=== PATIENT | male | born 1945 | race Caucasian/White ===

== ENCOUNTER → 2016-10-25 | Outpatient (CLI) | payer MEDICARE ==
[2016-10-25 16:37] LABS: CH 33.9; CHCM 33.6; HCT 45.2 % (39.0-53.0); HDW 2.93; HGB 14.7 gm/dL (13.0-17.5); MCH 32.9 pg (25.0-35.0); MCHC 32.5 g/dL (31.0-37.0); MCV 101.2 fL (80.0-100.0); Macrocytosis Slight; Mean Platelet Volume 7.8; RBC 4.46 m/uL (4.30-5.90); RDW 14.3 % (11.5-15.5)
[2016-10-25 16:50] LABS: Anion Gap 11 mmol/L; Blood Urea Nitrogen 21 mg/dL (9-20); Carbon Dioxide 29 mmol/L (22-30); Chloride 104 mmol/L (98-107); Non-African American GFR(MDRD) >60 (>60 ml/min/1.73 sqM); Potassium 4.2 mmol/L (3.5-5.1); Sodium 144 mmol/L (137-145)
== END | disposition home or self-care (01) ==
LOC: LABPAT 16:08
PROVIDERS: ATTEND Internal Medicine Interventional Cardiology
DX: Z01.812 Encounter for preprocedural laboratory examination (principal); R07.9 Chest pain, unspecified
CPT/HCPCS: 80051; 82565; 84520; 85027

== ENCOUNTER 2016-11-01 06:28 | Day surgery (SDC) | payer MEDICARE ==
[2016-10-27 14:08] VITALS: BMI 29.8
[~2016-11-01 06:28] MED LIST: ALPRAZolam 0.25 MG TAB PO PRN; ASPIRIN 325 MG TAB PO ONE; NITROGLYCERIN SL TABS 0.4 MG TAB SUBLINGUAL PRN; SODIUM CHLORIDE 0.9% 1,000 ML in EMPTY BAG 1 BAG IV ONE
[2016-11-01 06:51] VITALS: RESP 20; TEMP 98.3
[2016-11-01] MEDS ORDERED: IV FLUID CONTINUATION 1,000 ML IV ONE (07:19)
[2016-11-01] MEDS ORDERED: VERAPAMIL 2.5 MG/ML 2 ML AMP ONE (07:26)
[2016-11-01] MEDS ORDERED: SODIUM CHLORIDE 0.9% (PF) 10 ML VIAL ONE (07:26)
[2016-11-01] MEDS ORDERED: LIDOCAINE 2% INJ 20 MG/ML (20 ML MDV) ONE (07:26)
[2016-11-01] MEDS ORDERED: diphenhydrAMINE 50 MG/ML 1 ML VIAL ONE (07:27)
[2016-11-01] MEDS ORDERED: fentaNYL (PF) 50 MCG/ML 2 ML AMP ONE (07:27)
[2016-11-01] MEDS ORDERED: fentaNYL (PF) 50 MCG/ML 2 ML AMP IV ONE (07:33)
[2016-11-01] MEDS ORDERED: diphenhydrAMINE 50 MG/ML 1 ML VIAL IVP ONE (07:35)
[2016-11-01] MEDS ORDERED: LIDOCAINE 2% INJ 20 MG/ML SQ ONE (07:40)
[2016-11-01] MEDS ORDERED: VERAPAMIL SYRINGE (5 MG/10 ML) INTRAARTER ONE (07:51)
[2016-11-01] MEDS ORDERED: HEPARIN SODIUM 1,000 UNIT/ML VIAL ONE (07:56)
[2016-11-01] MEDS ORDERED: HEPARIN SODIUM 1,000 UNIT/ML VIAL IV ONE (07:57)
[2016-11-01] MEDS ORDERED: IOHEXOL 350 MG/ML 100 ML BOTTLE INJ ONE (08:03)
[2016-11-01] MEDS ORDERED: RX INFO: IV CONTRAST WAS GIVEN 1 EACH MISC MISCELLANE PRN (08:16)
[2016-11-01] MEDS ORDERED: CERTOLIZUMAB PEGOL 400 MG SQ SCH (08:30)
[2016-11-01] MEDS ORDERED: SODIUM CHLORIDE 0.9% 1,000 ML IV SCH (08:30)
[2016-11-01 10:53] VITALS: PULSE 66
[2016-11-01 10:57] VITALS: BP 133/79
[2016-11-01] MEDS ORDERED: MELOXICAM 7.5 MG TAB PO SCH (13:15)
[2016-11-01] MEDS ORDERED: FOLIC ACID 1 MG TAB PO SCH (13:15)
[2016-11-01] MEDS ORDERED: ASPIRIN 81 MG CHEW PO SCH (13:15)
[2016-11-01] MEDS ORDERED: VALSARTAN 160 MG TAB PO SCH (13:15)
[2016-11-01] MEDS ORDERED: METHOTREXATE SODIUM 2.5 MG TAB PO SCH (13:15)
[2016-11-01] MEDS ORDERED: GABAPENTIN 300 MG CAP PO SCH (15:00)
--- NOTE | 2016-11-01 17:44 | CC ---
DATE OF SERVICE: Mr. Newsome is a 71-year-old male with known history of hypertension, hyperlipidemia, who presented with occasional episodes of chest discomfort. He had a stress test that revealed lateral wall ischemia. In view of that, recommendation was made regarding cardiac catheterization. The procedure as well as the risks and complications were discussed with the patient, who was in full understanding and agreement. PROCEDURE: Patient was brought to the vat house laborer in a fasting, semi-sedated state after receiving fentanyl and Benadryl. He was draped and prepped in conventional fashion. Using Xylocaine anesthesia and Seldinger technique, a 6 Togolese sheath was introduced in the right radial artery. Selective right and left coronary angiography was performed using 5 Togolese 3-1/2 Bend right and left Juan Jose catheters. Multiple views were taken of the arteries, including hemiaxial views that were obtained. Following that, a 5 Togolese tight pigtail catheter was introduced in the left ventricle and a 30-degree ARELLANO view of the left ventricle was obtained. Following that, catheter and sheaths were removed. Hemostasis was obtained with deployment of a TR band. There were no immediate complications. Patient was returned to his room in stable condition. Of note, patient received 5000 units of intravenous heparin as well as intra-arterial Verapamil. FINDINGS FLUOROSCOPY: There is significant calcification involving all the coronary arteries. LEFT MAIN: This is a large-sized vessel bifurcating into left circumflex, left anterior descending artery. Left main coronary artery has no evidence of high-grade stenosis. LEFT ANTERIOR DESCENDING ARTERY: This is a large-sized vessel reaching toward the apex with a wrap around the apex segment giving rise to a proximal, moderately sized diagonal branch. The takeoff of the diagonal branch has a 50% plaque. The LAD beyond the diagonal branch has a 20% to 30% plaque. The rest of the vessel has no high-grade stenosis. LEFT CIRCUMFLEX: This is a non-dominant vessel, moderate in caliber, giving rise to an obtuse marginal branch. The left circumflex has mild intimal disease proximally of 20%. The rest of the vessel has no high-grade stenosis. RIGHT CORONARY ARTERY: This is a large dominant vessel bifurcating into PDA and posterolateral segment and branches, tortuous in the proximal segment. The right PDA has a plaque of about 20% to 30%. The rest of the vessel has no high-grade stenosis. LEFT VENTRICULOGRAM: Left ventriculogram was performed in 30-degree ARELLANO view and revealed normal left ventricular size and systolic function. Ejection fraction is 60%. There was no significant mitral regurgitation. HEMODYNAMICS: There was no gradient across the aortic valve. The left ventricular end-diastolic pressure was 16 mmHg. CONCLUSION: 1. Calcified coronary arteries. 2. Mild disease in the RCA and the left circumflex with mild to moderate disease in the LAD and the diagonal branch. 3. Normal left ventricular size and systolic function. RECOMMENDATION: In view of findings and anatomy, I recommended maximizing medical therapy with aggressive coronary risk modifications. Those findings and recommendations were discussed with the patient and his family. They are in full understanding and agreement.
--- NOTE | 2016-11-01 17:46 | LTR ---
November 01, 2016 RE: Florin Newsome Dear Dr. Erwin, I had the pleasure of performing cardiac catheterization on Mr. Newsome at [facility] on November 01, and a full copy of the procedure will be forwarded to you. In brief, he was found to have mild to moderate coronary artery disease with calcified coronary arteries and preserved left ventricular systolic function. Based on those findings, I have recommended continued medical therapy with the aggressive risk factor modifications you have initiated. Thank you again for allowing me to participate in his care. Please feel free to call with any questions. Sincerely, GABINO ANNE MD
[2016-11-01] MEDS ORDERED: ATORVASTATIN 40 MG TAB PO SCH (21:00)
[2016-11-01] MEDS ORDERED: LATANOPROST 0.005% OPHTH DROPS 2.5 ML BTL BOTH EYES SCH (21:00)
[2016-11-02] MEDS ORDERED: CHOLECALCIFEROL 1,000 UNIT TAB PO SCH (12:00)
== END 2016-11-01 14:34 | disposition home or self-care (01) ==
LOC: CATHCVL 06:28
PROVIDERS: ATTEND Internal Medicine Interventional Cardiology
DX: I25.10 Atherosclerotic heart disease of native coronary artery without angina pectoris (principal); R94.39 Abnormal result of other cardiovascular function study; R07.89 Other chest pain; I10 Essential (primary) hypertension; E78.2 Mixed hyperlipidemia; E78.00 Pure hypercholesterolemia, unspecified; M06.9 Rheumatoid arthritis, unspecified; Z82.49 Family history of ischemic heart disease and other diseases of the circulatory system; Z87.891 Personal history of nicotine dependence; Z79.82 Long term (current) use of aspirin; Z79.899 Other long term (current) drug therapy
CPT/HCPCS: 93458; C1894; C1769; J2001; J1200; Q9967; J3010; J1644

== ENCOUNTER → 2018-06-18 | Outpatient (CLI) | payer MEDICARE ==
--- NOTE | 2018-06-18 08:21 | CT ---
EXAMINATION TYPE: CT sinus wo con DATE OF EXAM: 06/18/2018 COMPARISON: None HISTORY: Recurrent sinus infection CT DLP: 569.1 mGycm. Automated Exposure Control for Dose Reduction was Utilized. TECHNIQUE: CT scan of the sinuses is performed without contrast, axial images are obtained, coronal r eformatted images are also reviewed. FINDINGS: There is mild mucosal thickening involving the frontal, ethmoidal, sphenoidal, and maxillar y sinuses. No air-fluid levels. There is a nasal septal deviation. The ostiomeatal complex is patent bilaterally on the coronal image s. Visualized portion of mastoid air cells show no abnormal opacification. The globes are intact bilate rally. IMPRESSION: 1. Mild changes of chronic sinusitis.
== END | disposition home or self-care (01) ==
LOC: RADCTMAIN 07:57
PROVIDERS: ATTEND Otolaryngology
DX: J32.9 Chronic sinusitis, unspecified (principal)
CPT/HCPCS: 70486

== ENCOUNTER → 2019-01-14 | Outpatient (CLI) | payer MEDICARE ==
--- NOTE | 2019-01-15 09:08 | XR ---
EXAMINATION TYPE: XR chest 2V DATE OF EXAM: 01/14/2019 COMPARISON: NONE TECHNIQUE: PA and lateral views submitted. HISTORY: Cough FINDINGS: The lungs are clear and there is no pneumothorax, pleural effusion, or focal pneumonia. Hypertrophi c change of the spine. Mild prominence of the upper mediastinum likely related to ectatic vasculature . Biapical pleural thickening. Arthropathy of the shoulders. IMPRESSION: 1. No acute process. If symptoms persist consider CT scan.
== END | disposition home or self-care (01) ==
LOC: RADXRMAIN 15:44
PROVIDERS: ATTEND Internal Medicine
DX: R05 Cough (principal)
CPT/HCPCS: 71046

== ENCOUNTER → 2019-07-24 | Day surgery (SDC) | payer MEDICARE ==
[2019-07-19 13:03] VITALS: BMI 28.5
[~2019-07-24] MED LIST changes: -ALPRAZolam 0.25 MG TAB PO PRN; -ASPIRIN 325 MG TAB PO ONE; +IOPAMIDOL-300 100ML BTL INJ ONE; +IOPAMIDOL-370 100ML BTL INJ ONE; +LIDOCAINE 1% INJ 10MG/ML (20 ML MDV) SQ ONE; +MIDAZOLAM 2 MG/2 ML VIAL IVP ONE; -NITROGLYCERIN SL TABS 0.4 MG TAB SUBLINGUAL PRN; +SODIUM CHLORIDE 0.9% 1,000 ML IV ONE; +SODIUM CHLORIDE 0.9% 1,000 ML IV SCH
[2019-07-24 10:07] VITALS: RESP 16; TEMP 98
[2019-07-24 10:30] LABS: Basophils # (A) 0.1 k/uL (0-0.2); Basophils % (A) 1 %; Eosinophils # (A) 0.1 k/uL (0-0.7); Eosinophils % (A) 1 %; HCT 47.1 % (39.0-53.0); HGB 15.4 gm/dL (13.0-17.5); Lymphocytes # (A) 1.8 k/uL (1.0-4.8); Lymphocytes % (A) 19 %; MCH 32.6 pg (25.0-35.0); MCHC 32.7 g/dL (31.0-37.0); MCV 99.8 fL (80.0-100.0); Mean Platelet Volume 6.9; Monocytes # (A) 0.6 k/uL (0-1.0); Monocytes % (A) 7 %; Neutrophils # (A) 6.7 k/uL (1.3-7.7); Neutrophils % (A) 71 %; Platelet Count 211 k/uL (150-450); RBC 4.72 m/uL (4.30-5.90); RDW 13.6 % (11.5-15.5); WBC 9.5 k/uL (3.8-10.6)
[2019-07-24 10:46] LABS: Calcium 9.3 mg/dL (8.4-10.2); Potassium 3.9 mmol/L (3.5-5.1)
--- NOTE | 2019-07-24 11:47 | AN ---
ANGIOGRAPHY REPORT DATE OF SERVICE: 07/24/2019 PERFORMING PHYSICIAN: Noble Chappell MD, Sweep Press Operator. PROCEDURE PERFORMED: 1. An abdominal aortogram. 2. Bilateral lower extremities runoff. INDICATION: This is a very pleasant 73-year-old gentleman who sees Dr. Mcneill in the office as an outpatient with history of hypertension as well as dyslipidemia who was experiencing discomfort in the right leg, quite concerning for intermittent claudication. He does have diminished pedal pulses. Dr. Mcneill performed an arterial duplex study on him and that revealed a critical left SFA and severe right SFA. Because of that an aortogram with runoff was advised. APPROACH: Right common femoral artery. COMPLICATION: None. LEVEL OF SEDATION: Moderate with a sedation length of 20 minutes. PROCEDURE DESCRIPTION: After obtaining an informed consent, the patient was brought to the cardiac senior cytogenetics laboratory director. The right common femoral artery was cannulated using micropuncture technique, the micropuncture wire passed easily, then I placed a 5-Venezuelan sheath. I did after that an abdominal aortogram and bilateral lower extremities runoff using 5-Venezuelan pigtail catheter which initially placed at the level of the renal arteries then it was pulled into above the bifurcation of the aorta, to right and left common iliac arteries. The procedure was completed without any complication. SELECTIVE PERIPHERAL ANGIOGRAM: 1. 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 It is calcified beside that. 2. Common iliac arteries are extremely calcified. The right common iliac artery appeared to have mild disease only. The left common iliac artery appeared to have a plaque in the range of 60% to 70%. 3. Internal iliac arteries are patent. 4. External iliac arteries are patent. 5. Common femoral artery, the right common femoral artery has mild disease only and the left common femoral artery appeared to be angiographically normal. 6. Profunda, both profunda are patent. 7. SFA, the right SFA appeared to have mild disease only and the left SFA has a short area of chronic total occlusion. 8. Popliteal,. the right popliteal has a short area of chronic total occlusion and the left popliteal appeared to have mild disease only. 9. Below the knee, there are 3-vessel runoff below the knee bilaterally. CONCLUSION: 1. Intermediate to severe disease involving the left common iliac artery. 2. Critical/occluded right popliteal. 3. Critical/occluded left SFA. 4. Three vessel runoff below the knee bilaterally. POSTPROCEDURE MANAGEMENT: 1. The patient will be scheduled to undergo a SWIMMING POOL PLASTERER HELPER for the right as well as left femoral-popliteal segments. 2. Also I would address the gradient across the left common iliac artery to assess for the need for angioplasty and stenting. MMDINORA / SEAN: [id number] /
[2019-07-24 14:26] VITALS: PULSE 88
[2019-07-24 17:55] VITALS: BP 136/73
--- NOTE | 2019-07-25 09:19 | IR ---
EXAMINATION TYPE: IR angio abdominal w runoff DATE OF EXAM: 07/24/2019 COMPARISON: NONE HISTORY: Fluoroscopy time. Fluoroscopy was provided to the referring clinician.
== END ==
LOC: CATHCVL 09:29
PROVIDERS: ATTEND Internal Medicine Interventional Cardiology
DX: I70.213 Atherosclerosis of native arteries of extremities with intermittent claudication, bilateral legs (principal); I70.8 Atherosclerosis of other arteries; I25.10 Atherosclerotic heart disease of native coronary artery without angina pectoris; I10 Essential (primary) hypertension; E78.2 Mixed hyperlipidemia; Z79.899 Other long term (current) drug therapy; Z79.82 Long term (current) use of aspirin; Z98.41 Cataract extraction status, right eye
CPT/HCPCS: 75625; 75716; 36200; 80048; 85025; C1769 ×5; C1894; J2250; J2001; Q9967 ×2

== ENCOUNTER → 2019-09-09 | Outpatient (CLI) | payer MEDICARE ==
[2019-09-09 08:49] LABS: HCT 44.9 % (39.0-53.0); HGB 15.1 gm/dL (13.0-17.5); MCHC 33.6 g/dL (31.0-37.0); Mean Platelet Volume 6.3; Platelet Count 279 k/uL (150-450); RBC 4.58 m/uL (4.30-5.90); RDW 14.3 % (11.5-15.5); WBC 7.3 k/uL (3.8-10.6)
== END | disposition home or self-care (01) ==
LOC: LABPAT 07:59
PROVIDERS: ATTEND Internal Medicine Interventional Cardiology
DX: Z01.812 Encounter for preprocedural laboratory examination (principal); I70.213 Atherosclerosis of native arteries of extremities with intermittent claudication, bilateral legs
CPT/HCPCS: 36415; 80051; 82565; 84520; 85027

== ENCOUNTER 2019-09-11 06:32 | Day surgery (SDC) | payer MEDICARE ==
[2019-09-04 15:55] VITALS: BMI 28.5
[~2019-09-11 06:32] MED LIST changes: +ALPRAZolam 0.25 MG TAB PO PRN; +ALPRAZolam 0.5 MG TAB PO PRN; +ASPIRIN 325 MG TAB PO STA; -IOPAMIDOL-300 100ML BTL INJ ONE; -IOPAMIDOL-370 100ML BTL INJ ONE; -LIDOCAINE 1% INJ 10MG/ML (20 ML MDV) SQ ONE; -MIDAZOLAM 2 MG/2 ML VIAL IVP ONE; -SODIUM CHLORIDE 0.9% 1,000 ML IV ONE; -SODIUM CHLORIDE 0.9% 1,000 ML IV SCH; +ZOLPIDEM 5 MG TAB PO PRN
[2019-09-11] MEDS ORDERED: SODIUM CHLORIDE 0.9% 1,000 ML IV ONE (07:15)
[2019-09-11] MEDS ORDERED: MIDAZOLAM 2 MG/2 ML VIAL IV ONE ×2 (08:02→08:23)
[2019-09-11] MEDS ORDERED: LIDOCAINE 1% INJ 10MG/ML (20 ML MDV) SQ ONE (08:05)
[2019-09-11] MEDS ORDERED: HEPARIN SODIUM 1,000 UN/ML (10ML VL) IV ONE (08:10)
[2019-09-11] MEDS ORDERED: CLOPIDOGREL 75 MG TAB PO ONE (09:02)
[2019-09-11] MEDS ORDERED: NITROGLYCERIN 1000MCG/10ML SYRINGE INTRAARTER ONE (09:04)
[2019-09-11] MEDS ORDERED: niCARdipine Syringe (1,000 mcg/10 mL) INTRAARTER ONE (09:04)
[2019-09-11] MEDS ORDERED: IOPAMIDOL-250 100ML BTL INTRAARTER ONE (09:52)
[2019-09-11] MEDS ORDERED: SODIUM CHLORIDE 0.9% 1,000 ML IV SCH (10:30)
--- NOTE | 2019-09-11 14:48 | AN ---
ANGIOGRAPHY REPORT DATE OF SERVICE: 09/11/2019 PERFORMING PHYSICIAN: Noble Chappell MD. PROCEDURE PERFORMED: 1. Left lower extremity angiogram. 2. Selective bilateral common femoral arteries angiogram. 3. Intravascular ultrasound IVUS of the left SFA and right common iliac artery. 4. An atherectomy of the left SFA using the TurboHawk device with extraction of plaque. 5. Successful balloon angioplasty of the left SFA using 6 x 120 mm Inpact drug-coated stent balloon with an excellent angiographic result and reduction of stenosis from 99% to 0%. 6. Successful stenting of the right and left common iliac arteries using 8 x 39 mm balloon expandable stent with an excellent angiographic results. INDICATION: This is a pleasant 74-year-old gentleman who sees Dr. Mcneill and Dr. Erwin in the office as an outpatient with history of hypertension and dyslipidemia who was experiencing bilateral lower extremities intermittent claudication, Fontan class IIA. He underwent an aortogram with runoff, which revealed severe PAD related to atherosclerosis. He was brought today to undergo an intervention on the left leg. APPROACH: Right common femoral artery and left common femoral artery. COMPLICATION: None. LEVEL OF SEDATION: Moderate with sedation length of 110 minutes. PROCEDURE: Description after obtaining an informed consent, the patient was brought to the cardiac pathology laboratory technologist. The right common femoral artery was cannulated using micropuncture technique, the micropuncture wire passed easily then I placed a 6-Macanese sheath 11 cm at the right common femoral artery. Anticoagulation was initiated with heparin and the patient was given 10,000 units of heparin at the beginning of the procedure with continuous ECT monitoring throughout the procedure. Subsequently, I did select the left SFA using 0.035 [place] Advantage wire with the backup support of 5-Macanese Rim catheter. After that, I attempted advancing study. I attempted exchanging my 11 cm 6-Macanese sheath into 70 cm 6-Macanese Raabe sheath, but the sheath will not make the turn from the right to the left common iliac artery. There was a plaque appeared to be significant involving the left common iliac artery. I attempted changing the sheath dilator into multipurpose catheter and changing my wire into Super core wire but in spite of that, the sheath will not make the turn. At that point, I decided to dilate the lesion in the left common iliac artery. I did use 6.0 x 20 mm balloon and I did multiple inflation in the lesion involving the left common iliac artery. With that, I was able to advance the sheath to the left common femoral artery. I did left lower extremity angiogram which revealed 2 vessel runoff below the knee with anterior tibial and peroneal as well as extremely calcified popliteal and SFA. The SFA has 2 lesions, 1 critical involving the midportion and 1 moderate to severe involving the very proximal portion just below the profunda takeoff. After that, I did confirm that using intravascular ultrasound which revealed extremely calcified left popliteal and left SFA with the diameter of 6 mm. Subsequently, I did do atherectomy of the left SFA using the TurboHawk device over 0.[address] wire. I did multiple runs. After that I did balloon angioplasty initially using 6 x 120 mm regular balloon and then 6 x 120 mm Inpact drug coated balloon which was inflated under 6 atmospheres for 3 minutes. The following angiogram showed nonflow limiting dissection which I did IVUS afterward and did show the dye stent did not show significant flow behind the dissection and because of that, I decided to leave the artery alone. Subsequently, I did pull the long sheath to the right common iliac artery. I did access the left common femoral artery using micropuncture technique under ultrasound guidance, the micropuncture wire passed easily, then I placed a 23 cm Brite tip 7- Macanese sheath in the left common femoral artery. After that, I did intravascular ultrasound IVUS of the right iliac, which revealed a diameter of 8-9 mm. At that point, I did kissing stents of both the right and left common iliac arteries using on the right side 8 x 39 using Omnilink balloon expandable stent and on the left 8 x 39 mm I cast balloon expandable stent. Both the stents were positioned under fluoroscopy guidance and deployed under fluoroscopy guidance after angiogram was performed to assess the positions of the stents. I post-dilated the stent on the left side using 9 mm balloon. The final angiogram showed great angiographic results and the procedure was completed without any complication. POSTPROCEDURE MANAGEMENT: 1. VALET RUNNER of the right SFA. 2. Aggressive cholesterol control. 3. Dual anti-platelet therapy. 4. Follow up with the patient. MMODL / IJN: [id number] /
[2019-09-11] MEDS: ACETAMINOPHEN TAB 500 MG TAB PO PRN (17:20)
[2019-09-12] MEDS: ACETAMINOPHEN TAB 500 MG TAB PO PRN (00:53)
[2019-09-12 02:16] VITALS: RESP 18
[2019-09-12 06:42] LABS: Basophils % (A) 0 %; Eosinophils % (A) 1 %; HCT 41.6 % (39.0-53.0); HGB 14.3 gm/dL (13.0-17.5); Lymphocytes # (A) 1.3 k/uL (1.0-4.8); Lymphocytes % (A) 16 %; MCH 33.3 pg (25.0-35.0); MCHC 34.4 g/dL (31.0-37.0); MCV 96.8 fL (80.0-100.0); Mean Platelet Volume 6.2; Monocytes # (A) 0.5 k/uL (0-1.0); Monocytes % (A) 6 %; Neutrophils # (A) 6.2 k/uL (1.3-7.7); Neutrophils % (A) 76 %; Platelet Count 272 k/uL (150-450); RBC 4.29 m/uL (4.30-5.90); RDW 14.2 % (11.5-15.5); WBC 8.1 k/uL (3.8-10.6)
[2019-09-12 06:53] LABS: African American GFR (CKD) >90 (>60 ml/min/1.73 sqM); Anion Gap 6 mmol/L; Blood Urea Nitrogen 15 mg/dL (9-20); Carbon Dioxide 24 mmol/L (22-30); Chloride 106 mmol/L (98-107); Glucose 120 mg/dL (74-99); Non-African American GFR(CKD) >90 (>60 ml/min/1.73 sqM); Potassium 3.5 mmol/L (3.5-5.1); Sodium 136 mmol/L (137-145)
[2019-09-12] MEDS ORDERED: NON FORMULARY DRUG (Certolizumab Pegol [Cimzia] 400 MG) SQ SCH (08:00)
[2019-09-12 08:27] VITALS: BP 137/84; PULSE 95; TEMP 98.3
[2019-09-12] MEDS ORDERED: ASPIRIN 81 MG PO SCH (09:00)
[2019-09-12] MEDS ORDERED: HYDROCHLOROTHIAZIDE 12.5 MG CAP PO SCH (09:00)
[2019-09-12] MEDS ORDERED: VALSARTAN 160 MG TAB PO SCH (09:00)
[2019-09-12] MEDS ORDERED: CLOPIDOGREL 75 MG TAB PO SCH (09:00)
[2019-09-12] MEDS ORDERED: FOLIC ACID 1 MG TAB PO SCH (09:00)
--- NOTE | 2019-09-12 09:56 | IR ---
EXAMINATION TYPE: IR patrol captain femoral popliteal DATE OF EXAM: 09/11/2019 COMPARISON: NONE HISTORY: Fluoroscopy time. Fluoroscopy was provided to the referring clinician.
[2019-09-12] MEDS ORDERED: ATORVASTATIN 20 MG TAB PO SCH (21:00)
[2019-09-12] MEDS ORDERED: amLODIPine 5 MG TAB PO SCH (21:00)
[2019-09-12] MEDS ORDERED: LATANOPROST 0.005% OPHTH DROPS 2.5 ML BTL BOTH EYES SCH (21:00)
[2019-09-13] MEDS ORDERED: CHOLECALCIFEROL 1,000 UNIT TAB PO SCH (09:00)
--- NOTE | 2019-09-13 20:59 | DS ---
DISCHARGE SUMMARY ADMISSION DATE: September 11, 2019 DISCHARGE DATE: September 12, 2019 BRIEF HISTORY: This is a very pleasant 74-year-old gentleman who sees Dr. Mcneill in the office as an outpatient who was experiencing bilateral lower extremities intermittent claudication. He underwent a peripheral angiogram and that revealed severe PAD. He underwent successful BTA of the left SFA as well as right and left common iliac arteries with excellent angiographic results and without any complication from right and left groin approach. The patient was seen the following day in the hospital. He was asymptomatic. Both groins are soft and nontender without any bruises. The patient is going to be discharged home on dual anti-platelet therapy and statin and I will follow up with him in the office next week. MMODL / IJN: [id number] /
[2019-09-17] MEDS ORDERED: METHOTREXATE SODIUM 2.5 MG TAB PO SCH (09:00)
== END 2019-09-12 10:35 | disposition home or self-care (01) ==
LOC: CATHCVL 06:32 → 3SCARD 10:51 → CATHCVL 09-12 10:35
PROVIDERS: ATTEND Internal Medicine Interventional Cardiology
DX: I70.212 Atherosclerosis of native arteries of extremities with intermittent claudication, left leg (principal); I10 Essential (primary) hypertension; E78.5 Hyperlipidemia, unspecified; Z79.82 Long term (current) use of aspirin; Z79.899 Other long term (current) drug therapy
CPT/HCPCS: 37221; 37225; 37252; 37253; 80048; 85025; C1894 ×2; C1725 ×3; C1874; C1876; C1769 ×5; C1714; C1753; C2623; C1760; J2250; J2001; J1644; Q9966

== ENCOUNTER → 2019-10-16 | Outpatient (CLI) | payer MEDICARE ==
--- NOTE | 2019-10-16 12:22 | CT ---
EXAMINATION TYPE: CT angio neck DATE OF EXAM: 10/16/2019 COMPARISON: None HISTORY: 74-year-old male abnormal US at doctors office. Stenosis and occlusion of bilateral carotids . I65.23 TECHNIQUE: Contiguous axial scanning of the neck performed with IV Contrast, patient injected with 65 mL of Isovue 370. Coronal/sagittal MIP reconstructions performed. 3-D reconstructions generated on a dedicated independent workstation. CT DLP: 366.4 mGycm Automated exposure control for dose reduction was used. FINDINGS: Mild emphysematous change in the visualized upper lungs. Ectatic upper descending thoracic aorta 3.2 cm. Mild atherosclerotic arch calcifications. Conventional vessel branching anatomy. Possible moderate to severe atherosclerotic narrowing at the origin of the vertebral arteries. The le ft vertebral artery is dominant. Moderate to severe atherosclerotic changes at the right bifurcation with severe, 90% focal narrowing at the right carotid bulb. The remainder of the right ICA is patent with moderate atherosclerotic sobia cifications in the bilateral carotid siphons. The right bifurcation occurs 2.8 cm below the angle of the mandible. Left common carotid artery is patent. Moderate atherosclerotic changes at the left bifurcation with mild, less than 50% stenosis in the car otid bulb. IMPRESSION: 1. SEVERE ATHEROSCLEROTIC STENOSIS AT THE RIGHT CAROTID BULB ESTIMATED AT 90%. 2. MILD, LESS THAN 50% STENOSIS LEFT CAROTID BULB. 3. DOMINANT LEFT VERTEBRAL ARTERY. THERE IS AT LEAST MODERATE ATHEROSCLEROTIC NARROWING AT THE BILATE RAL VERTEBRAL ARTERY ORIGINS.
== END | disposition home or self-care (01) ==
LOC: RADCTMAIN 08:09
PROVIDERS: ATTEND Internal Medicine Interventional Cardiology
DX: I65.23 Occlusion and stenosis of bilateral carotid arteries (principal); I67.2 Cerebral atherosclerosis
CPT/HCPCS: 82565; 84520; 70498; 36415; Q9967

== ENCOUNTER → 2019-11-16 | Outpatient (CLI) | payer MEDICARE ==
[2019-11-16 12:00] LABS: Basophils # (A) 0.1 k/uL (0-0.2); Basophils % (A) 1 %; Eosinophils # (A) 0.2 k/uL (0-0.7); Eosinophils % (A) 2 %; HCT 45.4 % (39.0-53.0); HGB 14.9 gm/dL (13.0-17.5); Lymphocytes # (A) 1.8 k/uL (1.0-4.8); Lymphocytes % (A) 21 %; MCH 32.7 pg (25.0-35.0); MCHC 32.8 g/dL (31.0-37.0); MCV 99.8 fL (80.0-100.0); Mean Platelet Volume 7.9; Monocytes # (A) 0.4 k/uL (0-1.0); Monocytes % (A) 5 %; Neutrophils # (A) 5.7 k/uL (1.3-7.7); Neutrophils % (A) 68 %; Platelet Count 212 k/uL (150-450); RBC 4.55 m/uL (4.30-5.90); RDW 13.7 % (11.5-15.5); WBC 8.3 k/uL (3.8-10.6)
[2019-11-16 12:12] LABS: African American GFR (CKD) >90 (>60 ml/min/1.73 sqM); Anion Gap 8 mmol/L; Blood Urea Nitrogen 25 mg/dL (9-20); Carbon Dioxide 27 mmol/L (22-30); Chloride 104 mmol/L (98-107); Non-African American GFR(CKD) 85 (>60 ml/min/1.73 sqM); Potassium 3.8 mmol/L (3.5-5.1); Sodium 139 mmol/L (137-145)
== END | disposition home or self-care (01) ==
LOC: LABPAT 11:00
PROVIDERS: ATTEND Surgery
DX: Z01.812 Encounter for preprocedural laboratory examination (principal); I65.21 Occlusion and stenosis of right carotid artery
CPT/HCPCS: 36415; 80051; 82565; 84520; 85025

== ENCOUNTER 2019-11-19 06:11 | Inpatient (IN) | payer MEDICARE ==
[2019-11-14 10:35] VITALS: BMI 28.5
[~2019-11-19 06:11] MED LIST changes: -ALPRAZolam 0.25 MG TAB PO PRN; -ALPRAZolam 0.5 MG TAB PO PRN; -ASPIRIN 325 MG TAB PO STA; +HYDROmorphone 0.5 MG/0.5 ML SYRINGE IVP PRN; +LIDOCAINE 1% 20 ML VIAL (10MG/ML) FOR IV START INTRADERMA PRN; +ONDANSETRON 4 MG/2 ML VIAL IVP ONE; -SODIUM CHLORIDE 0.9% 1,000 ML in EMPTY BAG 1 BAG IV ONE; -ZOLPIDEM 5 MG TAB PO PRN
[2019-11-19] MEDS: LACTATED RINGERS 1,000 ML IV SCH ×4 (06:47→22:00)
[2019-11-19] MEDS ORDERED: DEXAMETHASONE SOD PHOSPHATE 10 MG/ML 1 ML VIAL IV ONE (06:52)
[2019-11-19] MEDS ORDERED: NITROGLYCERIN-D5W PMX 50 MG in DEXTROSE/WATER 1 250ML.BAG IV SCH (07:00)
[2019-11-19] MEDS ORDERED: MIDAZOLAM 2 MG/2 ML VIAL IV ONE (07:00)
[2019-11-19] MEDS ORDERED: NEOSTIGMINE 1 MG/ML 10 ML VIAL ONE (07:45)
[2019-11-19] MEDS ORDERED: fentaNYL (PF) 50 MCG/ML 2 ML AMP ONE (07:45)
[2019-11-19] MEDS ORDERED: LIDOCAINE 1% INJ 10MG/ML (20 ML MDV) ONE (07:45)
[2019-11-19] MEDS ORDERED: ROCURONIUM BROMIDE 10 MG/ML 5 ML VIAL IV ONE (07:45)
[2019-11-19] MEDS ORDERED: PHENYLEPHRINE-0.9% NACL SYG 1 MG/10 ML SYRINGE ONE (07:45)
[2019-11-19] MEDS ORDERED: GLYCOPYRROLATE 0.2 MG/ML 2 ML VIAL ONE (07:45)
[2019-11-19] MEDS ORDERED: MIDAZOLAM 2 MG/2 ML VIAL ONE (07:45)
[2019-11-19] MEDS ORDERED: HEPARIN SODIUM,PORCINE 10,000 UNIT/ML 1 ML VIAL ONE (07:45)
[2019-11-19] MEDS ORDERED: PROPOFOL 10 MG/ML 20 ML VIAL IV ONE (07:45)
--- NOTE | 2019-11-19 07:47 | P.GSHP ---
History of Present Illness H&P Date: 11/19/19 Chief Complaint: carotid stenosis 74 year old male with history of carotid stenosis presents to the hospital for elective right carotid endarterectomy with patch angioplasty. Patient was seen in the office for right carotid stenosis found on carotid doppler which demonstrated greater than 80% stenosis at the right internal carotid artery. CTA was then obtained demonstrating greater than 90% stenosis of the right carotid bulb. He denies any lateralizing symptoms such as weakness, vision changes or speech issues. - Review of Systems All systems: negative (what is mentioned in the HPI or PMH.) Past Medical History Past Medical History: Chest Pain / Angina, Eye Disorder, GERD/Reflux, Hearing Disorder / Deafness, Hyperlipidemia, Hypertension, Rheumatoid Arthritis (RA), Vascular Disorder Additional Past Medical History / Comment(s): Right cataract, bilateral Glaucoma, RINGING IN RT EAR. Poor circulatrion in legs.neuropathy both legs with N/T toes History of Any Multi-Drug Resistant Organisms: None Reported Past Surgical History: Heart Catheterization Additional Past Surgical History / Comment(s): COLONOSCOPY. Left catartact surgery with lens placement. rt iliac stent, lt iliac and lt leg stent 09/26 Past Anesthesia/Blood Transfusion Reactions: No Reported Reaction Past Psychological History: No Psychological Hx Reported Smoking Status: Former smoker Past Alcohol Use History: Occasional Additional Past Alcohol Use History / Comment(s): SMOKED 53 YEARS, 1 PPD OR LESS, QUIT 2014. Past Drug Use History: None Reported - Past Family History Mother Family Medical History: CVA/TIA Father Family Medical History: Coronary Artery Disease (CAD) Brother(s) Family Medical History: Cancer Additional Family Medical History / Comment(s): Prostate cancer. Medications and Allergies Home Medications Medication Instructions Recorded Confirmed Type Aspirin 81 mg PO DAILY 10/27/16 11/14/19 History Certolizumab Pegol [Cimzia] 400 mg SQ Q30D 10/27/16 11/14/19 History Cholecalciferol [Vitamin D3 (25 1,000 unit PO MOWEFR 10/27/16 11/14/19 History Mcg = 1000 Iu)] Folic Acid 1 mg PO DAILY 10/27/16 11/14/19 History Latanoprost Ophth [Xalatan 0.005%] 1 drops BOTH EYES HS 10/27/16 11/14/19 History Methotrexate Sodium [Methotrexate] 7 tab PO TU 10/27/16 11/14/19 History Valsartan/Hydrochlorothiazide 1 each PO DAILY 10/27/16 11/14/19 History [Valsartan-Hctz 320-12.5 mg Tab] Atorvastatin [Lipitor] 20 mg PO HS 07/19/19 11/14/19 History amLODIPine [Norvasc] 5 mg PO HS 07/19/19 11/14/19 History Clopidogrel [Plavix] 75 mg PO DAILY #90 tab 09/12/19 11/14/19 Rx Allergies Allergy/AdvReac Type Severity Reaction Status Date / Time No Known Allergies Allergy Verified 11/19/19 06:30 Surgical - Exam Vital Signs Temp Pulse Resp BP Pulse Ox 97.7 F 80 16 130/60 97 11/19/19 06:29 11/19/19 06:29 11/19/19 06:29 11/19/19 06:29 11/19/19 06:29 - General well developed, well nourished, no distress - Eyes PERRL, normal ocular movement - ENT normal pinna - Neck no masses - Respiratory normal expansion, clear to auscultation - Cardiovascular Rhythm: regular - Abdomen Abdomen: soft, non tender - Integumentary no rash, no growths - Neurologic no focal deficits. Strength equal bilaterally. normal coordination, normal sensation - Musculoskeletal normal gait - Psychiatric oriented to time, oriented to person, oriented to place, speech is normal Results CTA neck reviewed. Assessment and Plan Assessment: 1. Right asymptomatic carotid stenosis >90% 2. PAD with history of lower extremity revascularization 3. HTN 4. CAD Plan: To OR for right CEA with patch angioplasty.
[2019-11-19] MEDS ORDERED: LIDOCAINE 1% INJ 10MG/ML (20 ML MDV) SQ ONE ×2 (08:21→09:59)
[2019-11-19] MEDS ORDERED: THROMBIN (BOVINE) 5,000 UNIT VIAL TOPICAL ONE ×2 (08:44)
[2019-11-19] MEDS ORDERED: GELATIN SPONGE,ABSORB (LARGE) 1 EACH SPONGE TOPICAL ONE (08:44)
[2019-11-19] MEDS ORDERED: LACTATED RINGERS 1,000 ML IV ONE ×2 (09:37)
--- NOTE | 2019-11-19 10:03 | P.OP ---
Description of Procedure: Date of Procedure: 11/19/2019 Preoperative Diagnosis: Right Internal carotid artery stenosis greater than 90% Postoperative Diagnosis: Same Procedure(s) Performed: Right carotid endarterectomy with patch angioplasty Anesthesia: GANESH Surgeon: Liam Cam Estimated Blood Loss (ml): 50 IV Fluids: 750 Urine Output: To 25 Pathology: Right carotid plaque Condition: stable Disposition: PACU Indications for Procedure: 74-year-old gentleman with history of carotid stenosis originally presented to the office secondary to increased stenosis in his right internal carotid artery. He had been followed previously and over the last several months it is noted that his stenosis now was greater than 80%. He was sent for CT angiogram of the neck and it was determined that he had greater than 90% stenosis of the right internal carotid artery just after the takeoff. He presents today for elective right carotid endarterectomy with patch a ngioplasty. Description of Procedure: After written informed consent was obtained the patient all risks benefits and competitions were described the patient is brought to the operative suite and laid in a supine position. The area of the neck was prepped and draped in usual sterile fashion after appropriate anesthetic was performed per the anesthesiologist. A timeout was performed in normal fashion antibiotics were administered prior to incision. An oblique incision was then created just anterior to the sternocleidomastoid musculature with a 10 blade scalpel and dissection was carried down to the carotid sheath. The carotid sheath was then entered after facial vein was located and suture ligated in normal fashion. The common carotid, internal carotid, external carotid and superior thyroid arteries were located and dissected free in a meticulous fashion circumferentially and controlled with vessel loops. Attention was then placed to locating the vagus nerve as well as hypoglossal nerve which were both spared. Once controlled patient was administered heparin and followed with ACTs for appropriate heparinization. Once ACT was above 200 the proximal and distal aspects of the dissection were then controlled with vascular clamps. Arteriotomy was then created with 11 blade scalpel and extended with Ambrose Abad scissors. Utilizing pressure tubing stump pressures were obtained and were mean of 68. No shunt was required and endarterectomy was then performed with a Homer and elevator. The plaque was then feathered at the distal aspect and the internal carotid artery and removed. The area was copiously irrigated with heparinized saline and all free debris was removed. A 7-0 Prolene suture was then placed to tack the distal aspect of the dissection at the internal carotid artery. A 0.8 x 8 cm bovine pericardial patch was then chosen and patch angioplasty was performed with 6-0 Prolene suture in a running fashion. Prior to last sutures being placed the inflow was released flushing any free debris out of the patch. This was reclamped and the internal carotid artery was released revealing good brisk flow and was once again reclamped. The external carotid and superior thyroid artery were then released followed by the common carotid artery to allow any free debris to be flushed into the external system. Final sutures were placed and secured. Internal carotid artery control was then released. Good pulsatile flow was noted through the patch and a Doppler was utilized demonstrating good brisk flow into the internal, external carotid arteries without any signs of obstruction. Hemostasis was then assured with Surgicel. A 10-Nepali SAMANTHA drain was then placed in normal fashion and secured with 3-0 nylon suture. The incision was then closed in a multilayer fashion after hemostasis was assured. The skin was then cleansed and dressings were placed. Patient tolerated the procedure well and was following commands and moving all extremities. Patient was then sent to PACU for recovery.
[2019-11-19] MEDS ORDERED: ACETAMINOPHEN TAB 325 MG TAB PO PRN (10:04)
[2019-11-19] MEDS ORDERED: BENZOCAINE/MENTHOL LOZENG 1 EACH LOZENGE MUCOUS MEM PRN (10:04)
[2019-11-19] MEDS ORDERED: MAG HYDROX/AL HYDROX/SIMETH 30 ML CUP PO PRN (10:04)
[2019-11-19] MEDS ORDERED: TRIMETHOBENZAMIDE 100 MG/ML 2 ML VIAL IM PRN (10:04)
[2019-11-19 11:43] LABS: Glucose,Whole Blood 133 mg/dL (75-99)
[2019-11-19] MEDS: PHENYLEPHRINE 40 MG in SODIUM CHLORIDE 0.9% 250 ML IV SCH ×2 (11:48→23:08)
[2019-11-19] MEDS ORDERED: METHOTREXATE SODIUM 2.5 MG TAB PO SCH (12:00)
--- NOTE | 2019-11-19 12:29 | P.CONS ---
History of Present Illness - Reason for Consult Consult date: 11/19/19 Medical management Requesting physician: Liam Cam - History of Present Illness This is a 74-year-old male patient who presented for an elective right carotid endarterectomy with patch angioplasty with Dr. Cam. Patient was diagnosed with right internal carotid artery stenosis greater than 90%. Carotid Doppler ultrasound and CTA were obtained prior to surgery showing greater than 80% s tenosis at the right internal carotid artery and 90% stenosis of right carotid bulb. Patient has past medical history of chest pain, I disorder, GERD, deafness, hyperlipidemia, hypertension, rheumatoid arthritis and vascular disease. Patient underwent left iliac and left leg stent in September [address] Gilbert. Patient reports he is an ex-smoker. Patient is resting comfortably in bed. Family at bedside. Dressing to right neck clean dry and intact SAMANTHA drain in place. Vitals stable at this time. Patient to remain in the intensive care unit per surgical services. At this time patient denies chest pain or shortness of breath. Patient denies nausea vomiting or diarrhea. Patient denies any urinary burning or frequency. Review of Systems Please refer to HPI otherwise unremarkable Past Medical History Past Medical History: Chest Pain / Angina, Eye Disorder, GERD/Reflux, Hearing Disorder / Deafness, Hyperlipidemia, Hypertension, Rheumatoid Arthritis (RA), Vascular Disorder Additional Past Medical History / Comment(s): Right cataract, bilateral Glaucoma, RINGING IN RT EAR. Poor circulatrion in legs.neuropathy both legs with N/T toes History of Any Multi-Drug Resistant Organisms: None Reported Past Surgical History: Heart Catheterization Additional Past Surgical History / Comment(s): COLONOSCOPY. Left catartact surgery with lens placement. rt iliac stent, lt iliac and lt leg stent 09/26 Past Anesthesia/Blood Transfusion Reactions: No Reported Reaction Past Psychological History: No Psychological Hx Reported Smoking Status: Former smoker Past Alcohol Use History: Occasional Additional Past Alcohol Use History / Comment(s): SMOKED 53 YEARS, 1 PPD OR LESS, QUIT 2014. Past Drug Use History: None Reported - Past Family History Mother Family Medical History: CVA/TIA Father Family Medical History: Coronary Artery Disease (CAD) Brother(s) Family Medical History: Cancer Additional Family Medical History / Comment(s): Prostate cancer. Medications and Allergies Home Medications Medication Instructions Recorded Confirmed Type Aspirin 81 mg PO DAILY 10/27/16 11/14/19 History Certolizumab Pegol [Cimzia] 400 mg SQ Q30D 10/27/16 11/14/19 History Cholecalciferol [Vitamin D3 (25 1,000 unit PO MOWEFR 10/27/16 11/14/19 History Mcg = 1000 Iu)] Folic Acid 1 mg PO DAILY 10/27/16 11/14/19 History Latanoprost Ophth [Xalatan 0.005%] 1 drops BOTH EYES HS 10/27/16 11/14/19 History Methotrexate Sodium [Methotrexate] 7 tab PO TU 10/27/16 11/14/19 History Valsartan/Hydrochlorothiazide 1 each PO DAILY 10/27/16 11/14/19 History [Valsartan-Hctz 320-12.5 mg Tab] Atorvastatin [Lipitor] 20 mg PO HS 07/19/19 11/14/19 History amLODIPine [Norvasc] 5 mg PO HS 07/19/19 11/14/19 History Clopidogrel [Plavix] 75 mg PO DAILY #90 tab 09/12/19 11/14/19 Rx Allergies Allergy/AdvReac Type Severity Reaction Status Date / Time No Known Allergies Allergy Verified 11/19/19 06:30 Physical Exam Vitals: Vital Signs Temp Pulse Pulse Resp BP Pulse Ox 11/19/19 11:00 57 L 18 99/58 96 11/19/19 10:45 62 18 101/56 96 11/19/19 10:30 60 18 112/63 94 L 11/19/19 10:20 97.6 F 94 16 108/62 92 L 11/19/19 07:12 80 14 127/67 98 11/19/19 06:29 97.7 F 80 16 130/60 97 Intake and Output 11/18/19 11/19/19 11/19/19 22:59 06:59 14:59 Intake Total 400 950 Output Total 275 Balance 400 675 Intake: IV 400 950 Output: Urine 225 Estimated Blood Loss 50 Other: Weight 95.2 kg Head normocephalic Neck supple. Right neck dressing is clean dry and intact SAMANTHA in place Lungs clear to auscultation bilaterally no wheezing or crackles Heart regular rate and rhythm S1-S2, no rub or gallop Abdomen is soft nontender nondistended positive bowel sounds no hepatosplenom egaly Extremities no edema Neuro alert and orientated to 3 Results Labs: Abnormal Lab Results - Last 24 Hours (Table) 11/19/19 Range/Units 11:41 POC Glucose (mg/dL) 133 H (75-99) mg/dL Assessment and Plan Assessment: 1. Right carotid artery stenosis status post right carotid endarterectomy with patch angioplasty with Dr. Jackson. Patient is currently postop day 0. 2. History of peripheral or arterial disease with prior lower extremity revascularization in September [address] Gilbert. Patient maintained on Plavix 3. History of essential hypertension. Home medications resumed 4. History of rheumatoid arthritis 5. History of hyperlipidemia 6. Ex-smoker. 7. History of GERD DVT prophylaxis Lovenox. Thank you for this consultation we will continue to follow patient closely throughout stay
[2019-11-19] MEDS ORDERED: LATANOPROST 0.005% OPHTH DROPS 2.5 ML BTL BOTH EYES SCH (21:00)
[2019-11-19] MEDS ORDERED: ATORVASTATIN 20 MG TAB PO SCH (21:00)
[2019-11-19] MEDS ORDERED: amLODIPine 5 MG TAB PO SCH (21:00)
[2019-11-20 04:45] LABS: Basophils % (A) 0 %; Eosinophils % (A) 0 %; HCT 37.4 % (39.0-53.0); HGB 12.5 gm/dL (13.0-17.5); Lymphocytes # (A) 1.2 k/uL (1.0-4.8); Lymphocytes % (A) 13 %; MCH 32.9 pg (25.0-35.0); MCHC 33.3 g/dL (31.0-37.0); MCV 98.7 fL (80.0-100.0); Mean Platelet Volume 7.9; Monocytes # (A) 0.4 k/uL (0-1.0); Monocytes % (A) 5 %; Neutrophils # (A) 7.7 k/uL (1.3-7.7); Neutrophils % (A) 81 %; Platelet Count 177 k/uL (150-450); RBC 3.79 m/uL (4.30-5.90); RDW 13.6 % (11.5-15.5); WBC 9.5 k/uL (3.8-10.6)
[2019-11-20 06:10] LABS: African American GFR (CKD) >90 (>60 ml/min/1.73 sqM); Anion Gap 4 mmol/L; Blood Urea Nitrogen 19 mg/dL (9-20); Calcium 8.5 mg/dL (8.4-10.2); Carbon Dioxide 24 mmol/L (22-30); Chloride 108 mmol/L (98-107); Glucose 136 mg/dL (74-99); Non-African American GFR(CKD) 87 (>60 ml/min/1.73 sqM); Potassium 4.1 mmol/L (3.5-5.1); Sodium 136 mmol/L (137-145)
--- NOTE | 2019-11-20 08:49 | P.DS ---
Providers Date of admission: 11/19/19 06:11 Attending physician: Liam Cam DO Consults: 11/19/19 10:04 Consult Physician Routine Consulting Provider: Fiorella Erwin Consult Reason/Comments: medical management Do you want consulting provider notified?: Yes Primary care physician: Fiorella Rip [facility] Course: Patient is a 74-year-old male who was brought in as an outpatient for a right carotid endarterectomy for high-grade stenosis. He underwent the procedure on 11/19/2019 which he tolerated well. He was maintained in the ICU overnight. His blood pressures were monitored. He did well without any issue. This morning the Moore catheter, SAMANTHA drain and a line are to be discontinued. He is to get up and move around and if he tolerates these activities as able to urinate spontaneously than he will be discharged later today. He is artery on aspirin, Plavix and a statin medication at home which he is to continue. He will follow in 10-14 days Plan - Discharge Summary Discharge Rx Participant: No New Discharge Prescriptions: No Action Cholecalciferol [Vitamin D3 (25 Mcg = 1000 Iu)] 1,000 unit PO MOWEFR Aspirin 81 mg PO DAILY Methotrexate Sodium [Methotrexate] 7 tab PO TU Folic Acid 1 mg PO DAILY Valsartan/Hydrochlorothiazide [Valsartan-Hctz 320-12.5 mg Tab] 1 each PO DAILY Certolizumab Pegol [Cimzia] 400 mg SQ Q30D Latanoprost Ophth [Xalatan 0.005%] 1 drops BOTH EYES HS Atorvastatin [Lipitor] 20 mg PO HS amLODIPine [Norvasc] 5 mg PO HS Clopidogrel [Plavix] 75 mg PO DAILY #90 tab Discharge Medication List Aspirin 81 mg PO DAILY 10/27/16 [History] Certolizumab Pegol [Cimzia] 400 mg SQ Q30D 10/27/16 [History] Cholecalciferol [Vitamin D3 (25 Mcg = 1000 Iu)] 1,000 unit PO MOWEFR 10/27/16 [History] Folic Acid 1 mg PO DAILY 10/27/16 [History] Latanoprost Ophth [Xalatan 0.005%] 1 drops BOTH EYES HS 10/27/16 [History] Methotrexate Sodium [Methotrexate] 7 tab PO TU 10/27/16 [History] Valsartan/Hydrochlorothiazide [Valsartan-Hctz 320-12.5 mg Tab] 1 each PO DAILY 10/27/16 [History] Atorvastatin [Lipitor] 20 mg PO HS 07/19/19 [History] amLODIPine [Norvasc] 5 mg PO HS 07/19/19 [History] Clopidogrel [Plavix] 75 mg PO DAILY #90 tab 09/12/19 [Rx] Follow up Appointment(s)/Referral(s): Liam Cam DO [STAFF PHYSICIAN] - 10 Days Activity/Diet/Wound Care/Special Instructions: May shower. Activity as tolerated. Resume home meds. No soaking. Discharge Disposition: HOME SELF-CARE
[2019-11-20] MEDS ORDERED: HYDROCHLOROTHIAZIDE 12.5 MG CAP PO SCH (09:00)
[2019-11-20] MEDS ORDERED: FOLIC ACID 1 MG TAB PO SCH (09:00)
[2019-11-20] MEDS ORDERED: CHOLECALCIFEROL 1,000 UNIT TAB PO SCH (09:00)
[2019-11-20] MEDS ORDERED: CLOPIDOGREL 75 MG TAB PO SCH (09:00)
[2019-11-20] MEDS ORDERED: VALSARTAN 160 MG TAB PO SCH (09:00)
[2019-11-20] MEDS ORDERED: ASPIRIN 81 MG PO SCH (09:00)
[2019-11-20] MEDS ORDERED: ENOXAPARIN 40 MG/0.4 ML SYRINGE SQ SCH (09:00)
[2019-11-20 09:18] VITALS: RESP 20
--- NOTE | 2019-11-20 09:25 | CONS ---
CONSULTATION CHIEF COMPLAINT: Carotid stenosis. This is a 74-year-old gentleman with history of peripheral vascular disease, status post bilateral iliac stents, mild coronary artery disease on medical therapy, and carotid stenosis, was admitted to hospital for right carotid endarterectomy. He underwent surgery yesterday, it went uneventfully and I have been consulted because of his cardiac history and the carotid surgery. At the time of my evaluation this morning, patient appears comfortable at rest and is free of symptoms. He is hemodynamically stable. Creatinine is normal, hemoglobin is normal. PAST MEDICAL HISTORY: Significant for hypertension and dyslipidemia, peripheral vascular disease, carotid stenosis, status post right carotid endarterectomy. MEDICATIONS: At home include Norvasc 5 q. daily, losartan, hydrochlorothiazide, methotrexate, folic acid, Plavix, vitamin D, Lipitor and aspirin. ALLERGIES: There are no known drug allergies. FAMILY HISTORY: Negative for premature coronary artery disease. SOCIAL HISTORY: Negative for current smoking, EtOH abuse, or drug abuse. REVIEW OF SYSTEMS: HEENT: Significant for carotid surgery. CARDIAC: As described above. RESPIRATORY: Negative. GI: Negative. GENITOURINARY: Negative. ALLERGY/IMMUNOLOGY: Negative. SKIN: Negative. MUSCULOSKELETAL: Negative. ENDOCRINE: Negative. DERM: Negative. CONSTITUTIONAL: Negative. ONCOLOGICAL: Negative. GUIDE WINDER: Negative. Rest of the system review is not relevant. PHYSICAL EXAM: Patient is comfortable at rest. Vital signs are stable. There is no jugular venous distention. Vital signs are stable. Carotid is status post surgery. Heart exam reveals first and second heart sounds. No gallop. Exam of extremities did not reveal any edema. His dorsalis pedis and posterior tibial pulses are palpable. Chest exam reveals good air entry bilaterally. LABS: Have been reviewed. Hemoglobin is 12.5. Potassium is 4.1. ASSESSMENT: 1. Carotid stenosis, status post right carotid endarterectomy. 2. Hypertension. 3. Dyslipidemia. PLAN: Patient is doing well. He is stable for discharge and will follow up with Dr. Mcneill, his primary site auditor on discharge. MMODL / IJN: [id number] /
--- NOTE | 2019-11-20 09:43 | P.PN ---
Subjective Progress Note Date: 11/20/19 This is a 74-year-old male patient who presented for an elective right carotid endarterectomy with patch angioplasty with Dr. Cam. Patient was diagnosed with right internal carotid artery stenosis greater than 90%. Carotid Doppler ultrasound and CTA were obtained prior to surgery showing greater than 80% stenosis at the right internal carotid artery and 90% stenosis of right carotid bulb. Patient has past medical history of chest pain, I disorder, GERD, deafness, hyperlipidemia, hypertension, rheumatoid arthritis and vascular disease. Patient underwent left iliac and left leg stent in September [address] Gilbert. Patient reports he is an ex-smoker. Patient is resting comfortably in bed. Family at bedside. Dressing to right neck clean dry and intact SAMANTHA drain in place. Vitals stable at this time. Patient to remain in the intensive care unit per surgical services. At this time patient denies chest pain or shortness of breath. Patient denies nausea vomiting or diarrhea. Patient denies any urinary burning or frequency. On 11/20/2019 patient's alert and oriented 3. Anticipating discharge today per cardiovascular surgery. Vitals have remained stable. On examination patient has left pupil slightly larger than right patient reports this is chronic due to cataract and Due to glaucoma in left eye June 2019. No vision changes no other neuro symptoms. SAMANTHA drain has been removed fully catheter has been removed. Patient denies chest pain or shortness of breath. Patient denies nausea vomiting or diarrhea. Patient denies any urinary burning or frequency. Objective - Vital Signs Vital signs: Vital Signs Temp 98.3 F 11/20/19 08:00 Pulse 74 11/20/19 08:00 Resp 20 11/20/19 08:00 BP 118/65 11/20/19 08:00 Pulse Ox 94 L 11/20/19 08:00 Intake & Output 11/19/19 11/20/19 11/20/19 18:59 06:59 18:59 Intake Total 1990 860 Output Total 1040 1450 Balance 950 -590 Weight 95 kg Intake: IV 1510 860 Lactated Ringers 1,000 ml 60 @ 20 mls/hr IV .Q24H RAMIN Rx#:[id number] Lactated Ringers 1,000 ml 560 800 @ 80 mls/hr IV .[id number] RAMIN Rx#:[id number] Oral 240 Blood Product 240 Output: Drainage 90 75 Right Neck 90 75 Urine 900 1375 Estimated Blood Loss 50 Other: Voiding Method Indwelling Catheter Indwelling Catheter ABP, PAP, CO, CI - Last Documented Arterial Blood Pressure 133/65 - Exam Head normocephalic Neck supple. Right neck dressing is clean dry and intact SAMANTHA in place Lungs clear to auscultation bilaterally no wheezing or crackles Heart regular rate and rhythm S1-S2, no rub or gallop Abdomen is soft nontender nondistended positive bowel sounds no hepatosplenomegaly Extremities no edema Neuro alert and orientated to 3 - Labs CBC & Chem 7: 11/20/19 04:30 11/20/19 04:30 Labs: Abnormal Lab Results - Last 24 Hours (Table) 11/19/19 11/20/19 11/20/19 Range/Units 11:41 04:30 04:30 RBC 3.79 L (4.30-5.90) m/uL Hgb 12.5 L (13.0-17.5) gm/dL Hct 37.4 L (39.0-53.0) % Sodium 136 L (137-145) mmol/L Chloride 108 H (98-107) mmol/L Glucose 136 H (74-99) mg/dL POC Glucose (mg/dL) 133 H (75-99) mg/dL Assessment and Plan Assessment: 1. Right carotid artery stenosis status post right carotid endarterectomy with patch angioplasty with Dr. Jackson. Patient is currently postop day 1. Anticipate discharge today for cardiovascular surgery 2. History of peripheral or arterial disease with prior lower extremity revascularization in September [address] Gilbert. Patient maintained on Plavix. Patient to follow-up with cardiology services for further management 3. History of essential hypertension. Home medications resumed 4. History of rheumatoid arthritis 5. History of hyperlipidemia 6. Ex-smoker. 7. History of GERD DVT prophylaxis Lovenox. Thank you for this consultation we will continue to follow patient closely throughout stay
[2019-11-20 12:34] VITALS: BP 120/68; PULSE 54; TEMP 98
[2019-11-20] MEDS: LACTATED RINGERS 1,000 ML IV SCH (12:39)
[2019-11-20] MEDS: PHENYLEPHRINE 40 MG in SODIUM CHLORIDE 0.9% 250 ML IV SCH (12:39)
[2019-12-18] MEDS ORDERED: NON FORMULARY DRUG (Certolizumab Pegol [Cimzia] 400 MG) SQ SCH (09:00)
== END 2019-11-20 13:30 | disposition home or self-care (01) | DRG 39 ==
LOC: 2ORMAIN 06:11 → 2SICU 10:14
PROVIDERS: ADMIT Surgery; ATTEND Surgery
DX: I65.21 Occlusion and stenosis of right carotid artery (principal); H91.90 Unspecified hearing loss, unspecified ear; E78.5 Hyperlipidemia, unspecified; H57.02 Anisocoria; I10 Essential (primary) hypertension; H26.9 Unspecified cataract; Z98.42 Cataract extraction status, left eye; Z96.1 Presence of intraocular lens; I25.10 Atherosclerotic heart disease of native coronary artery without angina pectoris; I73.9 Peripheral vascular disease, unspecified; M06.9 Rheumatoid arthritis, unspecified; Z79.02 Long term (current) use of antithrombotics/antiplatelets; Z79.82 Long term (current) use of aspirin; Z79.899 Other long term (current) drug therapy; Z80.42 Family history of malignant neoplasm of prostate; Z82.49 Family history of ischemic heart disease and other diseases of the circulatory system; Z87.891 Personal history of nicotine dependence; Z82.3 Family history of stroke; G62.9 Polyneuropathy, unspecified; H40.9 Unspecified glaucoma
CPT/HCPCS: 80048; 85025; 86850; 86900; 86901; 88304; 88305

== ENCOUNTER → 2020-03-23 | Outpatient (CLI) | payer MEDICARE ==
[2020-03-23 12:38] LABS: Basophils % (A) 0 %; Eosinophils # (A) 0.1 k/uL (0-0.7); Eosinophils % (A) 2 %; HCT 41.9 % (39.0-53.0); HGB 13.8 gm/dL (13.0-17.5); Lymphocytes # (A) 1.2 k/uL (1.0-4.8); Lymphocytes % (A) 19 %; MCH 32.2 pg (25.0-35.0); MCHC 32.9 g/dL (31.0-37.0); MCV 97.6 fL (80.0-100.0); Mean Platelet Volume 7.4; Monocytes # (A) 0.3 k/uL (0-1.0); Monocytes % (A) 5 %; Neutrophils # (A) 4.7 k/uL (1.3-7.7); Neutrophils % (A) 73 %; Platelet Count 212 k/uL (150-450); RBC 4.29 m/uL (4.30-5.90); RDW 14.6 % (11.5-15.5); WBC 6.4 k/uL (3.8-10.6)
[2020-03-23 12:56] LABS: African American GFR (CKD) >90 (>60 ml/min/1.73 sqM); Anion Gap 6 mmol/L; Blood Urea Nitrogen 23 mg/dL (9-20); Calcium 9.1 mg/dL (8.4-10.2); Carbon Dioxide 23 mmol/L (22-30); Chloride 107 mmol/L (98-107); Glucose 141 mg/dL (74-99); Non-African American GFR(CKD) 86 (>60 ml/min/1.73 sqM); Potassium 4.1 mmol/L (3.5-5.1); Sodium 136 mmol/L (137-145)
== END | disposition home or self-care (01) ==
LOC: LABPAT 11:06
PROVIDERS: ATTEND Internal Medicine Interventional Cardiology
DX: Z01.818 Encounter for other preprocedural examination (principal); I70.213 Atherosclerosis of native arteries of extremities with intermittent claudication, bilateral legs
CPT/HCPCS: 36415; 80048; 85025

== ENCOUNTER 2020-03-25 08:36 | Day surgery (SDC) | payer MEDICARE ==
[2020-03-24 09:38] VITALS: BMI 28.5
[~2020-03-25 08:36] MED LIST changes: +ALPRAZolam 0.25 MG TAB PO PRN; +ASPIRIN 325 MG TAB PO STA; -HYDROmorphone 0.5 MG/0.5 ML SYRINGE IVP PRN; -LIDOCAINE 1% 20 ML VIAL (10MG/ML) FOR IV START INTRADERMA PRN; -ONDANSETRON 4 MG/2 ML VIAL IVP ONE; +SODIUM CHLORIDE 0.9% 1,000 ML in EMPTY BAG 1 BAG IV ONE
[2020-03-25] MEDS ORDERED: MIDAZOLAM 2 MG/2 ML VIAL IV ONE (11:44)
[2020-03-25] MEDS ORDERED: SODIUM CHLORIDE 0.9% 500 ML 500 ML with niCARdipine 6.25 MG, NITROGLYCERIN-D5W PMX 0.05... IV ONE ×4 (11:44)
[2020-03-25] MEDS ORDERED: LIDOCAINE 1% INJ 10MG/ML (20 ML MDV) SQ ONE (11:44)
[2020-03-25] MEDS ORDERED: HEPARIN SODIUM 1,000 UN/ML (10ML VL) IV ONE (11:53)
[2020-03-25] MEDS ORDERED: IOPAMIDOL-250 100ML BTL INTRAARTER ONE (12:36)
[2020-03-25] MEDS ORDERED: CLOPIDOGREL 75 MG TAB PO ONE (12:36)
[2020-03-25] MEDS ORDERED: CERTOLIZUMAB PEGOL 400 MG SQ SCH (12:45)
[2020-03-25] MEDS ORDERED: SODIUM CHLORIDE 0.9% 1,000 ML in EMPTY BAG 1 BAG IV SCH (12:45)
[2020-03-25] MEDS: LACTATED RINGERS 1,000 ML IV SCH ×2 (14:03→14:04)
--- NOTE | 2020-03-25 14:39 | IR ---
Fluoroscopy HISTORY: Vascular occlusive disease 8.6 minutes fluoroscopy time supplied to the referring clinician. 365 intraoperative C-arm images do cument the procedure. See dictated report from cardiology.
--- NOTE | 2020-03-25 16:11 | LTR ---
DATE OF SERVICE: 03/25/2020 RE: Florin Newsome Dear Dr. Erwin; Mr. Florin Newsome underwent today successful balloon angioplasty of the right femoral artery with an excellent angiographic results and without any complication. I want to thank you for allowing us to participate in his care and please do not hesitate to call if you have any question or concern. Sincerely, MD MADY Irvin / RIAZN: [id number] /
--- NOTE | 2020-03-25 17:20 | PCN ---
PROCEDURE NOTE DATE OF SERVICE: 03/25/2020 PERFORMING PHYSICIAN: Noble Chappell M.D. PROCEDURES PERFORMED: 1. Successful atherectomy of the right popliteal using orbital atherectomy device from [facility]. 2. Successful balloon angioplasty of the right popliteal using a 7 x 40 mm drug-coated balloon with excellent angiographic results and reduction of stenosis from 99% to 0%. 3. Intravascular ultrasound (IVUS) of the right popliteal. 4. Selective right popliteal angiogram. INDICATION: This is a 74-year-old gentleman who sees Dr. Mcneill in the office as an outpatient as well as Dr. Erwin in the office. He was experiencing bilateral lower extremity intermittent claudication. He underwent an angiogram in the past and that revealed severe femoral-popliteal disease and severe aortoiliac disease. He underwent stenting of bilateral iliac as well as angioplasty of the left SFA and he was brought today to undergo angioplasty of the right SFA. APPROACH: Right posterior tibial artery. COMPLICATIONS: None. LEVEL OF SEDATION: Moderate, with sedation length of 50 minutes. PROCEDURE DESCRIPTION: After obtaining informed consent, the patient was brought to the cardiac cath lab radiological technologist. The left posterior tibial artery was cannulated using micropuncture technique under ultrasound guidance. The micropuncture wire passed easily. Then I placed a slender 5/6- Lao sheath at the right posterior tibial artery. At that point anticoagulation was initiated using heparin with 10,000 units, then continuous infusion of cocktail including heparin, verapamil and nitroglycerin was initiated through the side-arm of the sheath in the right posterior tibial artery. I did cross the lesion in the right posterior tibial artery using an 0.014 [place]-ST wire. I did back it up with an 0.035 catheter. I injected contrast proximal to the lesion to prove that I was in the true lumen. After that I did exchange my wire for a ViperWire using an 0.014 catheter. Atherectomy subsequently was performed using the orbital atherectomy device with a 2 mm marquez. The atherectomy was performed under low, medium and high speeds. Then balloon angioplasty was performed using a 6 mm chocolate balloon. Intravascular ultrasound was performed after the atherectomy and before the balloon angioplasty, and that gave us a diameter of the artery between 6.5 and 7 mm. Final angioplasty was performed using a 7 x 40 mm drug-coated balloon. The balloon was inflated for 3 minutes. The following angiogram showed excellent angiographic results and the procedure was completed without any complication. After that the pedal sheath was pulled out and manual pressure was held for 5 minutes. The procedure was completed without any complication. POST-PROCEDURE MANAGEMENT: 1. Dual anti-platelet therapy. 2. Risk factor modifications. 3. Follow up with the patient. MADY / SEAN: [id number] /
[2020-03-25] MEDS ORDERED: LATANOPROST 0.005% OPHTH DROPS 2.5 ML BTL RIGHT EYE SCH (21:00)
[2020-03-25] MEDS ORDERED: ATORVASTATIN 20 MG TAB PO SCH (21:00)
[2020-03-25] MEDS ORDERED: amLODIPine 5 MG TAB PO SCH (21:00)
[2020-03-26 06:28] LABS: Basophils % (A) 0 %; Eosinophils # (A) 0.1 k/uL (0-0.7); Eosinophils % (A) 2 %; HCT 37.6 % (39.0-53.0); HGB 11.9 gm/dL (13.0-17.5); Lymphocytes # (A) 1.2 k/uL (1.0-4.8); Lymphocytes % (A) 24 %; MCH 30.6 pg (25.0-35.0); MCHC 31.8 g/dL (31.0-37.0); MCV 96.4 fL (80.0-100.0); Mean Platelet Volume 7.6; Monocytes # (A) 0.4 k/uL (0-1.0); Monocytes % (A) 9 %; Neutrophils % (A) 63 %; Platelet Count 202 k/uL (150-450); RBC 3.89 m/uL (4.30-5.90); RDW 14.5 % (11.5-15.5); WBC 4.8 k/uL (3.8-10.6)
[2020-03-26 06:34] LABS: African American GFR (CKD) >90 (>60 ml/min/1.73 sqM); Anion Gap 4 mmol/L; Blood Urea Nitrogen 17 mg/dL (9-20); Calcium 8.2 mg/dL (8.4-10.2); Carbon Dioxide 25 mmol/L (22-30); Chloride 107 mmol/L (98-107); Glucose 104 mg/dL (74-99); Non-African American GFR(CKD) >90 (>60 ml/min/1.73 sqM); Sodium 136 mmol/L (137-145)
--- NOTE | 2020-03-26 07:46 | P.DS ---
Providers Date of admission: March 252019 Attending physician: Noble Chappell Primary care physician: Fiorella [facility] Course: This is a 74-year-old gentleman who underwent yesterday successful atherectomy and balloon angioplasty of the left popliteal with an excellent angiographic results and without any complication from right pedal approach. He was seen this morning. He does have an excellent right dorsalis pedis pulse. The site is looking good as well. He is going to be discharged on dual antiplatelet therapy and I'll follow-up with the patient next week in the office Plan - Discharge Summary Discharge Rx Participant: Yes New Discharge Prescriptions: Continue Cholecalciferol [Vitamin D3 (25 Mcg = 1000 Iu)] 1,000 unit PO MOWEFR Aspirin 81 mg PO DAILY Methotrexate Sodium [Methotrexate] 7 tab PO TU Folic Acid 1 mg PO DAILY Valsartan/Hydrochlorothiazide [Valsartan-Hctz 320-12.5 mg Tab] 1 each PO DAILY Certolizumab Pegol [Cimzia] 400 mg SQ Q30D Latanoprost Ophth [Xalatan 0.005%] 1 drops RIGHT EYE HS Atorvastatin [Lipitor] 20 mg PO HS amLODIPine [Norvasc] 5 mg PO HS Clopidogrel [Plavix] 75 mg PO DAILY #90 tab Discharge Medication List Aspirin 81 mg PO DAILY 10/27/16 [History] Certolizumab Pegol [Cimzia] 400 mg SQ Q30D 10/27/16 [History] Cholecalciferol [Vitamin D3 (25 Mcg = 1000 Iu)] 1,000 unit PO MOWEFR 10/27/16 [H istory] Folic Acid 1 mg PO DAILY 10/27/16 [History] Latanoprost Ophth [Xalatan 0.005%] 1 drops RIGHT EYE HS 10/27/16 [History] Methotrexate Sodium [Methotrexate] 7 tab PO TU 10/27/16 [History] Valsartan/Hydrochlorothiazide [Valsartan-Hctz 320-12.5 mg Tab] 1 each PO DAILY 10/27/16 [History] Atorvastatin [Lipitor] 20 mg PO HS 07/19/19 [History] amLODIPine [Norvasc] 5 mg PO HS 07/19/19 [History] Clopidogrel [Plavix] 75 mg PO DAILY #90 tab 09/12/19 [Rx] Follow up Appointment(s)/Referral(s): Noble Chappell MD [STAFF PHYSICIAN] - 04/03/20 1:30 pm
[2020-03-26 08:46] VITALS: BP 119/78; PULSE 94; RESP 18; TEMP 99
[2020-03-26] MEDS ORDERED: VALSARTAN PO SCH (09:00)
[2020-03-26] MEDS ORDERED: CLOPIDOGREL 75 MG TAB PO SCH (09:00)
[2020-03-26] MEDS ORDERED: HYDROCHLOROTHIAZIDE PO SCH (09:00)
[2020-03-26] MEDS ORDERED: [UNRECOGNIZED DRUG - OTHER] PO SCH (09:00)
[2020-03-26] MEDS ORDERED: HYDROCHLOROTHIAZIDE 12.5 MG CAP PO SCH (09:00)
[2020-03-26] MEDS ORDERED: FOLIC ACID 1 MG TAB PO SCH (09:00)
[2020-03-26] MEDS ORDERED: VALSARTAN 160 MG TAB PO SCH (09:00)
[2020-03-26] MEDS ORDERED: ASPIRIN 81 MG PO SCH (09:00)
[2020-03-27] MEDS ORDERED: CHOLECALCIFEROL 1,000 UNIT TAB PO SCH (09:00)
[2020-03-31] MEDS ORDERED: METHOTREXATE SODIUM 2.5 MG TAB PO SCH (09:00)
== END 2020-03-26 09:40 | disposition home or self-care (01) ==
LOC: CATHCVL 08:36 → 3SCARD 12:34 → CATHCVL 03-26 09:40
PROVIDERS: ATTEND Internal Medicine Interventional Cardiology
DX: I70.213 Atherosclerosis of native arteries of extremities with intermittent claudication, bilateral legs (principal); I25.10 Atherosclerotic heart disease of native coronary artery without angina pectoris; I10 Essential (primary) hypertension; E78.2 Mixed hyperlipidemia; Z79.82 Long term (current) use of aspirin; Z79.02 Long term (current) use of antithrombotics/antiplatelets; Z79.899 Other long term (current) drug therapy
CPT/HCPCS: 37225; 37252; 80048; 85025; C1894; C1714; C1769 ×4; C1753; C2623; C1725; J2250; J1644 ×2; J2001; Q9966

== ENCOUNTER → 2020-04-03 | Outpatient (CLI) | payer MEDICARE ==
[2020-04-03 15:28] LABS: African American GFR (CKD) 97.2 (60.0-200.0); Albumin 3.9 g/dL (3.80-4.90); Albumin/Globulin Ratio 1.63 (1.60-3.17); Chol/HDL Ratio 3.34; Globulin 2.4 g/dL (1.6-3.3); Non-African American GFR(CKD) 83.8 (60.0-200.0); Potassium 4.1 mmol/L (3.5-5.5); Total Protein 6.3 g/dL (6.2-8.2)
== END | disposition home or self-care (01) ==
LOC: LABWHC1 08:11
PROVIDERS: ATTEND Internal Medicine Interventional Cardiology
DX: E78.2 Mixed hyperlipidemia (principal)
CPT/HCPCS: 36415; 80053; 80061

== ENCOUNTER → 2020-07-20 | Outpatient (CLI) | payer MEDICARE ==
[2020-07-20 15:12] LABS: African American GFR (CKD) >90 (>60 ml/min/1.73 sqM); Blood Urea Nitrogen 20 mg/dL (9-20); Non-African American GFR(CKD) 82 (>60 ml/min/1.73 sqM)
--- NOTE | 2020-07-20 15:45 | CT ---
EXAMINATION TYPE: CT chest w con DATE OF EXAM: 07/20/2020 COMPARISON: 12/22/2009 HISTORY: Cough x8 months. CT DLP: 488.20 mGycm Automated exposure control for dose reduction was used. CONTRAST: CT scan of the chest is performed with IV Contrast, patient injected with 100 mL of Isovue 300. FINDINGS: LUNGS: Mild hyperinflation. Subsegmental consolidation noted posteriorly. No pleural effusion or pneu mothorax. No overt failure. MEDIASTINUM: Coronary artery calcification seen. Atherosclerotic change aorta. No evidence of aneurys m. Heart size normal. OTHER: Simple appearing renal cysts seen. There is hypertrophic and degenerative change of the spine . IMPRESSION: 1. Minimal subsegmental consolidation within the right posterior lung most likely in the basis of ate lectasis rather than early infiltrate correlate clinically.
== END | disposition home or self-care (01) ==
LOC: RADCTMAIN 14:37
PROVIDERS: ATTEND Internal Medicine Critical Care Medicine
DX: J18.1 Lobar pneumonia, unspecified organism (principal); R05 Cough
CPT/HCPCS: 82565; 84520; 71260; 36415; Q9967

== ENCOUNTER → 2020-09-23 | Outpatient (CLI) | payer MEDICARE ==
--- NOTE | 2020-09-23 08:05 | US ---
EXAMINATION TYPE: US duplex aorta DATE OF EXAM: 09/23/2020 COMPARISON: NONE CLINICAL HISTORY: I71.4A abdominal aortic aneurysm. patient states he has AAA and has been assessed a t Dr Erwin's office in the past, no complaints today EXAM MEASUREMENTS: Abdominal Aorta: Proximal: not seen due to bowel gas Mid: 1.7 x 2.2cm Distal: 2.2 x 3.0cm Bifurcation: rt 0.9cm lt 0.9cm IMPRESSION: No evidence for abdominal aortic aneurysm. Limited visualization of the proximal.
== END | disposition home or self-care (01) ==
LOC: RADUSWWP 07:33
PROVIDERS: ATTEND Internal Medicine
DX: I71.4 Abdominal aortic aneurysm, without rupture (principal)
CPT/HCPCS: 93979

== ENCOUNTER 2020-10-22 14:16 | Inpatient (IN) | payer MEDICARE ==
--- NOTE | 2020-10-22 14:36 | ED ---
General Adult HPI - General Chief complaint: Shortness of Breath Stated complaint: SOB/COVID+ Time Seen by Provider: 10/22/20 14:25 Source: patient Mode of arrival: ambulatory - History of Present Illness Initial comments: The patient is a 75-year-old male with past medical history of hyperlipidemia, hypertension and rheumatoid arthritis who presents emergency department with re ported increasing shortness of breath. Patient states that he tested positive for Covid on Monday. Began having symptoms on Monday. He went to [facility] where he had is positive test performed. He called Dr. Erwin on Monday who did tell him that he was having shortness of breath. Dr. Erwin placed him on Decadron and several supplements. Patient states he's been taking them as directed as well as his inhaler without improvement in his symptoms. He is on methotrexate for rheumatoid arthritis. The patient's does have a pulse ox and was getting down into the low 80s at home therefore he called Dr. Erwin who recommended that he come into the emergency room for further evaluation. Patient denies any chest pain. No history of cardiac disease. Denies any lower extremity swelling. No history of DVT or PE. No other alleviating, precipitating or modifying factors - Related Data Home Medications Medication Instructions Recorded Confirmed Aspirin 81 mg PO DAILY 10/27/16 10/22/20 Cholecalciferol [Vitamin D3 (25 5,000 unit PO MOWEFR 10/27/16 10/22/20 Mcg = 1000 Iu)] Folic Acid 1 mg PO HS 10/27/16 10/22/20 Latanoprost Ophth [Xalatan 0.005%] 1 drops RIGHT EYE HS 10/27/16 10/22/20 Valsartan/Hydrochlorothiazide 1 tab PO DAILY 10/27/16 10/22/20 [Valsartan-Hctz 320-12.5 mg Tab] metHOTREXate sodium [Methotrexate] 17.5 tab PO TU 10/27/16 10/22/20 amLODIPine [Norvasc] 5 mg PO HS 07/19/19 10/22/20 Albuterol Inhaler [Ventolin Hfa 2 puff INHALATION RT-Q4H PRN 10/22/20 10/22/20 Inhaler] Ascorbic Acid [Vitamin C] 1,000 mg PO DAILY 10/22/20 10/22/20 Atorvastatin Calcium [Lipitor] 20 mg PO HS 10/22/20 10/22/20 Benzonatate [Tessalon Perles] 100 mg PO TID PRN 10/22/20 10/22/20 Cefdinir 300 mg PO DIRECTED 10/22/20 10/22/20 Codeine Phosphate/Guaifenesin 5 ml PO Q6H PRN 10/22/20 10/22/20 [Guaiatussin AC Liquid] Cyanocobalamin (Vitamin B-12) 1,000 mcg PO DAILY 10/22/20 10/22/20 [Vitamin B-12] Dexamethasone [Decadron] 4 mg PO BID 10/22/20 10/22/20 Zinc 50 mg PO BID 10/22/20 10/22/20 Previous Rx's Medication Instructions Recorded Clopidogrel [Plavix] 75 mg PO DAILY #90 tab 09/12/19 Allergies Allergy/AdvReac Type Severity Reaction Status Date / Time No Known Allergies Allergy Verified 10/22/20 16:22 Review of Systems ROS Statement: Those systems with pertinent positive or pertinent negative responses have been documented in the HPI. ROS Other: All systems not noted in ROS Statement are negative. Past Medical History Past Medical History: Chest Pain / Angina, Eye Disorder, GERD/Reflux, Hearing Disorder / Deafness, Hyperlipidemia, Hypertension, Rheumatoid Arthritis (RA), Vascular Disorder Additional Past Medical History / Comment(s): Right cataract, bilateral Glaucoma, RINGING IN RT EAR. Poor circulatrion in legs.neuropathy both legs with N/T toes History of Any Multi-Drug Resistant Organisms: None Reported Past Surgical History: Heart Catheterization Additional Past Surgical History / Comment(s): COLONOSCOPY. Left catartact surgery with lens placement. rt iliac stent, lt iliac and lt leg stent 09/26 Past Anesthesia/Blood Transfusion Reactions: No Reported Reaction Past Psychological History: No Psychological Hx Reported Smoking Status: Former smoker Past Alcohol Use History: Occasional Past Drug Use History: None Reported - Past Family History Mother Family Medical History: CVA/TIA Father Family Medical History: Coronary Artery Disease (CAD) Brother(s) Family Medical History: Cancer Additional Family Medical History / Comment(s): Prostate cancer. General Exam General appearance: alert, in no apparent distress Head exam: Present: atraumatic, normocephalic, normal inspection Eye exam: Present: normal appearance, PERRL, EOMI. Absent: scleral icterus, conjunctival injection, periorbital swelling ENT exam: Present: normal exam, mucous membranes moist Neck exam: Present: normal inspection. Absent: tenderness, meningismus, lymphadenopathy Respiratory exam: Present: normal lung sounds bilaterally, other (mild conversational dyspnea). Absent: respiratory distress, wheezes, rales, rhonchi, stridor Cardiovascular Exam: Present: regular rate, normal rhythm, normal heart sounds. Absent: systolic murmur, diastolic murmur, rubs, gallop, clicks GI/Abdominal exam: Present: soft, normal bowel sounds. Absent: distended, tenderness, guarding, rebound, rigid Extremities exam: Present: normal inspection, full ROM, normal capillary refill. Absent: tenderness, pedal edema, joint swelling, calf tenderness Back exam: Present: normal inspection Neurological exam: Present: alert, oriented X3, CN II-XII intact Psychiatric exam: Present: normal affect, normal mood Skin exam: Present: warm, dry, intact, normal color. Absent: rash Course Vital Signs 10/22/20 10/22/20 10/22/20 14:23 17:35 18:35 Temperature 97.5 F L 98.2 F Pulse Rate 88 81 84 Respiratory 18 20 18 Rate Blood Pressure 114/86 129/97 119/72 O2 Sat by Pulse 95 92 L 95 Oximetry EKG Findings - EKG Comments: EKG Findings:: EKG demonstrates normal sinus rhythm with a ventricular rate of 79. [place] interval 144. QRS 74. QTC 458. No acute ST segment elevations or depressions concerning for ischemic changes Medical Decision Making - Medical Decision Making Upon arrival patient was placed into room 22. A thorough history and physical exam was performed. Patient is placed on supplemental oxygen at 2 L as he does have increased work of breathing and is saturating 94%. Laboratory studies were conducted and a portal chest x-ray was performed. Laboratory studies were reviewed and demonstrated a d-dimer of 1.96. Lactic acid is 3.2. Coronavirus is detected. Chest x-ray demonstrates COPD with coarsened interstitium. Because of the elevated d-dimer the patient went over for CT angiography which demonstrates bilateral patchy groundglass opacities with no PE. Patient was given a dose of Decadron. Discussed the results with Dr. Erwin who agreed to admit the patient. Will place Dr. Russell on consult. Patient remained in stable condition and was transported to the floor - Lab Data Result diagrams: 10/29/20 04:40 10/29/20 04:40 Lab Results 10/22/20 10/22/20 10/22/20 Range/Units 15:15 15:15 15:15 WBC 12.3 H (3.8-10.6) k/uL RBC 4.84 (4.30-5.90) m/uL Hgb 14.6 (13.0-17.5) gm/dL Hct 44.4 (39.0-53.0) % MCV 91.7 (80.0-100.0) fL MCH 30.3 (25.0-35.0) pg MCHC 33.0 (31.0-37.0) g/dL RDW 15.3 (11.5-15.5) % Plt Count 243 (150-450) k/uL MPV 7.4 Neutrophils % 94 % Lymphocytes % 3 % Monocytes % 2 % Eosinophils % 0 % Basophils % 0 % Neutrophils # 11.6 H (1.3-7.7) k/uL Lymphocytes # 0.4 L (1.0-4.8) k/uL Monocytes # 0.3 (0-1.0) k/uL Eosinophils # 0.0 (0-0.7) k/uL Basophils # 0.0 (0-0.2) k/uL PT 9.7 (9.0-12.0) sec INR 0.9 (<1.2) APTT 20.8 L (22.0-30.0) sec D-Dimer 1.96 H (<0.60) mg/L FEU Sodium 136 L (137-145) mmol/L Potassium 4.4 (3.5-5.1) mmol/L Chloride 106 (98-107) mmol/L Carbon Dioxide 21 L (22-30) mmol/L Anion Gap 9 mmol/L BUN 46 H (9-20) mg/dL Creatinine 0.92 (0.66-1.25) mg/dL Est GFR (CKD-EPI)AfAm >90 (>60 ml/min/1.73 sqM) Est GFR (CKD-EPI)NonAf 81 (>60 ml/min/1.73 sqM) Glucose 122 H (74-99) mg/dL Lactic Ac Sepsis Rflx Plasma Lactic Acid Gurvinder (0.7-2.0) mmol/L Calcium 8.7 (8.4-10.2) mg/dL Magnesium 2.4 H (1.6-2.3) mg/dL Ferritin 1099.1 H (22.0-322.0) ng/mL Total Bilirubin 0.8 (0.2-1.3) mg/dL AST 51 (17-59) U/L ALT 53 H (4-49) U/L Alkaline Phosphatase 79 (38-126) U/L Lactate Dehydrogenase 1145 H (313-618) U/L Troponin I (0.000-0.034) ng/mL C-Reactive Protein 54.3 H (<10.0) mg/L Total Protein 6.2 L (6.3-8.2) g/dL Albumin 3.2 L (3.5-5.0) g/dL Procalcitonin (0.02-0.09) ng/mL Coronavirus (PCR) (Not Detectd) Influenza Type A RNA (Not Detectd) Influenza Type B (PCR) (Not Detectd) 10/22/20 10/22/20 10/22/20 Range/Units 15:15 15:15 15:15 WBC (3.8-10.6) k/uL RBC (4.30-5.90) m/uL Hgb (13.0-17.5) gm/dL Hct (39.0-53.0) % MCV (80.0-100.0) fL MCH (25.0-35.0) pg MCHC (31.0-37.0) g/dL RDW (11.5-15.5) % Plt Count (150-450) k/uL MPV Neutrophils % % Lymphocytes % % Monocytes % % Eosinophils % % Basophils % % Neutrophils # (1.3-7.7) k/uL Lymphocytes # (1.0-4.8) k/uL Monocytes # (0-1.0) k/uL Eosinophils # (0-0.7) k/uL Basophils # (0-0.2) k/uL PT (9.0-12.0) sec INR (<1.2) APTT (22.0-30.0) sec D-Dimer (<0.60) mg/L FEU Sodium (137-145) mmol/L Potassium (3.5-5.1) mmol/L Chloride (98-107) mmol/L Carbon Dioxide (22-30) mmol/L Anion Gap mmol/L BUN (9-20) mg/dL Creatinine (0.66-1.25) mg/dL Est GFR (CKD-EPI)AfAm (>60 ml/min/1.73 sqM) Est GFR (CKD-EPI)NonAf (>60 ml/min/1.73 sqM) Glucose (74-99) mg/dL Lactic Ac Sepsis Rflx Plasma Lactic Acid Gurvinder 3.2 H* (0.7-2.0) mmol/L Calcium (8.4-10.2) mg/dL Magnesium (1.6-2.3) mg/dL Ferritin (22.0-322.0) ng/mL Total Bilirubin (0.2-1.3) mg/dL AST (17-59) U/L ALT (4-49) U/L Alkaline Phosphatase (38-126) U/L Lactate Dehydrogenase (313-618) U/L Troponin I <0.012 (0.000-0.034) ng/mL C-Reactive Protein (<10.0) mg/L Total Protein (6.3-8.2) g/dL Albumin (3.5-5.0) g/dL Procalcitonin 0.14 H (0.02-0.09) ng/mL Coronavirus (PCR) (Not Detectd) Influenza Type A RNA (Not Detectd) Influenza Type B (PCR) (Not Detectd) 10/22/20 10/22/20 10/22/20 Range/Units 15:38 15:42 17:35 WBC (3.8-10.6) k/uL RBC (4.30-5.90) m/uL Hgb (13.0-17.5) gm/dL Hct (39.0-53.0) % MCV (80.0-100.0) fL MCH (25.0-35.0) pg MCHC (31.0-37.0) g/dL RDW (11.5-15.5) % Plt Count (150-450) k/uL MPV Neutrophils % % Lymphocytes % % Monocytes % % Eosinophils % % Basophils % % Neutrophils # (1.3-7.7) k/uL Lymphocytes # (1.0-4.8) k/uL Monocytes # (0-1.0) k/uL Eosinophils # (0-0.7) k/uL Basophils # (0-0.2) k/uL PT (9.0-12.0) sec INR (<1.2) APTT (22.0-30.0) sec D-Dimer (<0.60) mg/L FEU Sodium (137-145) mmol/L Potassium (3.5-5.1) mmol/L Chloride (98-107) mmol/L Carbon Dioxide (22-30) mmol/L Anion Gap mmol/L BUN (9-20) mg/dL Creatinine (0.66-1.25) mg/dL Est GFR (CKD-EPI)AfAm (>60 ml/min/1.73 sqM) Est GFR (CKD-EPI)NonAf (>60 ml/min/1.73 sqM) Glucose (74-99) mg/dL Lactic Ac Sepsis Rflx Y Plasma Lactic Acid Gurvinder (0.7-2.0) mmol/L Calcium (8.4-10.2) mg/dL Magnesium (1.6-2.3) mg/dL Ferritin (22.0-322.0) ng/mL Total Bilirubin (0.2-1.3) mg/dL AST (17-59) U/L ALT (4-49) U/L Alkaline Phosphatase (38-126) U/L Lactate Dehydrogenase (313-618) U/L Troponin I (0.000-0.034) ng/mL C-Reactive Protein (<10.0) mg/L Total Protein (6.3-8.2) g/dL Albumin (3.5-5.0) g/dL Procalcitonin (0.02-0.09) ng/mL Coronavirus (PCR) Detected A (Not Detectd) Influenza Type A RNA Not Detected (Not Detectd) Influenza Type B (PCR) Not Detected (Not Detectd) Disposition Clinical Impression: COVID-19, Hypoxia Disposition: ADMITTED IP TO THIS HOSP Condition: Stable Is patient prescribed a controlled substance at d/c from ED?: No Decision to Admit Reason: Admit from EC Decision Date: 10/22/20 Decision Time: 17:41
[2020-10-22 15:19] LABS: Basophils % (A) 0 %; Eosinophils % (A) 0 %; HCT 44.4 % (39.0-53.0); HGB 14.6 gm/dL (13.0-17.5); Lymphocytes # (A) 0.4 k/uL (1.0-4.8); Lymphocytes % (A) 3 %; MCH 30.3 pg (25.0-35.0); MCV 91.7 fL (80.0-100.0); Mean Platelet Volume 7.4; Monocytes # (A) 0.3 k/uL (0-1.0); Monocytes % (A) 2 %; Neutrophils # (A) 11.6 k/uL (1.3-7.7); Neutrophils % (A) 94 %; Platelet Count 243 k/uL (150-450); RBC 4.84 m/uL (4.30-5.90); RDW 15.3 % (11.5-15.5); WBC 12.3 k/uL (3.8-10.6)
--- NOTE | 2020-10-22 15:26 | XR ---
EXAMINATION TYPE: XR chest 1V portable DATE OF EXAM: 10/22/2020 COMPARISON: 07/20/2020, 05/08/2020 HISTORY: Shortness of breath TECHNIQUE: Single frontal view of the chest is obtained. FINDINGS: A coarsened interstitium. No pleural effusion or pneumothorax. Biapical pleural thickening . Heart size normal. Atherosclerotic change aorta. Diffuse osteopenia. Hyperinflation suggests COPD. IMPRESSION: 1. COPD. 2. Coarsened interstitium correlate for mild venous congestion or interstitial pneumonitis.
[2020-10-22 15:35] LABS: ALT 53 U/L (4-49); AST 51 U/L (17-59); African American GFR (CKD) >90 (>60 ml/min/1.73 sqM); Albumin 3.2 g/dL (3.5-5.0); Alkaline Phosphatase 79 U/L (38-126); Anion Gap 9 mmol/L; Blood Urea Nitrogen 46 mg/dL (9-20); C Reactive Protein 54.3 mg/L (<10.0); Calcium 8.7 mg/dL (8.4-10.2); Carbon Dioxide 21 mmol/L (22-30); Chloride 106 mmol/L (98-107); Glucose 122 mg/dL (74-99); LDH 1145 U/L (313-618); Magnesium 2.4 mg/dL (1.6-2.3); Non-African American GFR(CKD) 81 (>60 ml/min/1.73 sqM); Potassium 4.4 mmol/L (3.5-5.1); Sodium 136 mmol/L (137-145); Total Bilirubin 0.8 mg/dL (0.2-1.3); Total Protein 6.2 g/dL (6.3-8.2)
[2020-10-22 15:45] LABS: INR 0.9 (<1.2); Prothrombin Time 9.7 sec (9.0-12.0)
[2020-10-22 15:51] LABS: D-Dimer 1.96 mg/L FEU (<0.60); Partial Thromboplastin Time 20.8 sec (22.0-30.0)
--- NOTE | 2020-10-22 17:23 | CT ---
EXAMINATION TYPE: CT chest angio for PE DATE OF EXAM: 10/22/2020 COMPARISON: CT 07/20/2020. Same-day radiograph. HISTORY: Elevated d-dimer. +Covid. Shortness of breath and cough. CT DLP: 541.9 mGycm Automated exposure control for dose reduction was used. CONTRAST: CT Chest for pulmonary embolism performed with with IV Contrast, patient injected with 100 mL of Isov ue 370. FINDINGS: LUNGS: There are bilateral diffuse moderate patchy groundglass opacities. There is no pleural effusio n or pneumothorax seen. The tracheobronchial tree is patent. MEDIASTINUM: There is satisfactory enhancement of the pulmonary artery and its branches, there is no CT evidence for pulmonary embolism. There are no greater than 1 cm hilar or mediastinal lymph nodes. No pericardial effusion is seen. OTHER: No additional significant abnormality is seen. Partially imaged 2.9 cm simple appearing right renal cyst. IMPRESSION: Bilateral patchy ground glass opacities, consistent with history of Covid pneumonia.
[2020-10-22] MEDS ORDERED: NALOXONE 0.4 MG/ML 1 ML VIAL IV PRN (17:41)
[2020-10-22] MEDS ORDERED: ACETAMINOPHEN TAB 325 MG TAB PO PRN (17:41)
[2020-10-22] MEDS ORDERED: guaiFENesin-Coden 100-10MG/5ML 10 ML CUP PO PRN (17:42)
[2020-10-22] MEDS ORDERED: BENZONATATE 100 MG CAP PO PRN (17:42)
[2020-10-22] MEDS: amLODIPine 5 MG TAB PO SCH (20:57)
[2020-10-22] MEDS: FOLIC ACID 1 MG TAB PO SCH (20:57)
[2020-10-22] MEDS: ZINC SULFATE 220 MG CAP PO SCH (20:57)
[2020-10-22] MEDS: ATORVASTATIN 20 MG TAB PO SCH (20:57)
[2020-10-22] MEDS: LATANOPROST 0.005% OPHTH DROPS 2.5 ML BTL RIGHT EYE SCH (20:58)
[2020-10-22] MEDS: DEXAMETHASONE SOD PHOSPHATE 10 MG/ML 1 ML VIAL IV SCH (21:12)
[2020-10-23 02:23] LABS: Ferritin 1099.1 ng/mL (22.0-322.0)
[2020-10-23 06:58] LABS: Basophils % (A) 0 %; Eosinophils % (A) 0 %; HCT 41.6 % (39.0-53.0); HGB 13.6 gm/dL (13.0-17.5); Lymphocytes # (A) 0.5 k/uL (1.0-4.8); Lymphocytes % (A) 5 %; MCH 30.5 pg (25.0-35.0); MCHC 32.7 g/dL (31.0-37.0); MCV 93.4 fL (80.0-100.0); Mean Platelet Volume 7.4; Monocytes # (A) 0.3 k/uL (0-1.0); Monocytes % (A) 3 %; Neutrophils # (A) 8.4 k/uL (1.3-7.7); Neutrophils % (A) 91 %; Platelet Count 225 k/uL (150-450); RBC 4.45 m/uL (4.30-5.90); RDW 15.4 % (11.5-15.5); WBC 9.2 k/uL (3.8-10.6)
[2020-10-23] MEDS: CYANOCOBALAMIN 500 MCG TAB PO SCH (08:50)
[2020-10-23] MEDS: ZINC SULFATE 220 MG CAP PO SCH ×2 (08:50→21:01)
[2020-10-23] MEDS: ASPIRIN 81 MG PO SCH (08:51)
[2020-10-23] MEDS: CLOPIDOGREL 75 MG TAB PO SCH (08:51)
[2020-10-23] MEDS: hydroCHLOROthiazide 12.5 MG CAP PO SCH (08:51)
[2020-10-23] MEDS: ENOXAPARIN 40 MG/0.4 ML SYRINGE SQ SCH (08:51)
[2020-10-23] MEDS: ASCORBIC ACID 500 MG TAB PO SCH (08:51)
[2020-10-23] MEDS: CHOLECALCIFEROL 1,000 UNIT TAB PO SCH (08:52)
[2020-10-23] MEDS: DEXAMETHASONE SOD PHOSPHATE 10 MG/ML 1 ML VIAL IV SCH (08:52)
[2020-10-23] MEDS: VALSARTAN 160 MG TAB PO SCH (09:06)
--- NOTE | 2020-10-23 09:20 | P.HPIM ---
History of Present Illness H&P Date: 10/23/20 Chief Complaint: Worsening shortness of breath Florin Newsome, is a 75-year-old male who started having symptoms of cough and shortness of breath about 1 week ago [facility] and tested positive for Covid 19 he called our office on Monday and was given a prescription for Decadron 4 mg by mouth twice daily also he was told to take vitamin C vitamin D and zinc supplements, patient took these medications however he continued to have worsening shortness of breath his pulse ox at home was down in the 80s and on he decided to come to emergency room for further evaluation. Patient was evaluated in emergency room his vital examination on presentation reveals a temperature of 97.5 pulse 88 respiration 18 blood pressure 114/86 pulse ox was 92% on 2 L nasal cannula his white blood count was 12.3 hemoglobin 14.6 platelet count 243 d-dimer 1.96 sodium 136 BUN 46 creatinine 0.9 to lactic acid 2.3 ferritin level 1099 C-reactive protein 54.3 Covid 19 PCR testing was positive, CT angiogram of the chest revealed bilateral patchy groundglass opacities consistent was history of Covid pneumonia, no evidence of pulmonary embolism, patient was admitted to medical floor he was started on IV Decadron, subcu Lovenox, and pulmonary consultation was requested. Patient has a known history of asthma, history of hypertension, history of hyper lipidemia, history of coronary artery disease, and history of abdominal aortic aneurysm. On review of systems patient is alert and oriented 3 in no apparent distress he is complaining of shortness of breath and cough otherwise he denies any complaints there is no fever or chills no headache or dizziness no chest pain no palpitation no nausea or vomiting no abdominal pain no diarrhea no blood in the stools no burning with urination no frequency or urgency no hematuria no weakness or numbness in any of the extremities no change in vision speech or gait. Past Medical History Past Medical History: Chest Pain / Angina, Eye Disorder, GERD/Reflux, Hearing Di sorder / Deafness, Hyperlipidemia, Hypertension, Rheumatoid Arthritis (RA), Vascular Disorder Additional Past Medical History / Comment(s): Right cataract, bilateral Glaucoma, RINGING IN RT EAR. Poor circulatrion in legs.neuropathy both legs with N/T toes History of Any Multi-Drug Resistant Organisms: None Reported Past Surgical History: Heart Catheterization Additional Past Surgical History / Comment(s): COLONOSCOPY. Left catartact surgery with lens placement. rt iliac stent, lt iliac and lt leg stent 09/26 Past Anesthesia/Blood Transfusion Reactions: No Reported Reaction Past Psychological History: No Psychological Hx Reported Smoking Status: Former smoker Past Alcohol Use History: Occasional Past Drug Use History: None Reported - Past Family History Mother Family Medical History: CVA/TIA Father Family Medical History: Coronary Artery Disease (CAD) Brother(s) Family Medical History: Cancer Additional Family Medical History / Comment(s): Prostate cancer. Medications and Allergies Home Medications Medication Instructions Recorded Confirmed Type Aspirin 81 mg PO DAILY 10/27/16 10/22/20 History Cholecalciferol [Vitamin D3 (25 5,000 unit PO MOWEFR 10/27/16 10/22/20 History Mcg = 1000 Iu)] Folic Acid 1 mg PO HS 10/27/16 10/22/20 History Latanoprost Ophth [Xalatan 0.005%] 1 drops RIGHT EYE HS 10/27/16 10/22/20 History Valsartan/Hydrochlorothiazide 1 tab PO DAILY 10/27/16 10/22/20 History [Valsartan-Hctz 320-12.5 mg Tab] metHOTREXate sodium [Methotrexate] 17.5 tab PO TU 10/27/16 10/22/20 History amLODIPine [Norvasc] 5 mg PO HS 07/19/19 10/22/20 History Clopidogrel [Plavix] 75 mg PO DAILY #90 tab 09/12/19 10/22/20 Rx Albuterol Inhaler [Ventolin Hfa 2 puff INHALATION RT-Q4H PRN 10/22/20 10/22/20 History Inhaler] Ascorbic Acid [Vitamin C] 1,000 mg PO DAILY 10/22/20 10/22/20 History Atorvastatin Calcium [Lipitor] 20 mg PO HS 10/22/20 10/22/20 History Benzonatate [Tessalon Perles] 100 mg PO TID PRN 10/22/20 10/22/20 History Cefdinir 300 mg PO DIRECTED 10/22/20 10/22/20 History Codeine Phosphate/Guaifenesin 5 ml PO Q6H PRN 10/22/20 10/22/20 History [Guaiatussin AC Liquid] Cyanocobalamin (Vitamin B-12) 1,000 mcg PO DAILY 10/22/20 10/22/20 History [Vitamin B-12] Dexamethasone [Decadron] 4 mg PO BID 10/22/20 10/22/20 History Zinc 50 mg PO BID 10/22/20 10/22/20 History Allergies Allergy/AdvReac Type Severity Reaction Status Date / Time No Known Allergies Allergy Verified 10/22/20 16:22 Physical Exam Vitals: Vital Signs Temp Pulse Pulse Resp BP BP Pulse Ox 10/23/20 05:00 98.2 F 68 20 101/61 91 L 10/22/20 20:00 66 20 10/22/20 19:30 97.7 F 66 20 138/76 91 L 10/22/20 18:35 98.2 F 84 18 119/72 95 10/22/20 17:35 81 20 129/97 92 L 10/22/20 14:23 97.5 F L 88 18 114/86 95 Intake and Output 10/22/20 10/23/20 10/23/20 22:59 06:59 14:59 Intake Total 0 Output Total 500 Balance -500 0 Intake: Oral 0 Output: Urine 500 Other: Voiding Method Toilet Urinal # Voids 1 2 In general patient is alert and oriented 3 in no apparent distress HEENT head normocephalic and atraumatic Neck is supple no JVD no goiter no lymphadenopathy Chest exam reveals a few scattered rhonchi no wheezing Cardiac exam reveals regular heart sounds S1 and S2 no gallops no murmurs Abdomen is soft nontender no organomegaly was normal bowel sounds Extremity exam reveals no edema no cyanosis or clubbing Neurological examination reveals no gross focal deficits Results CBC & Chem 7: 10/23/20 05:37 10/22/20 15:15 Labs: Abnormal Lab Results - Last 24 Hours (Table) 10/22/20 10/22/20 10/22/20 Range/Units 15:15 15:15 15:15 WBC 12.3 H (3.8-10.6) k/uL Neutrophils # 11.6 H (1.3-7.7) k/uL Lymphocytes # 0.4 L (1.0-4.8) k/uL APTT 20.8 L (22.0-30.0) sec D-Dimer 1.96 H (<0.60) mg/L FEU Sodium 136 L (137-145) mmol/L Carbon Dioxide 21 L (22-30) mmol/L BUN 46 H (9-20) mg/dL Glucose 122 H (74-99) mg/dL Plasma Lactic Acid Gurvinder (0.7-2.0) mmol/L Magnesium 2.4 H (1.6-2.3) mg/dL Ferritin 1099.1 H (22.0-322.0) ng/mL ALT 53 H (4-49) U/L Lactate Dehydrogenase 1145 H (313-618) U/L C-Reactive Protein 54.3 H (<10.0) mg/L Total Protein 6.2 L (6.3-8.2) g/dL Albumin 3.2 L (3.5-5.0) g/dL Procalcitonin (0.02-0.09) ng/mL Coronavirus (PCR) (Not Detectd) 10/22/20 10/22/20 10/22/20 Range/Units 15:15 15:15 17:35 WBC (3.8-10.6) k/uL Neutrophils # (1.3-7.7) k/uL Lymphocytes # (1.0-4.8) k/uL APTT (22.0-30.0) sec D-Dimer (<0.60) mg/L FEU Sodium (137-145) mmol/L Carbon Dioxide (22-30) mmol/L BUN (9-20) mg/dL Glucose (74-99) mg/dL Plasma Lactic Acid Gurvinder 3.2 H* (0.7-2.0) mmol/L Magnesium (1.6-2.3) mg/dL Ferritin (22.0-322.0) ng/mL ALT (4-49) U/L Lactate Dehydrogenase (313-618) U/L C-Reactive Protein (<10.0) mg/L Total Protein (6.3-8.2) g/dL Albumin (3.5-5.0) g/dL Procalcitonin 0.14 H (0.02-0.09) ng/mL Coronavirus (PCR) Detected A (Not Detectd) 10/22/20 10/22/20 10/23/20 Range/Units 18:24 21:39 01:23 WBC (3.8-10.6) k/uL Neutrophils # (1.3-7.7) k/uL Lymphocytes # (1.0-4.8) k/uL APTT (22.0-30.0) sec D-Dimer (<0.60) mg/L FEU Sodium (137-145) mmol/L Carbon Dioxide (22-30) mmol/L BUN (9-20) mg/dL Glucose (74-99) mg/dL Plasma Lactic Acid Gurvinder 2.4 H* 2.3 H* 2.6 H* (0.7-2.0) mmol/L Magnesium (1.6-2.3) mg/dL Ferritin (22.0-322.0) ng/mL ALT (4-49) U/L Lactate Dehydrogenase (313-618) U/L C-Reactive Protein (<10.0) mg/L Total Protein (6.3-8.2) g/dL Albumin (3.5-5.0) g/dL Procalcitonin (0.02-0.09) ng/mL Coronavirus (PCR) (Not Detectd) 10/23/20 Range/Units 05:37 WBC (3.8-10.6) k/uL Neutrophils # 8.4 H (1.3-7.7) k/uL Lymphocytes # 0.5 L (1.0-4.8) k/uL APTT (22.0-30.0) sec D-Dimer (<0.60) mg/L FEU Sodium (137-145) mmol/L Carbon Dioxide (22-30) mmol/L BUN (9-20) mg/dL Glucose (74-99) mg/dL Plasma Lactic Acid Gurvinder (0.7-2.0) mmol/L Magnesium (1.6-2.3) mg/dL Ferritin (22.0-322.0) ng/mL ALT (4-49) U/L Lactate Dehydrogenase (313-618) U/L C-Reactive Protein (<10.0) mg/L Total Protein (6.3-8.2) g/dL Albumin (3.5-5.0) g/dL Procalcitonin (0.02-0.09) ng/mL Coronavirus (PCR) (Not Detectd) Thrombosis Risk Factor Assmnt - Choose All That Apply Any of the Below Risk Factors Present?: Yes Each Factor Represents 1 point: Obesity (BMI >25), Serious lung disease incl. pneumonia (< 1month) Other Risk Factors: Yes Each Risk Factor Represents 2 Points: Age 61-74 years Thrombosis Risk Factor Assessment Total Risk Factor Score: 4 Thrombosis Risk Factor Assessment Level: Moderate Risk Assessment and Plan Plan: 1. Covid 19 pneumonia 2. Acute hypoxic respiratory failure 3. Underlying history of asthma 4. Underlying history of coronary artery disease 5. Underlying history of hypertension 6. Underlying history of hyperlipidemia 7. Underlying history of abdominal aortic aneurysm At this time patient is admitted to medical floor he was started on IV Decadron and subcu Lovenox he is maintained on oxygen via nasal cannula Pulmonary consultation was requested Will follow closely
[2020-10-23 09:44] LABS: African American GFR (CKD) 96.5 (60.0-200.0); Anion Gap 9.5 mmol/L (4.00-12.00); BUN/Creat Ratio 54.44 Ratio (12.00-20.00); Calcium 8.1 mg/dL (8.7-10.3); Carbon Dioxide 25.5 mmol/L (21.6-31.8); Non-African American GFR(CKD) 83.3 (60.0-200.0); Potassium 4.4 mmol/L (3.5-5.5)
[2020-10-23] MEDS: SODIUM CHLORIDE 0.9% 1,000 ML IV SCH ×2 (11:00→16:50)
[2020-10-23] MEDS ORDERED: SODIUM CHLORIDE 0.9% 500 ML 500 ML IV ONE ×3 (12:49→20:49)
--- NOTE | 2020-10-23 16:00 | P.CNPUL ---
History of Present Illness Consult date: 10/23/20 Requesting physician: Fiorella Erwin Reason for consult: dyspnea, cough, hypoxemia, abnormal CXR/CT Chief complaint: Shortness of breath. History of present illness: 75-year-old male with a history of hyperlipidemia, essential hypertension, and rheumatoid arthritis, who presents to the emergency department with increasing shortness of breath. The patient apparently tested positive for COVID 19, 5 days ago. He began having symptoms, last weekend. He apparently went to an outside urgent care facility where he was tested. He apparently notified his primary care physician about the positive tests who then placed him on Decadron and several vitamin supplements. He was taking everything he was given, without significant improvement in his symptoms, and for that reason, and because his pulse ox, was getting lower and lower into the mid 80s, he decided to come in to be evaluated in the emergency department on the advice of his primary care provider. The patient denies any chest pain or chest discomfort. He has not had any nausea, vomiting, diarrhea, or abdominal pain. He denies all genitourinary complaints. He also denies any chest pain or chest discomfort. He denies any fever or chills. His primary complaints were shortness of breath and nonproductive cough. He was also concerned because he is taking methotrexate for his rheumatoid arthritis and thought that he was probably one of those patients who might be considered to be immunocompromised. Currently, he is on 4 L nasal cannula with saturation between 90 and 91%. His temperature is 97.6. A CT angiogram was negative for pulmonary embolism, was positive for patchy I lateral groundglass opacities, consistent with a diagnosis of COVID 19 pneumonia. Review of Systems REVIEW OF SYSTEMS: CONSTITUTIONAL: [Negative.] NEUROLOGIC: [ Negative.] HEENT: [ Negative.] CARDIAC: [Negative.] PULMONARY: Shortness of breath and cough. GI: [Negative.] : [Negative.] RHEUMATOLOGIC: [ Negative.] IMMUNOLOGIC: [ Negative.] ENDOCRINE: [Negative. ] DERMATOLOGIC: [Negative.] Past Medical History Past Medical History: Chest Pain / Angina, Eye Disorder, GERD/Reflux, Hearing Disorder / Deafness, Hyperlipidemia, Hypertension, Rheumatoid Arthritis (RA), Vascular Disorder Additional Past Medical History / Comment(s): Right cataract, bilateral Glaucoma, RINGING IN RT EAR. Poor circulatrion in legs.neuropathy both legs with N/T toes History of Any Multi-Drug Resistant Organisms: None Reported Past Surgical History: Heart Catheterization Additional Past Surgical History / Comment(s): COLONOSCOPY. Left catartact surgery with lens placement. rt iliac stent, lt iliac and lt leg stent 09/26 Past Anesthesia/Blood Transfusion Reactions: No Reported Reaction Past Psychological History: No Psychological Hx Reported Smoking Status: Former smoker Past Alcohol Use History: Occasional Past Drug Use History: None Reported - Past Family History Mother Family Medical History: CVA/TIA Father Family Medical History: Coronary Artery Disease (CAD) Brother(s) Family Medical History: Cancer Additional Family Medical History / Comment(s): Prostate cancer. Medications and Allergies Home Medications Medication Instructions Recorded Confirmed Type Aspirin 81 mg PO DAILY 10/27/16 10/22/20 History Cholecalciferol [Vitamin D3 (25 5,000 unit PO MOWEFR 10/27/16 10/22/20 History Mcg = 1000 Iu)] Folic Acid 1 mg PO HS 10/27/16 10/22/20 History Latanoprost Ophth [Xalatan 0.005%] 1 drops RIGHT EYE HS 10/27/16 10/22/20 History Valsartan/Hydrochlorothiazide 1 tab PO DAILY 10/27/16 10/22/20 History [Valsartan-Hctz 320-12.5 mg Tab] metHOTREXate sodium [Methotrexate] 17.5 tab PO TU 10/27/16 10/22/20 History amLODIPine [Norvasc] 5 mg PO HS 07/19/19 10/22/20 History Clopidogrel [Plavix] 75 mg PO DAILY #90 tab 09/12/19 10/22/20 Rx Albuterol Inhaler [Ventolin Hfa 2 puff INHALATION RT-Q4H PRN 10/22/20 10/22/20 History Inhaler] Ascorbic Acid [Vitamin C] 1,000 mg PO DAILY 10/22/20 10/22/20 History Atorvastatin Calcium [Lipitor] 20 mg PO HS 10/22/20 10/22/20 History Benzonatate [Tessalon Perles] 100 mg PO TID PRN 10/22/20 10/22/20 History Cefdinir 300 mg PO DIRECTED 10/22/20 10/22/20 History Codeine Phosphate/Guaifenesin 5 ml PO Q6H PRN 10/22/20 10/22/20 History [Guaiatussin AC Liquid] Cyanocobalamin (Vitamin B-12) 1,000 mcg PO DAILY 10/22/20 10/22/20 History [Vitamin B-12] Dexamethasone [Decadron] 4 mg PO BID 10/22/20 10/22/20 History Zinc 50 mg PO BID 10/22/20 10/22/20 History Allergies Allergy/AdvReac Type Severity Reaction Status Date / Time No Known Allergies Allergy Verified 10/22/20 16:22 Physical Exam Osteopathic Statement: *. No significant issues noted on an osteopathic structural exam other than those noted in the History and Physical/Consult. Vitals: Vital Signs Temp Pulse Pulse Resp BP BP Pulse Ox 10/23/20 13:11 69 20 90 L 10/23/20 11:08 97.6 F 62 18 116/45 91 L 10/23/20 05:00 98.2 F 68 20 101/61 91 L 10/22/20 20:00 66 20 10/22/20 19:30 97.7 F 66 20 138/76 91 L 10/22/20 18:35 98.2 F 84 18 119/72 95 10/22/20 17:35 81 20 129/97 92 L Intake and Output 10/23/20 10/23/20 10/23/20 06:59 14:59 22:59 Intake Total 0 Balance 0 Intake: Oral 0 Other: # Voids 2 1 No acute distress, oriented 3. Patient is currently wearing nasal O2 at 4 L/m. There are no overt signs of distress. HEENT examination is grossly unremarkable. Mucous membranes are moist. No oral lesions. Neck supple. Full range of motion. No adenopathy thyromegaly or neck vein distention. Cardiovascular examination reveals regular rhythm rate. S1-S2 normal. No S3 or S4. No discernible murmur noted. Heart rate is 69 bpm. Lungs reveal bilateral diffuse rhonchi, but no evidence of crackles or wheezes. Breath sounds equal bilaterally. Abdomen soft bowel sounds are heard. No masses or tenderness. Extremities are intact. No cyanosis clubbing or edema. Skin is without rash or lesion. Neurologic examination is brief but nonfocal. Results - Laboratory Findings CBC and BMP: 10/23/20 05:37 10/23/20 05:37 PT/INR, D-dimer PT 9.7 sec (9.0-12.0) 10/22/20 15:15 INR 0.9 (<1.2) 10/22/20 15:15 D-Dimer 1.96 mg/L FEU (<0.60) H 10/22/20 15:15 Abnormal lab findings: Abnormal Labs 10/22/20 10/22/20 10/22/20 15:15 15:15 15:15 WBC 12.3 H Neutrophils # 11.6 H Lymphocytes # 0.4 L APTT 20.8 L D-Dimer 1.96 H Sodium 136 L Carbon Dioxide 21 L BUN 46 H BUN/Creatinine Ratio Glucose 122 H Plasma Lactic Acid Gurvinder Calcium Magnesium 2.4 H Ferritin 1099.1 H ALT 53 H Lactate Dehydrogenase 1145 H C-Reactive Protein 54.3 H Total Protein 6.2 L Albumin 3.2 L Procalcitonin Coronavirus (PCR) 10/22/20 10/22/20 10/22/20 15:15 15:15 17:35 WBC Neutrophils # Lymphocytes # APTT D-Dimer Sodium Carbon Dioxide BUN BUN/Creatinine Ratio Glucose Plasma Lactic Acid Gurvinder 3.2 H* Calcium Magnesium Ferritin ALT Lactate Dehydrogenase C-Reactive Protein Total Protein Albumin Procalcitonin 0.14 H Coronavirus (PCR) Detected A 10/22/20 10/22/20 10/23/20 18:24 21:39 01:23 WBC Neutrophils # Lymphocytes # APTT D-Dimer Sodium Carbon Dioxide BUN BUN/Creatinine Ratio Glucose Plasma Lactic Acid Gurvinder 2.4 H* 2.3 H* 2.6 H* Calcium Magnesium Ferritin ALT Lactate Dehydrogenase C-Reactive Protein Total Protein Albumin Procalcitonin Coronavirus (PCR) 10/23/20 10/23/20 10/23/20 05:37 05:37 11:46 WBC Neutrophils # 8.4 H Lymphocytes # 0.5 L APTT D-Dimer Sodium Carbon Dioxide BUN 49.0 H BUN/Creatinine Ratio 54.44 H Glucose 145 H Plasma Lactic Acid Gurvinder 2.6 H* Calcium 8.1 L Magnesium Ferritin ALT Lactate Dehydrogenase C-Reactive Protein Total Protein Albumin Procalcitonin Coronavirus (PCR) 10/23/20 14:43 WBC Neutrophils # Lymphocytes # APTT D-Dimer Sodium Carbon Dioxide BUN BUN/Creatinine Ratio Glucose Plasma Lactic Acid Gurvinder 3.8 H* Calcium Magnesium Ferritin ALT Lactate Dehydrogenase C-Reactive Protein Total Protein Albumin Procalcitonin Coronavirus (PCR) - Diagnostic Findings Chest x-ray: image reviewed CT scan - chest: image reviewed Assessment and Plan Assessment: Acute hypoxemic respiratory failure secondary to COVID 19 pneumonia. History of gastroesophageal reflux disease. History of angina pectoris. History of deafness. History of hyperlipidemia. History of essential hypertension. History of rheumatoid arthritis. History of neuropathy. History of peripheral vascular occlusive disease, status post lower extremity stenting. Plan: Plan dated 10/23/2020. The patient was placed on appropriate medications, including zinc, vitamin D3, vitamin C, Lovenox, and Decadron. We will continue to follow. Prognosis is guarded. Clinically, the patient looks reasonably good. We will follow his pro-inflammatory markers. The patient started having symptoms back on October 07. He is beyond the window for remdesivir. His prognosis is guarded. Additional recommendations and suggestions are forthcoming. White blood count is 9.2, hemoglobin is 13.6, and platelet count is 225,000. D-dimer is 1.96. So dium, potassium, chloride, CO2 and anion gap are all normal. His pro-calcitonin level is 0.14. LDH is 1145, and his ferritin is 1099. Time with Patient: Greater than 30
[2020-10-23] MEDS: FOLIC ACID 1 MG TAB PO SCH (21:00)
[2020-10-23] MEDS: amLODIPine 5 MG TAB PO SCH (21:01)
[2020-10-23] MEDS: ATORVASTATIN 20 MG TAB PO SCH (21:01)
[2020-10-23] MEDS: LATANOPROST 0.005% OPHTH DROPS 2.5 ML BTL RIGHT EYE SCH (21:04)
[2020-10-24] MEDS: SODIUM CHLORIDE 0.9% 1,000 ML IV SCH ×2 (01:14→10:39)
[2020-10-24 07:27] LABS: Basophils % (A) 0 %; Eosinophils % (A) 0 %; HCT 37.3 % (39.0-53.0); HGB 12.5 gm/dL (13.0-17.5); Lymphocytes # (A) 0.3 k/uL (1.0-4.8); Lymphocytes % (A) 5 %; MCH 30.8 pg (25.0-35.0); MCHC 33.4 g/dL (31.0-37.0); MCV 92.3 fL (80.0-100.0); Mean Platelet Volume 7.3; Monocytes # (A) 0.2 k/uL (0-1.0); Monocytes % (A) 3 %; Neutrophils # (A) 6.4 k/uL (1.3-7.7); Neutrophils % (A) 92 %; Platelet Count 204 k/uL (150-450); RBC 4.04 m/uL (4.30-5.90); RDW 15.3 % (11.5-15.5)
[2020-10-24] MEDS: hydroCHLOROthiazide 12.5 MG CAP PO SCH (07:47)
[2020-10-24] MEDS: CYANOCOBALAMIN 500 MCG TAB PO SCH (07:47)
[2020-10-24] MEDS: VALSARTAN 160 MG TAB PO SCH (07:47)
[2020-10-24] MEDS: CLOPIDOGREL 75 MG TAB PO SCH (07:47)
[2020-10-24] MEDS: ZINC SULFATE 220 MG CAP PO SCH ×2 (07:47→21:40)
[2020-10-24] MEDS: DEXAMETHASONE SOD PHOSPHATE 10 MG/ML 1 ML VIAL IV SCH (07:48)
[2020-10-24] MEDS: ASCORBIC ACID 500 MG TAB PO SCH (07:48)
[2020-10-24] MEDS: ASPIRIN 81 MG PO SCH (07:48)
[2020-10-24] MEDS: ENOXAPARIN 40 MG/0.4 ML SYRINGE SQ SCH (07:48)
[2020-10-24 12:24] LABS: Albumin 2.9 g/dL (3.80-4.90); Albumin/Globulin Ratio 1.71 (1.60-3.17); Anion Gap 6.5 mmol/L (4.00-12.00); BUN/Creat Ratio 54.29 Ratio (12.00-20.00); Calcium 7.7 mg/dL (8.7-10.3); Carbon Dioxide 22.5 mmol/L (21.6-31.8); Globulin 1.7 g/dL (1.6-3.3); Non-African American GFR(CKD) 92.3 (60.0-200.0); Potassium 4.1 mmol/L (3.5-5.5); Total Bilirubin 0.7 mg/dL (0.2-1.2); Total Protein 4.6 g/dL (6.2-8.2)
--- NOTE | 2020-10-24 12:39 | P.PN ---
Subjective Progress Note Date: 10/24/20 Florin Newsome, is a 75-year-old male who started having symptoms of cough and shortness of breath about 1 week ago [facility] and [facility] positive for Covid 19 he called our office on Monday and was given a prescription for Decadron 4 mg by mouth twice daily also he was told to take vitamin C vitamin D and zinc supplements, patient took these medications however he continued to have worsening shortness of breath his pulse ox at home was down in the 80s and on he decided to come to emergency room for further evaluation. Patient was evaluated in emergency room his vital examination on presentation reveals a temperature of 97.5 pulse 88 respiration 18 blood pressure 114/86 pulse ox was 92% on 2 L nasal cannula his white blood count was 12.3 hemoglobin 14.6 platelet count 243 d-dimer 1.96 sodium 136 BUN 46 creatinine 0.9 to lactic acid 2.3 ferritin level 1099 C-reactive protein 54.3 Covid 19 PCR testing was positive, CT angiogram of the chest revealed bilateral patchy groundglass opacities consistent was history of Covid pneumonia, no evidence of pulmonary embolism, patient was admitted to medical floor he was started on IV Decadron, subcu Lovenox, and pulmonary consultation was requested. Patient has a known history of asthma, history of hypertension, history of hyperlipidemia, history of coronary artery disease, and history of abdominal aortic aneurysm. On review of systems patient is alert and oriented 3 in no apparent distress he is complaining of shortness of breath and cough otherwise he denies any complaints there is no fever or chills no headache or dizziness no chest pain no palpitation no nausea or vomiting no abdominal pain no diarrhea no blood in the stools no burning with urination no frequency or urgency no hematuria no w eakness or numbness in any of the extremities no change in vision speech or gait. On 10/24/2020 patient was seen and examined on the medical floor he is alert and oriented 3 in no apparent distress he is complaining of cough with whitish sputum production he is complaining of shortness of breath with any activity otherwise he denies any complaints there is no fever or chills no headache or dizziness no chest pain no palpitation no nausea or vomiting no abdominal pain no diarrhea no blood in the stools no burning with urination no frequency or urgency and no hematuria. Lactic acid was significantly elevated yesterday and through last night patient received multiple IV fluid boluses and lactic acid is down to 1.7 at this time. Objective - Vital Signs Vital signs: Vital Signs Temp 98.2 F 10/24/20 11:00 Pulse 71 10/24/20 11:00 Resp 19 10/24/20 11:00 BP 130/79 10/24/20 11:00 Pulse Ox 92 L 10/24/20 11:00 Intake & Output 10/23/20 10/24/20 10/24/20 18:59 06:59 18:59 Intake Total 3450 240 Output Total 500 Balance 3450 -260 Intake: Intake, IV Titration 1600 Amount Sodium Chloride 0.9% 1, 1100 000 ml @ 100 mls/hr IV . Q10H [facility] Rx#:[id number] Sodium Chloride 0.9% 500 500 ml 500 ml @ 999 mls/hr IV .Q31M [facility] Rx#:[id number] Oral 1850 240 Output: Urine 500 Other: Voiding Method Toilet Urinal # Voids 3 2 2 - Exam In general patient is alert and oriented 3 in no apparent distress HEENT head normocephalic and atraumatic Neck is supple no JVD no goiter no lymphadenopathy Chest exam reveals a few scattered rhonchi no wheezing Cardiac exam reveals regular heart sounds S1 and S2 no gallops no murmurs Abdomen is soft nontender no organomegaly was normal bowel sounds Extremity exam reveals no edema no cyanosis or clubbing Neurological examination reveals no gross focal deficits - Labs CBC & Chem 7: 10/24/20 06:27 10/24/20 06:27 Labs: Abnormal Lab Results - Last 24 Hours (Table) 10/23/20 10/23/20 10/23/20 Range/Units 14:43 19:16 22:30 RBC (4.30-5.90) m/uL Hgb (13.0-17.5) gm/dL Hct (39.0-53.0) % Lymphocytes # (1.0-4.8) k/uL Chloride (96-109) mmol/L BUN (9.0-27.0) mg/dL BUN/Creatinine Ratio (12.00-20.00) Ratio Glucose (70-110) mg/dL Plasma Lactic Acid Gurvinder 3.8 H* 3.6 H* 2.2 H* (0.7-2.0) mmol/L Calcium (8.7-10.3) mg/dL AST (14-35) U/L ALT (10-49) U/L Total Protein (6.2-8.2) g/dL Albumin (3.80-4.90) g/dL 10/24/20 10/24/20 Range/Units 06:27 06:27 RBC 4.04 L (4.30-5.90) m/uL Hgb 12.5 L (13.0-17.5) gm/dL Hct 37.3 L (39.0-53.0) % Lymphocytes # 0.3 L (1.0-4.8) k/uL Chloride 112 H (96-109) mmol/L BUN 38.0 H (9.0-27.0) mg/dL BUN/Creatinine Ratio 54.29 H (12.00-20.00) Ratio Glucose 114 H (70-110) mg/dL Plasma Lactic Acid Gurvinder (0.7-2.0) mmol/L Calcium 7.7 L (8.7-10.3) mg/dL AST 38 H (14-35) U/L ALT 61 H (10-49) U/L Total Protein 4.6 L (6.2-8.2) g/dL Albumin 2.90 L (3.80-4.90) g/dL Assessment and Plan Plan: 1. Covid 19 pneumonia 2. Acute hypoxic respiratory failure 3. Underlying history of asthma 4. Underlying history of coronary artery disease 5. Underlying history of hypertension 6. Underlying history of hyperlipidemia 7. Underlying history of abdominal aortic aneurysm At this time patient is admitted to medical floor he was started on IV Decadron and subcu Lovenox he is maintained on oxygen via nasal cannula Pulmonary consultation was requested Will follow closely
--- NOTE | 2020-10-24 13:04 | P.PN ---
Subjective Progress Note Date: 10/24/20 Principal diagnosis: CoVID 19 pneumonia 75-year-old male with a history of hyperlipidemia, essential hypertension, and rheumatoid arthritis, who presents to the emergency department with increasing shortness of breath. The patient apparently tested positive for COVID 19, 5 days ago. He began having symptoms, last weekend. He apparently went to an outside urgent care facility where he was tested. He apparently notified his primary care physician about the positive tests who then placed him on Decadron and several vitamin supplements. He was taking everything he was given, without significant improvement in his symptoms, and for that reason, and because his pulse ox, was getting lower and lower into the mid 80s, he decided to come in to be evaluated in the emergency department on the advice of his primary care provider. The patient denies any chest pain or chest discomfort. He has not had any nausea, vomiting, diarrhea, or abdominal pain. He denies all genito urinary complaints. He also denies any chest pain or chest discomfort. He denies any fever or chills. His primary complaints were shortness of breath and nonproductive cough. He was also concerned because he is taking methotrexate for his rheumatoid arthritis and thought that he was probably one of those patients who might be considered to be immunocompromised. Currently, he is on 4 L nasal cannula with saturation between 90 and 91%. His temperature is 97.6. A CT angiogram was negative for pulmonary embolism, was positive for patchy I lateral groundglass opacities, consistent with a diagnosis of COVID 19 pneumonia. The patient is seen today 10/24/2020 and follow-up on the regular medical floor. He is currently sitting up in a chair at the bedside. Awake and alert in no acute distress. Doing quite a bit better today compared to yesterday. He is still dyspneic with minimal exertion. Maintaining O2 saturations in the 90s on 6 L high flow nasal cannula. White count 7.0. Hemoglobin 12.5. Lymphocytes 0.3. Sodium 141. Potassium 4.1. Creatinine 0.7. Lactic acid 1.7. Pro-c alcitonin 0.07. He remains on dexamethasone, Lovenox, vitamin supplements. Objective - Vital Signs Vital signs: Vital Signs Temp 98.2 F 10/24/20 11:00 Pulse 71 10/24/20 11:00 Resp 19 01/16/21 11:00 BP 130/79 10/24/20 11:00 Pulse Ox 92 L 10/24/20 11:00 Intake & Output 10/23/20 10/24/20 10/24/20 18:59 06:59 18:59 Intake Total 3450 240 Output Total 500 Balance 3450 -260 Intake: Intake, IV Titration 1600 Amount Sodium Chloride 0.9% 1, 1100 000 ml @ 100 mls/hr IV . Q10H [facility] Rx#:[id number] Sodium Chloride 0.9% 500 500 ml 500 ml @ 999 mls/hr IV .Q31M [facility] Rx#:[id number] Oral 1850 240 Output: Urine 500 Other: Voiding Method Toilet Urinal # Voids 3 2 2 - Exam GENERAL EXAM: Alert, active, pleasant 75-year-old gentleman, up in a chair at the bedside, on 6 L nasal cannula, comfortable in no apparent distress. HEAD: Normocephalic. EYES: Normal reaction of pupils, equal size. NOSE: Clear with pink turbinates. THROAT: No erythema or exudates. NECK: No masses, no JVD. CHEST: No chest wall deformity. LUNGS: Equal air entry with crackles in the bilateral posterior bases CVS: S1 and S2 normal with no audible murmur, regular rhythm. ABDOMEN: No hepatosplenomegaly, normal bowel sounds, no guarding or rigidity. SPINE: No scoliosis or deformity SKIN: No rashes CENTRAL NERVOUS SYSTEM: No focal deficits, tone is normal in all 4 extremities. EXTREMITIES: There is no peripheral edema. No clubbing, no cyanosis. Peripheral pulses are intact. - Labs CBC & Chem 7: 10/24/20 06:27 10/24/20 06:27 Labs: Abnormal Lab Results - Last 24 Hours (Table) 10/23/20 10/23/20 10/23/20 Range/Units 14:43 19:16 22:30 RBC (4.30-5.90) m/uL Hgb (13.0-17.5) gm/dL Hct (39.0-53.0) % Lymphocytes # (1.0-4.8) k/uL Chloride (96-109) mmol/L BUN (9.0-27.0) mg/dL BUN/Creatinine Ratio (12.00-20.00) Ratio Glucose (70-110) mg/dL Plasma Lactic Acid Gurvinder 3.8 H* 3.6 H* 2.2 H* (0.7-2.0) mmol/L Calcium (8.7-10.3) mg/dL AST (14-35) U/L ALT (10-49) U/L Total Protein (6.2-8.2) g/dL Albumin (3.80-4.90) g/dL 10/24/20 10/24/20 Range/Units 06:27 06:27 RBC 4.04 L (4.30-5.90) m/uL Hgb 12.5 L (13.0-17.5) gm/dL Hct 37.3 L (39.0-53.0) % Lymphocytes # 0.3 L (1.0-4.8) k/uL Chloride 112 H (96-109) mmol/L BUN 38.0 H (9.0-27.0) mg/dL BUN/Creatinine Ratio 54.29 H (12.00-20.00) Ratio Glucose 114 H (70-110) mg/dL Plasma Lactic Acid Gurvinder (0.7-2.0) mmol/L Calcium 7.7 L (8.7-10.3) mg/dL AST 38 H (14-35) U/L ALT 61 H (10-49) U/L Total Protein 4.6 L (6.2-8.2) g/dL Albumin 2.90 L (3.80-4.90) g/dL Assessment and Plan Assessment: 1 Acute hypoxemic respiratory failure secondary to COVID 19 pneumonia. Outside the window for Remdesivir. 2 History of gastroesophageal reflux disease. 3 History of angina pectoris. 4 History of deafness. 5 History of hyperlipidemia. 6 History of essential hypertension. 7 History of rheumatoid arthritis. 8 History of neuropathy. 9 History of peripheral vascular occlusive disease, status post lower extremity stenting. Plan: The patient was seen and evaluated by Dr. Russell Continue current treatment plan Titrate down the FiO2 as tolerated Increase his activity as tolerated Follow-up chest x-ray in a.m. We'll continue to follow. I, the cosigning physician, performed a history & physical examination of the patient. Lungs sounds are glucose in the bilateral posterior bases. Maintaining good O2 saturations in the 90s on 6 L high flow nasal cannula. I discussed the assessment and plan of care with my nurse practitioner, Kristel Jacob. I attest to the above note as dictated by her.
[2020-10-24] MEDS: amLODIPine 5 MG TAB PO SCH (21:39)
[2020-10-24] MEDS: ATORVASTATIN 20 MG TAB PO SCH (21:39)
[2020-10-24] MEDS: FOLIC ACID 1 MG TAB PO SCH (21:40)
[2020-10-24] MEDS: LATANOPROST 0.005% OPHTH DROPS 2.5 ML BTL RIGHT EYE SCH (21:40)
[2020-10-25] MEDS: SODIUM CHLORIDE 0.9% 1,000 ML IV SCH ×4 (00:25→21:38)
[2020-10-25 07:13] LABS: Basophils % (A) 0 %; Eosinophils % (A) 0 %; HGB 12.2 gm/dL (13.0-17.5); Lymphocytes # (A) 0.5 k/uL (1.0-4.8); Lymphocytes % (A) 8 %; MCH 30.5 pg (25.0-35.0); MCHC 33.1 g/dL (31.0-37.0); MCV 92.3 fL (80.0-100.0); Mean Platelet Volume 7.4; Monocytes # (A) 0.2 k/uL (0-1.0); Monocytes % (A) 4 %; Neutrophils # (A) 5.2 k/uL (1.3-7.7); Neutrophils % (A) 87 %; Platelet Count 226 k/uL (150-450); RBC 4.01 m/uL (4.30-5.90); RDW 15.4 % (11.5-15.5)
--- NOTE | 2020-10-25 08:17 | XR ---
EXAMINATION TYPE: XR chest 1V portable DATE OF EXAM: 10/25/2020 COMPARISON: Chest x-ray 10/22/2020 HISTORY: Covid pneumonia, shortness of breath TECHNIQUE: Single frontal view of the chest is obtained. FINDINGS: Findings are similar to prior exam. Cardiac mediastinal silhouette is stable, aorta is den se. Patchy bilateral density is present within the lungs. Lung volumes are low. No pneumothorax or pl eural effusion. 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
[2020-10-25] MEDS: ASPIRIN 81 MG PO SCH (08:58)
[2020-10-25] MEDS: VALSARTAN 160 MG TAB PO SCH (08:58)
[2020-10-25] MEDS: ASCORBIC ACID 500 MG TAB PO SCH (08:58)
[2020-10-25] MEDS: CYANOCOBALAMIN 500 MCG TAB PO SCH (08:58)
[2020-10-25] MEDS: CLOPIDOGREL 75 MG TAB PO SCH (08:58)
[2020-10-25] MEDS: ZINC SULFATE 220 MG CAP PO SCH ×2 (08:58→21:36)
[2020-10-25] MEDS: hydroCHLOROthiazide 12.5 MG CAP PO SCH (08:58)
[2020-10-25] MEDS: DEXAMETHASONE SOD PHOSPHATE 10 MG/ML 1 ML VIAL IV SCH (08:58)
[2020-10-25] MEDS: ENOXAPARIN 40 MG/0.4 ML SYRINGE SQ SCH (08:59)
[2020-10-25] MEDS: ALBUTEROL HFA INHALER INHALATION PRN ×4 (09:21→21:09)
--- NOTE | 2020-10-25 11:58 | P.PN ---
Subjective Progress Note Date: 10/25/20 Florin Newsome, is a 75-year-old male who started having symptoms of cough and shortness of breath about 1 week ago [facility] and [facility] for Covid 19 he called our office on Monday and was given a prescription for Decadron 4 mg by mouth twice daily also he was told to take vitamin C vitamin D and zinc supplements, patient took these medications however he continued to have worsening shortness of breath his pulse ox at home was down in the 80s and on he decided to come to emergency room for further evaluation. Patient was evaluated in emergency room his vital examination on presentation reveals a temperature of 97.5 pulse 88 respiration 18 blood pressure 114/86 pulse ox was 92% on 2 L nasal cannula his white blood count was 12.3 hemoglobin 14.6 platelet count 243 d-dimer 1.96 sodium 136 BUN 46 creatinine 0.9 to lactic acid 2.3 ferritin level 1099 C-reactive protein 54.3 Covid 19 PCR testing was positive, CT angiogram of the chest revealed bilateral patchy groundglass opacities consistent was history of Covid pneumonia, no evidence of pulmonary embolism, patient was admitted to medical floor he was started on IV Decadron, subcu Lovenox, and pulmonary consultation was requested. Patient has a known history of asthma, history of hypertension, history of hyperlipidemia, history of coronary artery disease, and history of abdominal aortic aneurysm. On review of systems patient is alert and oriented 3 in no apparent distress he is complaining of shortness of breath and cough otherwise he denies any complaints there is no fever or chills no headache or dizziness no chest pain no palpitation no nausea or vomiting no abdominal pain no diarrhea no blood in the stools no burning with urination no frequency or urgency no hematuria no w eakness or numbness in any of the extremities no change in vision speech or gait. On 10/24/2020 patient was seen and examined on the medical floor he is alert and oriented 3 in no apparent distress he is complaining of cough with whitish sputum production he is complaining of shortness of breath with any activity otherwise he denies any complaints there is no fever or chills no headache or dizziness no chest pain no palpitation no nausea or vomiting no abdominal pain no diarrhea no blood in the stools no burning with urination no frequency or urgency and no hematuria. Lactic acid was significantly elevated yesterday and through last night patient received multiple IV fluid boluses and lactic acid is down to 1.7 at this time. On 10/25/2020 patient was seen and examined the medical floor he is alert and oriented 3 in no apparent distress he is complaining of shortness of breath with any activity he is currently maintained on oxygen 6 L via nasal cannula his pulse ox is 91% he is also complaining of some cough with white sputum production and complaining of fatigue and generalized weakness otherwise he denies any complaints there is no fever or chills no headache or dizziness no chest pain no palpitation no nausea or vomiting no abdominal pain no diarrhea no blood in the stools no burning with urination no frequency or urgency and no hematuria there is no weakness or numbness in any of the extremities there is no change in vision speech or gait Objective - Vital Signs Vital signs: Vital Signs Temp 98.0 F 10/25/20 04:37 Pulse 68 10/25/20 09:00 Resp 16 10/25/20 08:00 BP 128/72 10/25/20 04:37 Pulse Ox 91 L 10/25/20 04:37 Intake & Output 10/24/20 10/25/20 10/25/20 18:59 06:59 18:59 Intake Total 2340 590 240 Output Total 500 500 Balance 1840 590 -260 Intake: Intake, IV Titration 900 Amount Sodium Chloride 0.9% 1, 900 000 ml @ 100 mls/hr IV . Q10H [facility] Rx#:[id number] Oral 1440 590 240 Output: Urine 500 500 Other: Voiding Method Toilet Toilet Toilet Urinal # Voids 4 2 2 - Exam In general patient is alert and oriented 3 in no apparent distress HEENT head normocephalic and atraumatic Neck is supple no JVD no goiter no lymphadenopathy Chest exam reveals a few scattered rhonchi no wheezing Cardiac exam reveals regular heart sounds S1 and S2 no gallops no murmurs Abdomen is soft nontender no organomegaly was normal bowel sounds Extremity exam reveals no edema no cyanosis or clubbing Neurological examination reveals no gross focal deficits - Labs CBC & Chem 7: 10/25/20 06:34 10/24/20 06:27 Labs: Abnormal Lab Results - Last 24 Hours (Table) 10/24/20 10/25/20 Range/Units 06:27 06:34 RBC 4.01 L (4.30-5.90) m/uL Hgb 12.2 L (13.0-17.5) gm/dL Hct 37.0 L (39.0-53.0) % Lymphocytes # 0.5 L (1.0-4.8) k/uL Chloride 112 H (96-109) mmol/L BUN 38.0 H (9.0-27.0) mg/dL BUN/Creatinine Ratio 54.29 H (12.00-20.00) Ratio Glucose 114 H (70-110) mg/dL Calcium 7.7 L (8.7-10.3) mg/dL AST 38 H (14-35) U/L ALT 61 H (10-49) U/L Total Protein 4.6 L (6.2-8.2) g/dL Albumin 2.90 L (3.80-4.90) g/dL Assessment and Plan Plan: 1. Covid 19 pneumonia 2. Acute hypoxic respiratory failure 3. Underlying history of asthma 4. Underlying history of coronary artery disease 5. Underlying history of hypertension 6. Underlying history of hyperlipidemia 7. Underlying history of abdominal aortic aneurysm At this time patient is admitted to medical floor he was started on IV Decadron and subcu Lovenox he is maintained on oxygen via nasal cannula Pulmonary consultation was requested Will follow closely
[2020-10-25 12:17] LABS: Albumin 2.9 g/dL (3.80-4.90); Albumin/Globulin Ratio 1.53 (1.60-3.17); Anion Gap 6.6 mmol/L (4.00-12.00); BUN/Creat Ratio 47.14 Ratio (12.00-20.00); Carbon Dioxide 22.4 mmol/L (21.6-31.8); Globulin 1.9 g/dL (1.6-3.3); Non-African American GFR(CKD) 92.3 (60.0-200.0); Potassium 4.3 mmol/L (3.5-5.5); Total Bilirubin 0.8 mg/dL (0.2-1.2); Total Protein 4.8 g/dL (6.2-8.2)
--- NOTE | 2020-10-25 14:15 | P.PN ---
Subjective Progress Note Date: 10/25/20 Principal diagnosis: CoVID 19 pneumonia 75-year-old male with a history of hyperlipidemia, essential hypertension, and rheumatoid arthritis, who presents to the emergency department with increasing shortness of breath. The patient apparently tested positive for COVID 19, 5 days ago. He began having symptoms, last weekend. He apparently went to an outside urgent care facility where he was tested. He apparently notified his primary care physician about the positive tests who then placed him on Decadron and several vitamin supplements. He was taking everything he was given, without significant improvement in his symptoms, and for that reason, and because his pulse ox, was getting lower and lower into the mid 80s, he decided to come in to be evaluated in the emergency department on the advice of his primary care provider. The patient denies any chest pain or chest discomfort. He has not had any nausea, vomiting, diarrhea, or abdominal pain. He denies all genito urinary complaints. He also denies any chest pain or chest discomfort. He denies any fever or chills. His primary complaints were shortness of breath and nonproductive cough. He was also concerned because he is taking methotrexate for his rheumatoid arthritis and thought that he was probably one of those patients who might be considered to be immunocompromised. Currently, he is on 4 L nasal cannula with saturation between 90 and 91%. His temperature is 97.6. A CT angiogram was negative for pulmonary embolism, was positive for patchy I lateral groundglass opacities, consistent with a diagnosis of COVID 19 pneumonia. The patient is seen today 10/24/2020 and follow-up on the regular medical floor. He is currently sitting up in a chair at the bedside. Awake and alert in no acute distress. Doing quite a bit better today compared to yesterday. He is still dyspneic with minimal exertion. Maintaining O2 saturations in the 90s on 6 L high flow nasal cannula. White count 7.0. Hemoglobin 12.5. Lymphocytes 0.3. Sodium 141. Potassium 4.1. Creatinine 0.7. Lactic acid 1.7. Pro-c alcitonin 0.07. He remains on dexamethasone, Lovenox, vitamin supplements. The patient is seen today 10/25/2020 and follow-up on the regular medical floor. Awake, alert in no acute distress. Up in a chair at the bedside. Remains on 6 L high flow nasal cannula with O2 saturations in the low 90s. Afebrile. Hemodynamically stable. White count 6.0. Hemoglobin 12.2. Sodium 143. Potassium 4.3. Creatinine 0.7. He remains on dexamethasone, Lovenox, vitamin supplements. Objective - Vital Signs Vital signs: Vital Signs Temp 98.1 F 10/25/20 12:22 Pulse 76 10/25/20 12:22 Resp 18 10/25/20 12:22 BP 158/84 10/25/20 12:22 Pulse Ox 92 L 10/25/20 12:22 Intake & Output 10/24/20 10/25/20 10/25/20 18:59 06:59 18:59 Intake Total 2340 590 480 Output Total 500 500 Balance 1840 590 -20 Intake: Intake, IV Titration 900 Amount Sodium Chloride 0.9% 1, 900 000 ml @ 100 mls/hr IV . Q10H [facility] Rx#:[id number] Oral 1440 590 480 Output: Urine 500 500 Other: Voiding Method Toilet Toilet Toilet Urinal # Voids 4 2 2 - Exam GENERAL EXAM: Alert, active, pleasant 75-year-old gentleman, up in a chair at the bedside, on 6 L nasal cannula, comfortable in no apparent distress. HEAD: Normocephalic. EYES: Normal reaction of pupils, equal size. NOSE: Clear with pink turbinates. THROAT: No erythema or exudates. NECK: No masses, no JVD. CHEST: No chest wall deformity. LUNGS: Equal air entry with crackles in the bilateral posterior bases CVS: S1 and S2 normal with no audible murmur, regular rhythm. ABDOMEN: No hepatosplenomegaly, normal bowel sounds, no guarding or rigidity. SPINE: No scoliosis or deformity SKIN: No rashes CENTRAL NERVOUS SYSTEM: No focal deficits, tone is normal in all 4 extremities. EXTREMITIES: There is no peripheral edema. No clubbing, no cyanosis. Peripheral pulses are intact. - Labs CBC & Chem 7: 10/25/20 06:34 10/25/20 06:34 Labs: Abnormal Lab Results - Last 24 Hours (Table) 10/25/20 10/25/20 Range/Units 06:34 06:34 RBC 4.01 L (4.30-5.90) m/uL Hgb 12.2 L (13.0-17.5) gm/dL Hct 37.0 L (39.0-53.0) % Lymphocytes # 0.5 L (1.0-4.8) k/uL Chloride 114 H (96-109) mmol/L BUN 33.0 H (9.0-27.0) mg/dL BUN/Creatinine Ratio 47.14 H (12.00-20.00) Ratio Calcium 8.0 L (8.7-10.3) mg/dL AST 38 H (14-35) U/L ALT 68 H (10-49) U/L Total Protein 4.8 L (6.2-8.2) g/dL Albumin 2.90 L (3.80-4.90) g/dL Albumin/Globulin Ratio 1.53 L (1.60-3.17) g/dL Assessment and Plan Assessment: 1 Acute hypoxemic respiratory failure secondary to COVID 19 pneumonia. Outside the window for Remdesivir. 2 History of gastroesophageal reflux disease. 3 History of angina pectoris. 4 History of deafness. 5 History of hyperlipidemia. 6 History of essential hypertension. 7 History of rheumatoid arthritis. 8 History of neuropathy. 9 History of peripheral vascular occlusive disease, status post lower extremity stenting. Plan: The patient was seen and evaluated by Dr. Russell Chest x-ray and labs reviewed Continue current treatment plan Titrate down the FiO2 as tolerated Increase his activity as tolerated We'll continue to follow. I, the cosigning physician, performed a history & physical examination of the patient. Lungs sounds are glucose in the bilateral posterior bases. Maintaining good O2 saturations in the 90s on 6 L high flow nasal cannula. I discussed the assessment and plan of care with my nurse practitioner, Kristel Jacob. I attest to the above note as dictated by her.
[2020-10-25] MEDS: ATORVASTATIN 20 MG TAB PO SCH (21:35)
[2020-10-25] MEDS: amLODIPine 5 MG TAB PO SCH (21:35)
[2020-10-25] MEDS: FOLIC ACID 1 MG TAB PO SCH (21:35)
[2020-10-25] MEDS: LATANOPROST 0.005% OPHTH DROPS 2.5 ML BTL RIGHT EYE SCH (21:42)
[2020-10-26 06:21] LABS: Basophils % (A) 0 %; Eosinophils % (A) 0 %; HCT 40.5 % (39.0-53.0); HGB 13.2 gm/dL (13.0-17.5); Lymphocytes # (A) 0.7 k/uL (1.0-4.8); Lymphocytes % (A) 7 %; MCH 30.5 pg (25.0-35.0); MCHC 32.7 g/dL (31.0-37.0); MCV 93.4 fL (80.0-100.0); Mean Platelet Volume 7.6; Monocytes # (A) 0.3 k/uL (0-1.0); Monocytes % (A) 3 %; Neutrophils # (A) 8.4 k/uL (1.3-7.7); Neutrophils % (A) 89 %; Platelet Count 270 k/uL (150-450); RBC 4.33 m/uL (4.30-5.90); RDW 15.6 % (11.5-15.5); WBC 9.5 k/uL (3.8-10.6)
[2020-10-26] MEDS: ASPIRIN 81 MG PO SCH (09:26)
[2020-10-26] MEDS: hydroCHLOROthiazide 12.5 MG CAP PO SCH (09:26)
[2020-10-26] MEDS: ENOXAPARIN 40 MG/0.4 ML SYRINGE SQ SCH (09:26)
[2020-10-26] MEDS: VALSARTAN 160 MG TAB PO SCH (09:26)
[2020-10-26] MEDS: ASCORBIC ACID 500 MG TAB PO SCH (09:26)
[2020-10-26] MEDS: ZINC SULFATE 220 MG CAP PO SCH (09:27)
[2020-10-26] MEDS: DEXAMETHASONE SOD PHOSPHATE 10 MG/ML 1 ML VIAL IV SCH (09:27)
[2020-10-26] MEDS: CLOPIDOGREL 75 MG TAB PO SCH (09:27)
[2020-10-26] MEDS: CYANOCOBALAMIN 500 MCG TAB PO SCH (09:27)
[2020-10-26] MEDS: CHOLECALCIFEROL 1,000 UNIT TAB PO SCH (09:28)
[2020-10-26 09:29] LABS: African American GFR (CKD) 101.3 (60.0-200.0); Albumin 3.4 g/dL (3.80-4.90); Albumin/Globulin Ratio 1.7 (1.60-3.17); Anion Gap 4.6 mmol/L (4.00-12.00); BUN/Creat Ratio 38.75 Ratio (12.00-20.00); C Reactive Protein 4.9 mg/dL (0.0-0.8); Calcium 8.1 mg/dL (8.7-10.3); Carbon Dioxide 21.4 mmol/L (21.6-31.8); Non-African American GFR(CKD) 87.4 (60.0-200.0); Total Protein 5.4 g/dL (6.2-8.2)
--- NOTE | 2020-10-26 14:03 | P.PN ---
Subjective Progress Note Date: 10/26/20 75-year-old male with a history of hyperlipidemia, essential hypertension, and rheumatoid arthritis, who presents to the emergency department with increasing shortness of breath. The patient apparently tested positive for COVID 19, 5 days ago. He began having symptoms, last weekend. He apparently went to an outside urgent care facility where he was tested. He apparently notified his primary care physician about the positive tests who then placed him on Decadron and several vitamin supplements. He was taking everything he was given, without significant improvement in his symptoms, and for that reason, and because his pulse ox, was getting lower and lower into the mid 80s, he decided to come in to be evaluated in the emergency department on the advice of his primary care provider. The patient denies any chest pain or chest discomfort. He has not had any nausea, vomiting, diarrhea, or abdominal pain. He denies all genitourinary complaints. He also denies any chest pain or chest discomfort. He denies any fever or chills. His primary complaints were shortness of breath and nonproductive cough. He was also concerned because he is taking methotrexate for his rheumatoid arthritis and thought that he was probably one of those patients who might be considered to be immunocompromised. Currently, he is on 4 L nasal cannula with saturation between 90 and 91%. His temperature is 97.6. A CT angiogram was negative for pulmonary embolism, was positive for patchy I lateral groundglass opacities, consistent with a diagnosis of COVID 19 pneumonia. The patient is seen today 10/24/2020 and follow-up on the regular medical floor. He is currently sitting up in a chair at the bedside. Awake and alert in no acute distress. Doing quite a bit better today compared to yesterday. He is still dyspneic with minimal exertion. Maintaining O2 saturations in the 90s on 6 L high flow nasal cannula. White count 7.0. Hemoglobin 12.5. Lymphocytes 0.3. Sodium 141. Potassium 4.1. Creatinine 0.7. Lactic acid 1.7. Pro- calcitonin 0.07. He remains on dexamethasone, Lovenox, vitamin supplements. The patient is seen today 10/25/2020 and follow-up on the regular medical floor. Awake, alert in no acute distress. Up in a chair at the bedside. Remains on 6 L high flow nasal cannula with O2 saturations in the low 90s. Afebrile. Hemodynamically stable. White count 6.0. Hemoglobin 12.2. Sodium 143. Potassium 4.3. Creatinine 0.7. He remains on dexamethasone, Lovenox, vitamin s upplements. On 10/26/2020, the patient has been placed on high flow oxygen at 60 L nasal cannula. She did desaturate. Her oxidation gradually get worse and currently a high flow oxygen. As far as her inflammatory markers, and LDH is at 541, her CRP level is at 4.9. D-dimer was at 2.76. The patient is still on Decadron 6 mg by mouth daily basis, she is receiving Lovenox 40 mg subcu daily basis. She is also on zinc and the rest of the vitamin supplements including vitamin C. CXR from yesterday showed no major interval change in terms of the bilateral pulmonary infiltration. The patient is 75-year-old male with known history of hypertension and hyperlipidemia and rheumatoid arthritis maintained on methotrexate. I examined the patient. He is short of breath with limited amount of activity. On and off he has cough. Sometimes he has to interrupt his speech to catch his breath. He is obviously had gotten worse since yesterday. Objective - Vital Signs Vital signs: Vital Signs Temp 98.3 F 10/26/20 11:00 Pulse 96 10/26/20 11:00 Resp 18 10/26/20 11:00 BP 138/71 10/26/20 11:00 Pulse Ox 94 L 10/26/20 11:00 Intake & Output 10/25/20 10/26/20 10/26/20 18:59 06:59 18:59 Intake Total 1680 300 Output Total 500 450 Balance 1180 -150 Intake: Oral 1680 300 Output: Urine 500 450 Other: Voiding Method Toilet Urinal Urinal # Voids 3 1 # Bowel Movements 1 - Exam GENERAL EXAM: Alert, active, pleasant 75-year-old gentleman, up in a chair at the bedside, on 60 L nasal cannula, comfortable in no apparent distress. HEAD: Normocephalic. EYES: Normal reaction of pupils, equal size. NOSE: Clear with pink turbinates. THROAT: No erythema or exudates. NECK: No masses, no JVD. CHEST: No chest wall deformity. LUNGS: Equal air entry with crackles in the bilateral posterior bases CVS: S1 and S2 normal with no audible murmur, regular rhythm. ABDOMEN: No hepatosplenomegaly, normal bowel sounds, no guarding or rigidity. SPINE: No scoliosis or deformity SKIN: No rashes CENTRAL NERVOUS SYSTEM: No focal deficits, tone is normal in all 4 extremities. EXTREMITIES: There is no peripheral edema. No clubbing, no cyanosis. Peripheral pulses are intact. - Labs CBC & Chem 7: 10/26/20 05:54 10/26/20 05:54 Labs: Abnormal Lab Results - Last 24 Hours (Table) 10/26/20 10/26/20 10/26/20 Range/Units 05:54 05:54 05:54 RDW 15.6 H (11.5-15.5) % Neutrophils # 8.4 H (1.3-7.7) k/uL Lymphocytes # 0.7 L (1.0-4.8) k/uL D-Dimer 2.76 H (<0.60) mg/L FEU Chloride 110 H (96-109) mmol/L Carbon Dioxide 21.4 L (21.6-31.8) mmol/L BUN 31.0 H (9.0-27.0) mg/dL BUN/Creatinine Ratio 38.75 H (12.00-20.00) Ratio Glucose 120 H (70-110) mg/dL Calcium 8.1 L (8.7-10.3) mg/dL AST 39 H (14-35) U/L ALT 77 H (10-49) U/L Lactate Dehydrogenase 541 H (120-246) U/L C-Reactive Protein 4.9 H (0.0-0.8) mg/dL Total Protein 5.4 L (6.2-8.2) g/dL Albumin 3.40 L (3.80-4.90) g/dL Assessment and Plan Plan: 1 Acute hypoxemic respiratory failure secondary to COVID 19 pneumonia. Outside the window for Remdesivir. The patient's oxygenation has gotten worse and the patient has been placed on 6 L of oxygen by nasal cannula. He is having more difficulty breathing. He is on Decadron. 2 History of gastroesophageal reflux disease. 3 History of angina pectoris. 4 History of deafness. 5 History of hyperlipidemia. 6 History of essential hypertension. 7 History of rheumatoid arthritis. 8 History of neuropathy. 9 History of peripheral vascular occlusive disease, status post lower extremity stenting. Plan: The patient would have a portable chest x-ray done today. Repeat inflammatory markers tomorrow Continue Decadron Continue Lovenox consider transferring this patient to the ICU if there is any worsening.
--- NOTE | 2020-10-26 14:46 | XR ---
EXAMINATION TYPE: XR chest 1V DATE OF EXAM: 10/26/2020 COMPARISON: 10/25/2020 HISTORY: 75-year-old male hypoxemia TECHNIQUE: Single frontal view of the chest is obtained. FINDINGS: Heart borderline enlarged. The lung aeration/ectasia of the thoracic aorta. Diffuse interstitial opac ities and increasing patchy mid and lower lung opacities right greater than left. No sizable effusion . IMPRESSION: Continued interstitial opacities but with worsening mid and lower lung airspace disease. Correlate fo r possible developing pulmonary edema or worsening atypical pneumonia.
[2020-10-26] MEDS: SODIUM CHLORIDE 0.9% 1,000 ML IV SCH ×2 (16:19→22:49)
[2020-10-26] MEDS ORDERED: DEXAMETHASONE SOD PHOSPHATE 20 MG in DEXTROSE 5% IN WATER 50 ML IV STA ×2 (18:32)
--- NOTE | 2020-10-26 18:35 | P.PN ---
Subjective Progress Note Date: 10/26/20 Florin Newsome, is a 75-year-old male who started having symptoms of cough and shortness of breath about 1 week ago [facility] for Cov[facility] 19 he called our office on Monday and was given a prescription for Decadron 4 mg by mouth twice daily also he was told to take vitamin C vitamin D and zinc supplements, patient took these medications however he continued to have worsening shortness of breath his pulse ox at home was down in the 80s and on he decided to come to emergency room for further evaluation. Patient was evaluated in emergency room his vital examination on presentation reveals a temperature of 97.5 pulse 88 respiration 18 blood pressure 114/86 pulse ox was 92% on 2 L nasal cannula his white blood count was 12.3 hemoglobin 14.6 platelet count 243 d-dimer 1.96 sodium 136 BUN 46 creatinine 0.9 to lactic acid 2.3 ferritin level 1099 C-reactive protein 54.3 Covid 19 PCR testing was positive, CT angiogram of the chest revealed bilateral patchy groundglass opacities consistent was history of Covid pneumonia, no evidence of pulmonary embolism, patient was admitted to medical floor he was started on IV Decadron, subcu Lovenox, and pulmonary consultation was requested. Patient has a known history of asthma, history of hypertension, history of hyperlipidemia, history of coronary artery disease, and history of abdominal aortic aneurysm. On review of systems patient is alert and oriented 3 in no apparent distress he is complaining of shortness of breath and cough otherwise he denies any complaints there is no fever or chills no headache or dizziness no chest pain no palpitation no nausea or vomiting no abdominal pain no diarrhea no blood in the stools no burning with urination no frequency or urgency no hematuria no w eakness or numbness in any of the extremities no change in vision speech or gait. On 10/24/2020 patient was seen and examined on the medical floor he is alert and oriented 3 in no apparent distress he is complaining of cough with whitish sputum production he is complaining of shortness of breath with any activity otherwise he denies any complaints there is no fever or chills no headache or dizziness no chest pain no palpitation no nausea or vomiting no abdominal pain no diarrhea no blood in the stools no burning with urination no frequency or urgency and no hematuria. Lactic acid was significantly elevated yesterday and through last night patient received multiple IV fluid boluses and lactic acid is down to 1.7 at this time. On 10/25/2020 patient was seen and examined the medical floor he is alert and oriented 3 in no apparent distress he is complaining of shortness of breath with any activity he is currently maintained on oxygen 6 L via nasal cannula his pulse ox is 91% he is also complaining of some cough with white sputum production and complaining of fatigue and generalized weakness otherwise he denies any complaints there is no fever or chills no headache or dizziness no chest pain no palpitation no nausea or vomiting no abdominal pain no diarrhea no blood in the stools no burning with urination no frequency or urgency and no hematuria there is no weakness or numbness in any of the extremities there is no change in vision speech or gait On 10/26/2020 patient was seen and examined on the medical floor he is alert and oriented 3 he is having worsening shortness of breath, his oxygen requirements are increasing, currently he is maintained on high flow cannula FiO2 80% airvo, he is having occasional cough otherwise he denies any complaints his pulse ox is 94% there is no fever or chills no headache or dizziness no chest pain no palpitation no nausea or vomiting no abdominal pain no diarrhea and no urinary symptoms. Case was discussed with Dr. Maurice today patient had worsening of his symptoms and increase in his oxygen requirement at this time will give Decadron 20 mg IV and transferred patient to intensive care unit Objective - Vital Signs Vital signs: Vital Signs Temp 97.9 F 10/26/20 17:00 Pulse 82 10/26/20 17:00 Resp 18 10/26/20 17:00 BP 155/72 10/26/20 17:00 Pulse Ox 94 L 10/26/20 17:00 Intake & Output 10/25/20 10/26/20 10/26/20 18:59 06:59 18:59 Intake Total 8675 197 3698 Output Total 500 450 600 Balance 1180 -150 600 Intake: Intake, IV Titration 1200 Amount Sodium Chloride 0.9% 1, 1200 000 ml @ 100 mls/hr IV . Q10H [facility] Rx#:[id number] Oral 1680 300 Output: Urine 500 450 600 Other: Voiding Method Toilet Urinal Urinal # Voids 3 1 2 # Bowel Movements 1 - Exam In general patient is alert and oriented 3 in no apparent distress HEENT head normocephalic and atraumatic Neck is supple no JVD no goiter no lymphadenopathy Chest exam reveals a few scattered rhonchi no wheezing Cardiac exam reveals regular heart sounds S1 and S2 no gallops no murmurs Abdomen is soft nontender no organomegaly was normal bowel sounds Extremity exam reveals no edema no cyanosis or clubbing Neurological examination reveals no gross focal deficits - Labs CBC & Chem 7: 10/26/20 05:54 10/26/20 05:54 Labs: Abnormal Lab Results - Last 24 Hours (Table) 10/26/20 10/26/20 10/26/20 Range/Units 05:54 05:54 05:54 RDW 15.6 H (11.5-15.5) % Neutrophils # 8.4 H (1.3-7.7) k/uL Lymphocytes # 0.7 L (1.0-4.8) k/uL D-Dimer 2.76 H (<0.60) mg/L FEU Chloride 110 H (96-109) mmol/L Carbon Dioxide 21.4 L (21.6-31.8) mmol/L BUN 31.0 H (9.0-27.0) mg/dL BUN/Creatinine Ratio 38.75 H (12.00-20.00) Ratio Glucose 120 H (70-110) mg/dL Calcium 8.1 L (8.7-10.3) mg/dL AST 39 H (14-35) U/L ALT 77 H (10-49) U/L Lactate Dehydrogenase 541 H (120-246) U/L C-Reactive Protein 4.9 H (0.0-0.8) mg/dL Total Protein 5.4 L (6.2-8.2) g/dL Albumin 3.40 L (3.80-4.90) g/dL Assessment and Plan Plan: 1. Covid 19 pneumonia 2. Acute hypoxic respiratory failure 3. Underlying history of asthma 4. Underlying history of coronary artery disease 5. Underlying history of hypertension 6. Underlying history of hyperlipidemia 7. Underlying history of abdominal aortic aneurysm At this time patient is admitted to medical floor he was started on IV Decadron and subcu Lovenox he is maintained on oxygen via nasal cannula Pulmonary consultation was requested Will follow closely
[2020-10-26 20:25] LABS: Glucose,Whole Blood 225 mg/dL (75-99)
[2020-10-27] MEDS: ZINC SULFATE 220 MG CAP PO SCH ×3 (02:19→22:30)
[2020-10-27] MEDS: LATANOPROST 0.005% OPHTH DROPS 2.5 ML BTL RIGHT EYE SCH ×2 (02:19→22:34)
[2020-10-27] MEDS: FOLIC ACID 1 MG TAB PO SCH ×2 (02:19→22:30)
[2020-10-27] MEDS: amLODIPine 5 MG TAB PO SCH ×2 (02:19→22:30)
[2020-10-27 02:24] LABS: Glucose,Whole Blood 183 mg/dL (75-99)
[2020-10-27] MEDS: INSULIN ASPART (NovoLOG) 100 UNIT/ML VIAL SQ SCH ×4 (02:27→17:51)
[2020-10-27 03:38] LABS: Basophils % (A) 0 %; Eosinophils % (A) 1 %; HCT 35.7 % (39.0-53.0); HGB 12.1 gm/dL (13.0-17.5); Lymphocytes # (A) 0.4 k/uL (1.0-4.8); Lymphocytes % (A) 6 %; MCH 31.1 pg (25.0-35.0); MCHC 33.8 g/dL (31.0-37.0); MCV 91.9 fL (80.0-100.0); Mean Platelet Volume 7.7; Monocytes # (A) 0.2 k/uL (0-1.0); Monocytes % (A) 3 %; Neutrophils # (A) 6.2 k/uL (1.3-7.7); Neutrophils % (A) 90 %; Platelet Count 200 k/uL (150-450); RBC 3.89 m/uL (4.30-5.90); RDW 15.6 % (11.5-15.5); WBC 6.9 k/uL (3.8-10.6)
[2020-10-27 03:56] LABS: ALT 62 U/L (4-49); AST 37 U/L (17-59); African American GFR (CKD) >90 (>60 ml/min/1.73 sqM); Albumin 2.3 g/dL (3.5-5.0); Albumin/Globulin Ratio 0.9; Alkaline Phosphatase 70 U/L (38-126); Anion Gap 5 mmol/L; Blood Urea Nitrogen 27 mg/dL (9-20); Calcium 7.9 mg/dL (8.4-10.2); Carbon Dioxide 21 mmol/L (22-30); Chloride 110 mmol/L (98-107); Globulin 2.7 g/dL; Glucose 155 mg/dL (74-99); LDH 1240 U/L (313-618); Non-African American GFR(CKD) >90 (>60 ml/min/1.73 sqM); Potassium 3.8 mmol/L (3.5-5.1); Sodium 136 mmol/L (137-145); Total Bilirubin 0.8 mg/dL (0.2-1.3)
[2020-10-27 04:07] LABS: C Reactive Protein 130.8 mg/L (<10.0)
[2020-10-27 06:13] LABS: Glucose,Whole Blood 196 mg/dL (75-99)
--- NOTE | 2020-10-27 08:10 | P.PN ---
Subjective Progress Note Date: 10/27/20 75-year-old male with a history of hyperlipidemia, essential hypertension, and rheumatoid arthritis, who presents to the emergency department with increasing shortness of breath. The patient apparently tested positive for COVID 19, 5 days ago. He began having symptoms, last weekend. He apparently went to an outside urgent care facility where he was tested. He apparently notified his primary care physician about the positive tests who then placed him on Decadron and several vitamin supplements. He was taking everything he was given, without significant improvement in his symptoms, and for that reason, and because his pulse ox, was getting lower and lower into the mid 80s, he decided to come in to be evaluated in the emergency department on the advice of his primary care provider. The patient denies any chest pain or chest discomfort. He has not had any nausea, vomiting, diarrhea, or abdominal pain. He denies all genitourinary complaints. He also denies any chest pain or chest discomfort. He denies any fever or chills. His primary complaints were shortness of breath and nonproductive cough. He was also concerned because he is taking methotrexate for his rheumatoid arthritis and thought that he was probably one of those patients who might be considered to be immunocompromised. Currently, he is on 4 L nasal cannula with saturation between 90 and 91%. His temperature is 97.6. A CT angiogram was negative for pulmonary embolism, was positive for patchy I lateral groundglass opacities, consistent with a diagnosis of COVID 19 pneumonia. The patient is seen today 10/24/2020 and follow-up on the regular medical floor. He is currently sitting up in a chair at the bedside. Awake and alert in no acute distress. Doing quite a bit better today compared to yesterday. He is still dyspneic with minimal exertion. Maintaining O2 saturations in the 90s on 6 L high flow nasal cannula. White count 7.0. Hemoglobin 12.5. Lymphocytes 0.3. Sodium 141. Potassium 4.1. Creatinine 0.7. Lactic acid 1.7. Pro- calcitonin 0.07. He remains on dexamethasone, Lovenox, vitamin supplements. The patient is seen today 10/25/2020 and follow-up on the regular medical floor. Awake, alert in no acute distress. Up in a chair at the bedside. Remains on 6 L high flow nasal cannula with O2 saturations in the low 90s. Afebrile. Hemodynamically stable. White count 6.0. Hemoglobin 12.2. Sodium 143. Potassium 4.3. Creatinine 0.7. He remains on dexamethasone, Lovenox, vitamin s upplements. On 10/26/2020, the patient has been placed on high flow oxygen at 60 L nasal cannula. She did desaturate. Her oxidation gradually get worse and currently a high flow oxygen. As far as her inflammatory markers, and LDH is at 541, her CRP level is at 4.9. D-dimer was at 2.76. The patient is still on Decadron 6 mg by mouth daily basis, she is receiving Lovenox 40 mg subcu daily basis. She is also on zinc and the rest of the vitamin supplements including vitamin C. CXR from yesterday showed no major interval change in terms of the bilateral pulmonary infiltration. The patient is 75-year-old male with known history of hypertension and hyperlipidemia and rheumatoid arthritis maintained on methotrexate. I examined the patient. He is short of breath with limited amount of activity. On and off he has cough. Sometimes he has to interrupt his speech to catch his breath. He is obviously had gotten worse since yesterday. On 10/27/2020 the patient is being seen in follow-up in the intensive care unit. I transfer this patient to the ICU yesterday. His oxidation was getting worse. The chest x-ray showed diffuse bilateral pulmonary infiltrates. The patient was placed on high flow oxygen 6 L and following that he got transferred to the ICU. His morning he started on high flow at 60 L. D-dimer is at 2.9. His CRP is at 130 and his LDH level is at 1240. Based on this elevated inflammatory markers and worsening oxygenation, I'm also going to increase his Decadron and put him on 20 mg for the next 5 days, IV and further taper the dose based on his overall clinical response. A repeat chest x-ray from today is stable compared to yesterday without any significant interval change. There may be some improvement in the infiltration of the right lung base. Meanwhile, the patient is still on aspirin and Plavix. He is also on Lovenox 40 mg subcu. Objective - Vital Signs Vital signs: Vital Signs Temp 97.8 F 10/27/20 04:00 Pulse 73 10/27/20 07:00 Resp 31 H 10/27/20 07:00 BP 119/70 10/27/20 07:00 Pulse Ox 88 L 10/27/20 07:00 Intake & Output 10/26/20 10/27/20 10/27/20 18:59 06:59 18:59 Intake Total 1200 920 100 Output Total 600 600 Balance 600 320 100 Weight 103 kg Intake: IV 800 100 Sodium Chloride 0.9% 1, 800 100 000 ml @ 100 mls/hr IV . Q10H RAMIN Rx#:[id number] Intake, IV Titration 1200 Amount Sodium Chloride 0.9% 1, 1200 000 ml @ 100 mls/hr IV . Q10H RAMIN Rx#:[id number] Oral 120 Output: Urine 600 600 Other: Voiding Method Urinal Urinal # Voids 2 - Exam GENERAL EXAM: Alert, active, pleasant 75-year-old gentleman, up in a chair at the bedside, on 60 L nasal cannula, comfortable in no apparent distress. HEAD: Normocephalic. EYES: Normal reaction of pupils, equal size. NOSE: Clear with pink turbinates. THROAT: No erythema or exudates. NECK: No masses, no JVD. CHEST: No chest wall deformity. LUNGS: Equal air entry with crackles in the bilateral posterior bases CVS: S1 and S2 normal with no audible murmur, regular rhythm. ABDOMEN: No hepatosplenomegaly, normal bowel sounds, no guarding or rigidity. SPINE: No scoliosis or deformity SKIN: No rashes CENTRAL NERVOUS SYSTEM: No focal deficits, tone is normal in all 4 extremities. EXTREMITIES: There is no peripheral edema. No clubbing, no cyanosis. Perip heral pulses are intact. - Labs CBC & Chem 7: 10/27/20 03:25 10/27/20 03:25 Labs: Abnormal Lab Results - Last 24 Hours (Table) 10/26/20 10/26/20 10/27/20 Range/Units 05:54 20:23 02:23 RBC (4.30-5.90) m/uL Hgb (13.0-17.5) gm/dL Hct (39.0-53.0) % RDW (11.5-15.5) % Lymphocytes # (1.0-4.8) k/uL D-Dimer (<0.60) mg/L FEU Sodium (137-145) mmol/L Chloride 110 H (96-109) mmol/L Carbon Dioxide 21.4 L (21.6-31.8) mmol/L BUN 31.0 H (9.0-27.0) mg/dL BUN/Creatinine Ratio 38.75 H (12.00-20.00) Ratio Glucose 120 H (70-110) mg/dL POC Glucose (mg/dL) 225 H 183 H (75-99) mg/dL Calcium 8.1 L (8.7-10.3) mg/dL AST 39 H (14-35) U/L ALT 77 H (10-49) U/L Lactate Dehydrogenase 541 H (120-246) U/L C-Reactive Protein 4.9 H (0.0-0.8) mg/dL Total Protein 5.4 L (6.2-8.2) g/dL Albumin 3.40 L (3.80-4.90) g/dL 10/27/20 10/27/20 10/27/20 Range/Units 03:25 03:25 03:25 RBC 3.89 L (4.30-5.90) m/uL Hgb 12.1 L (13.0-17.5) gm/dL Hct 35.7 L (39.0-53.0) % RDW 15.6 H (11.5-15.5) % Lymphocytes # 0.4 L (1.0-4.8) k/uL D-Dimer 2.94 H (<0.60) mg/L FEU Sodium 136 L (137-145) mmol/L Chloride 110 H (96-109) mmol/L Carbon Dioxide 21 L (21.6-31.8) mmol/L BUN 27 H (9.0-27.0) mg/dL BUN/Creatinine Ratio (12.00-20.00) Ratio Glucose 155 H (70-110) mg/dL POC Glucose (mg/dL) (75-99) mg/dL Calcium 7.9 L (8.7-10.3) mg/dL AST (14-35) U/L ALT 62 H (10-49) U/L Lactate Dehydrogenase 1240 H (120-246) U/L C-Reactive Protein 130.8 H (0.0-0.8) mg/dL Total Protein 5.0 L (6.2-8.2) g/dL Albumin 2.3 L (3.80-4.90) g/dL 10/27/20 Range/Units 06:11 RBC (4.30-5.90) m/uL Hgb (13.0-17.5) gm/dL Hct (39.0-53.0) % RDW (11.5-15.5) % Lymphocytes # (1.0-4.8) k/uL D-Dimer (<0.60) mg/L FEU Sodium (137-145) mmol/L Chloride (96-109) mmol/L Carbon Dioxide (21.6-31.8) mmol/L BUN (9.0-27.0) mg/dL BUN/Creatinine Ratio (12.00-20.00) Ratio Glucose (70-110) mg/dL POC Glucose (mg/dL) 196 H (75-99) mg/dL Calcium (8.7-10.3) mg/dL AST (14-35) U/L ALT (10-49) U/L Lactate Dehydrogenase (120-246) U/L C-Reactive Protein (0.0-0.8) mg/dL Total Protein (6.2-8.2) g/dL Albumin (3.80-4.90) g/dL Assessment and Plan Plan: 1 Acute hypoxemic respiratory failure secondary to COVID 19 pneumonia. Outside the window for Remdesivir. The patient's oxygenation has gotten worse and the patient has been placed on 60 L of oxygen by nasal cannula. He is having more difficulty breathing. Based on that, the patient got transferred to the intensive care unit yesterday. I kept him on high flow oxygen at 60 L with an FiO2 of 90%. I also gave him a higher dose of Decadron at 20 mg IV push. His inflammatory markers including LDH and CRP were on the rise. I think he is out of the window Remdesivir convalescent plasma. He would be an adequate candidate for Actemra in history, as this patient has demonstrated escalation in need of oxygen over the past 24 hours and same time there has been lab evidence of increasing inflammatory 2 History of gastroesophageal reflux disease. 3 History of angina pectoris. 4 History of deafness. 5 History of hyperlipidemia. 6 History of essential hypertension. 7 History of rheumatoid arthritis. The patient has been receiving methotrexate and Cimzia on outpatient basis 8 History of neuropathy. 9 History of peripheral vascular occlusive disease, status post lower extremity stenting. Plan: Follow-up chest x-ray was done today and the findings are essentially stable Repeat inflammatory markers tomorrow, as the levels are on the rise Continue Decadron 20 mg IV every day Give the patient Actemra 100 mg 2 doses, 12 hours apart Continue Lovenox today grams subcu daily and repeat the d-dimer is tomorrow Keep the patient intensive care unit for now Condition is critical. We'll continue to follow make further recommendations based on his progress.
[2020-10-27] MEDS: ASCORBIC ACID 500 MG TAB PO SCH (08:51)
[2020-10-27] MEDS: ENOXAPARIN 40 MG/0.4 ML SYRINGE SQ SCH (08:51)
[2020-10-27] MEDS: FAMOTIDINE 20 MG/2 ML VIAL IV SCH ×2 (08:51→22:30)
[2020-10-27] MEDS: ASPIRIN 81 MG PO SCH (08:51)
[2020-10-27] MEDS: DEXAMETHASONE SOD PHOSPHATE 20 MG in DEXTROSE 5% IN WATER 50 ML IV SCH ×2 (08:51)
[2020-10-27] MEDS: VALSARTAN 160 MG TAB PO SCH (08:51)
[2020-10-27] MEDS: CYANOCOBALAMIN 500 MCG TAB PO SCH (08:51)
[2020-10-27] MEDS: CLOPIDOGREL 75 MG TAB PO SCH (08:51)
--- NOTE | 2020-10-27 08:59 | XR ---
EXAMINATION TYPE: XR chest 1V DATE OF EXAM: 10/27/2020 COMPARISON: 10/26/2020 HISTORY: Hypoxemia TECHNIQUE: Single frontal view of the chest is obtained. FINDINGS: Interstitial patchy infiltrate coarsened changes are seen with basilar consolidation and s mall effusion. Heart size prominent. Atherosclerotic change aorta. No pneumothorax. Biapical pleural thickening. IMPRESSION: Interstitial infiltrate and bibasilar infiltrate stable.
[2020-10-27] MEDS ORDERED: TOCILIZUMAB 400 MG in SODIUM CHLORIDE 0.9% 80 ML IV ONE ×2 (11:00→23:00)
[2020-10-27] MEDS: SODIUM CHLORIDE 0.9% 1,000 ML IV SCH ×2 (12:43→17:52)
[2020-10-27] MEDS: hydroCHLOROthiazide 12.5 MG CAP PO SCH (12:43)
[2020-10-27] MEDS: ALBUTEROL HFA INHALER INHALATION PRN (15:36)
[2020-10-27 17:23] LABS: Glucose,Whole Blood 140 mg/dL (75-99)
[2020-10-27 23:40] LABS: Glucose,Whole Blood 183 mg/dL (75-99)
[2020-10-28] MEDS: INSULIN ASPART (NovoLOG) 100 UNIT/ML VIAL SQ SCH ×4 (02:33→17:15)
[2020-10-28] MEDS: SODIUM CHLORIDE 0.9% 1,000 ML IV SCH ×3 (02:34→20:27)
[2020-10-28 04:21] LABS: Basophils % (A) 0 %; Eosinophils % (A) 0 %; HCT 34.9 % (39.0-53.0); HGB 11.5 gm/dL (13.0-17.5); Lymphocytes # (A) 0.5 k/uL (1.0-4.8); Lymphocytes % (A) 5 %; MCH 30.3 pg (25.0-35.0); MCV 91.7 fL (80.0-100.0); Mean Platelet Volume 8.1; Monocytes # (A) 0.3 k/uL (0-1.0); Monocytes % (A) 3 %; Neutrophils # (A) 8.5 k/uL (1.3-7.7); Neutrophils % (A) 90 %; Platelet Count 218 k/uL (150-450); RDW 15.6 % (11.5-15.5); WBC 9.5 k/uL (3.8-10.6)
[2020-10-28 04:33] LABS: African American GFR (CKD) >90 (>60 ml/min/1.73 sqM); Anion Gap 5 mmol/L; Blood Urea Nitrogen 31 mg/dL (9-20); Calcium 7.5 mg/dL (8.4-10.2); Carbon Dioxide 21 mmol/L (22-30); Chloride 109 mmol/L (98-107); Glucose 168 mg/dL (74-99); LDH 1498 U/L (313-618); Non-African American GFR(CKD) 89 (>60 ml/min/1.73 sqM); Potassium 3.6 mmol/L (3.5-5.1); Sodium 135 mmol/L (137-145)
[2020-10-28 06:35] LABS: Glucose,Whole Blood 168 mg/dL (75-99)
[2020-10-28] MEDS: ALBUTEROL HFA INHALER INHALATION PRN ×3 (07:54→19:32)
--- NOTE | 2020-10-28 08:27 | P.PN ---
Subjective Progress Note Date: 10/28/20 75-year-old male with a history of hyperlipidemia, essential hypertension, and rheumatoid arthritis, who presents to the emergency department with increasing shortness of breath. The patient apparently tested positive for COVID 19, 5 days ago. He began having symptoms, last weekend. He apparently went to an outside urgent care facility where he was tested. He apparently notified his primary care physician about the positive tests who then placed him on Decadron and several vitamin supplements. He was taking everything he was given, without significant improvement in his symptoms, and for that reason, and because his pulse ox, was getting lower and lower into the mid 80s, he decided to come in to be evaluated in the emergency department on the advice of his primary care provider. The patient denies any chest pain or chest discomfort. He has not had any nausea, vomiting, diarrhea, or abdominal pain. He denies all genitourinary complaints. He also denies any chest pain or chest discomfort. He denies any fever or chills. His primary complaints were shortness of breath and nonproductive cough. He was also concerned because he is taking methotrexate for his rheumatoid arthritis and thought that he was probably one of those patients who might be considered to be immunocompromised. Currently, he is on 4 L nasal cannula with saturation between 90 and 91%. His temperature is 97.6. A CT angiogram was negative for pulmonary embolism, was positive for patchy I lateral groundglass opacities, consistent with a diagnosis of COVID 19 pneumonia. The patient is seen today 10/24/2020 and follow-up on the regular medical floor. He is currently sitting up in a chair at the bedside. Awake and alert in no acute distress. Doing quite a bit better today compared to yesterday. He is still dyspneic with minimal exertion. Maintaining O2 saturations in the 90s on 6 L high flow nasal cannula. White count 7.0. Hemoglobin 12.5. Lymphocytes 0.3. Sodium 141. Potassium 4.1. Creatinine 0.7. Lactic acid 1.7. Pro- calcitonin 0.07. He remains on dexamethasone, Lovenox, vitamin supplements. The patient is seen today 10/25/2020 and follow-up on the regular medical floor. Awake, alert in no acute distress. Up in a chair at the bedside. Remains on 6 L high flow nasal cannula with O2 saturations in the low 90s. Afebrile. Hemodynamically stable. White count 6.0. Hemoglobin 12.2. Sodium 143. Potassium 4.3. Creatinine 0.7. He remains on dexamethasone, Lovenox, vitamin s upplements. On 10/26/2020, the patient has been placed on high flow oxygen at 60 L nasal cannula. She did desaturate. Her oxidation gradually get worse and currently a high flow oxygen. As far as her inflammatory markers, and LDH is at 541, her CRP level is at 4.9. D-dimer was at 2.76. The patient is still on Decadron 6 mg by mouth daily basis, she is receiving Lovenox 40 mg subcu daily basis. She is also on zinc and the rest of the vitamin supplements including vitamin C. CXR from yesterday showed no major interval change in terms of the bilateral pulmonary infiltration. The patient is 75-year-old male with known history of hypertension and hyperlipidemia and rheumatoid arthritis maintained on methotrexate. I examined the patient. He is short of breath with limited amount of activity. On and off he has cough. Sometimes he has to interrupt his speech to catch his breath. He is obviously had gotten worse since yesterday. On 10/27/2020 the patient is being seen in follow-up in the intensive care unit. I transfer this patient to the ICU yesterday. His oxidation was getting worse. The chest x-ray showed diffuse bilateral pulmonary infiltrates. The patient was placed on high flow oxygen 6 L and following that he got transferred to the ICU. His morning he started on high flow at 60 L. D-dimer is at 2.9. His CRP is at 130 and his LDH level is at 1240. Based on this elevated inflammatory markers and worsening oxygenation, I'm also going to increase his Decadron and put him on 20 mg for the next 5 days, IV and further taper the dose based on his overall clinical response. A repeat chest x-ray from today is stable compared to yesterday without any significant interval change. There may be some improvement in the infiltration of the right lung base. Meanwhile, the patient is still on aspirin and Plavix. He is also on Lovenox 40 mg subcu. On 10/28/2020 patient intensive care unit and the patient is being seen in follow-up. The patient remains on high flow oxygen at 60 L per minute. The patient is also utilizing 100% nonrebreather facemask on top of his high flow oxygen. In terms of his inflammatory markers, his d-dimer is up to 4.21, his LDH level is elevated and its higher compared to yesterday at 1498 and his CRP level is up to 60. The patient remains on high dose Decadron 20 mg IV every 24 hours and the patient was also given a dose of Actemra 80mg and this was. Later on during the afternoon. He is pro-calcitonin level remains low at 0.07. The had a follow-up chest x-ray today that shows no major interval change and it shows diffuse breath and pulmonary infiltration. His white cell count is at 9.5. He is afebrile. He is awake and alert and following commands and answering questions appropriately. He is on Lovenox and he is currently receiving a dose of 40 mg subcutaneous daily Objective - Vital Signs Vital signs: Vital Signs Temp 97.9 F 10/28/20 04:00 Pulse 56 L 10/28/20 07:00 Resp 23 10/28/20 07:00 BP 139/80 10/28/20 07:00 Pulse Ox 92 L 10/28/20 08:00 Intake & Output 10/27/20 10/28/20 10/28/20 18:59 06:59 18:59 Intake Total 1200 1200 100 Output Total 700 675 160 Balance 500 525 -60 Weight 103 kg 97.7 kg Intake: IV 1200 1200 100 Sodium Chloride 0.9% 1, 1200 1200 100 000 ml @ 100 mls/hr IV . Q10H RAMIN Rx#:[id number] Output: Urine 700 675 160 Other: Voiding Method Urinal Urinal # Bowel Movements 1 1 - Exam GENERAL EXAM: Alert, active, pleasant 75-year-old gentleman, up in a chair at the bedside, on 60 L nasal cannula, comfortable in no apparent distress. Patient is also utilizing 100% nonrebreather facemask and combination with high flow oxygen HEAD: Normocephalic. EYES: Normal reaction of pupils, equal size. NOSE: Clear with pink turbinates. THROAT: No erythema or exudates. NECK: No masses, no JVD. CHEST: No chest wall deformity. LUNGS: Equal air entry with crackles in the bilateral posterior bases CVS: S1 and S2 normal with no audible murmur, regular rhythm. ABDOMEN: No hepatosplenomegaly, normal bowel sounds, no guarding or rigidity. SPINE: No scoliosis or deformity SKIN: No rashes CENTRAL NERVOUS SYSTEM: No focal deficits, tone is normal in all 4 extremities. EXTREMITIES: There is no peripheral edema. No clubbing, no cyanosis. Peripheral pulses are intact. - Labs CBC & Chem 7: 10/28/20 03:28 10/28/20 03:28 Labs: Abnormal Lab Results - Last 24 Hours (Table) 10/27/20 10/27/20 10/28/20 Range/Units 17:22 23:38 03:28 RBC 3.80 L (4.30-5.90) m/uL Hgb 11.5 L (13.0-17.5) gm/dL Hct 34.9 L (39.0-53.0) % RDW 15.6 H (11.5-15.5) % Neutrophils # 8.5 H (1.3-7.7) k/uL Lymphocytes # 0.5 L (1.0-4.8) k/uL D-Dimer (<0.60) mg/L FEU Sodium (137-145) mmol/L Chloride (98-107) mmol/L Carbon Dioxide (22-30) mmol/L BUN (9-20) mg/dL Glucose (74-99) mg/dL POC Glucose (mg/dL) 140 H 183 H (75-99) mg/dL Calcium (8.4-10.2) mg/dL Lactate Dehydrogenase (313-618) U/L C-Reactive Protein (<10.0) mg/L 10/28/20 10/28/20 10/28/20 Range/Units 03:28 03:28 06:34 RBC (4.30-5.90) m/uL Hgb (13.0-17.5) gm/dL Hct (39.0-53.0) % RDW (11.5-15.5) % Neutrophils # (1.3-7.7) k/uL Lymphocytes # (1.0-4.8) k/uL D-Dimer 4.21 H (<0.60) mg/L FEU Sodium 135 L (137-145) mmol/L Chloride 109 H (98-107) mmol/L Carbon Dioxide 21 L (22-30) mmol/L BUN 31 H (9-20) mg/dL Glucose 168 H (74-99) mg/dL POC Glucose (mg/dL) 168 H (75-99) mg/dL Calcium 7.5 L (8.4-10.2) mg/dL Lactate Dehydrogenase 1498 H (313-618) U/L C-Reactive Protein 60.0 H (<10.0) mg/L Assessment and Plan Plan: 1 Acute hypoxemic respiratory failure secondary to COVID 19 pneumonia. Outside the window for Remdesivir. The patient's oxygenation has gotten worse and the patient has been placed on 60 L of oxygen by nasal cannula. He is having more difficulty breathing. Based on that, the patient got transferred to the intensive care unit yesterday. I kept him on high flow oxygen at 60 L with an FiO2 of 90%. I also gave him a higher dose of Decadron at 20 mg IV push. His inflammatory markers including LDH and CRP were on the rise. He is out of the window Remdesivir convalescent plasma. He received Actemra , 2 doses was given, inflammatory markers are still on the rise and the chest x-ray findings are stable. His oxygenation is essentially the same compared to yesterday. D- dimer is also elevated. 2 History of gastroesophageal reflux disease. 3 History of angina pectoris. 4 History of deafness. 5 History of hyperlipidemia. 6 History of essential hypertension. 7 History of rheumatoid arthritis. The patient has been receiving methotrexate and Cimzia on outpatient basis 8 History of neuropathy. 9 History of peripheral vascular occlusive disease, status post lower extremity stenting. Plan: Follow-up chest x-ray was done today and the findings are essentially stable Repeat inflammatory markers tomorrow, as the levels are on the rise Continue Decadron 20 mg IV every day Actemra 400 mg 2 doses, 12 hours apartWas his were given Adjust the Lovenox dose of 40 mg subcu every 12 hours Keep the patient intensive care unit for now Condition is critical. We'll continue to follow make further recommendations based on his progress. Time with Patient: Greater than 30
[2020-10-28] MEDS: CYANOCOBALAMIN 500 MCG TAB PO SCH (09:15)
[2020-10-28] MEDS: ASPIRIN 81 MG PO SCH (09:15)
[2020-10-28] MEDS: ASCORBIC ACID 500 MG TAB PO SCH (09:15)
[2020-10-28] MEDS: CHOLECALCIFEROL 25 MCG (1000 IU) TABLET PO SCH (09:15)
[2020-10-28] MEDS: FAMOTIDINE 20 MG/2 ML VIAL IV SCH ×2 (09:15→20:27)
[2020-10-28] MEDS: ZINC SULFATE 220 MG CAP PO SCH ×2 (09:15→20:27)
[2020-10-28] MEDS: VALSARTAN 160 MG TAB PO SCH (09:15)
[2020-10-28] MEDS: CLOPIDOGREL 75 MG TAB PO SCH (09:15)
[2020-10-28] MEDS: DEXAMETHASONE SOD PHOSPHATE 20 MG in DEXTROSE 5% IN WATER 50 ML IV SCH ×2 (09:15)
[2020-10-28] MEDS: hydroCHLOROthiazide 12.5 MG CAP PO SCH (09:15)
[2020-10-28] MEDS: ENOXAPARIN 40 MG/0.4 ML SYRINGE SQ SCH ×2 (09:16→20:27)
--- NOTE | 2020-10-28 09:48 | XR ---
EXAMINATION TYPE: XR chest 1V DATE OF EXAM: 10/28/2020 COMPARISON: Chest x-ray 10/27/2020 HISTORY: Covid, ICU management TECHNIQUE: Single frontal view of the chest is obtained. FINDINGS: Findings are similar to prior exam. IMPRESSION: Correlate for pneumonia.
[2020-10-28 10:40] LABS: Ferritin 901.1 ng/mL (22.0-322.0)
[2020-10-28 11:55] LABS: Glucose,Whole Blood 238 mg/dL (75-99)
[2020-10-28 16:55] LABS: Glucose,Whole Blood 306 mg/dL (75-99)
--- NOTE | 2020-10-28 17:00 | P.PN ---
Subjective Progress Note Date: 10/27/20 Florin Newsome, is a 75-year-old male who started having symptoms of cough and shortness of breath about 1 week ago [facility] for Covid 19 he called our office on Monday and was given a prescription for Decadron 4 mg by mouth twice daily also he was told to take vitamin C vitamin D and zinc supplements, patient took these medications however he continued to have worsening shortness of breath his pulse ox at home was down in the 80s and on he decided to come to emergency room for further evaluation. Patient was evaluated in emergency room his vital examination on presentation reveals a temperature of 97.5 pulse 88 respiration 18 blood pressure 114/86 pulse ox was 92% on 2 L nasal cannula his white blood count was 12.3 hemoglobin 14.6 platelet count 243 d-dimer 1.96 sodium 136 BUN 46 creatinine 0.9 to lactic acid 2.3 ferritin level 1099 C-reactive protein 54.3 Covid 19 PCR testing was positive, CT angiogram of the chest revealed bilateral patchy groundglass opacities consistent was history of Covid pneumonia, no evidence of pulmonary embolism, patient was admitted to medical floor he was started on IV Decadron, subcu Lovenox, and pulmonary consultation was requested. Patient has a known history of asthma, history of hypertension, history of hyperlipidemia, history of coronary artery disease, and history of abdominal aortic aneurysm. On review of systems patient is alert and oriented 3 in no apparent distress he is complaining of shortness of breath and cough otherwise he denies any complaints there is no fever or chills no headache or dizziness no chest pain no palpitation no nausea or vomiting no abdominal pain no diarrhea no blood in the stools no burning with urination no frequency or urgency no hematuria no w eakness or numbness in any of the extremities no change in vision speech or gait. On 10/24/2020 patient was seen and examined on the medical floor he is alert and oriented 3 in no apparent distress he is complaining of cough with whitish sputum production he is complaining of shortness of breath with any activity otherwise he denies any complaints there is no fever or chills no headache or dizziness no chest pain no palpitation no nausea or vomiting no abdominal pain no diarrhea no blood in the stools no burning with urination no frequency or urgency and no hematuria. Lactic acid was significantly elevated yesterday and through last night patient received multiple IV fluid boluses and lactic acid is down to 1.7 at this time. On 10/25/2020 patient was seen and examined the medical floor he is alert and oriented 3 in no apparent distress he is complaining of shortness of breath with any activity he is currently maintained on oxygen 6 L via nasal cannula his pulse ox is 91% he is also complaining of some cough with white sputum production and complaining of fatigue and generalized weakness otherwise he denies any complaints there is no fever or chills no headache or dizziness no chest pain no palpitation no nausea or vomiting no abdominal pain no diarrhea no blood in the stools no burning with urination no frequency or urgency and no hematuria there is no weakness or numbness in any of the extremities there is no change in vision speech or gait On 10/26/2020 patient was seen and examined on the medical floor he is alert and oriented 3 he is having worsening shortness of breath, his oxygen requirements are increasing, currently he is maintained on high flow cannula FiO2 80% airvo, he is having occasional cough otherwise he denies any complaints his pulse ox is 94% there is no fever or chills no headache or dizziness no chest pain no palpitation no nausea or vomiting no abdominal pain no diarrhea and no urinary symptoms. Case was discussed with Dr. Maurice today patient had worsening of his symptoms and increase in his oxygen requirement at this time will give Decadron 20 mg IV and transferred patient to intensive care unit On 10/27/2020 patient was seen and examined in the ICU he is alert and oriented 3 in no apparent distress she is maintained on high flow oxygen 60 L/m his inflammatory markers are increasing his dose of Decadron was increased to 20 mg IV daily otherwise there is no complaints there is no fever or chills no headache or dizziness no chest pain no palpitation no nausea or vomiting no abdominal pain no diarrhea no blood in the stools no burning with urination no frequency or urgency and no hematuria Objective - Vital Signs Vital signs: Vital Signs Temp 97.8 F 10/27/20 04:00 Pulse 73 10/27/20 07:00 Resp 31 H 10/27/20 07:00 BP 119/70 10/27/20 07:00 Pulse Ox 93 L 10/27/20 08:00 Intake & Output 10/26/20 10/27/20 10/27/20 18:59 06:59 18:59 Intake Total 1200 920 100 Output Total 600 600 Balance 600 320 100 Weight 103 kg Intake: IV 800 100 Sodium Chloride 0.9% 1, 800 100 000 ml @ 100 mls/hr IV . Q10H RAMIN Rx#:[id number] Intake, IV Titration 1200 Amount Sodium Chloride 0.9% 1, 1200 000 ml @ 100 mls/hr IV . Q10H RAMIN Rx#:[id number] Oral 120 Output: Urine 600 600 Other: Voiding Method Urinal Urinal # Voids 2 - Exam In general patient is alert and oriented 3 in no apparent distress HEENT head normocephalic and atraumatic Neck is supple no JVD no goiter no lymphadenopathy Chest exam reveals a few scattered rhonchi no wheezing Cardiac exam reveals regular heart sounds S1 and S2 no gallops no murmurs Abdomen is soft nontender no organomegaly was normal bowel sounds Extremity exam reveals no edema no cyanosis or clubbing Neurological examination reveals no gross focal deficits - Labs CBC & Chem 7: 10/28/20 03:28 10/28/20 03:28 Labs: Abnormal Lab Results - Last 24 Hours (Table) 10/26/20 10/26/20 10/27/20 Range/Units 05:54 20:23 02:23 RBC (4.30-5.90) m/uL Hgb (13.0-17.5) gm/dL Hct (39.0-53.0) % RDW (11.5-15.5) % Lymphocytes # (1.0-4.8) k/uL D-Dimer (<0.60) mg/L FEU Sodium (137-145) mmol/L Chloride 110 H (96-109) mmol/L Carbon Dioxide 21.4 L (21.6-31.8) mmol/L BUN 31.0 H (9.0-27.0) mg/dL BUN/Creatinine Ratio 38.75 H (12.00-20.00) Ratio Glucose 120 H (70-110) mg/dL POC Glucose (mg/dL) 225 H 183 H (75-99) mg/dL Calcium 8.1 L (8.7-10.3) mg/dL AST 39 H (14-35) U/L ALT 77 H (10-49) U/L Lactate Dehydrogenase 541 H (120-246) U/L C-Reactive Protein 4.9 H (0.0-0.8) mg/dL Total Protein 5.4 L (6.2-8.2) g/dL Albumin 3.40 L (3.80-4.90) g/dL 10/27/20 10/27/20 10/27/20 Range/Units 03:25 03:25 03:25 RBC 3.89 L (4.30-5.90) m/uL Hgb 12.1 L (13.0-17.5) gm/dL Hct 35.7 L (39.0-53.0) % RDW 15.6 H (11.5-15.5) % Lymphocytes # 0.4 L (1.0-4.8) k/uL D-Dimer 2.94 H (<0.60) mg/L FEU Sodium 136 L (137-145) mmol/L Chloride 110 H (96-109) mmol/L Carbon Dioxide 21 L (21.6-31.8) mmol/L BUN 27 H (9.0-27.0) mg/dL BUN/Creatinine Ratio (12.00-20.00) Ratio Glucose 155 H (70-110) mg/dL POC Glucose (mg/dL) (75-99) mg/dL Calcium 7.9 L (8.7-10.3) mg/dL AST (14-35) U/L ALT 62 H (10-49) U/L Lactate Dehydrogenase 1240 H (120-246) U/L C-Reactive Protein 130.8 H (0.0-0.8) mg/dL Total Protein 5.0 L (6.2-8.2) g/dL Albumin 2.3 L (3.80-4.90) g/dL 10/27/20 Range/Units 06:11 RBC (4.30-5.90) m/uL Hgb (13.0-17.5) gm/dL Hct (39.0-53.0) % RDW (11.5-15.5) % Lymphocytes # (1.0-4.8) k/uL D-Dimer (<0.60) mg/L FEU Sodium (137-145) mmol/L Chloride (96-109) mmol/L Carbon Dioxide (21.6-31.8) mmol/L BUN (9.0-27.0) mg/dL BUN/Creatinine Ratio (12.00-20.00) Ratio Glucose (70-110) mg/dL POC Glucose (mg/dL) 196 H (75-99) mg/dL Calcium (8.7-10.3) mg/dL AST (14-35) U/L ALT (10-49) U/L Lactate Dehydrogenase (120-246) U/L C-Reactive Protein (0.0-0.8) mg/dL Total Protein (6.2-8.2) g/dL Albumin (3.80-4.90) g/dL Assessment and Plan Plan: 1. Covid 19 pneumonia 2. Acute hypoxic respiratory failure 3. Underlying history of asthma 4. Underlying history of coronary artery disease 5. Underlying history of hypertension 6. Underlying history of hyperlipidemia 7. Underlying history of abdominal aortic aneurysm At this time patient is admitted to medical floor he was started on IV Decadron and subcu Lovenox he is maintained on oxygen via nasal cannula Pulmonary consultation was requested Will follow closely
--- NOTE | 2020-10-28 17:12 | P.PN ---
Subjective Progress Note Date: 10/28/20 Florin Newsome, is a 75-year-old male who started having symptoms of cough and shortness of breath about 1 week ago [facility] for Cov[facility] 19 he called our office on Monday and was given a prescription for Decadron 4 mg by mouth twice daily also he was told to take vitamin C vitamin D and zinc supplements, patient took these medications however he continued to have worsening shortness of breath his pulse ox at home was down in the 80s and on he decided to come to emergency room for further evaluation. Patient was evaluated in emergency room his vital examination on presentation reveals a temperature of 97.5 pulse 88 respiration 18 blood pressure 114/86 pulse ox was 92% on 2 L nasal cannula his white blood count was 12.3 hemoglobin 14.6 platelet count 243 d-dimer 1.96 sodium 136 BUN 46 creatinine 0.9 to lactic acid 2.3 ferritin level 1099 C-reactive protein 54.3 Covid 19 PCR testing was positive, CT angiogram of the chest revealed bilateral patchy groundglass opacities consistent was history of Covid pneumonia, no evidence of pulmonary embolism, patient was admitted to medical floor he was started on IV Decadron, subcu Lovenox, and pulmonary consultation was requested. Patient has a known history of asthma, history of hypertension, history of hyperlipidemia, history of coronary artery disease, and history of abdominal aortic aneurysm. On review of systems patient is alert and oriented 3 in no apparent distress he is complaining of shortness of breath and cough otherwise he denies any complaints there is no fever or chills no headache or dizziness no chest pain no palpitation no nausea or vomiting no abdominal pain no diarrhea no blood in the stools no burning with urination no frequency or urgency no hematuria no w eakness or numbness in any of the extremities no change in vision speech or gait. On 10/24/2020 patient was seen and examined on the medical floor he is alert and oriented 3 in no apparent distress he is complaining of cough with whitish sputum production he is complaining of shortness of breath with any activity otherwise he denies any complaints there is no fever or chills no headache or dizziness no chest pain no palpitation no nausea or vomiting no abdominal pain no diarrhea no blood in the stools no burning with urination no frequency or urgency and no hematuria. Lactic acid was significantly elevated yesterday and through last night patient received multiple IV fluid boluses and lactic acid is down to 1.7 at this time. On 10/25/2020 patient was seen and examined the medical floor he is alert and oriented 3 in no apparent distress he is complaining of shortness of breath with any activity he is currently maintained on oxygen 6 L via nasal cannula his pulse ox is 91% he is also complaining of some cough with white sputum production and complaining of fatigue and generalized weakness otherwise he denies any complaints there is no fever or chills no headache or dizziness no chest pain no palpitation no nausea or vomiting no abdominal pain no diarrhea no blood in the stools no burning with urination no frequency or urgency and no hematuria there is no weakness or numbness in any of the extremities there is no change in vision speech or gait On 10/26/2020 patient was seen and examined on the medical floor he is alert and oriented 3 he is having worsening shortness of breath, his oxygen requirements are increasing, currently he is maintained on high flow cannula FiO2 80% airvo, he is having occasional cough otherwise he denies any complaints his pulse ox is 94% there is no fever or chills no headache or dizziness no chest pain no palpitation no nausea or vomiting no abdominal pain no diarrhea and no urinary symptoms. Case was discussed with Dr. Maurice today patient had worsening of his symptoms and increase in his oxygen requirement at this time will give Decadron 20 mg IV and transferred patient to intensive care unit On 10/27/2020 patient was seen and examined in the ICU he is alert and oriented 3 in no apparent distress she is maintained on high flow oxygen 60 L/m his inflammatory markers are increasing his dose of Decadron was increased to 20 mg IV daily otherwise there is no complaints there is no fever or chills no headache or dizziness no chest pain no palpitation no nausea or vomiting no abdominal pain no diarrhea no blood in the stools no burning with urination no frequency or urgency and no hematuria On 10/28/2020 patient was seen and examined in the ICU he is alert and oriented 3 in no apparent distress he is still maintained on high flow oxygen at 60 L/m at this time he is able to eat and answer questions appropriately, his inflammatory markers are stabilizing he is complaining of shortness of breath otherwise he denies any complaints there is no fever or chills no headache or dizziness no chest pain no cough no nausea or vomiting no abdominal pain no diarrhea no blood in the stools no burning with urination no frequency or urgency and no hematuria Objective - Vital Signs Vital signs: Vital Signs Temp 98.3 F 10/28/20 16:00 Pulse 88 10/28/20 16:00 Resp 22 10/28/20 16:00 BP 113/61 10/28/20 16:00 Pulse Ox 97 10/28/20 16:00 Intake & Output 10/27/20 10/28/20 10/28/20 18:59 06:59 18:59 Intake Total 1200 1200 1000 Output Total 700 675 700 Balance 500 525 300 Weight 103 kg 97.7 kg Intake: IV 1200 1200 1000 Sodium Chloride 0.9% 1, 1200 1200 1000 000 ml @ 100 mls/hr IV . Q10H RAMIN Rx#:[id number] Output: Urine 700 675 700 Other: Voiding Method Urinal Urinal Indwelling Catheter # Bowel Movements 1 1 - Exam In general patient is alert and oriented 3 in no apparent distress HEENT head normocephalic and atraumatic Neck is supple no JVD no goiter no lymphadenopathy Chest exam reveals a few scattered rhonchi no wheezing Cardiac exam reveals regular heart sounds S1 and S2 no gallops no murmurs Abdomen is soft nontender no organomegaly was normal bowel sounds Extremity exam reveals no edema no cyanosis or clubbing Neurological examination reveals no gross focal deficits - Labs CBC & Chem 7: 10/28/20 03:28 10/28/20 03:28 Labs: Abnormal Lab Results - Last 24 Hours (Table) 10/27/20 10/27/20 10/28/20 Range/Units 17:22 23:38 03:28 RBC 3.80 L (4.30-5.90) m/uL Hgb 11.5 L (13.0-17.5) gm/dL Hct 34.9 L (39.0-53.0) % RDW 15.6 H (11.5-15.5) % Neutrophils # 8.5 H (1.3-7.7) k/uL Lymphocytes # 0.5 L (1.0-4.8) k/uL D-Dimer (<0.60) mg/L FEU Sodium (137-145) mmol/L Chloride (98-107) mmol/L Carbon Dioxide (22-30) mmol/L BUN (9-20) mg/dL Glucose (74-99) mg/dL POC Glucose (mg/dL) 140 H 183 H (75-99) mg/dL Calcium (8.4-10.2) mg/dL Ferritin (22.0-322.0) ng/mL Lactate Dehydrogenase (313-618) U/L C-Reactive Protein (<10.0) mg/L 10/28/20 10/28/20 10/28/20 Range/Units 03:28 03:28 06:34 RBC (4.30-5.90) m/uL Hgb (13.0-17.5) gm/dL Hct (39.0-53.0) % RDW (11.5-15.5) % Neutrophils # (1.3-7.7) k/uL Lymphocytes # (1.0-4.8) k/uL D-Dimer 4.21 H (<0.60) mg/L FEU Sodium 135 L (137-145) mmol/L Chloride 109 H (98-107) mmol/L Carbon Dioxide 21 L (22-30) mmol/L BUN 31 H (9-20) mg/dL Glucose 168 H (74-99) mg/dL POC Glucose (mg/dL) 168 H (75-99) mg/dL Calcium 7.5 L (8.4-10.2) mg/dL Ferritin 901.1 H (22.0-322.0) ng/mL Lactate Dehydrogenase 1498 H (313-618) U/L C-Reactive Protein 60.0 H (<10.0) mg/L 10/28/20 10/28/20 Range/Units 11:54 16:53 RBC (4.30-5.90) m/uL Hgb (13.0-17.5) gm/dL Hct (39.0-53.0) % RDW (11.5-15.5) % Neutrophils # (1.3-7.7) k/uL Lymphocytes # (1.0-4.8) k/uL D-Dimer (<0.60) mg/L FEU Sodium (137-145) mmol/L Chloride (98-107) mmol/L Carbon Dioxide (22-30) mmol/L BUN (9-20) mg/dL Glucose (74-99) mg/dL POC Glucose (mg/dL) 238 H 306 H (75-99) mg/dL Calcium (8.4-10.2) mg/dL Ferritin (22.0-322.0) ng/mL Lactate Dehydrogenase (313-618) U/L C-Reactive Protein (<10.0) mg/L Assessment and Plan Plan: 1. Covid 19 pneumonia 2. Acute hypoxic respiratory failure 3. Underlying history of asthma 4. Underlying history of coronary artery disease 5. Underlying history of hypertension 6. Underlying history of hyperlipidemia 7. Underlying history of abdominal aortic aneurysm At this time patient is admitted to medical floor he was started on IV Decadron and subcu Lovenox he is maintained on oxygen via nasal cannula Pulmonary consultation was requested Will follow closely
[2020-10-28 18:14] LABS: Hemoglobin A1C 6.6 % (4.0-6.0)
[2020-10-28] MEDS: MELATONIN 5 MG TABLET PO SCH (20:27)
[2020-10-28] MEDS: amLODIPine 5 MG TAB PO SCH (20:27)
[2020-10-28] MEDS: FOLIC ACID 1 MG TAB PO SCH (20:27)
[2020-10-28] MEDS: LATANOPROST 0.005% OPHTH DROPS 2.5 ML BTL RIGHT EYE SCH (20:27)
[2020-10-29 00:01] LABS: Glucose,Whole Blood 194 mg/dL (75-99)
[2020-10-29] MEDS: INSULIN ASPART (NovoLOG) 100 UNIT/ML VIAL SQ SCH ×5 (00:31→20:40)
[2020-10-29 05:19] LABS: Basophils % (A) 0 %; Eosinophils % (A) 0 %; HCT 36.3 % (39.0-53.0); HGB 11.4 gm/dL (13.0-17.5); Lymphocytes # (A) 0.5 k/uL (1.0-4.8); Lymphocytes % (A) 4 %; MCH 29.7 pg (25.0-35.0); MCHC 31.5 g/dL (31.0-37.0); MCV 94.3 fL (80.0-100.0); Mean Platelet Volume 8.1; Monocytes # (A) 0.3 k/uL (0-1.0); Monocytes % (A) 3 %; Neutrophils # (A) 9.5 k/uL (1.3-7.7); Neutrophils % (A) 91 %; Platelet Count 262 k/uL (150-450); RBC 3.85 m/uL (4.30-5.90); WBC 10.6 k/uL (3.8-10.6)
[2020-10-29 05:57] LABS: African American GFR (CKD) >90 (>60 ml/min/1.73 sqM); Anion Gap 2 mmol/L; Blood Urea Nitrogen 29 mg/dL (9-20); C Reactive Protein 32.2 mg/L (<10.0); Calcium 7.7 mg/dL (8.4-10.2); Carbon Dioxide 24 mmol/L (22-30); Chloride 111 mmol/L (98-107); Glucose 125 mg/dL (74-99); LDH 1436 U/L (313-618); Non-African American GFR(CKD) >90 (>60 ml/min/1.73 sqM); Potassium 3.9 mmol/L (3.5-5.1); Sodium 137 mmol/L (137-145)
[2020-10-29] MEDS: ALBUTEROL HFA INHALER INHALATION PRN ×4 (07:25→19:13)
--- NOTE | 2020-10-29 08:33 | P.PN ---
Subjective Progress Note Date: 10/29/20 75-year-old male with a history of hyperlipidemia, essential hypertension, and rheumatoid arthritis, who presents to the emergency department with increasing shortness of breath. The patient apparently tested positive for COVID 19, 5 days ago. He began having symptoms, last weekend. He apparently went to an outside urgent care facility where he was tested. He apparently notified his primary care physician about the positive tests who then placed him on Decadron and several vitamin supplements. He was taking everything he was given, without significant improvement in his symptoms, and for that reason, and because his pulse ox, was getting lower and lower into the mid 80s, he decided to come in to be evaluated in the emergency department on the advice of his primary care provider. The patient denies any chest pain or chest discomfort. He has not had any nausea, vomiting, diarrhea, or abdominal pain. He denies all genitourinary complaints. He also denies any chest pain or chest discomfort. He denies any fever or chills. His primary complaints were shortness of breath and nonproductive cough. He was also concerned because he is taking methotrexate for his rheumatoid arthritis and thought that he was probably one of those patients who might be considered to be immunocompromised. Currently, he is on 4 L nasal cannula with saturation between 90 and 91%. His temperature is 97.6. A CT angiogram was negative for pulmonary embolism, was positive for patchy I lateral groundglass opacities, consistent with a diagnosis of COVID 19 pneumonia. The patient is seen today 10/24/2020 and follow-up on the regular medical floor. He is currently sitting up in a chair at the bedside. Awake and alert in no acute distress. Doing quite a bit better today compared to yesterday. He is still dyspneic with minimal exertion. Maintaining O2 saturations in the 90s on 6 L high flow nasal cannula. White count 7.0. Hemoglobin 12.5. Lymphocytes 0.3. Sodium 141. Potassium 4.1. Creatinine 0.7. Lactic acid 1.7. Pro- calcitonin 0.07. He remains on dexamethasone, Lovenox, vitamin supplements. The patient is seen today 10/25/2020 and follow-up on the regular medical floor. Awake, alert in no acute distress. Up in a chair at the bedside. Remains on 6 L high flow nasal cannula with O2 saturations in the low 90s. Afebrile. Hemodynamically stable. White count 6.0. Hemoglobin 12.2. Sodium 143. Potassium 4.3. Creatinine 0.7. He remains on dexamethasone, Lovenox, vitamin s upplements. On 10/26/2020, the patient has been placed on high flow oxygen at 60 L nasal cannula. She did desaturate. Her oxidation gradually get worse and currently a high flow oxygen. As far as her inflammatory markers, and LDH is at 541, her CRP level is at 4.9. D-dimer was at 2.76. The patient is still on Decadron 6 mg by mouth daily basis, she is receiving Lovenox 40 mg subcu daily basis. She is also on zinc and the rest of the vitamin supplements including vitamin C. CXR from yesterday showed no major interval change in terms of the bilateral pulmonary infiltration. The patient is 75-year-old male with known history of hypertension and hyperlipidemia and rheumatoid arthritis maintained on methotrexate. I examined the patient. He is short of breath with limited amount of activity. On and off he has cough. Sometimes he has to interrupt his speech to catch his breath. He is obviously had gotten worse since yesterday. On 10/27/2020 the patient is being seen in follow-up in the intensive care unit. I transfer this patient to the ICU yesterday. His oxidation was getting worse. The chest x-ray showed diffuse bilateral pulmonary infiltrates. The patient was placed on high flow oxygen 6 L and following that he got transferred to the ICU. His morning he started on high flow at 60 L. D-dimer is at 2.9. His CRP is at 130 and his LDH level is at 1240. Based on this elevated inflammatory markers and worsening oxygenation, I'm also going to increase his Decadron and put him on 20 mg for the next 5 days, IV and further taper the dose based on his overall clinical response. A repeat chest x-ray from today is stable compared to yesterday without any significant interval change. There may be some improvement in the infiltration of the right lung base. Meanwhile, the patient is still on aspirin and Plavix. He is also on Lovenox 40 mg subcu. On 10/28/2020 patient intensive care unit and the patient is being seen in follow-up. The patient remains on high flow oxygen at 60 L per minute. The patient is also utilizing 100% nonrebreather facemask on top of his high flow oxygen. In terms of his inflammatory markers, his d-dimer is up to 4.21, his LDH level is elevated and its higher compared to yesterday at 1498 and his CRP level is up to 60. The patient remains on high dose Decadron 20 mg IV every 24 hours and the patient was also given a dose of Actemra 80mg and this was. Later on during the afternoon. He is pro-calcitonin level remains low at 0.07. The had a follow-up chest x-ray today that shows no major interval change and it shows diffuse breath and pulmonary infiltration. His white cell count is at 9.5. He is afebrile. He is awake and alert and following commands and answering questions appropriately. He is on Lovenox and he is currently receiving a dose of 40 mg subcutaneous daily There is evaluation of 10/29/2020 patient's condition essentially the same as yesterday. He remains on high flow oxygen at 60 L with an FiO2 of 90%. He is also using 100% nonrebreather facemask on and off the supplement his oxygenation. In terms of his treatment, the patient is currently utilizing a combination of Decadron 20 mg IV, vitamin C, vitamin D, melatonin, zinc and folic acid. The patient's d-dimer is up to 8.9. His LDH level is slightly lower compared to yesterday at 1436. CRP is down to 32. He is afebrile. He is awake and alert and communicating. D-dimer is at 6.9 and the patient is also on Lovenox 40 mg subcutaneous twice a day. No other major changes compared to yesterday. The chest x-ray from today is showing diffuse bilateral pulmonary infiltrates probably slightly worse in the right lower lobe area. Is getting Objective - Vital Signs Vital signs: Vital Signs Temp 97.7 F 10/29/20 04:00 Pulse 67 10/29/20 07:00 Resp 23 10/29/20 07:00 BP 129/78 10/29/20 07:00 Pulse Ox 86 L 10/29/20 07:25 Intake & Output 10/28/20 10/29/20 10/29/20 18:59 06:59 18:59 Intake Total 1200 1200 100 Output Total 850 625 Balance 350 575 100 Weight 100.9 kg Intake: IV 1200 1200 100 Sodium Chloride 0.9% 1, 1200 1200 100 000 ml @ 100 mls/hr IV . Q10H [facility] Rx#:[id number] Output: Urine 850 625 Other: Voiding Method Indwelling Catheter Indwelling Catheter - Exam GENERAL EXAM: Alert, active, pleasant 75-year-old gentleman, up in a chair at the bedside, on 60 L nasal cannula, comfortable in no apparent distress. Patient is also utilizing 100% nonrebreather facemask and combination with high flow oxygen HEAD: Normocephalic. EYES: Normal reaction of pupils, equal size. NOSE: Clear with pink turbinates. THROAT: No erythema or exudates. NECK: No masses, no JVD. CHEST: No chest wall deformity. LUNGS: Equal air entry with crackles in the bilateral posterior bases CVS: S1 and S2 normal with no audible murmur, regular rhythm. ABDOMEN: No hepatosplenomegaly, normal bowel sounds, no guarding or rigidity. SPINE: No scoliosis or deformity SKIN: No rashes CENTRAL NERVOUS SYSTEM: No focal deficits, tone is normal in all 4 extremities. EXTREMITIES: There is no peripheral edema. No clubbing, no cyanosis. Peripheral pulses are intact. - Labs CBC & Chem 7: 10/29/20 04:40 10/29/20 04:40 Labs: Abnormal Lab Results - Last 24 Hours (Table) 10/28/20 10/28/20 10/28/20 Range/Units 03:28 03:28 11:54 RBC (4.30-5.90) m/uL Hgb (13.0-17.5) gm/dL Hct (39.0-53.0) % RDW (11.5-15.5) % Neutrophils # (1.3-7.7) k/uL Lymphocytes # (1.0-4.8) k/uL D-Dimer (<0.60) mg/L FEU Chloride (98-107) mmol/L BUN (9-20) mg/dL Glucose (74-99) mg/dL POC Glucose (mg/dL) 238 H (75-99) mg/dL Hemoglobin A1c 6.6 H (4.0-6.0) % Calcium (8.4-10.2) mg/dL Ferritin 901.1 H (22.0-322.0) ng/mL Lactate Dehydrogenase (313-618) U/L C-Reactive Protein (<10.0) mg/L 10/28/20 10/28/20 10/29/20 Range/Units 16:53 23:59 04:40 RBC 3.85 L (4.30-5.90) m/uL Hgb 11.4 L (13.0-17.5) gm/dL Hct 36.3 L (39.0-53.0) % RDW 16.0 H (11.5-15.5) % Neutrophils # 9.5 H (1.3-7.7) k/uL Lymphocytes # 0.5 L (1.0-4.8) k/uL D-Dimer (<0.60) mg/L FEU Chloride (98-107) mmol/L BUN (9-20) mg/dL Glucose (74-99) mg/dL POC Glucose (mg/dL) 306 H 194 H (75-99) mg/dL Hemoglobin A1c (4.0-6.0) % Calcium (8.4-10.2) mg/dL Ferritin (22.0-322.0) ng/mL Lactate Dehydrogenase (313-618) U/L C-Reactive Protein (<10.0) mg/L 10/29/20 10/29/20 Range/Units 04:40 04:40 RBC (4.30-5.90) m/uL Hgb (13.0-17.5) gm/dL Hct (39.0-53.0) % RDW (11.5-15.5) % Neutrophils # (1.3-7.7) k/uL Lymphocytes # (1.0-4.8) k/uL D-Dimer 6.90 H (<0.60) mg/L FEU Chloride 111 H (98-107) mmol/L BUN 29 H (9-20) mg/dL Glucose 125 H (74-99) mg/dL POC Glucose (mg/dL) (75-99) mg/dL Hemoglobin A1c (4.0-6.0) % Calcium 7.7 L (8.4-10.2) mg/dL Ferritin (22.0-322.0) ng/mL Lactate Dehydrogenase 1436 H (313-618) U/L C-Reactive Protein 32.2 H (<10.0) mg/L Assessment and Plan Plan: 1 Acute hypoxemic respiratory failure secondary to COVID 19 pneumonia. Outside the window for Remdesivir. The patient's oxygenation has gotten worse and the patient has been placed on 60 L of oxygen by nasal cannula. He is having more difficulty breathing. The patient on a high flow oxygen 60 L with an FiO2 of 90%. I have the patient also on 100% nonrebreather facemask which is being used episodically. I also gave him a higher dose of Decadron at 20 mg IV push. His inflammatory markers including LDH and CRP were on the rise. He is out of the window Remdesivir convalescent plasma. He received Actemra , 2 doses was given, inflammatory markers are still on the rise and the chest x-ray findings are stable. His oxygenation is essentially the same compared to yesterday. D- dimer is also elevated. The mother markers are very much comparable to yesterday. The chest x-ray from today is not showing any major interval changes the patient continues to have some infiltration of the right lung looks slightly worse. 2 History of gastroesophageal reflux disease. 3 History of angina pectoris. 4 History of deafness. 5 History of hyperlipidemia. 6 History of essential hypertension. 7 History of rheumatoid arthritis. The patient has been receiving methotrexate and Cimzia on outpatient basis 8 History of neuropathy. 9 History of peripheral vascular occlusive disease, status post lower extremity stenting. Plan: Follow-up chest x-ray was done today and the findings are essentially stable, we will repeat these for tomorrow Repeat inflammatory markers tomorrow, as the levels continue to be quite elevated Continue Decadron 20 mg IV every day Actemra 400 mg 2 doses, 12 hours apartWas his were given Adjust the Lovenox dose of 40 mg subcu every 12 hours Keep the patient intensive care unit for now Condition is critical. We'll continue to follow make further recommendations b asememe on his progress. Essentially no changes condition compared to yesterday. His condition remains unchanged and stable.
[2020-10-29] MEDS: ZINC SULFATE 220 MG CAP PO SCH ×2 (08:50→20:26)
[2020-10-29] MEDS: hydroCHLOROthiazide 12.5 MG CAP PO SCH (08:50)
[2020-10-29] MEDS: DEXAMETHASONE SOD PHOSPHATE 20 MG in DEXTROSE 5% IN WATER 50 ML IV SCH ×2 (08:50)
[2020-10-29] MEDS: VALSARTAN 160 MG TAB PO SCH (08:50)
[2020-10-29] MEDS: CYANOCOBALAMIN 500 MCG TAB PO SCH (08:50)
[2020-10-29] MEDS: FAMOTIDINE 20 MG/2 ML VIAL IV SCH ×2 (08:50→20:25)
[2020-10-29] MEDS: ENOXAPARIN 40 MG/0.4 ML SYRINGE SQ SCH ×2 (08:50→20:25)
[2020-10-29] MEDS: ASPIRIN 81 MG PO SCH (08:51)
[2020-10-29] MEDS: ASCORBIC ACID 500 MG TAB PO SCH (08:51)
[2020-10-29] MEDS: SODIUM CHLORIDE 0.9% 1,000 ML IV SCH ×2 (08:51→17:46)
[2020-10-29] MEDS: CLOPIDOGREL 75 MG TAB PO SCH (08:51)
[2020-10-29 09:19] LABS: Ferritin 773.7 ng/mL (22.0-322.0)
--- NOTE | 2020-10-29 09:58 | XR ---
EXAMINATION TYPE: XR chest 1V DATE OF EXAM: 10/29/2020 COMPARISON: 10/28/2020 HISTORY: 75-year-old male COVID/ICU management TECHNIQUE: Single frontal view of the chest is obtained. FINDINGS: The heart remains borderline in size with similar elongation/ectasia of the thoracic aorta. Diffuse i nterstitial and patchy airspace opacities persist especially in the mid and lower lungs. No sizable e ffusion. IMPRESSION: Continued diffuse interstitial and patchy airspace disease especially in the mid and lower lungs, not significantly changed.
--- NOTE | 2020-10-29 10:17 | P.PN ---
Subjective Progress Note Date: 10/29/20 Florin Newsome, is a 75-year-old male who started having symptoms of cough and shortness of breath about 1 week ago [facility] and [facility] for Covid 19 he called our office on Monday and was given a prescription for Decadron 4 mg by mouth twice daily also he was told to take vitamin C vitamin D and zinc supplements, patient took these medications however he continued to have worsening shortness of breath his pulse ox at home was down in the 80s and on he decided to come to emergency room for further evaluation. Patient was evaluated in emergency room his vital examination on presentation reveals a temperature of 97.5 pulse 88 respiration 18 blood pressure 114/86 pulse ox was 92% on 2 L nasal cannula his white blood count was 12.3 hemoglobin 14.6 platelet count 243 d-dimer 1.96 sodium 136 BUN 46 creatinine 0.9 to lactic acid 2.3 ferritin level 1099 C-reactive protein 54.3 Covid 19 PCR testing was positive, CT angiogram of the chest revealed bilateral patchy groundglass opacities consistent was history of Covid pneumonia, no evidence of pulmonary embolism, patient was admitted to medical floor he was started on IV Decadron, subcu Lovenox, and pulmonary consultation was requested. Patient has a known history of asthma, history of hypertension, history of hyperlipidemia, history of coronary artery disease, and history of abdominal aortic aneurysm. On review of systems patient is alert and oriented 3 in no apparent distress he is complaining of shortness of breath and cough otherwise he denies any complaints there is no fever or chills no headache or dizziness no chest pain no palpitation no nausea or vomiting no abdominal pain no diarrhea no blood in the stools no burning with urination no frequency or urgency no hematuria no w eakness or numbness in any of the extremities no change in vision speech or gait. On 10/24/2020 patient was seen and examined on the medical floor he is alert and oriented 3 in no apparent distress he is complaining of cough with whitish sputum production he is complaining of shortness of breath with any activity otherwise he denies any complaints there is no fever or chills no headache or dizziness no chest pain no palpitation no nausea or vomiting no abdominal pain no diarrhea no blood in the stools no burning with urination no frequency or urgency and no hematuria. Lactic acid was significantly elevated yesterday and through last night patient received multiple IV fluid boluses and lactic acid is down to 1.7 at this time. On 10/25/2020 patient was seen and examined the medical floor he is alert and oriented 3 in no apparent distress he is complaining of shortness of breath with any activity he is currently maintained on oxygen 6 L via nasal cannula his pulse ox is 91% he is also complaining of some cough with white sputum production and complaining of fatigue and generalized weakness otherwise he denies any complaints there is no fever or chills no headache or dizziness no chest pain no palpitation no nausea or vomiting no abdominal pain no diarrhea no blood in the stools no burning with urination no frequency or urgency and no hematuria there is no weakness or numbness in any of the extremities there is no change in vision speech or gait On 10/26/2020 patient was seen and examined on the medical floor he is alert and oriented 3 he is having worsening shortness of breath, his oxygen requirements are increasing, currently he is maintained on high flow cannula FiO2 80% airvo, he is having occasional cough otherwise he denies any complaints his pulse ox is 94% there is no fever or chills no headache or dizziness no chest pain no palpitation no nausea or vomiting no abdominal pain no diarrhea and no urinary symptoms. Case was discussed with Dr. Maurice today patient had worsening of his symptoms and increase in his oxygen requirement at this time will give Decadron 20 mg IV and transferred patient to intensive care unit On 10/27/2020 patient was seen and examined in the ICU he is alert and oriented 3 in no apparent distress she is maintained on high flow oxygen 60 L/m his inflammatory markers are increasing his dose of Decadron was increased to 20 mg IV daily otherwise there is no complaints there is no fever or chills no headache or dizziness no chest pain no palpitation no nausea or vomiting no abdominal pain no diarrhea no blood in the stools no burning with urination no frequency or urgency and no hematuria On 10/28/2020 patient was seen and examined in the ICU he is alert and oriented 3 in no apparent distress he is still maintained on high flow oxygen at 60 L/m at this time he is able to eat and answer questions appropriately, his inflammatory markers are stabilizing he is complaining of shortness of breath otherwise he denies any complaints there is no fever or chills no headache or dizziness no chest pain no cough no nausea or vomiting no abdominal pain no diarrhea no blood in the stools no burning with urination no frequency or urgency and no hematuria. On 10/29/2020 patient was seen and examined in the ICU he is alert and oriented 3 in no distress he is requiring high flow oxygen of 60 L/m his inflammatory markings are stabilizing patient is complaining of shortness of breath and occasional cough otherwise he denies any complaints there is no fever or chills no headache or dizziness no chest pain no palpitation no nausea or vomiting no abdominal pain no diarrhea no blood in the stools Moore catheter is in, no urinary symptoms. Objective - Vital Signs Vital signs: Vital Signs Temp 97.6 F 10/29/20 08:00 Pulse 68 10/29/20 08:00 Resp 18 10/29/20 08:00 BP 104/58 10/29/20 08:00 Pulse Ox 92 L 10/29/20 08:00 Intake & Output 10/28/20 10/29/20 10/29/20 18:59 06:59 18:59 Intake Total 1200 1200 100 Output Total 850 625 Balance 350 575 100 Weight 100.9 kg Intake: IV 1200 1200 100 Sodium Chloride 0.9% 1, 1200 1200 100 000 ml @ 100 mls/hr IV . Q10H [facility] Rx#:[id number] Output: Urine 850 625 Other: Voiding Method Indwelling Catheter Indwelling Catheter - Exam In general patient is alert and oriented 3 in no apparent distress HEENT head normocephalic and atraumatic Neck is supple no JVD no goiter no lymphadenopathy Chest exam reveals a few scattered rhonchi no wheezing Cardiac exam reveals regular heart sounds S1 and S2 no gallops no murmurs Abdomen is soft nontender no organomegaly was normal bowel sounds Extremity exam reveals no edema no cyanosis or clubbing Neurological examination reveals no gross focal deficits - Labs CBC & Chem 7: 10/29/20 04:40 10/29/20 04:40 Labs: Abnormal Lab Results - Last 24 Hours (Table) 10/28/20 10/28/20 10/28/20 Range/Units 03:28 03:28 11:54 RBC (4.30-5.90) m/uL Hgb (13.0-17.5) gm/dL Hct (39.0-53.0) % RDW (11.5-15.5) % Neutrophils # (1.3-7.7) k/uL Lymphocytes # (1.0-4.8) k/uL D-Dimer (<0.60) mg/L FEU Chloride (98-107) mmol/L BUN (9-20) mg/dL Glucose (74-99) mg/dL POC Glucose (mg/dL) 238 H (75-99) mg/dL Hemoglobin A1c 6.6 H (4.0-6.0) % Calcium (8.4-10.2) mg/dL Ferritin 901.1 H (22.0-322.0) ng/mL Lactate Dehydrogenase (313-618) U/L C-Reactive Protein (<10.0) mg/L 10/28/20 10/28/20 10/29/20 Range/Units 16:53 23:59 04:40 RBC 3.85 L (4.30-5.90) m/uL Hgb 11.4 L (13.0-17.5) gm/dL Hct 36.3 L (39.0-53.0) % RDW 16.0 H (11.5-15.5) % Neutrophils # 9.5 H (1.3-7.7) k/uL Lymphocytes # 0.5 L (1.0-4.8) k/uL D-Dimer (<0.60) mg/L FEU Chloride (98-107) mmol/L BUN (9-20) mg/dL Glucose (74-99) mg/dL POC Glucose (mg/dL) 306 H 194 H (75-99) mg/dL Hemoglobin A1c (4.0-6.0) % Calcium (8.4-10.2) mg/dL Ferritin (22.0-322.0) ng/mL Lactate Dehydrogenase (313-618) U/L C-Reactive Protein (<10.0) mg/L 10/29/20 10/29/20 Range/Units 04:40 04:40 RBC (4.30-5.90) m/uL Hgb (13.0-17.5) gm/dL Hct (39.0-53.0) % RDW (11.5-15.5) % Neutrophils # (1.3-7.7) k/uL Lymphocytes # (1.0-4.8) k/uL D-Dimer 6.90 H (<0.60) mg/L FEU Chloride 111 H (98-107) mmol/L BUN 29 H (9-20) mg/dL Glucose 125 H (74-99) mg/dL POC Glucose (mg/dL) (75-99) mg/dL Hemoglobin A1c (4.0-6.0) % Calcium 7.7 L (8.4-10.2) mg/dL Ferritin 773.7 H (22.0-322.0) ng/mL Lactate Dehydrogenase 1436 H (313-618) U/L C-Reactive Protein 32.2 H (<10.0) mg/L Assessment and Plan Plan: 1. Covid 19 pneumonia 2. Acute hypoxic respiratory failure 3. Underlying history of asthma 4. Underlying history of coronary artery disease 5. Underlying history of hypertension 6. Underlying history of hyperlipidemia 7. Underlying history of abdominal aortic aneurysm At this time patient is admitted to medical floor he was started on IV Decadron and subcu Lovenox he is maintained on oxygen via nasal cannula Pulmonary consultation was requested Will follow closely
[2020-10-29 11:39] LABS: Glucose,Whole Blood 130 mg/dL (75-99)
[2020-10-29 17:04] LABS: Glucose,Whole Blood 205 mg/dL (75-99)
[2020-10-29] MEDS: amLODIPine 5 MG TAB PO SCH (20:26)
[2020-10-29] MEDS: FOLIC ACID 1 MG TAB PO SCH (20:26)
[2020-10-29] MEDS: MELATONIN 5 MG TABLET PO SCH (20:26)
[2020-10-29 20:37] LABS: Glucose,Whole Blood 192 mg/dL (75-99)
[2020-10-29] MEDS: LATANOPROST 0.005% OPHTH DROPS 2.5 ML BTL RIGHT EYE SCH (20:41)
[2020-10-30] MEDS: SODIUM CHLORIDE 0.9% 1,000 ML IV SCH ×3 (05:06→23:15)
[2020-10-30 05:46] LABS: Basophils % (A) 0 %; Eosinophils % (A) 0 %; HCT 33.6 % (39.0-53.0); HGB 11.4 gm/dL (13.0-17.5); Lymphocytes # (A) 0.4 k/uL (1.0-4.8); Lymphocytes % (A) 3 %; MCH 31.1 pg (25.0-35.0); MCV 91.5 fL (80.0-100.0); Mean Platelet Volume 7.8; Monocytes # (A) 0.4 k/uL (0-1.0); Monocytes % (A) 4 %; Neutrophils # (A) 10.8 k/uL (1.3-7.7); Neutrophils % (A) 92 %; Platelet Count 257 k/uL (150-450); RBC 3.67 m/uL (4.30-5.90); RDW 15.4 % (11.5-15.5); WBC 11.8 k/uL (3.8-10.6)
[2020-10-30 06:05] LABS: ALT 55 U/L (4-49); AST 31 U/L (17-59); African American GFR (CKD) >90 (>60 ml/min/1.73 sqM); Albumin 2.1 g/dL (3.5-5.0); Alkaline Phosphatase 77 U/L (38-126); Anion Gap 2 mmol/L; Blood Urea Nitrogen 29 mg/dL (9-20); C Reactive Protein 17.3 mg/L (<10.0); Calcium 7.6 mg/dL (8.4-10.2); Carbon Dioxide 23 mmol/L (22-30); Chloride 111 mmol/L (98-107); Glucose 135 mg/dL (74-99); LDH 1517 U/L (313-618); Non-African American GFR(CKD) >90 (>60 ml/min/1.73 sqM); Potassium 3.7 mmol/L (3.5-5.1); Sodium 136 mmol/L (137-145); Total Bilirubin 0.4 mg/dL (0.2-1.3); Total Protein 4.6 g/dL (6.3-8.2)
[2020-10-30] MEDS ORDERED: Potassium Replacement Protocol 1 EACH MISC MISCELLANE PRN (06:15)
[2020-10-30 06:39] LABS: Glucose,Whole Blood 122 mg/dL (75-99)
[2020-10-30] MEDS: INSULIN ASPART (NovoLOG) 100 UNIT/ML VIAL SQ SCH ×4 (06:47→20:50)
[2020-10-30] MEDS ORDERED: POTASSIUM CHLORIDE ER 20 MEQ TAB.ER PO SCH (07:00)
[2020-10-30] MEDS: ALBUTEROL HFA INHALER INHALATION PRN ×3 (07:44→15:03)
[2020-10-30] MEDS: VALSARTAN 160 MG TAB PO SCH (08:20)
[2020-10-30] MEDS: ASPIRIN 81 MG PO SCH (08:20)
[2020-10-30] MEDS: CLOPIDOGREL 75 MG TAB PO SCH (08:20)
[2020-10-30] MEDS: ASCORBIC ACID 500 MG TAB PO SCH (08:20)
[2020-10-30] MEDS: FAMOTIDINE 20 MG/2 ML VIAL IV SCH (08:20)
[2020-10-30] MEDS: ZINC SULFATE 220 MG CAP PO SCH ×2 (08:20→20:50)
[2020-10-30] MEDS: CYANOCOBALAMIN 500 MCG TAB PO SCH (08:21)
[2020-10-30] MEDS: DEXAMETHASONE SOD PHOSPHATE 20 MG in DEXTROSE 5% IN WATER 50 ML IV SCH ×2 (08:21)
[2020-10-30] MEDS: ENOXAPARIN 40 MG/0.4 ML SYRINGE SQ SCH ×2 (08:21→20:51)
[2020-10-30] MEDS: hydroCHLOROthiazide 12.5 MG CAP PO SCH (08:21)
[2020-10-30] MEDS: CHOLECALCIFEROL 25 MCG (1000 IU) TABLET PO SCH (08:26)
--- NOTE | 2020-10-30 08:40 | XR ---
EXAMINATION TYPE: XR chest 1V DATE OF EXAM: 10/30/2020 COMPARISON: Chest x-ray 10/29/2020 HISTORY: Covid pneumonia, ICU management TECHNIQUE: Single frontal view of the chest is obtained. FINDINGS: Findings are similar to prior exam. Bilateral airspace disease is noted. No evident pneumo thorax or pleural effusion. Cardiac mediastinal silhouette shows a stable appearance, mediastinum gem ears widened. Aorta is dense. IMPRESSION: Stable findings consistent with pneumonia. Difficult to exclude mediastinal adenopathy.
--- NOTE | 2020-10-30 10:27 | P.PN ---
Subjective Progress Note Date: 10/30/20 Florin Newsome, is a 75-year-old male who started having symptoms of cough and shortness of breath about 1 week ago [facility] and [facility] for Covid 19 he called our office on Monday and was given a prescription for Decadron 4 mg by mouth twice daily also he was told to take vitamin C vitamin D and zinc supplements, patient took these medications however he continued to have worsening shortness of breath his pulse ox at home was down in the 80s and on he decided to come to emergency room for further evaluation. Patient was evaluated in emergency room his vital examination on presentation reveals a temperature of 97.5 pulse 88 respiration 18 blood pressure 114/86 pulse ox was 92% on 2 L nasal cannula his white blood count was 12.3 hemoglobin 14.6 platelet count 243 d-dimer 1.96 sodium 136 BUN 46 creatinine 0.9 to lactic acid 2.3 ferritin level 1099 C-reactive protein 54.3 Covid 19 PCR testing was positive, CT angiogram of the chest revealed bilateral patchy groundglass opacities consistent was history of Covid pneumonia, no evidence of pulmonary embolism, patient was admitted to medical floor he was started on IV Decadron, subcu Lovenox, and pulmonary consultation was requested. Patient has a known history of asthma, history of hypertension, history of hyperlipidemia, history of coronary artery disease, and history of abdominal aortic aneurysm. On review of systems patient is alert and oriented 3 in no apparent distress he is complaining of shortness of breath and cough otherwise he denies any complaints there is no fever or chills no headache or dizziness no chest pain no palpitation no nausea or vomiting no abdominal pain no diarrhea no blood in the stools no burning with urination no frequency or urgency no hematuria no w eakness or numbness in any of the extremities no change in vision speech or gait. On 10/24/2020 patient was seen and examined on the medical floor he is alert and oriented 3 in no apparent distress he is complaining of cough with whitish sputum production he is complaining of shortness of breath with any activity otherwise he denies any complaints there is no fever or chills no headache or dizziness no chest pain no palpitation no nausea or vomiting no abdominal pain no diarrhea no blood in the stools no burning with urination no frequency or urgency and no hematuria. Lactic acid was significantly elevated yesterday and through last night patient received multiple IV fluid boluses and lactic acid is down to 1.7 at this time. On 10/25/2020 patient was seen and examined the medical floor he is alert and oriented 3 in no apparent distress he is complaining of shortness of breath with any activity he is currently maintained on oxygen 6 L via nasal cannula his pulse ox is 91% he is also complaining of some cough with white sputum production and complaining of fatigue and generalized weakness otherwise he denies any complaints there is no fever or chills no headache or dizziness no chest pain no palpitation no nausea or vomiting no abdominal pain no diarrhea no blood in the stools no burning with urination no frequency or urgency and no hematuria there is no weakness or numbness in any of the extremities there is no change in vision speech or gait On 10/26/2020 patient was seen and examined on the medical floor he is alert and oriented 3 he is having worsening shortness of breath, his oxygen requirements are increasing, currently he is maintained on high flow cannula FiO2 80% airvo, he is having occasional cough otherwise he denies any complaints his pulse ox is 94% there is no fever or chills no headache or dizziness no chest pain no palpitation no nausea or vomiting no abdominal pain no diarrhea and no urinary symptoms. Case was discussed with Dr. Maurice today patient had worsening of his symptoms and increase in his oxygen requirement at this time will give Decadron 20 mg IV and transferred patient to intensive care unit On 10/27/2020 patient was seen and examined in the ICU he is alert and oriented 3 in no apparent distress she is maintained on high flow oxygen 60 L/m his inflammatory markers are increasing his dose of Decadron was increased to 20 mg IV daily otherwise there is no complaints there is no fever or chills no headache or dizziness no chest pain no palpitation no nausea or vomiting no abdominal pain no diarrhea no blood in the stools no burning with urination no frequency or urgency and no hematuria On 10/28/2020 patient was seen and examined in the ICU he is alert and oriented 3 in no apparent distress he is still maintained on high flow oxygen at 60 L/m at this time he is able to eat and answer questions appropriately, his inflammatory markers are stabilizing he is complaining of shortness of breath otherwise he denies any complaints there is no fever or chills no headache or dizziness no chest pain no cough no nausea or vomiting no abdominal pain no diarrhea no blood in the stools no burning with urination no frequency or urgency and no hematuria. On 10/29/2020 patient was seen and examined in the ICU he is alert and oriented 3 in no distress he is requiring high flow oxygen of 60 L/m his inflammatory markings are stabilizing patient is complaining of shortness of breath and occasional cough otherwise he denies any complaints there is no fever or chills no headache or dizziness no chest pain no palpitation no nausea or vomiting no abdominal pain no diarrhea no blood in the stools Moore catheter is in, no urinary symptoms. On 10/30/2020 patient was seen and examined in the ICU he is alert and oriented 3 in no distress he is still on high flow oxygen however he feels more comfortable he is complaining of occasional cough he is complaining of shortness of breath with any activity such as eating or speaking or trying to move in bed, otherwise there is no complaints there is no fever or chills no headache or dizziness no chest pain no palpitation no nausea or vomiting no abdominal pain no diarrhea no blood in the stools and no urinary symptoms Objective - Vital Signs Vital signs: Vital Signs Temp 97.7 F 10/30/20 04:00 Pulse 71 10/30/20 07:00 Resp 15 10/30/20 07:00 BP 128/77 10/30/20 07:00 Pulse Ox 89 L 10/30/20 07:00 Intake & Output 10/29/20 10/30/20 10/30/20 18:59 06:59 18:59 Intake Total 1300 1200 100 Output Total 583 785 100 Balance 717 415 0 Weight 101.6 kg Intake: IV 1200 1200 100 Sodium Chloride 0.9% 1, 1200 1200 100 000 ml @ 100 mls/hr IV . Q10H RAMIN Rx#:[id number] Intake, IV Titration 100 Amount Dexamethasone Sod 100 Phosphate 20 mg In Dextrose 5% in Water 50 ml @ 100 mls/hr IV DAILY RAMIN Rx#:[id number] Output: Urine 583 785 100 Other: Voiding Method Indwelling Catheter Indwelling Catheter - Exam In general patient is alert and oriented 3 in no apparent distress HEENT head normocephalic and atraumatic Neck is supple no JVD no goiter no lymphadenopathy Chest exam reveals a few scattered rhonchi no wheezing Cardiac exam reveals regular heart sounds S1 and S2 no gallops no murmurs Abdomen is soft nontender no organomegaly was normal bowel sounds Extremity exam reveals no edema no cyanosis or clubbing Neurological examination reveals no gross focal deficits - Labs CBC & Chem 7: 10/30/20 05:11 10/30/20 05:11 Labs: Abnormal Lab Results - Last 24 Hours (Table) 10/29/20 10/29/20 10/29/20 Range/Units 11:38 17:02 20:36 WBC (3.8-10.6) k/uL RBC (4.30-5.90) m/uL Hgb (13.0-17.5) gm/dL Hct (39.0-53.0) % Neutrophils # (1.3-7.7) k/uL Lymphocytes # (1.0-4.8) k/uL D-Dimer (<0.60) mg/L FEU Sodium (137-145) mmol/L Chloride (98-107) mmol/L BUN (9-20) mg/dL Glucose (74-99) mg/dL POC Glucose (mg/dL) 130 H 205 H 192 H (75-99) mg/dL Calcium (8.4-10.2) mg/dL ALT (4-49) U/L Lactate Dehydrogenase (313-618) U/L C-Reactive Protein (<10.0) mg/L Total Protein (6.3-8.2) g/dL Albumin (3.5-5.0) g/dL 10/30/20 10/30/20 10/30/20 Range/Units 05:11 05:11 05:11 WBC 11.8 H (3.8-10.6) k/uL RBC 3.67 L (4.30-5.90) m/uL Hgb 11.4 L (13.0-17.5) gm/dL Hct 33.6 L (39.0-53.0) % Neutrophils # 10.8 H (1.3-7.7) k/uL Lymphocytes # 0.4 L (1.0-4.8) k/uL D-Dimer 6.13 H (<0.60) mg/L FEU Sodium 136 L (137-145) mmol/L Chloride 111 H (98-107) mmol/L BUN 29 H (9-20) mg/dL Glucose 135 H (74-99) mg/dL POC Glucose (mg/dL) (75-99) mg/dL Calcium 7.6 L (8.4-10.2) mg/dL ALT 55 H (4-49) U/L Lactate Dehydrogenase 1517 H (313-618) U/L C-Reactive Protein 17.3 H (<10.0) mg/L Total Protein 4.6 L (6.3-8.2) g/dL Albumin 2.1 L (3.5-5.0) g/dL 10/30/20 Range/Units 06:37 WBC (3.8-10.6) k/uL RBC (4.30-5.90) m/uL Hgb (13.0-17.5) gm/dL Hct (39.0-53.0) % Neutrophils # (1.3-7.7) k/uL Lymphocytes # (1.0-4.8) k/uL D-Dimer (<0.60) mg/L FEU Sodium (137-145) mmol/L Chloride (98-107) mmol/L BUN (9-20) mg/dL Glucose (74-99) mg/dL POC Glucose (mg/dL) 122 H (75-99) mg/dL Calcium (8.4-10.2) mg/dL ALT (4-49) U/L Lactate Dehydrogenase (313-618) U/L C-Reactive Protein (<10.0) mg/L Total Protein (6.3-8.2) g/dL Albumin (3.5-5.0) g/dL Assessment and Plan Plan: 1. Covid 19 pneumonia 2. Acute hypoxic respiratory failure 3. Underlying history of asthma 4. Underlying history of coronary artery disease 5. Underlying history of hypertension 6. Underlying history of hyperlipidemia 7. Underlying history of abdominal aortic aneurysm At this time patient is admitted to medical floor he was started on IV Decadron and subcu Lovenox he is maintained on oxygen via nasal cannula Pulmonary consultation was requested Will follow closely
[2020-10-30 10:35] LABS: Ferritin 730.8 ng/mL (22.0-322.0)
[2020-10-30 12:07] LABS: Glucose,Whole Blood 120 mg/dL (75-99)
--- NOTE | 2020-10-30 12:32 | P.PN ---
Subjective Progress Note Date: 10/30/20 75-year-old male with a history of hyperlipidemia, essential hypertension, and rheumatoid arthritis, who presents to the emergency department with increasing shortness of breath. The patient apparently tested positive for COVID 19, 5 days ago. He began having symptoms, last weekend. He apparently went to an outside urgent care facility where he was tested. He apparently notified his primary care physician about the positive tests who then placed him on Decadron and several vitamin supplements. He was taking everything he was given, without significant improvement in his symptoms, and for that reason, and because his pulse ox, was getting lower and lower into the mid 80s, he decided to come in to be evaluated in the emergency department on the advice of his primary care provider. The patient denies any chest pain or chest discomfort. He has not had any nausea, vomiting, diarrhea, or abdominal pain. He denies all genitourinary complaints. He also denies any chest pain or chest discomfort. He denies any fever or chills. His primary complaints were shortness of breath and nonproductive cough. He was also concerned because he is taking methotrexate for his rheumatoid arthritis and thought that he was probably one of those patients who might be considered to be immunocompromised. Currently, he is on 4 L nasal cannula with saturation between 90 and 91%. His temperature is 97.6. A CT angiogram was negative for pulmonary embolism, was positive for patchy I lateral groundglass opacities, consistent with a diagnosis of COVID 19 pneumonia. The patient is seen today 10/24/2020 and follow-up on the regular medical floor. He is currently sitting up in a chair at the bedside. Awake and alert in no acute distress. Doing quite a bit better today compared to yesterday. He is still dyspneic with minimal exertion. Maintaining O2 saturations in the 90s on 6 L high flow nasal cannula. White count 7.0. Hemoglobin 12.5. Lymphocytes 0.3. Sodium 141. Potassium 4.1. Creatinine 0.7. Lactic acid 1.7. Pro- calcitonin 0.07. He remains on dexamethasone, Lovenox, vitamin supplements. The patient is seen today 10/25/2020 and follow-up on the regular medical floor. Awake, alert in no acute distress. Up in a chair at the bedside. Remains on 6 L high flow nasal cannula with O2 saturations in the low 90s. Afebrile. Hemodynamically stable. White count 6.0. Hemoglobin 12.2. Sodium 143. Potassium 4.3. Creatinine 0.7. He remains on dexamethasone, Lovenox, vitamin s upplements. On 10/26/2020, the patient has been placed on high flow oxygen at 60 L nasal cannula. She did desaturate. Her oxidation gradually get worse and currently a high flow oxygen. As far as her inflammatory markers, and LDH is at 541, her CRP level is at 4.9. D-dimer was at 2.76. The patient is still on Decadron 6 mg by mouth daily basis, she is receiving Lovenox 40 mg subcu daily basis. She is also on zinc and the rest of the vitamin supplements including vitamin C. CXR from yesterday showed no major interval change in terms of the bilateral pulmonary infiltration. The patient is 75-year-old male with known history of hypertension and hyperlipidemia and rheumatoid arthritis maintained on methotrexate. I examined the patient. He is short of breath with limited amount of activity. On and off he has cough. Sometimes he has to interrupt his speech to catch his breath. He is obviously had gotten worse since yesterday. On 10/27/2020 the patient is being seen in follow-up in the intensive care unit. I transfer this patient to the ICU yesterday. His oxidation was getting worse. The chest x-ray showed diffuse bilateral pulmonary infiltrates. The patient was placed on high flow oxygen 6 L and following that he got transferred to the ICU. His morning he started on high flow at 60 L. D-dimer is at 2.9. His CRP is at 130 and his LDH level is at 1240. Based on this elevated inflammatory markers and worsening oxygenation, I'm also going to increase his Decadron and put him on 20 mg for the next 5 days, IV and further taper the dose based on his overall clinical response. A repeat chest x-ray from today is stable compared to yesterday without any significant interval change. There may be some improvement in the infiltration of the right lung base. Meanwhile, the patient is still on aspirin and Plavix. He is also on Lovenox 40 mg subcu. On 10/28/2020 patient intensive care unit and the patient is being seen in follow-up. The patient remains on high flow oxygen at 60 L per minute. The patient is also utilizing 100% nonrebreather facemask on top of his high flow oxygen. In terms of his inflammatory markers, his d-dimer is up to 4.21, his LDH level is elevated and its higher compared to yesterday at 1498 and his CRP level is up to 60. The patient remains on high dose Decadron 20 mg IV every 24 hours and the patient was also given a dose of Actemra 80mg and this was. Later on during the afternoon. He is pro-calcitonin level remains low at 0.07. The had a follow-up chest x-ray today that shows no major interval change and it shows diffuse breath and pulmonary infiltration. His white cell count is at 9.5. He is afebrile. He is awake and alert and following commands and answering questions appropriately. He is on Lovenox and he is currently receiving a dose of 40 mg subcutaneous daily There is evaluation of 10/29/2020 patient's condition essentially the same as yesterday. He remains on high flow oxygen at 60 L with an FiO2 of 90%. He is also using 100% nonrebreather facemask on and off the supplement his oxygenation. In terms of his treatment, the patient is currently utilizing a combination of Decadron 20 mg IV, vitamin C, vitamin D, melatonin, zinc and folic acid. The patient's d-dimer is up to 8.9. His LDH level is slightly lower compared to yesterday at 1436. CRP is down to 32. He is afebrile. He is awake and alert and communicating. D-dimer is at 6.9 and the patient is also on Lovenox 40 mg subcutaneous twice a day. No other major changes compared to yesterday. The chest x-ray from today is showing diffuse bilateral pulmonary infiltrates probably slightly worse in the right lower lobe area. 10/30/2020, the patient is stable without any interval worsening. Clinically is feeling slightly better and less short of breath. He remains on high flow oxygen at 60 L with an FiO2 of 90% is on and off utilizing the 100% nonrebreather facemask. He mainly at nighttime when he breathes through his mouth. He remains on Decadron 20 mg IV every 24 hours. He remains also on a combination of vitamin C, vitamin D and melatonin and Pepcid. The patient was also treated with Actemra and he received 2 doses. He is afebrile. On IV fluids running at 100 mL an hour. No signs of any significant fluid overload. Does have some edema in lower extremities bilaterally. On his blood work, the patient's LDH level is at 1517 and his CRP is at 17 and both of the numbers are comparable although the LDH is slightly elevated and the CRP is slightly lower compared to yesterday. He d-dimer is at 6.13 and the patient remains on Lovenox 40 mg subcu every 12 hours. His chest x-ray findings are essentially stable and the patient is diffuse but the pulmonary infiltrates without any major improvement interval change compared to yesterday. Objective - Vital Signs Vital signs: Vital Signs Temp 97.5 F L 10/30/20 08:00 Pulse 76 10/30/20 11:00 Resp 28 H 10/30/20 11:00 BP 132/86 10/30/20 11:00 Pulse Ox 96 10/30/20 11:00 Intake & Output 10/29/20 10/30/20 10/30/20 18:59 06:59 18:59 Intake Total 1300 1200 1030 Output Total 583 785 250 Balance 717 415 780 Weight 101.6 kg Intake: IV 1200 1200 500 Sodium Chloride 0.9% 1, 1200 1200 500 000 ml @ 100 mls/hr IV . Q10H RAMIN Rx#:[id number] Intake, IV Titration 100 50 Amount Dexamethasone Sod 100 50 Phosphate 20 mg In Dextrose 5% in Water 50 ml @ 100 mls/hr IV DAILY RAMIN Rx#:[id number] Oral 480 Output: Urine 583 785 250 Other: Voiding Method Indwelling Catheter Indwelling Catheter Indwelling Catheter - Exam GENERAL EXAM: Alert, active, pleasant 75-year-old gentleman, up in a chair at the bedside, on 60 L nasal cannula, comfortable in no apparent distress. Patient is also utilizing 100% nonrebreather facemask and combination with high flow oxygen HEAD: Normocephalic. EYES: Normal reaction of pupils, equal size. NOSE: Clear with pink turbinates. THROAT: No erythema or exudates. NECK: No masses, no JVD. CHEST: No chest wall deformity. LUNGS: Equal air entry with crackles in the bilateral posterior bases CVS: S1 and S2 normal with no audible murmur, regular rhythm. ABDOMEN: No hepatosplenomegaly, normal bowel sounds, no guarding or rigidity. SPINE: No scoliosis or deformity SKIN: No rashes CENTRAL NERVOUS SYSTEM: No focal deficits, tone is normal in all 4 extremities. EXTREMITIES: There is no peripheral edema. No clubbing, no cyanosis. Peripheral pulses are intact. - Labs CBC & Chem 7: 10/30/20 05:11 10/30/20 05:11 Labs: Abnormal Lab Results - Last 24 Hours (Table) 10/29/20 10/29/20 10/30/20 Range/Units 17:02 20:36 05:11 WBC (3.8-10.6) k/uL RBC (4.30-5.90) m/uL Hgb (13.0-17.5) gm/dL Hct (39.0-53.0) % Neutrophils # (1.3-7.7) k/uL Lymphocytes # (1.0-4.8) k/uL D-Dimer 6.13 H (<0.60) mg/L FEU Sodium (137-145) mmol/L Chloride (98-107) mmol/L BUN (9-20) mg/dL Glucose (74-99) mg/dL POC Glucose (mg/dL) 205 H 192 H (75-99) mg/dL Calcium (8.4-10.2) mg/dL Ferritin (22.0-322.0) ng/mL ALT (4-49) U/L Lactate Dehydrogenase (313-618) U/L C-Reactive Protein (<10.0) mg/L Total Protein (6.3-8.2) g/dL Albumin (3.5-5.0) g/dL 10/30/20 10/30/20 10/30/20 Range/Units 05:11 05:11 06:37 WBC 11.8 H (3.8-10.6) k/uL RBC 3.67 L (4.30-5.90) m/uL Hgb 11.4 L (13.0-17.5) gm/dL Hct 33.6 L (39.0-53.0) % Neutrophils # 10.8 H (1.3-7.7) k/uL Lymphocytes # 0.4 L (1.0-4.8) k/uL D-Dimer (<0.60) mg/L FEU Sodium 136 L (137-145) mmol/L Chloride 111 H (98-107) mmol/L BUN 29 H (9-20) mg/dL Glucose 135 H (74-99) mg/dL POC Glucose (mg/dL) 122 H (75-99) mg/dL Calcium 7.6 L (8.4-10.2) mg/dL Ferritin 730.8 H (22.0-322.0) ng/mL ALT 55 H (4-49) U/L Lactate Dehydrogenase 1517 H (313-618) U/L C-Reactive Protein 17.3 H (<10.0) mg/L Total Protein 4.6 L (6.3-8.2) g/dL Albumin 2.1 L (3.5-5.0) g/dL 10/30/20 Range/Units 12:05 WBC (3.8-10.6) k/uL RBC (4.30-5.90) m/uL Hgb (13.0-17.5) gm/dL Hct (39.0-53.0) % Neutrophils # (1.3-7.7) k/uL Lymphocytes # (1.0-4.8) k/uL D-Dimer (<0.60) mg/L FEU Sodium (137-145) mmol/L Chloride (98-107) mmol/L BUN (9-20) mg/dL Glucose (74-99) mg/dL POC Glucose (mg/dL) 120 H (75-99) mg/dL Calcium (8.4-10.2) mg/dL Ferritin (22.0-322.0) ng/mL ALT (4-49) U/L Lactate Dehydrogenase (313-618) U/L C-Reactive Protein (<10.0) mg/L Total Protein (6.3-8.2) g/dL Albumin (3.5-5.0) g/dL Assessment and Plan Plan: 1 Acute hypoxemic respiratory failure secondary to COVID 19 pneumonia. Outside the window for Remdesivir. The patient's oxygenation has gotten worse and the patient has been placed on 60 L of oxygen by nasal cannula. He is having more difficulty breathing. The patient on a high flow oxygen 60 L with an FiO2 of 90%. I have the patient also on 100% nonrebreather facemask which is being used episodically. The patient is currently receiving Decadron at 20 mg IV push. His inflammatory markers including LDH and CRP were still elevated although the CRP has dropped down to 17. The LDH level remains elevated.. He is out of the window Remdesivir convalescent plasma. He received Actemra , 2 doses was given, inflammatory markers are still on the rise and the chest x-ray findings are stable. His oxygenation is essentially the same compared to yesterday. D- dimer is also elevated. The inflammatory markers are very much comparable to yesterday. The chest x-ray from today is not showing any major interval changes the patient continues to have some infiltration. Nevertheless, clinically, the patient is feeling slightly better. 2 Covid 19 related pneumonia with secondary hypoxic arrest respiratory failure 3 History of angina pectoris. 4 History of deafness. 5 History of hyperlipidemia. 6 History of essential hypertension. 7 History of rheumatoid arthritis. The patient has been receiving methotrexate and Cimzia on outpatient basis 8 History of neuropathy. 9 History of peripheral vascular occlusive disease, status post lower extremity stenting. 10acid reflux Plan: Follow-up chest x-ray to be done tomorrow Repeat inflammatory markers tomorrow Continue Decadron 20 mg IV every day Actemra 400 mg 2 doses, 12 hours apart was his were given Lovenox dose of 40 mg subcu every 12 hours Keep the patient intensive care unit for now Condition is still critically we'll continue to follow up this patient in ICU as the patient's pulmonary status is still borderline.
[2020-10-30 16:15] LABS: Glucose,Whole Blood 188 mg/dL (75-99)
[2020-10-30 20:25] LABS: Glucose,Whole Blood 216 mg/dL (75-99)
[2020-10-30] MEDS: FAMOTIDINE 20 MG TAB PO SCH (20:50)
[2020-10-30] MEDS: MELATONIN 5 MG TABLET PO SCH (20:50)
[2020-10-30] MEDS: amLODIPine 5 MG TAB PO SCH (20:50)
[2020-10-30] MEDS: FOLIC ACID 1 MG TAB PO SCH (20:50)
[2020-10-30] MEDS: LATANOPROST 0.005% OPHTH DROPS 2.5 ML BTL RIGHT EYE SCH (20:51)
[2020-10-31 04:34] LABS: Basophils % (A) 0 %; Eosinophils # (A) 0.1 k/uL (0-0.7); Eosinophils % (A) 1 %; HCT 35.1 % (39.0-53.0); HGB 11.1 gm/dL (13.0-17.5); Lymphocytes # (A) 0.4 k/uL (1.0-4.8); Lymphocytes % (A) 4 %; MCH 29.6 pg (25.0-35.0); MCHC 31.7 g/dL (31.0-37.0); MCV 93.5 fL (80.0-100.0); Mean Platelet Volume 7.5; Monocytes # (A) 0.3 k/uL (0-1.0); Monocytes % (A) 2 %; Neutrophils # (A) 10.7 k/uL (1.3-7.7); Neutrophils % (A) 92 %; Platelet Count 261 k/uL (150-450); RBC 3.75 m/uL (4.30-5.90); RDW 15.8 % (11.5-15.5); WBC 11.6 k/uL (3.8-10.6)
[2020-10-31 04:46] LABS: ALT 54 U/L (4-49); AST 33 U/L (17-59); African American GFR (CKD) >90 (>60 ml/min/1.73 sqM); Albumin 2.1 g/dL (3.5-5.0); Alkaline Phosphatase 70 U/L (38-126); Anion Gap 0 mmol/L; Blood Urea Nitrogen 30 mg/dL (9-20); Calcium 7.6 mg/dL (8.4-10.2); Carbon Dioxide 22 mmol/L (22-30); Chloride 111 mmol/L (98-107); Glucose 102 mg/dL (74-99); Non-African American GFR(CKD) >90 (>60 ml/min/1.73 sqM); Potassium 3.8 mmol/L (3.5-5.1); Sodium 133 mmol/L (137-145); Total Bilirubin 0.5 mg/dL (0.2-1.3); Total Protein 4.6 g/dL (6.3-8.2)
[2020-10-31] MEDS ORDERED: POTASSIUM CHLORIDE ER 20 MEQ TAB.ER PO SCH (05:00)
[2020-10-31 06:56] LABS: Glucose,Whole Blood 98 mg/dL (75-99)
[2020-10-31] MEDS: ALBUTEROL HFA INHALER INHALATION PRN ×3 (07:21→14:34)
[2020-10-31] MEDS: INSULIN ASPART (NovoLOG) 100 UNIT/ML VIAL SQ SCH ×4 (07:24→20:45)
--- NOTE | 2020-10-31 07:53 | XR ---
EXAMINATION TYPE: XR chest 1V DATE OF EXAM: 10/31/2020 COMPARISON: 10/30/2020 INDICATION: Covid TECHNIQUE: Single frontal view of the chest is obtained. FINDINGS: The heart size is normal. The pulmonary vasculature is normal. Diffuse increased lung markings are present bilaterally findings may be slightly worsened over the in terval. IMPRESSION: 1. May be mild worsening of diffuse bilateral lung infiltrates
--- NOTE | 2020-10-31 08:19 | P.PN ---
Subjective Progress Note Date: 10/31/20 75-year-old male with a history of hyperlipidemia, essential hypertension, and rheumatoid arthritis, who presents to the emergency department with increasing shortness of breath. The patient apparently tested positive for COVID 19, 5 days ago. He began having symptoms, last weekend. He apparently went to an outside urgent care facility where he was tested. He apparently notified his primary care physician about the positive tests who then placed him on Decadron and several vitamin supplements. He was taking everything he was given, without significant improvement in his symptoms, and for that reason, and because his pulse ox, was getting lower and lower into the mid 80s, he decided to come in to be evaluated in the emergency department on the advice of his primary care provider. The patient denies any chest pain or chest discomfort. He has not had any nausea, vomiting, diarrhea, or abdominal pain. He denies all genitourinary complaints. He also denies any chest pain or chest discomfort. He denies any fever or chills. His primary complaints were shortness of breath and nonproductive cough. He was also concerned because he is taking methotrexate for his rheumatoid arthritis and thought that he was probably one of those patients who might be considered to be immunocompromised. Currently, he is on 4 L nasal cannula with saturation between 90 and 91%. His temperature is 97.6. A CT angiogram was negative for pulmonary embolism, was positive for patchy I lateral groundglass opacities, consistent with a diagnosis of COVID 19 pneumonia. The patient is seen today 10/24/2020 and follow-up on the regular medical floor. He is currently sitting up in a chair at the bedside. Awake and alert in no acute distress. Doing quite a bit better today compared to yesterday. He is still dyspneic with minimal exertion. Maintaining O2 saturations in the 90s on 6 L high flow nasal cannula. White count 7.0. Hemoglobin 12.5. Lymphocytes 0.3. Sodium 141. Potassium 4.1. Creatinine 0.7. Lactic acid 1.7. Pro- calcitonin 0.07. He remains on dexamethasone, Lovenox, vitamin supplements. The patient is seen today 10/25/2020 and follow-up on the regular medical floor. Awake, alert in no acute distress. Up in a chair at the bedside. Remains on 6 L high flow nasal cannula with O2 saturations in the low 90s. Afebrile. Hemodynamically stable. White count 6.0. Hemoglobin 12.2. Sodium 143. Potassium 4.3. Creatinine 0.7. He remains on dexamethasone, Lovenox, vitamin s upplements. On 10/26/2020, the patient has been placed on high flow oxygen at 60 L nasal cannula. She did desaturate. Her oxidation gradually get worse and currently a high flow oxygen. As far as her inflammatory markers, and LDH is at 541, her CRP level is at 4.9. D-dimer was at 2.76. The patient is still on Decadron 6 mg by mouth daily basis, she is receiving Lovenox 40 mg subcu daily basis. She is also on zinc and the rest of the vitamin supplements including vitamin C. CXR from yesterday showed no major interval change in terms of the bilateral pulmonary infiltration. The patient is 75-year-old male with known history of hypertension and hyperlipidemia and rheumatoid arthritis maintained on methotrexate. I examined the patient. He is short of breath with limited amount of activity. On and off he has cough. Sometimes he has to interrupt his speech to catch his breath. He is obviously had gotten worse since yesterday. On 10/27/2020 the patient is being seen in follow-up in the intensive care unit. I transfer this patient to the ICU yesterday. His oxidation was getting worse. The chest x-ray showed diffuse bilateral pulmonary infiltrates. The patient was placed on high flow oxygen 6 L and following that he got transferred to the ICU. His morning he started on high flow at 60 L. D-dimer is at 2.9. His CRP is at 130 and his LDH level is at 1240. Based on this elevated inflammatory markers and worsening oxygenation, I'm also going to increase his Decadron and put him on 20 mg for the next 5 days, IV and further taper the dose based on his overall clinical response. A repeat chest x-ray from today is stable compared to yesterday without any significant interval change. There may be some improvement in the infiltration of the right lung base. Meanwhile, the patient is still on aspirin and Plavix. He is also on Lovenox 40 mg subcu. On 10/28/2020 patient intensive care unit and the patient is being seen in follow-up. The patient remains on high flow oxygen at 60 L per minute. The patient is also utilizing 100% nonrebreather facemask on top of his high flow oxygen. In terms of his inflammatory markers, his d-dimer is up to 4.21, his LDH level is elevated and its higher compared to yesterday at 1498 and his CRP level is up to 60. The patient remains on high dose Decadron 20 mg IV every 24 hours and the patient was also given a dose of Actemra 80mg and this was. Later on during the afternoon. He is pro-calcitonin level remains low at 0.07. The had a follow-up chest x-ray today that shows no major interval change and it shows diffuse breath and pulmonary infiltration. His white cell count is at 9.5. He is afebrile. He is awake and alert and following commands and answering questions appropriately. He is on Lovenox and he is currently receiving a dose of 40 mg subcutaneous daily There is evaluation of 10/29/2020 patient's condition essentially the same as yesterday. He remains on high flow oxygen at 60 L with an FiO2 of 90%. He is also using 100% nonrebreather facemask on and off the supplement his oxygenation. In terms of his treatment, the patient is currently utilizing a combination of Decadron 20 mg IV, vitamin C, vitamin D, melatonin, zinc and folic acid. The patient's d-dimer is up to 8.9. His LDH level is slightly lower compared to yesterday at 1436. CRP is down to 32. He is afebrile. He is awake and alert and communicating. D-dimer is at 6.9 and the patient is also on Lovenox 40 mg subcutaneous twice a day. No other major changes compared to yesterday. The chest x-ray from today is showing diffuse bilateral pulmonary infiltrates probably slightly worse in the right lower lobe area. 10/30/2020, the patient is stable without any interval worsening. Clinically is feeling slightly better and less short of breath. He remains on high flow oxygen at 60 L with an FiO2 of 90% is on and off utilizing the 100% nonrebreather facemask. He mainly at nighttime when he breathes through his mouth. He remains on Decadron 20 mg IV every 24 hours. He remains also on a combination of vitamin C, vitamin D and melatonin and Pepcid. The patient was also treated with Actemra and he received 2 doses. He is afebrile. On IV fluids running at 100 mL an hour. No signs of any significant fluid overload. Does have some edema in lower extremities bilaterally. On his blood work, the patient's LDH level is at 1517 and his CRP is at 17 and both of the numbers are comparable although the LDH is slightly elevated and the CRP is slightly lower compared to yesterday. He d-dimer is at 6.13 and the patient remains on Lovenox 40 mg subcu every 12 hours. His chest x-ray findings are essentially stable and the patient is diffuse but the pulmonary infiltrates without any major improvement interval change compared to yesterday. 93 2020, no complaints and the patient remains on the same oxygen setting which is 60 L high flow with an FiO2 of 90%. He remains on Decadron 20 mg IV and this is day #4. He is also on vitamin C and vitamin D and melatonin sepsis. He has also receivedActemra and he received 2 doses, and we are waiting for the inflammatory markers from today. D-dimer is low is down to 4.0 and the patient is taking Lovenox 40 mg subcu every 12 hours. Tolerating diet. The reading the paper all the time. Chest x-ray is showing stable findings. Neurologically the same. No gastrointestinal symptoms. No fever. No other change in his condition since yesterday. He seems to be essentially stable without any interval worsening in his pulmonary status for now. Objective - Vital Signs Vital signs: Vital Signs Temp 97.0 F L 10/31/20 04:00 Pulse 87 10/31/20 07:00 Resp 28 H 10/31/20 07:00 BP 129/75 10/31/20 07:00 Pulse Ox 92 L 10/31/20 07:22 Intake & Output 10/30/20 10/31/20 10/31/20 18:59 06:59 18:59 Intake Total 1970 1200 100 Output Total 925 580 75 Balance 1045 620 25 Weight 102.3 kg Intake: IV 1200 1200 100 Sodium Chloride 0.9% 1, 1200 1200 100 000 ml @ 100 mls/hr IV . Q10H [facility] Rx#:[id number] Intake, IV Titration 50 Amount Dexamethasone Sod 50 Phosphate 20 mg In Dextrose 5% in Water 50 ml @ 100 mls/hr IV DAILY [facility] Rx#:[id number] Oral 720 Output: Urine 925 580 75 Other: Voiding Method Indwelling Catheter Indwelling Catheter # Bowel Movements 1 - Exam GENERAL EXAM: Alert, active, pleasant 75-year-old gentleman, up in a chair at the bedside, on 60 L nasal cannula, comfortable in no apparent distress. P atient is also utilizing 100% nonrebreather facemask and combination with high flow oxygen HEAD: Normocephalic. EYES: Normal reaction of pupils, equal size. NOSE: Clear with pink turbinates. THROAT: No erythema or exudates. NECK: No masses, no JVD. CHEST: No chest wall deformity. LUNGS: Equal air entry with crackles in the bilateral posterior bases CVS: S1 and S2 normal with no audible murmur, regular rhythm. ABDOMEN: No hepatosplenomegaly, normal bowel sounds, no guarding or rigidity. SPINE: No scoliosis or deformity SKIN: No rashes CENTRAL NERVOUS SYSTEM: No focal deficits, tone is normal in all 4 extremities. EXTREMITIES: There is no peripheral edema. No clubbing, no cyanosis. Periphera l pulses are intact. - Labs CBC & Chem 7: 10/31/20 04:25 10/31/20 04:25 Labs: Abnormal Lab Results - Last 24 Hours (Table) 10/30/20 10/30/20 10/30/20 Range/Units 05:11 12:05 16:14 WBC (3.8-10.6) k/uL RBC (4.30-5.90) m/uL Hgb (13.0-17.5) gm/dL Hct (39.0-53.0) % RDW (11.5-15.5) % Neutrophils # (1.3-7.7) k/uL Lymphocytes # (1.0-4.8) k/uL D-Dimer (<0.60) mg/L FEU Sodium (137-145) mmol/L Chloride (98-107) mmol/L BUN (9-20) mg/dL Creatinine (0.66-1.25) mg/dL Glucose (74-99) mg/dL POC Glucose (mg/dL) 120 H 188 H (75-99) mg/dL Calcium (8.4-10.2) mg/dL Ferritin 730.8 H (22.0-322.0) ng/mL ALT (4-49) U/L Total Protein (6.3-8.2) g/dL Albumin (3.5-5.0) g/dL 10/30/20 10/31/20 10/31/20 Range/Units 20: 04:25 04:25 WBC 11.6 H (3.8-10.6) k/uL RBC 3.75 L (4.30-5.90) m/uL Hgb 11.1 L (13.0-17.5) gm/dL Hct 35.1 L (39.0-53.0) % RDW 15.8 H (11.5-15.5) % Neutrophils # 10.7 H (1.3-7.7) k/uL Lymphocytes # 0.4 L (1.0-4.8) k/uL D-Dimer (<0.60) mg/L FEU Sodium 133 L (137-145) mmol/L Chloride 111 H (98-107) mmol/L BUN 30 H (9-20) mg/dL Creatinine 0.60 L (0.66-1.25) mg/dL Glucose 102 H (74-99) mg/dL POC Glucose (mg/dL) 216 H (75-99) mg/dL Calcium 7.6 L (8.4-10.2) mg/dL Ferritin (22.0-322.0) ng/mL ALT 54 H (4-49) U/L Total Protein 4.6 L (6.3-8.2) g/dL Albumin 2.1 L (3.5-5.0) g/dL 10/31/20 Range/Units 04:25 WBC (3.8-10.6) k/uL RBC (4.30-5.90) m/uL Hgb (13.0-17.5) gm/dL Hct (39.0-53.0) % RDW (11.5-15.5) % Neutrophils # (1.3-7.7) k/uL Lymphocytes # (1.0-4.8) k/uL D-Dimer 4.08 H (<0.60) mg/L FEU Sodium (137-145) mmol/L Chloride (98-107) mmol/L BUN (9-20) mg/dL Creatinine (0.66-1.25) mg/dL Glucose (74-99) mg/dL POC Glucose (mg/dL) (75-99) mg/dL Calcium (8.4-10.2) mg/dL Ferritin (22.0-322.0) ng/mL ALT (4-49) U/L Total Protein (6.3-8.2) g/dL Albumin (3.5-5.0) g/dL Assessment and Plan Plan: 1 Acute hypoxemic respiratory failure secondary to COVID 19 pneumonia. Outside the window for Remdesivir. The patient's oxygenation has gotten worse and the patient has been placed on 60 L of oxygen by nasal cannula. He is having more difficulty breathing. The patient on a high flow oxygen 60 L with an FiO2 of 90%. I have the patient also on 100% nonrebreather facemask which is being used episodically. The patient is currently receiving Decadron at 20 mg IV push. His inflammatory markers including LDH and CRP were still elevated although the CRP has dropped down to 17. The LDH level remains elevated.. He is out of the window for Remdesivir. He received Actemra , 2 doses . The inflammatory markers from today. Chest x-ray findings are stable. Oxygenation is stable. No signs of any respiratory decompensation 2 Covid 19 related pneumonia with secondary hypoxic arrest respiratory failure 3 History of angina pectoris. 4 History of deafness. 5 History of hyperlipidemia. 6 History of essential hypertension. 7 History of rheumatoid arthritis. The patient has been receiving methotrexate and Cimzia on outpatient basis 8 History of neuropathy. 9 History of peripheral vascular occlusive disease, status post lower extremity stenting. 10acid reflux Plan: Follow-up chest x-ray to be done tomorrow Repeat inflammatory markers tomorrow and that he. Labs are a pending from today Continue Decadron 20 mg IV every day on day 5 and will complete a 5 day course of Decadron 20 mg and up and down to 10 mg from that point and on Actemra 400 mg 2 doses, 12 hours apart was his were given Lovenox dose of 40 mg subcu every 12 hours Keep the patient intensive care unit for now We'll work with physical therapy and move him to a bedside recliner Condition is still critically we'll continue to follow up this patient in ICU as the patient's pulmonary status is still borderline.
[2020-10-31] MEDS: SODIUM CHLORIDE 0.9% 1,000 ML IV SCH (08:45)
[2020-10-31] MEDS: DEXAMETHASONE SOD PHOSPHATE 20 MG in DEXTROSE 5% IN WATER 50 ML IV SCH ×2 (08:45)
[2020-10-31] MEDS: ENOXAPARIN 40 MG/0.4 ML SYRINGE SQ SCH (08:45)
[2020-10-31] MEDS: VALSARTAN 160 MG TAB PO SCH (08:46)
[2020-10-31] MEDS: ZINC SULFATE 220 MG CAP PO SCH ×2 (08:46→20:46)
[2020-10-31] MEDS: CYANOCOBALAMIN 500 MCG TAB PO SCH (08:46)
[2020-10-31] MEDS: ASPIRIN 81 MG PO SCH (08:46)
[2020-10-31] MEDS: ASCORBIC ACID 500 MG TAB PO SCH (08:46)
[2020-10-31] MEDS: CLOPIDOGREL 75 MG TAB PO SCH (08:46)
[2020-10-31] MEDS: FAMOTIDINE 20 MG TAB PO SCH ×2 (08:46→20:46)
[2020-10-31] MEDS: hydroCHLOROthiazide 12.5 MG CAP PO SCH (08:46)
[2020-10-31 09:05] LABS: C Reactive Protein 8.7 mg/L (<10.0)
--- NOTE | 2020-10-31 11:55 | P.PN ---
Subjective Progress Note Date: 10/31/20 Florin Newsome, is a 75-year-old male who started having symptoms of cough and shortness of breath about 1 week ago [facility] and [facility] positive for Covid 19 he called our office on Monday and was given a prescription for Decadron 4 mg by mouth twice daily also he was told to take vitamin C vitamin D and zinc supplements, patient took these medications however he continued to have worsening shortness of breath his pulse ox at home was down in the 80s and on he decided to come to emergency room for further evaluation. Patient was evaluated in emergency room his vital examination on presentation reveals a temperature of 97.5 pulse 88 respiration 18 blood pressure 114/86 pulse ox was 92% on 2 L nasal cannula his white blood count was 12.3 hemoglobin 14.6 platelet count 243 d-dimer 1.96 sodium 136 BUN 46 creatinine 0.9 to lactic acid 2.3 ferritin level 1099 C-reactive protein 54.3 Covid 19 PCR testing was positive, CT angiogram of the chest revealed bilateral patchy groundglass opacities consistent was history of Covid pneumonia, no evidence of pulmonary embolism, patient was admitted to medical floor he was started on IV Decadron, subcu Lovenox, and pulmonary consultation was requested. Patient has a known history of asthma, history of hypertension, history of hyperlipidemia, history of coronary artery disease, and history of abdominal aortic aneurysm. On review of systems patient is alert and oriented 3 in no apparent distress he is complaining of shortness of breath and cough otherwise he denies any complaints there is no fever or chills no headache or dizziness no chest pain no palpitation no nausea or vomiting no abdominal pain no diarrhea no blood in the stools no burning with urination no frequency or urgency no hematuria no w eakness or numbness in any of the extremities no change in vision speech or gait. On 10/24/2020 patient was seen and examined on the medical floor he is alert and oriented 3 in no apparent distress he is complaining of cough with whitish sputum production he is complaining of shortness of breath with any activity otherwise he denies any complaints there is no fever or chills no headache or dizziness no chest pain no palpitation no nausea or vomiting no abdominal pain no diarrhea no blood in the stools no burning with urination no frequency or urgency and no hematuria. Lactic acid was significantly elevated yesterday and through last night patient received multiple IV fluid boluses and lactic acid is down to 1.7 at this time. On 10/25/2020 patient was seen and examined the medical floor he is alert and oriented 3 in no apparent distress he is complaining of shortness of breath with any activity he is currently maintained on oxygen 6 L via nasal cannula his pulse ox is 91% he is also complaining of some cough with white sputum production and complaining of fatigue and generalized weakness otherwise he denies any complaints there is no fever or chills no headache or dizziness no chest pain no palpitation no nausea or vomiting no abdominal pain no diarrhea no blood in the stools no burning with urination no frequency or urgency and no hematuria there is no weakness or numbness in any of the extremities there is no change in vision speech or gait On 10/26/2020 patient was seen and examined on the medical floor he is alert and oriented 3 he is having worsening shortness of breath, his oxygen requirements are increasing, currently he is maintained on high flow cannula FiO2 80% airvo, he is having occasional cough otherwise he denies any complaints his pulse ox is 94% there is no fever or chills no headache or dizziness no chest pain no palpitation no nausea or vomiting no abdominal pain no diarrhea and no urinary symptoms. Case was discussed with Dr. Maurice today patient had worsening of his symptoms and increase in his oxygen requirement at this time will give Decadron 20 mg IV and transferred patient to intensive care unit On 10/27/2020 patient was seen and examined in the ICU he is alert and oriented 3 in no apparent distress she is maintained on high flow oxygen 60 L/m his inflammatory markers are increasing his dose of Decadron was increased to 20 mg IV daily otherwise there is no complaints there is no fever or chills no headache or dizziness no chest pain no palpitation no nausea or vomiting no abdominal pain no diarrhea no blood in the stools no burning with urination no frequency or urgency and no hematuria On 10/28/2020 patient was seen and examined in the ICU he is alert and oriented 3 in no apparent distress he is still maintained on high flow oxygen at 60 L/m at this time he is able to eat and answer questions appropriately, his inflammatory markers are stabilizing he is complaining of shortness of breath otherwise he denies any complaints there is no fever or chills no headache or dizziness no chest pain no cough no nausea or vomiting no abdominal pain no diarrhea no blood in the stools no burning with urination no frequency or urgency and no hematuria. On 10/29/2020 patient was seen and examined in the ICU he is alert and oriented 3 in no distress he is requiring high flow oxygen of 60 L/m his inflammatory markings are stabilizing patient is complaining of shortness of breath and occasional cough otherwise he denies any complaints there is no fever or chills no headache or dizziness no chest pain no palpitation no nausea or vomiting no abdominal pain no diarrhea no blood in the stools Moore catheter is in, no urinary symptoms. On 10/30/2020 patient was seen and examined in the ICU he is alert and oriented 3 in no distress he is still on high flow oxygen however he feels more comfortable he is complaining of occasional cough he is complaining of shortness of breath with any activity such as eating or speaking or trying to move in bed, otherwise there is no complaints there is no fever or chills no headache or dizziness no chest pain no palpitation no nausea or vomiting no abdominal pain no diarrhea no blood in the stools and no urinary symptoms On 10/31/2020 patient was seen and examined on the medical floor he is alert and oriented 3 in no distress he is still complaining of shortness of breath he is still maintained on high flow oxygen he has occasional cough otherwise he denies any complaints there is no fever or chills no headache or dizziness no chest pain no palpitation no nausea or vomiting no abdominal pain no diarrhea no blood in the stools no burning with urination no frequency or urgency and no hematuria Objective - Vital Signs Vital signs: Vital Signs Temp 97.8 F 10/31/20 08:00 Pulse 73 10/31/20 09:00 Resp 29 H 10/31/20 09:00 BP 131/85 10/31/20 09:00 Pulse Ox 92 L 10/31/20 09:00 Intake & Output 10/30/20 10/31/20 10/31/20 18:59 06:59 18:59 Intake Total 1970 1200 300 Output Total 925 580 150 Balance 1045 620 150 Weight 102.3 kg Intake: IV 1200 1200 250 Sodium Chloride 0.9% 1, 1200 1200 250 000 ml @ 50 mls/hr IV . Q20H [facility] Rx#:[id number] Intake, IV Titration 50 50 Amount Dexamethasone Sod 50 50 Phosphate 20 mg In Dextrose 5% in Water 50 ml @ 100 mls/hr IV DAILY [facility] Rx#:[id number] Oral 720 Output: Urine 925 580 150 Other: Voiding Method Indwelling Catheter Indwelling Catheter Indwelling Catheter # Bowel Movements 1 - Exam In general patient is alert and oriented 3 in no apparent distress HEENT head normocephalic and atraumatic Neck is supple no JVD no goiter no lymphadenopathy Chest exam reveals a few scattered rhonchi no wheezing Cardiac exam reveals regular heart sounds S1 and S2 no gallops no murmurs Abdomen is soft nontender no organomegaly was normal bowel sounds Extremity exam reveals no edema no cyanosis or clubbing Neurological examination reveals no gross focal deficits - Labs CBC & Chem 7: 10/31/20 04:25 10/31/20 04:25 Labs: Abnormal Lab Results - Last 24 Hours (Table) 10/30/20 10/30/20 10/30/20 Range/Units 05:11 12:05 16:14 WBC (3.8-10.6) k/uL RBC (4.30-5.90) m/uL Hgb (13.0-17.5) gm/dL Hct (39.0-53.0) % RDW (11.5-15.5) % Neutrophils # (1.3-7.7) k/uL Lymphocytes # (1.0-4.8) k/uL D-Dimer (<0.60) mg/L FEU Sodium (137-145) mmol/L Chloride (98-107) mmol/L BUN (9-20) mg/dL Creatinine (0.66-1.25) mg/dL Glucose (74-99) mg/dL POC Glucose (mg/dL) 120 H 188 H (75-99) mg/dL Calcium (8.4-10.2) mg/dL Ferritin 730.8 H (22.0-322.0) ng/mL ALT (4-49) U/L Lactate Dehydrogenase (313-618) U/L Total Protein (6.3-8.2) g/dL Albumin (3.5-5.0) g/dL 10/30/20 10/31/20 10/31/20 Range/Units 20:23 04:25 04:25 WBC 11.6 H (3.8-10.6) k/uL RBC 3.75 L (4.30-5.90) m/uL Hgb 11.1 L (13.0-17.5) gm/dL Hct 35.1 L (39.0-53.0) % RDW 15.8 H (11.5-15.5) % Neutrophils # 10.7 H (1.3-7.7) k/uL Lymphocytes # 0.4 L (1.0-4.8) k/uL D-Dimer (<0.60) mg/L FEU Sodium 133 L (137-145) mmol/L Chloride 111 H (98-107) mmol/L BUN 30 H (9-20) mg/dL Creatinine 0.60 L (0.66-1.25) mg/dL Glucose 102 H (74-99) mg/dL POC Glucose (mg/dL) 216 H (75-99) mg/dL Calcium 7.6 L (8.4-10.2) mg/dL Ferritin (22.0-322.0) ng/mL ALT 54 H (4-49) U/L Lactate Dehydrogenase (313-618) U/L Total Protein 4.6 L (6.3-8.2) g/dL Albumin 2.1 L (3.5-5.0) g/dL 10/31/20 10/31/20 Range/Units 04:25 04:25 WBC (3.8-10.6) k/uL RBC (4.30-5.90) m/uL Hgb (13.0-17.5) gm/dL Hct (39.0-53.0) % RDW (11.5-15.5) % Neutrophils # (1.3-7.7) k/uL Lymphocytes # (1.0-4.8) k/uL D-Dimer 4.08 H (<0.60) mg/L FEU Sodium (137-145) mmol/L Chloride (98-107) mmol/L BUN (9-20) mg/dL Creatinine (0.66-1.25) mg/dL Glucose (74-99) mg/dL POC Glucose (mg/dL) (75-99) mg/dL Calcium (8.4-10.2) mg/dL Ferritin (22.0-322.0) ng/mL ALT (4-49) U/L Lactate Dehydrogenase 1510 H (313-618) U/L Total Protein (6.3-8.2) g/dL Albumin (3.5-5.0) g/dL Assessment and Plan Plan: 1. Covid 19 pneumonia 2. Acute hypoxic respiratory failure 3. Underlying history of asthma 4. Underlying history of coronary artery disease 5. Underlying history of hypertension 6. Underlying history of hyperlipidemia 7. Underlying history of abdominal aortic aneurysm At this time patient is admitted to medical floor he was started on IV Decadron and subcu Lovenox he is maintained on oxygen via nasal cannula Pulmonary consultation was requested Will follow closely
[2020-10-31 12:01] LABS: Glucose,Whole Blood 148 mg/dL (75-99)
[2020-10-31 16:27] LABS: Glucose,Whole Blood 197 mg/dL (75-99)
[2020-10-31 20:33] LABS: Glucose,Whole Blood 193 mg/dL (75-99)
[2020-10-31] MEDS: LATANOPROST 0.005% OPHTH DROPS 2.5 ML BTL RIGHT EYE SCH (20:46)
[2020-10-31] MEDS: MELATONIN 5 MG TABLET PO SCH (20:46)
[2020-10-31] MEDS: FOLIC ACID 1 MG TAB PO SCH (20:46)
[2020-10-31] MEDS: amLODIPine 5 MG TAB PO SCH (20:46)
[2020-11-01 04:03] LABS: Anisocytosis Slight; Basophils % (A) 0 %; Eosinophils % (A) 0 %; HCT 32.6 % (39.0-53.0); HGB 10.9 gm/dL (13.0-17.5); Lymphocytes # (A) 0.4 k/uL (1.0-4.8); Lymphocytes % (A) 3 %; MCH 31.3 pg (25.0-35.0); MCHC 33.4 g/dL (31.0-37.0); MCV 93.8 fL (80.0-100.0); Mean Platelet Volume 7.7; Monocytes # (A) 0.5 k/uL (0-1.0); Monocytes % (A) 5 %; Neutrophils # (A) 10.7 k/uL (1.3-7.7); Neutrophils % (A) 91 %; Platelet Count 258 k/uL (150-450); RBC 3.48 m/uL (4.30-5.90); RDW 16.3 % (11.5-15.5); WBC 11.8 k/uL (3.8-10.6)
[2020-11-01 04:14] LABS: ALT 56 U/L (4-49); AST 36 U/L (17-59); African American GFR (CKD) >90 (>60 ml/min/1.73 sqM); Albumin 2.1 g/dL (3.5-5.0); Alkaline Phosphatase 64 U/L (38-126); Anion Gap 0 mmol/L; Blood Urea Nitrogen 32 mg/dL (9-20); Calcium 7.7 mg/dL (8.4-10.2); Carbon Dioxide 23 mmol/L (22-30); Chloride 109 mmol/L (98-107); Glucose 86 mg/dL (74-99); Non-African American GFR(CKD) >90 (>60 ml/min/1.73 sqM); Potassium 4.1 mmol/L (3.5-5.1); Sodium 132 mmol/L (137-145); Total Bilirubin 0.6 mg/dL (0.2-1.3); Total Protein 4.6 g/dL (6.3-8.2)
[2020-11-01 06:36] LABS: Glucose,Whole Blood 86 mg/dL (75-99)
[2020-11-01] MEDS: INSULIN ASPART (NovoLOG) 100 UNIT/ML VIAL SQ SCH ×4 (06:38→21:01)
--- NOTE | 2020-11-01 07:51 | XR ---
EXAMINATION TYPE: XR chest 1V DATE OF EXAM: 11/01/2020 COMPARISON: 10/31/2020 INDICATION: Covid pneumonia TECHNIQUE: Single frontal view of the chest is obtained. FINDINGS: The heart size is normal. The pulmonary vasculature is slightly prominent. Patchy bilateral lung infiltrates are present. Correlate for atypical pneumonia. IMPRESSION: 1. Patchy bilateral lung infiltrates. Correlate for atypical pneumonia. Findings are stable over the interval.
[2020-11-01] MEDS: DEXAMETHASONE SOD PHOSPHATE 10 MG/ML 1 ML VIAL IV SCH (07:55)
[2020-11-01] MEDS: FAMOTIDINE 20 MG TAB PO SCH ×2 (07:55→21:01)
[2020-11-01] MEDS: VALSARTAN 160 MG TAB PO SCH (07:55)
[2020-11-01] MEDS: ZINC SULFATE 220 MG CAP PO SCH ×2 (07:55→21:01)
[2020-11-01] MEDS: CYANOCOBALAMIN 500 MCG TAB PO SCH (07:55)
[2020-11-01] MEDS: hydroCHLOROthiazide 12.5 MG CAP PO SCH (07:55)
[2020-11-01] MEDS: ASCORBIC ACID 500 MG TAB PO SCH (07:55)
[2020-11-01] MEDS: ALBUTEROL HFA INHALER INHALATION PRN ×4 (08:11→20:00)
--- NOTE | 2020-11-01 08:24 | P.PN ---
Subjective Progress Note Date: 11/01/20 75-year-old male with a history of hyperlipidemia, essential hypertension, and rheumatoid arthritis, who presents to the emergency department with increasing shortness of breath. The patient apparently tested positive for COVID 19, 5 days ago. He began having symptoms, last weekend. He apparently went to an outside urgent care facility where he was tested. He apparently notified his primary care physician about the positive tests who then placed him on Decadron and several vitamin supplements. He was taking everything he was given, without significant improvement in his symptoms, and for that reason, and because his pulse ox, was getting lower and lower into the mid 80s, he decided to come in to be evaluated in the emergency department on the advice of his primary care provider. The patient denies any chest pain or chest discomfort. He has not had any nausea, vomiting, diarrhea, or abdominal pain. He denies all genitourinary complaints. He also denies any chest pain or chest discomfort. He denies any fever or chills. His primary complaints were shortness of breath and nonproductive cough. He was also concerned because he is taking methotrexate for his rheumatoid arthritis and thought that he was probably one of those patients who might be considered to be immunocompromised. Currently, he is on 4 L nasal cannula with saturation between 90 and 91%. His temperature is 97.6. A CT angiogram was negative for pulmonary embolism, was positive for patchy I lateral groundglass opacities, consistent with a diagnosis of COVID 19 pneumonia. The patient is seen today 10/24/2020 and follow-up on the regular medical floor. He is currently sitting up in a chair at the bedside. Awake and alert in no acute distress. Doing quite a bit better today compared to yesterday. He is still dyspneic with minimal exertion. Maintaining O2 saturations in the 90s on 6 L high flow nasal cannula. White count 7.0. Hemoglobin 12.5. Lymphocytes 0.3. Sodium 141. Potassium 4.1. Creatinine 0.7. Lactic acid 1.7. Pro- calcitonin 0.07. He remains on dexamethasone, Lovenox, vitamin supplements. The patient is seen today 10/25/2020 and follow-up on the regular medical floor. Awake, alert in no acute distress. Up in a chair at the bedside. Remains on 6 L high flow nasal cannula with O2 saturations in the low 90s. Afebrile. Hemodynamically stable. White count 6.0. Hemoglobin 12.2. Sodium 143. Potassium 4.3. Creatinine 0.7. He remains on dexamethasone, Lovenox, vitamin s upplements. On 10/26/2020, the patient has been placed on high flow oxygen at 60 L nasal cannula. She did desaturate. Her oxidation gradually get worse and currently a high flow oxygen. As far as her inflammatory markers, and LDH is at 541, her CRP level is at 4.9. D-dimer was at 2.76. The patient is still on Decadron 6 mg by mouth daily basis, she is receiving Lovenox 40 mg subcu daily basis. She is also on zinc and the rest of the vitamin supplements including vitamin C. CXR from yesterday showed no major interval change in terms of the bilateral pulmonary infiltration. The patient is 75-year-old male with known history of hypertension and hyperlipidemia and rheumatoid arthritis maintained on methotrexate. I examined the patient. He is short of breath with limited amount of activity. On and off he has cough. Sometimes he has to interrupt his speech to catch his breath. He is obviously had gotten worse since yesterday. On 10/27/2020 the patient is being seen in follow-up in the intensive care unit. I transfer this patient to the ICU yesterday. His oxidation was getting worse. The chest x-ray showed diffuse bilateral pulmonary infiltrates. The patient was placed on high flow oxygen 6 L and following that he got transferred to the ICU. His morning he started on high flow at 60 L. D-dimer is at 2.9. His CRP is at 130 and his LDH level is at 1240. Based on this elevated inflammatory markers and worsening oxygenation, I'm also going to increase his Decadron and put him on 20 mg for the next 5 days, IV and further taper the dose based on his overall clinical response. A repeat chest x-ray from today is stable compared to yesterday without any significant interval change. There may be some improvement in the infiltration of the right lung base. Meanwhile, the patient is still on aspirin and Plavix. He is also on Lovenox 40 mg subcu. On 10/28/2020 patient intensive care unit and the patient is being seen in follow-up. The patient remains on high flow oxygen at 60 L per minute. The patient is also utilizing 100% nonrebreather facemask on top of his high flow oxygen. In terms of his inflammatory markers, his d-dimer is up to 4.21, his LDH level is elevated and its higher compared to yesterday at 1498 and his CRP level is up to 60. The patient remains on high dose Decadron 20 mg IV every 24 hours and the patient was also given a dose of Actemra 80mg and this was. Later on during the afternoon. He is pro-calcitonin level remains low at 0.07. The had a follow-up chest x-ray today that shows no major interval change and it shows diffuse breath and pulmonary infiltration. His white cell count is at 9.5. He is afebrile. He is awake and alert and following commands and answering questions appropriately. He is on Lovenox and he is currently receiving a dose of 40 mg subcutaneous daily There is evaluation of 10/29/2020 patient's condition essentially the same as yesterday. He remains on high flow oxygen at 60 L with an FiO2 of 90%. He is also using 100% nonrebreather facemask on and off the supplement his oxygenation. In terms of his treatment, the patient is currently utilizing a combination of Decadron 20 mg IV, vitamin C, vitamin D, melatonin, zinc and folic acid. The patient's d-dimer is up to 8.9. His LDH level is slightly lower compared to yesterday at 1436. CRP is down to 32. He is afebrile. He is awake and alert and communicating. D-dimer is at 6.9 and the patient is also on Lovenox 40 mg subcutaneous twice a day. No other major changes compared to yesterday. The chest x-ray from today is showing diffuse bilateral pulmonary infiltrates probably slightly worse in the right lower lobe area. 10/30/2020, the patient is stable without any interval worsening. Clinically is feeling slightly better and less short of breath. He remains on high flow oxygen at 60 L with an FiO2 of 90% is on and off utilizing the 100% nonrebreather facemask. He mainly at nighttime when he breathes through his mouth. He remains on Decadron 20 mg IV every 24 hours. He remains also on a combination of vitamin C, vitamin D and melatonin and Pepcid. The patient was also treated with Actemra and he received 2 doses. He is afebrile. On IV fluids running at 100 mL an hour. No signs of any significant fluid overload. Does have some edema in lower extremities bilaterally. On his blood work, the patient's LDH level is at 1517 and his CRP is at 17 and both of the numbers are comparable although the LDH is slightly elevated and the CRP is slightly lower compared to yesterday. He d-dimer is at 6.13 and the patient remains on Lovenox 40 mg subcu every 12 hours. His chest x-ray findings are essentially stable and the patient is diffuse but the pulmonary infiltrates without any major improvement interval change compared to yesterday. 10/31/20202020, no complaints and the patient remains on the same oxygen setting which is 60 L high flow with an FiO2 of 90%. He remains on Decadron 20 mg IV and this is day #4. He is also on vitamin C and vitamin D and melatonin . He has also received Actemra and he received 2 doses, and we are waiting for the inflammatory markers from today. D-dimer is low is down to 4.0 and the patient is taking Lovenox 40 mg subcu every 12 hours. Tolerating diet. The reading the paper all the time. Chest x-ray is showing stable findings. Neurologically the same. No gastrointestinal symptoms. No fever. No other change in his condition since yesterday. He seems to be essentially stable without any interval worsening in his pulmonary status for now. On 11/01/2020, patient is on high flow oxygen 6 L with an FiO2 of 90%. He remains on Decadron 20 mg IV day #5. He is also on vitamin C and vitamin D and melatonin. His chest x-ray is unchanged. Inflammatory markers are pending for now. He did have a bout of bloody stool small amounts with a stable hemoglobin of 10.9. We held his aspirin and Plavix. He also held his Lovenox. I'm more inclined of restarting the Lovenox noted the patient has not had any further episodes of bleeding since yesterday. His symptoms of GI prophylaxis, the patient is currently receiving Pepcid 20 mg by mouth every 12 hours. His Decadron will be reduced down to 10 mg by mouth daily. Chest x-ray findings are essentially unchanged. He is pulling approximately 1500 on his incentive spirometer. He is weak. His legs are getting weaker according to him. While being moved on a recliner, the patient desaturates and recovers nicely after resting. No altered mentation. No nausea or vomiting or epigastric pain. He is known to have a vascular stent in the lower extremity and for that reason he was placed on Plavix. He also has carotid artery disease. Objective - Vital Signs Vital signs: Vital Signs Temp 97.3 F L 11/01/20 04:00 Pulse 70 11/01/20 07:00 Resp 22 11/01/20 07:00 BP 144/92 11/01/20 07:00 Pulse Ox 92 L 11/01/20 07:00 Intake & Output 10/31/20 11/01/20 11/01/20 18:59 06:59 18:59 Intake Total 800 460 50 Output Total 728 750 50 Balance 72 -290 0 Weight 104 kg Intake: IV 750 460 50 Sodium Chloride 0.9% 1, 750 460 50 000 ml @ 50 mls/hr IV . Q20H RAMIN Rx#:[id number] Intake, IV Titration 50 Amount Dexamethasone Sod 50 Phosphate 20 mg In Dextrose 5% in Water 50 ml @ 100 mls/hr IV DAILY RAMIN Rx#:[id number] Output: Urine 728 750 50 Other: Voiding Method Indwelling Catheter Indwelling Catheter # Bowel Movements 1 1 - Exam GENERAL EXAM: Alert, active, pleasant 75-year-old gentleman, up in a chair at the bedside, on 60 L nasal cannula, comfortable in no apparent distress. Patient is also utilizing 100% nonrebreather facemask and combination with high flow oxygen HEAD: Normocephalic. EYES: Normal reaction of pupils, equal size. NOSE: Clear with pink turbinates. THROAT: No erythema or exudates. NECK: No masses, no JVD. CHEST: No chest wall deformity. LUNGS: Equal air entry with crackles in the bilateral posterior bases CVS: S1 and S2 normal with no audible murmur, regular rhythm. ABDOMEN: No hepatosplenomegaly, normal bowel sounds, no guarding or rigidity. SPINE: No scoliosis or deformity SKIN: No rashes CENTRAL NERVOUS SYSTEM: No focal deficits, tone is normal in all 4 extremities. EXTREMITIES: There is no peripheral edema. No clubbing, no cyanosis. Peripheral pulses are intact. - Labs CBC & Chem 7: 11/01/20 03:12 11/01/20 03:13 Labs: Abnormal Lab Results - Last 24 Hours (Table) 10/31/20 10/31/20 10/31/20 Range/Units 04:25 12:00 16:27 WBC (3.8-10.6) k/uL RBC (4.30-5.90) m/uL Hgb (13.0-17.5) gm/dL Hct (39.0-53.0) % RDW (11.5-15.5) % Neutrophils # (1.3-7.7) k/uL Lymphocytes # (1.0-4.8) k/uL Sodium (137-145) mmol/L Chloride (98-107) mmol/L BUN (9-20) mg/dL Creatinine (0.66-1.25) mg/dL POC Glucose (mg/dL) 148 H 197 H (75-99) mg/dL Calcium (8.4-10.2) mg/dL ALT (4-49) U/L Lactate Dehydrogenase 1510 H (313-618) U/L Total Protein (6.3-8.2) g/dL Albumin (3.5-5.0) g/dL 10/31/20 11/01/20 11/01/20 Range/Units 20:32 03:12 03:13 WBC 11.8 H (3.8-10.6) k/uL RBC 3.48 L (4.30-5.90) m/uL Hgb 10.9 L (13.0-17.5) gm/dL Hct 32.6 L (39.0-53.0) % RDW 16.3 H (11.5-15.5) % Neutrophils # 10.7 H (1.3-7.7) k/uL Lymphocytes # 0.4 L (1.0-4.8) k/uL Sodium 132 L (137-145) mmol/L Chloride 109 H (98-107) mmol/L BUN 32 H (9-20) mg/dL Creatinine 0.61 L (0.66-1.25) mg/dL POC Glucose (mg/dL) 193 H (75-99) mg/dL Calcium 7.7 L (8.4-10.2) mg/dL ALT 56 H (4-49) U/L Lactate Dehydrogenase (313-618) U/L Total Protein 4.6 L (6.3-8.2) g/dL Albumin 2.1 L (3.5-5.0) g/dL Assessment and Plan Plan: 1 Acute hypoxemic respiratory failure secondary to COVID 19 pneumonia. Outside the window for Remdesivir. The patient's oxygenation has gotten worse and the patient has been placed on 60 L of oxygen by nasal cannula. He is having more difficulty breathing. The patient on a high flow oxygen 60 L with an FiO2 of 90%. I have the patient also on 100% nonrebreather facemask which is being used episodically. The patient is currently receiving Decadron at 20 mg IV push. His inflammatory markers including LDH and CRP were still elevated although the CRP has dropped down to 17. The LDH level remains elevated.. He is out of the window for Remdesivir. He received Actemra , 2 doses . The inflammatory markers from today. Chest x-ray findings are stable. Oxygenation is stable. No signs of any respiratory decompensation and on today's evaluation, his condition is stable. Decadron was reduced down to 10 mg after receiving 20 mg for the past 5 days. The patient's oxygen flow will be reviewed and found to 80% and will monitor his FiO2 and his pulse ox. Chest x-ray stable. Awaiting inflammatory markers. 2 Covid 19 related pneumonia with secondary hypoxic arrest respiratory failure 3 History of angina pectoris. 4 History of deafness. 5 History of hyperlipidemia. 6 History of essential hypertension. 7 History of rheumatoid arthritis. The patient has been receiving methotrexate and Cimzia on outpatient basis 8 History of neuropathy. 9 History of peripheral vascular occlusive disease, status post lower extremity stenting. 10 acid reflux 11. PAD maintain on Plavix on outpatient basis 12 carotid artery disease noted on Plavix on outpatient basis 13 suspected GI bleed currently on Pepcid. Could be hemorrhoidal bleed. Plan: Follow-up chest x-ray to be done tomorrow is stable for now Repeat inflammatory markers tomorrow and that he. Labs are a pending from today Continue Decadron 10 mg daily Actemra 400 mg 2 doses, 12 hours apart was his were given Lovenox dose of 40 mg subcu every 12 hours and dose was reduced to once a day based on his suspected bleed and we are going to bring it back to 40 mg every 12 hours if the patient shows no evidence of any bleeding over the next 24 hours. Plavix was placed on hold as the patient is being monitored. Wean the FiO2 down to 80% and monitor the oxygenation Keep the patient intensive care unit for now We'll work with physical therapy and move him to a bedside recliner Condition is still critically we'll continue to follow up this patient in ICU as the patient's pulmonary status is still borderline.
[2020-11-01] MEDS ORDERED: ENOXAPARIN 40 MG/0.4 ML SYRINGE SQ SCH (09:00)
[2020-11-01 09:01] LABS: C Reactive Protein <5.0 mg/L (<10.0); LDH 1609 U/L (313-618)
--- NOTE | 2020-11-01 11:17 | P.PN ---
Subjective Progress Note Date: 11/01/20 Florin Newsome, is a 75-year-old male who started having symptoms of cough and shortness of breath about 1 week ago [facility] for Covid 19 he called our office on Monday and was given a prescription for Decadron 4 mg by mouth twice daily also he was told to take vitamin C vitamin D and zinc supplements, patient took these medications however he continued to have worsening shortness of breath his pulse ox at home was down in the 80s and on he decided to come to emergency room for further evaluation. Patient was evaluated in emergency room his vital examination on presentation reveals a temperature of 97.5 pulse 88 respiration 18 blood pressure 114/86 pulse ox was 92% on 2 L nasal cannula his white blood count was 12.3 hemoglobin 14.6 platelet count 243 d-dimer 1.96 sodium 136 BUN 46 creatinine 0.9 to lactic acid 2.3 ferritin level 1099 C-reactive protein 54.3 Covid 19 PCR testing was positive, CT angiogram of the chest revealed bilateral patchy groundglass opacities consistent was history of Covid pneumonia, no evidence of pulmonary embolism, patient was admitted to medical floor he was started on IV Decadron, subcu Lovenox, and pulmonary consultation was requested. Patient has a known history of asthma, history of hypertension, history of hyperlipidemia, history of coronary artery disease, and history of abdominal aortic aneurysm. On review of systems patient is alert and oriented 3 in no apparent distress he is complaining of shortness of breath and cough otherwise he denies any complaints there is no fever or chills no headache or dizziness no chest pain no palpitation no nausea or vomiting no abdominal pain no diarrhea no blood in the stools no burning with urination no frequency or urgency no hematuria no w eakness or numbness in any of the extremities no change in vision speech or gait. On 10/24/2020 patient was seen and examined on the medical floor he is alert and oriented 3 in no apparent distress he is complaining of cough with whitish sputum production he is complaining of shortness of breath with any activity otherwise he denies any complaints there is no fever or chills no headache or dizziness no chest pain no palpitation no nausea or vomiting no abdominal pain no diarrhea no blood in the stools no burning with urination no frequency or urgency and no hematuria. Lactic acid was significantly elevated yesterday and through last night patient received multiple IV fluid boluses and lactic acid is down to 1.7 at this time. On 10/25/2020 patient was seen and examined the medical floor he is alert and oriented 3 in no apparent distress he is complaining of shortness of breath with any activity he is currently maintained on oxygen 6 L via nasal cannula his pulse ox is 91% he is also complaining of some cough with white sputum production and complaining of fatigue and generalized weakness otherwise he denies any complaints there is no fever or chills no headache or dizziness no chest pain no palpitation no nausea or vomiting no abdominal pain no diarrhea no blood in the stools no burning with urination no frequency or urgency and no hematuria there is no weakness or numbness in any of the extremities there is no change in vision speech or gait On 10/26/2020 patient was seen and examined on the medical floor he is alert and oriented 3 he is having worsening shortness of breath, his oxygen requirements are increasing, currently he is maintained on high flow cannula FiO2 80% airvo, he is having occasional cough otherwise he denies any complaints his pulse ox is 94% there is no fever or chills no headache or dizziness no chest pain no palpitation no nausea or vomiting no abdominal pain no diarrhea and no urinary symptoms. Case was discussed with Dr. Maurice today patient had worsening of his symptoms and increase in his oxygen requirement at this time will give Decadron 20 mg IV and transferred patient to intensive care unit On 10/27/2020 patient was seen and examined in the ICU he is alert and oriented 3 in no apparent distress she is maintained on high flow oxygen 60 L/m his inflammatory markers are increasing his dose of Decadron was increased to 20 mg IV daily otherwise there is no complaints there is no fever or chills no headache or dizziness no chest pain no palpitation no nausea or vomiting no abdominal pain no diarrhea no blood in the stools no burning with urination no frequency or urgency and no hematuria On 10/28/2020 patient was seen and examined in the ICU he is alert and oriented 3 in no apparent distress he is still maintained on high flow oxygen at 60 L/m at this time he is able to eat and answer questions appropriately, his inflammatory markers are stabilizing he is complaining of shortness of breath otherwise he denies any complaints there is no fever or chills no headache or dizziness no chest pain no cough no nausea or vomiting no abdominal pain no diarrhea no blood in the stools no burning with urination no frequency or urgency and no hematuria. On 10/29/2020 patient was seen and examined in the ICU he is alert and oriented 3 in no distress he is requiring high flow oxygen of 60 L/m his inflammatory markings are stabilizing patient is complaining of shortness of breath and occasional cough otherwise he denies any complaints there is no fever or chills no headache or dizziness no chest pain no palpitation no nausea or vomiting no abdominal pain no diarrhea no blood in the stools Moore catheter is in, no urinary symptoms. On 10/30/2020 patient was seen and examined in the ICU he is alert and oriented 3 in no distress he is still on high flow oxygen however he feels more comfortable he is complaining of occasional cough he is complaining of shortness of breath with any activity such as eating or speaking or trying to move in bed, otherwise there is no complaints there is no fever or chills no headache or dizziness no chest pain no palpitation no nausea or vomiting no abdominal pain no diarrhea no blood in the stools and no urinary symptoms On 10/31/2020 patient was seen and examined on the medical floor he is alert and oriented 3 in no distress he is still complaining of shortness of breath he is still maintained on high flow oxygen he has occasional cough otherwise he denies any complaints there is no fever or chills no headache or dizziness no chest pain no palpitation no nausea or vomiting no abdominal pain no diarrhea no blood in the stools no burning with urination no frequency or urgency and no hematuria On 11/01/2020 patient was seen and examined in the ICU he is alert and oriented 3 in no distress he is complaining of shortness of breath and is still maintained on high flow oxygen, he is complaining of cough , he was having some rectal bleeding and critical care physician discontinued Plavix and aspirin at this time otherwise he denies any complaints there is no fever or chills no headache or dizziness no chest pain no palpitation no nausea or vomiting no abdominal pain no diarrhea no burning with urination no frequency or urgency and no hematuria Objective - Vital Signs Vital signs: Vital Signs Temp 97.7 F 11/01/20 08:00 Pulse 57 L 11/01/20 10:00 Resp 20 11/01/20 10:00 BP 106/66 01/24/21 10:00 Pulse Ox 95 11/01/20 10:00 Intake & Output 10/31/20 11/01/20 11/01/20 18:59 06:59 18:59 Intake Total 800 460 50 Output Total 728 750 50 Balance 72 -290 0 Weight 104 kg Intake: IV 750 460 50 Sodium Chloride 0.9% 1, 750 460 50 000 ml @ 50 mls/hr IV . Q20H RAMIN Rx#:[id number] Intake, IV Titration 50 Amount Dexamethasone Sod 50 Phosphate 20 mg In Dextrose 5% in Water 50 ml @ 100 mls/hr IV DAILY RAMIN Rx#:[id number] Output: Urine 728 750 50 Other: Voiding Method Indwelling Catheter Indwelling Catheter Indwelling Catheter # Bowel Movements 1 1 - Exam In general patient is alert and oriented 3 in no apparent distress HEENT head normocephalic and atraumatic Neck is supple no JVD no goiter no lymphadenopathy Chest exam reveals a few scattered rhonchi no wheezing Cardiac exam reveals regular heart sounds S1 and S2 no gallops no murmurs Abdomen is soft nontender no organomegaly was normal bowel sounds Extremity exam reveals no edema no cyanosis or clubbing Neurological examination reveals no gross focal deficits - Labs CBC & Chem 7: 11/01/20 03:12 11/01/20 03:13 Labs: Abnormal Lab Results - Last 24 Hours (Table) 10/31/20 10/31/20 10/31/20 Range/Units 12:00 16:27 20:32 WBC (3.8-10.6) k/uL RBC (4.30-5.90) m/uL Hgb (13.0-17.5) gm/dL Hct (39.0-53.0) % RDW (11.5-15.5) % Neutrophils # (1.3-7.7) k/uL Lymphocytes # (1.0-4.8) k/uL D-Dimer (<0.60) mg/L FEU Sodium (137-145) mmol/L Chloride (98-107) mmol/L BUN (9-20) mg/dL Creatinine (0.66-1.25) mg/dL POC Glucose (mg/dL) 148 H 197 H 193 H (75-99) mg/dL Calcium (8.4-10.2) mg/dL ALT (4-49) U/L Lactate Dehydrogenase (313-618) U/L Total Protein (6.3-8.2) g/dL Albumin (3.5-5.0) g/dL 11/01/20 11/01/20 11/01/20 Range/Units 03:12 03:13 08:35 WBC 11.8 H (3.8-10.6) k/uL RBC 3.48 L (4.30-5.90) m/uL Hgb 10.9 L (13.0-17.5) gm/dL Hct 32.6 L (39.0-53.0) % RDW 16.3 H (11.5-15.5) % Neutrophils # 10.7 H (1.3-7.7) k/uL Lymphocytes # 0.4 L (1.0-4.8) k/uL D-Dimer 5.04 H (<0.60) mg/L FEU Sodium 132 L (137-145) mmol/L Chloride 109 H (98-107) mmol/L BUN 32 H (9-20) mg/dL Creatinine 0.61 L (0.66-1.25) mg/dL POC Glucose (mg/dL) (75-99) mg/dL Calcium 7.7 L (8.4-10.2) mg/dL ALT 56 H (4-49) U/L Lactate Dehydrogenase (313-618) U/L Total Protein 4.6 L (6.3-8.2) g/dL Albumin 2.1 L (3.5-5.0) g/dL 11/01/20 Range/Units 08:35 WBC (3.8-10.6) k/uL RBC (4.30-5.90) m/uL Hgb (13.0-17.5) gm/dL Hct (39.0-53.0) % RDW (11.5-15.5) % Neutrophils # (1.3-7.7) k/uL Lymphocytes # (1.0-4.8) k/uL D-Dimer (<0.60) mg/L FEU Sodium (137-145) mmol/L Chloride (98-107) mmol/L BUN (9-20) mg/dL Creatinine (0.66-1.25) mg/dL POC Glucose (mg/dL) (75-99) mg/dL Calcium (8.4-10.2) mg/dL ALT (4-49) U/L Lactate Dehydrogenase 1609 H (313-618) U/L Total Protein (6.3-8.2) g/dL Albumin (3.5-5.0) g/dL Assessment and Plan Plan: 1. Covid 19 pneumonia 2. Acute hypoxic respiratory failure 3. Underlying history of asthma 4. Underlying history of coronary artery disease 5. Underlying history of hypertension 6. Underlying history of hyperlipidemia 7. Underlying history of abdominal aortic aneurysm At this time patient is admitted to medical floor he was started on IV Decadron and subcu Lovenox he is maintained on oxygen via nasal cannula Pulmonary consultation was requested Will follow closely
[2020-11-01 11:36] LABS: Glucose,Whole Blood 156 mg/dL (75-99)
[2020-11-01] MEDS: SODIUM CHLORIDE 0.9% 1,000 ML IV SCH (14:41)
[2020-11-01 16:47] LABS: Glucose,Whole Blood 151 mg/dL (75-99)
[2020-11-01 20:56] LABS: Glucose,Whole Blood 152 mg/dL (75-99)
[2020-11-01] MEDS: FOLIC ACID 1 MG TAB PO SCH (21:00)
[2020-11-01] MEDS: amLODIPine 5 MG TAB PO SCH (21:00)
[2020-11-01] MEDS: MELATONIN 5 MG TABLET PO SCH (21:01)
[2020-11-01] MEDS: LATANOPROST 0.005% OPHTH DROPS 2.5 ML BTL RIGHT EYE SCH (21:01)
[2020-11-01 23:53] LABS: Anisocytosis Slight; HCT 23.5 % (39.0-53.0); MCH 30.7 pg (25.0-35.0); MCHC 33.1 g/dL (31.0-37.0); MCV 92.8 fL (80.0-100.0); Mean Platelet Volume 8.1; Platelet Count 254 k/uL (150-450); RBC 2.53 m/uL (4.30-5.90); RDW 16.4 % (11.5-15.5); WBC 16.3 k/uL (3.8-10.6)
[2020-11-01 23:54] LABS: HGB 7.8 gm/dL (13.0-17.5)
[2020-11-02] MEDS: SODIUM CHLORIDE 0.9% 1,000 ML IV SCH (03:42)
[2020-11-02 04:01] LABS: Anisocytosis Slight; Basophils % (A) 0 %; Eosinophils % (A) 0 %; HCT 22.2 % (39.0-53.0); HGB 7.2 gm/dL (13.0-17.5); Lymphocytes # (A) 0.7 k/uL (1.0-4.8); Lymphocytes % (A) 5 %; MCH 30.7 pg (25.0-35.0); MCHC 32.6 g/dL (31.0-37.0); MCV 94.1 fL (80.0-100.0); Mean Platelet Volume 8.1; Monocytes # (A) 0.5 k/uL (0-1.0); Monocytes % (A) 3 %; Neutrophils # (A) 14.4 k/uL (1.3-7.7); Neutrophils % (A) 91 %; Platelet Count 225 k/uL (150-450); RBC 2.36 m/uL (4.30-5.90); RDW 16.4 % (11.5-15.5); WBC 15.8 k/uL (3.8-10.6)
[2020-11-02 04:05] LABS: ALT 40 U/L (4-49); AST 28 U/L (17-59); African American GFR (CKD) >90 (>60 ml/min/1.73 sqM); Albumin 1.5 g/dL (3.5-5.0); Alkaline Phosphatase 44 U/L (38-126); Anion Gap 3 mmol/L; Blood Urea Nitrogen 41 mg/dL (9-20); C Reactive Protein <5.0 mg/L (<10.0); Calcium 6.8 mg/dL (8.4-10.2); Carbon Dioxide 20 mmol/L (22-30); Chloride 110 mmol/L (98-107); Glucose 153 mg/dL (74-99); LDH 1136 U/L (313-618); Non-African American GFR(CKD) 89 (>60 ml/min/1.73 sqM); Potassium 4.1 mmol/L (3.5-5.1); Sodium 133 mmol/L (137-145); Total Bilirubin 0.4 mg/dL (0.2-1.3); Total Protein 3.2 g/dL (6.3-8.2)
[2020-11-02 06:17] LABS: Glucose,Whole Blood 162 mg/dL (75-99)
[2020-11-02] MEDS: INSULIN ASPART (NovoLOG) 100 UNIT/ML VIAL SQ SCH ×4 (06:45→23:40)
[2020-11-02 07:23] LABS: Anisocytosis Slight; Basophils % (A) 0 %; Eosinophils # (A) 0.1 k/uL (0-0.7); Eosinophils % (A) 1 %; HCT 20.3 % (39.0-53.0); Hypochromasia Slight; Lymphocytes # (A) 2.1 k/uL (1.0-4.8); Lymphocytes % (A) 11 %; MCH 30.3 pg (25.0-35.0); MCHC 31.5 g/dL (31.0-37.0); MCV 96.2 fL (80.0-100.0); Macrocytosis Slight; Mean Platelet Volume 8.3; Monocytes # (A) 0.6 k/uL (0-1.0); Monocytes % (A) 3 %; Neutrophils % (A) 84 %; Platelet Count 243 k/uL (150-450); RBC 2.11 m/uL (4.30-5.90); RDW 16.9 % (11.5-15.5); WBC 19.2 k/uL (3.8-10.6)
[2020-11-02 07:34] LABS: ALT 38 U/L (4-49); AST 27 U/L (17-59); African American GFR (CKD) >90 (>60 ml/min/1.73 sqM); Albumin 1.4 g/dL (3.5-5.0); Alkaline Phosphatase 40 U/L (38-126); Anion Gap 3 mmol/L; Blood Urea Nitrogen 42 mg/dL (9-20); Calcium 6.5 mg/dL (8.4-10.2); Carbon Dioxide 17 mmol/L (22-30); Chloride 111 mmol/L (98-107); Glucose 222 mg/dL (74-99); Non-African American GFR(CKD) 85 (>60 ml/min/1.73 sqM); Potassium 4.4 mmol/L (3.5-5.1); Sodium 131 mmol/L (137-145); Total Bilirubin 0.4 mg/dL (0.2-1.3)
[2020-11-02 07:35] LABS: HGB 6.4 gm/dL (13.0-17.5)
[2020-11-02 07:36] LABS: INR 1.4 (<1.2); Partial Thromboplastin Time 26.1 sec (22.0-30.0); Prothrombin Time 13.9 sec (9.0-12.0)
[2020-11-02] MEDS ORDERED: propofoL 100 ML IV ONE (08:04)
--- NOTE | 2020-11-02 08:12 | XR ---
EXAMINATION TYPE: XR chest 1V portable DATE OF EXAM: 11/02/2020 COMPARISON: Chest x-ray 11/01/2020 HISTORY: Shortness of breath TECHNIQUE: Single frontal view of the chest is obtained. FINDINGS: Bilateral airspace disease persists. There is prominence of the mediastinum as on prior ex am. No evident pneumothorax or pleural effusion. Heart size is stable. IMPRESSION: Correlate for pneumonia, edema
[2020-11-02] MEDS ORDERED: SUCCINYLCHOLINE CHLORIDE VIAL 200 MG/10 ML VIAL IV ONE (08:18)
[2020-11-02] MEDS ORDERED: ETOMIDATE 2 MG/ML 10 ML VIAL ONE (08:18)
--- NOTE | 2020-11-02 08:49 | XR ---
EXAMINATION TYPE: XR chest 1V DATE OF EXAM: 11/02/2020 COMPARISON: 11/02/2020, earlier today HISTORY: 75-year-old male intubation TECHNIQUE: Single frontal view of the chest is obtained. FINDINGS: ET tube tip 2.7 cm from the du. NG tube courses below the diaphragm. Heart upper limits of normal in size. Diffuse patchy bilateral airspace opacities persist without significant change. IMPRESSION: Satisfactory ET and NG tubes. Otherwise, stable diffuse bilateral patchy airspace disease.
[2020-11-02] MEDS ORDERED: SODIUM CHLORIDE 0.9% 1,000 ML IV ONE (08:54)
[2020-11-02] MEDS ORDERED: NOREPINEPHRIN 4 MG-0.9% NS PMX 4 MG/250 ML ML IV ONE (08:56)
[2020-11-02 09:03] LABS: ABG Base Excess -19.2 mmol/L; ABG HCO3 11 mmol/L (21-25); ABG Oxygen Saturation 97.9 % (94-97); ABG PCO2 38 mmHg (35-45); ABG PO2 133 mmHg (83-108); ABG TCO2 12 mmol/L (19-24)
[2020-11-02] MEDS ORDERED: SODIUM BICARB 8.4% 50 ML SYR (1 MEQ/ML) IV STA ×2 (09:05)
[2020-11-02] MEDS ORDERED: SODIUM BICARB 8.4% 50 ML SYR (1 MEQ/ML) ONE (09:05)
[2020-11-02 09:07] LABS: ABG PH 7.07 (7.35-7.45)
[2020-11-02] MEDS: NOREPINEPHRINE 8 MG in SODIUM CHLORIDE 0.9% 250 ML IV SCH ×3 (09:12→22:06)
[2020-11-02] MEDS ORDERED: DEXTROSE 5% IN WATER 1,000 ML with SODIUM BICARB (1 MEQ/ML) 150 ML IV SCH (09:15)
--- NOTE | 2020-11-02 09:31 | P.PN ---
Subjective Progress Note Date: 11/02/20 Florni Newsome, is a 75-year-old male who started having symptoms of cough and shortness of breath about 1 week ago [facility] and [facility] for Covid 19 he called our office on Monday and was given a prescription for Decadron 4 mg by mouth twice daily also he was told to take vitamin C vitamin D and zinc supplements, patient took these medications however he continued to have worsening shortness of breath his pulse ox at home was down in the 80s and on he decided to come to emergency room for further evaluation. Patient was evaluated in emergency room his vital examination on presentation reveals a temperature of 97.5 pulse 88 respiration 18 blood pressure 114/86 pulse ox was 92% on 2 L nasal cannula his white blood count was 12.3 hemoglobin 14.6 platelet count 243 d-dimer 1.96 sodium 136 BUN 46 creatinine 0.9 to lactic acid 2.3 ferritin level 1099 C-reactive protein 54.3 Covid 19 PCR testing was positive, CT angiogram of the chest revealed bilateral patchy groundglass opacities consistent was history of Covid pneumonia, no evidence of pulmonary embolism, patient was admitted to medical floor he was started on IV Decadron, subcu Lovenox, and pulmonary consultation was requested. Patient has a known history of asthma, history of hypertension, history of hyperlipidemia, history of coronary artery disease, and history of abdominal aortic aneurysm. On review of systems patient is alert and oriented 3 in no apparent distress he is complaining of shortness of breath and cough otherwise he denies any complaints there is no fever or chills no headache or dizziness no chest pain no palpitation no nausea or vomiting no abdominal pain no diarrhea no blood in the stools no burning with urination no frequency or urgency no hematuria no w eakness or numbness in any of the extremities no change in vision speech or gait. On 10/24/2020 patient was seen and examined on the medical floor he is alert and oriented 3 in no apparent distress he is complaining of cough with whitish sputum production he is complaining of shortness of breath with any activity otherwise he denies any complaints there is no fever or chills no headache or dizziness no chest pain no palpitation no nausea or vomiting no abdominal pain no diarrhea no blood in the stools no burning with urination no frequency or urgency and no hematuria. Lactic acid was significantly elevated yesterday and through last night patient received multiple IV fluid boluses and lactic acid is down to 1.7 at this time. On 10/25/2020 patient was seen and examined the medical floor he is alert and oriented 3 in no apparent distress he is complaining of shortness of breath with any activity he is currently maintained on oxygen 6 L via nasal cannula his pulse ox is 91% he is also complaining of some cough with white sputum production and complaining of fatigue and generalized weakness otherwise he denies any complaints there is no fever or chills no headache or dizziness no chest pain no palpitation no nausea or vomiting no abdominal pain no diarrhea no blood in the stools no burning with urination no frequency or urgency and no hematuria there is no weakness or numbness in any of the extremities there is no change in vision speech or gait On 10/26/2020 patient was seen and examined on the medical floor he is alert and oriented 3 he is having worsening shortness of breath, his oxygen requirements are increasing, currently he is maintained on high flow cannula FiO2 80% airvo, he is having occasional cough otherwise he denies any complaints his pulse ox is 94% there is no fever or chills no headache or dizziness no chest pain no palpitation no nausea or vomiting no abdominal pain no diarrhea and no urinary symptoms. Case was discussed with Dr. Maurice today patient had worsening of his symptoms and increase in his oxygen requirement at this time will give Decadron 20 mg IV and transferred patient to intensive care unit On 10/27/2020 patient was seen and examined in the ICU he is alert and oriented 3 in no apparent distress she is maintained on high flow oxygen 60 L/m his inflammatory markers are increasing his dose of Decadron was increased to 20 mg IV daily otherwise there is no complaints there is no fever or chills no headache or dizziness no chest pain no palpitation no nausea or vomiting no abdominal pain no diarrhea no blood in the stools no burning with urination no frequency or urgency and no hematuria On 10/28/2020 patient was seen and examined in the ICU he is alert and oriented 3 in no apparent distress he is still maintained on high flow oxygen at 60 L/m at this time he is able to eat and answer questions appropriately, his inflammatory markers are stabilizing he is complaining of shortness of breath otherwise he denies any complaints there is no fever or chills no headache or dizziness no chest pain no cough no nausea or vomiting no abdominal pain no diarrhea no blood in the stools no burning with urination no frequency or urgency and no hematuria. On 10/29/2020 patient was seen and examined in the ICU he is alert and oriented 3 in no distress he is requiring high flow oxygen of 60 L/m his inflammatory markings are stabilizing patient is complaining of shortness of breath and occasional cough otherwise he denies any complaints there is no fever or chills no headache or dizziness no chest pain no palpitation no nausea or vomiting no abdominal pain no diarrhea no blood in the stools Moore catheter is in, no urinary symptoms. On 10/30/2020 patient was seen and examined in the ICU he is alert and oriented 3 in no distress he is still on high flow oxygen however he feels more comfortable he is complaining of occasional cough he is complaining of shortness of breath with any activity such as eating or speaking or trying to move in bed, otherwise there is no complaints there is no fever or chills no headache or dizziness no chest pain no palpitation no nausea or vomiting no abdominal pain no diarrhea no blood in the stools and no urinary symptoms On 10/31/2020 patient was seen and examined on the medical floor he is alert and oriented 3 in no distress he is still complaining of shortness of breath he is still maintained on high flow oxygen he has occasional cough otherwise he denies any complaints there is no fever or chills no headache or dizziness no chest pain no palpitation no nausea or vomiting no abdominal pain no diarrhea no blood in the stools no burning with urination no frequency or urgency and no hematuria On 11/01/2020 patient was seen and examined in the ICU he is alert and oriented 3 in no distress he is complaining of shortness of breath and is still maintained on high flow oxygen, he is complaining of cough , he was having some rectal bleeding and critical care physician discontinued Plavix and aspirin at this time otherwise he denies any complaints there is no fever or chills no headache or dizziness no chest pain no palpitation no nausea or vomiting no abdominal pain no diarrhea no burning with urination no frequency or urgency and no hematuria On 11/02/2020 patient was seen and examined in the ICU, through the night patient had worsening rectal bleeding, he developed hypotension, he received IV fluid boluses, hemoglobin this morning 6.4, 1 unit of red blood cell transfusion was ordered, Lovenox was discontinued, gastroenterology consultation requested, due to worsening hypotension and worsening respiratory failure, patient was intubated, sedated started on mechanical ventilation, pulmonary critical care following. Objective - Vital Signs Vital signs: Vital Signs Temp 97.7 F 11/02/20 08:22 Pulse 120 H 11/02/20 08:22 Resp 24 11/02/20 08:22 BP 126/66 11/02/20 08:22 Pulse Ox 98 11/02/20 08:22 Intake & Output 11/01/20 11/02/20 11/02/20 18:59 06:59 18:59 Intake Total 590 2450 360 Output Total 896 1105 30 Balance -306 1345 330 Weight 108 kg Intake: IV 590 2450 50 Sodium Chloride 0.9% 1, 590 2450 50 000 ml @ 50 mls/hr IV . Q20H [facility] Rx#:[id number] Blood Product 310 Rc As-1 Unit 0 [id number] Rc As-1 Unit 310 [id number] Output: Urine 896 605 30 Stool 500 Other: Voiding Method Indwelling Catheter Indwelling Catheter # Bowel Movements 1 2 - Exam In general patient is alert and oriented 3 in no apparent distress HEENT head normocephalic and atraumatic Neck is supple no JVD no goiter no lymphadenopathy Chest exam reveals a few scattered rhonchi no wheezing Cardiac exam reveals regular heart sounds S1 and S2 no gallops no murmurs Abdomen is soft nontender no organomegaly was normal bowel sounds Extremity exam reveals no edema no cyanosis or clubbing Neurological examination reveals no gross focal deficits - Labs CBC & Chem 7: 11/02/20 07:09 11/02/20 07:09 Labs: Abnormal Lab Results - Last 24 Hours (Table) 11/01/20 11/01/20 11/01/20 Range/Units 08:35 08:35 11:34 WBC (3.8-10.6) k/uL RBC (4.30-5.90) m/uL Hgb (13.0-17.5) gm/dL Hct (39.0-53.0) % RDW (11.5-15.5) % Neutrophils # (1.3-7.7) k/uL Lymphocytes # (1.0-4.8) k/uL PT (9.0-12.0) sec INR (<1.2) D-Dimer 5.04 H (<0.60) mg/L FEU Sodium (137-145) mmol/L Chloride (98-107) mmol/L Carbon Dioxide (22-30) mmol/L BUN (9-20) mg/dL Glucose (74-99) mg/dL POC Glucose (mg/dL) 156 H (75-99) mg/dL Calcium (8.4-10.2) mg/dL Lactate Dehydrogenase 1609 H (313-618) U/L Total Protein (6.3-8.2) g/dL Albumin (3.5-5.0) g/dL Crossmatch 11/01/20 11/01/20 11/01/20 Range/Units 16:46 20:54 23:32 WBC 16.3 H (3.8-10.6) k/uL RBC 2.53 L (4.30-5.90) m/uL Hgb 7.8 L D (13.0-17.5) gm/dL Hct 23.5 L (39.0-53.0) % RDW 16.4 H (11.5-15.5) % Neutrophils # (1.3-7.7) k/uL Lymphocytes # (1.0-4.8) k/uL PT (9.0-12.0) sec INR (<1.2) D-Dimer (<0.60) mg/L FEU Sodium (137-145) mmol/L Chloride (98-107) mmol/L Carbon Dioxide (22-30) mmol/L BUN (9-20) mg/dL Glucose (74-99) mg/dL POC Glucose (mg/dL) 151 H 152 H (75-99) mg/dL Calcium (8.4-10.2) mg/dL Lactate Dehydrogenase (313-618) U/L Total Protein (6.3-8.2) g/dL Albumin (3.5-5.0) g/dL Crossmatch 11/01/20 11/02/20 11/02/20 Range/Units 23:32 03:20 03:20 WBC (3.8-10.6) k/uL RBC (4.30-5.90) m/uL Hgb (13.0-17.5) gm/dL Hct (39.0-53.0) % RDW (11.5-15.5) % Neutrophils # (1.3-7.7) k/uL Lymphocytes # (1.0-4.8) k/uL PT (9.0-12.0) sec INR (<1.2) D-Dimer 4.89 H (<0.60) mg/L FEU Sodium 133 L (137-145) mmol/L Chloride 110 H (98-107) mmol/L Carbon Dioxide 20 L (22-30) mmol/L BUN 41 H (9-20) mg/dL Glucose 153 H (74-99) mg/dL POC Glucose (mg/dL) (75-99) mg/dL Calcium 6.8 L (8.4-10.2) mg/dL Lactate Dehydrogenase 1136 H (313-618) U/L Total Protein 3.2 L (6.3-8.2) g/dL Albumin 1.5 L (3.5-5.0) g/dL Crossmatch See Detail 11/02/20 11/02/20 11/02/20 Range/Units 03:20 06:15 07:09 WBC 15.8 H (3.8-10.6) k/uL RBC 2.36 L (4.30-5.90) m/uL Hgb 7.2 L (13.0-17.5) gm/dL Hct 22.2 L (39.0-53.0) % RDW 16.4 H (11.5-15.5) % Neutrophils # 14.4 H (1.3-7.7) k/uL Lymphocytes # 0.7 L (1.0-4.8) k/uL PT 13.9 H (9.0-12.0) sec INR 1.4 H (<1.2) D-Dimer (<0.60) mg/L FEU Sodium (137-145) mmol/L Chloride (98-107) mmol/L Carbon Dioxide (22-30) mmol/L BUN (9-20) mg/dL Glucose (74-99) mg/dL POC Glucose (mg/dL) 162 H (75-99) mg/dL Calcium (8.4-10.2) mg/dL Lactate Dehydrogenase (313-618) U/L Total Protein (6.3-8.2) g/dL Albumin (3.5-5.0) g/dL Crossmatch 11/02/20 11/02/20 Range/Units 07:09 07:09 WBC 19.2 H (3.8-10.6) k/uL RBC 2.11 L (4.30-5.90) m/uL Hgb 6.4 L* (13.0-17.5) gm/dL Hct 20.3 L (39.0-53.0) % RDW 16.9 H (11.5-15.5) % Neutrophils # 16.0 H (1.3-7.7) k/uL Lymphocytes # (1.0-4.8) k/uL PT (9.0-12.0) sec INR (<1.2) D-Dimer (<0.60) mg/L FEU Sodium 131 L (137-145) mmol/L Chloride 111 H (98-107) mmol/L Carbon Dioxide 17 L (22-30) mmol/L BUN 42 H (9-20) mg/dL Glucose 222 H (74-99) mg/dL POC Glucose (mg/dL) (75-99) mg/dL Calcium 6.5 L (8.4-10.2) mg/dL Lactate Dehydrogenase (313-618) U/L Total Protein 3.0 L (6.3-8.2) g/dL Albumin 1.4 L (3.5-5.0) g/dL Crossmatch Assessment and Plan Plan: 1. Covid 19 pneumonia 2. Acute hypoxic respiratory failure, at this time requiring intubation and mechanical ventilation 3. Underlying history of asthma 4. Underlying history of coronary artery disease 5. Underlying history of hypertension 6. Underlying history of hyperlipidemia 7. Underlying history of abdominal aortic aneurysm 8. Rectal bleeding aspirin, Plavix and Lovenox are discontinued at this time, patient received 1 unit of red blood cell transfusion today gastroenterology consultation requested At this time patient is admitted to medical floor he was started on IV Decadron and subcu Lovenox he is maintained on oxygen via nasal cannula Pulmonary consultation was requested Will follow closely
[2020-11-02] MEDS: ASCORBIC ACID 500 MG TAB PO SCH (10:03)
[2020-11-02] MEDS: ZINC SULFATE 220 MG CAP PO SCH ×2 (10:03→20:10)
[2020-11-02] MEDS: DEXAMETHASONE SOD PHOSPHATE 10 MG/ML 1 ML VIAL IV SCH (10:03)
[2020-11-02] MEDS: CYANOCOBALAMIN 500 MCG TAB PO SCH (10:03)
[2020-11-02] MEDS: FAMOTIDINE 20 MG TAB PO SCH ×2 (10:04→20:07)
[2020-11-02] MEDS: hydroCHLOROthiazide 12.5 MG CAP PO SCH (10:04)
[2020-11-02] MEDS: CHLORHEXIDINE GLUCONATE 15 ML CUP MUCOUS MEM SCH ×2 (10:04→20:07)
[2020-11-02] MEDS: CHOLECALCIFEROL 25 MCG (1000 IU) TABLET PO SCH (10:08)
[2020-11-02] MEDS: ALBUTEROL HFA INHALER INHALATION PRN ×2 (11:22→20:38)
[2020-11-02 12:22] LABS: Glucose,Whole Blood 250 mg/dL (75-99)
[2020-11-02 12:38] LABS: Anisocytosis Slight; MCH 29.5 pg (25.0-35.0); MCHC 33.2 g/dL (31.0-37.0); Mean Platelet Volume 8.2; Platelet Count 213 k/uL (150-450); RBC 4.05 m/uL (4.30-5.90); RDW 16.2 % (11.5-15.5); WBC 31.3 k/uL (3.8-10.6)
[2020-11-02] MEDS: fentaNYL (PF) 1,000 MCG in SODIUM CHLORIDE 0.9% 80 ML IV SCH (13:05)
--- NOTE | 2020-11-02 13:09 | PCN ---
PROCEDURE NOTE OPERATIVE REPORT: Placement of the right femoral triple-lumen catheter. PREOPERATIVE DIAGNOSIS: Acute hypoxic respiratory failure and hypotension requiring norepinephrine. POSTOPERATIVE DIAGNOSIS: Acute hypoxic respiratory failure and hypotension requiring norepinephrine. ANESTHESIA USED: 2 mL of 1% lidocaine. PROCEDURE DETAILS: The patient was placed in a supine position, the right groin was prepared in a sterile fashion and drapes were applied. The area was locally anesthetized with lidocaine. Then, the right femoral vein was cannulated easily. A guidewire was placed, the area around the guidewire was dilated. A triple-lumen catheter was inserted over the guidewire, the guidewire was removed. Good blood flow noted in the 3 different ports of the triple-lumen catheter. The line was secured using 3.0 silk sutures. No evidence of any immediate complications. The procedure was well tolerated. MMODL / IJN: [id number] /
[2020-11-02 13:12] LABS: MCV 88.9 fL (80.0-100.0)
--- NOTE | 2020-11-02 13:28 | P.PN ---
Subjective Progress Note Date: 11/02/20 Principal diagnosis: Acute hypoxic respiratory failure secondary to covid 19 pneumonia. 75-year-old male with a history of hyperlipidemia, essential hypertension, and rheumatoid arthritis, who presents to the emergency department with increasing shortness of breath. The patient apparently tested positive for COVID 19, 5 days ago. He began having symptoms, last weekend. He apparently went to an outside urgent care facility where he was tested. He apparently notified his [facility] physician about the positive tests who then placed him on Decadron and several vitamin supplements. He was taking everything he was given, without significant improvement in his symptoms, and for that reason, and because his pulse ox, was getting lower and lower into the mid 80s, he decided to come in to be evaluated in the emergency department on the advice of his primary care provider. The patient denies any chest pain or chest discomfort. He has not had any nausea, vomiting, diarrhea, or abdominal pain. He denies all genitourinary complaints. He also denies any chest pain or chest discomfort. He denies any fever or chills. His primary complaints were shortness of breath and nonproductive cough. He was also concerned because he is taking methotrexate for his rheumatoid arthritis and thought that he was probably one of those patients who might be considered to be immunocompromised. Currently, he is on 4 L nasal cannula with saturation between 90 and 91%. His temperature is 97.6. A CT angiogram was negative for pulmonary embolism, was positive for patchy I lateral groundglass opacities, consistent with a diagnosis of COVID 19 pneumonia. The patient is seen today 10/24/2020 and follow-up on the regular medical floor. He is currently sitting up in a chair at the bedside. Awake and alert in no acute distress. Doing quite a bit better today compared to yesterday. He is still dyspneic with minimal exertion. Maintaining O2 saturations in the 90s on 6 L high flow nasal cannula. White count 7.0. Hemoglobin 12.5. Lymphocytes 0.3. Sodium 141. Potassium 4.1. Creatinine 0.7. Lactic acid 1.7. Pro- calcitonin 0.07. He remains on dexamethasone, Lovenox, vitamin supplements. The patient is seen today 10/25/2020 and follow-up on the regular medical floor. Awake, alert in no acute distress. Up in a chair at the bedside. Remains on 6 L high flow nasal cannula with O2 saturations in the low 90s. Afebrile. Hemodynamically stable. White count 6.0. Hemoglobin 12.2. Sodium 143. Potassium 4.3. Creatinine 0.7. He remains on dexamethasone, Lovenox, vitamin supplements. On 10/26/2020, the patient has been placed on high flow oxygen at 60 L nasal cannula. She did desaturate. Her oxidation gradually get worse and currently a high flow oxygen. As far as her inflammatory markers, and LDH is at 541, her CRP level is at 4.9. D-dimer was at 2.76. The patient is still on Decadron 6 mg by mouth daily basis, she is receiving Lovenox 40 mg subcu daily basis. She is also on zinc and the rest of the vitamin supplements including vitamin C. CXR from yesterday showed no major interval change in terms of the bilateral pulmonary infiltration. The patient is 75-year-old male with known history of hypertension and hyperlipidemia and rheumatoid arthritis maintained on methotrexate. I examined the patient. He is short of breath with limited amount of activity. On and off he has cough. Sometimes he has to interrupt his speech to catch his breath. He is obviously had gotten worse since yesterday. On 10/27/2020 the patient is being seen in follow-up in the intensive care unit. I transfer this patient to the ICU yesterday. His oxidation was getting worse. The chest x-ray showed diffuse bilateral pulmonary infiltrates. The patient was placed on high flow oxygen 6 L and following that he got transferred to the ICU. His morning he started on high flow at 60 L. D-dimer is at 2.9. His CRP is at 130 and his LDH level is at 1240. Based on this elevated inflammatory markers and worsening oxygenation, I'm also going to increase his Decadron and put him on 20 mg for the next 5 days, IV and further taper the dose based on his overall clinical response. A repeat chest x-ray from today is stable compared to yesterday without any significant interval change. There may be some improvement in the infiltration of the right lung base. Meanwhile, the patient is still on aspirin and Plavix. He is also on Lovenox 40 mg subcu. On 10/28/2020 patient intensive care unit and the patient is being seen in follow-up. The patient remains on high flow oxygen at 60 L per minute. The patient is also utilizing 100% nonrebreather facemask on top of his high flow oxygen. In terms of his inflammatory markers, his d-dimer is up to 4.21, his LDH level is elevated and its higher compared to yesterday at 1498 and his CRP level is up to 60. The patient remains on high dose Decadron 20 mg IV every 24 hours and the patient was also given a dose of Actemra 80mg and this was. Later on during the afternoon. He is pro-calcitonin level remains low at 0.07. The had a follow-up chest x-ray today that shows no major interval change and it shows diffuse breath and pulmonary infiltration. His white cell count is at 9.5. He is afebrile. He is awake and alert and following commands and answering questions appropriately. He is on Lovenox and he is currently receiving a dose of 40 mg subcutaneous daily There is evaluation of 10/29/2020 patient's condition essentially the same as yesterday. He remains on high flow oxygen at 60 L with an FiO2 of 90%. He is also using 100% nonrebreather facemask on and off the supplement his o xygenation. In terms of his treatment, the patient is currently utilizing a combination of Decadron 20 mg IV, vitamin C, vitamin D, melatonin, zinc and folic acid. The patient's d-dimer is up to 8.9. His LDH level is slightly lower compared to yesterday at 1436. CRP is down to 32. He is afebrile. He is awake and alert and communicating. D-dimer is at 6.9 and the patient is also on Lovenox 40 mg subcutaneous twice a day. No other major changes compared to yesterday. The chest x-ray from today is showing diffuse bilateral pulmonary infiltrates probably slightly worse in the right lower lobe area. 10/30/2020, the patient is stable without any interval worsening. Clinically is feeling slightly better and less short of breath. He remains on high flow oxygen at 60 L with an FiO2 of 90% is on and off utilizing the 100% nonrebreather facemask. He mainly at nighttime when he breathes through his mouth. He remains on Decadron 20 mg IV every 24 hours. He remains also on a combination of vitamin C, vitamin D and melatonin and Pepcid. The patient was also treated with Actemra and he received 2 doses. He is afebrile. On IV fluids running at 100 mL an hour. No signs of any significant fluid overload. Does have some edema in lower extremities bilaterally. On his blood work, the patient's LDH level is at 1517 and his CRP is at 17 and both of the numbers are comparable although the LDH is slightly elevated and the CRP is slightly lower compared to yesterday. He d-dimer is at 6.13 and the patient remains on Lovenox 40 mg subcu every 12 hours. His chest x-ray findings are essentially stable and the patient is diffuse but the pulmonary infiltrates without any major im provement interval change compared to yesterday. 10/31/20202020, no complaints and the patient remains on the same oxygen setting which is 60 L high flow with an FiO2 of 90%. He remains on Decadron 20 mg IV and this is day #4. He is also on vitamin C and vitamin D and melatonin . He has also received Actemra and he received 2 doses, and we are waiting for the inflammatory markers from today. D-dimer is low is down to 4.0 and the patient is taking Lovenox 40 mg subcu every 12 hours. Tolerating diet. The reading the paper all the time. Chest x-ray is showing stable findings. Neurologically the same. No gastrointestinal symptoms. No fever. No other change in his condition since yesterday. He seems to be essentially stable without any interval worsening in his pulmonary status for now. On 11/01/2020, patient is on high flow oxygen 6 L with an FiO2 of 90%. He remains on Decadron 20 mg IV day #5. He is also on vitamin C and vitamin D and melatonin. His chest x-ray is unchanged. Inflammatory markers are pending for now. He did have a bout of bloody stool small amounts with a stable hemoglobin of 10.9. We held his aspirin and Plavix. He also held his Lovenox. I'm more inclined of restarting the Lovenox noted the patient has not had any further episodes of bleeding since yesterday. His symptoms of GI prophylaxis, the patient is currently receiving Pepcid 20 mg by mouth every 12 hours. His Decadron will be reduced down to 10 mg by mouth daily. Chest x-ray findings are essentially unchanged. He is pulling approximately 1500 on his incentive spirometer. He is weak. His legs are getting weaker according to him. While being moved on a recliner, the patient desaturates and recovers nicely after resting. No altered mentation. No nausea or vomiting or epigastric pain. He is known to have a vascular stent in the lower extremity and for that reason he was placed on Plavix. He also has carotid artery disease. Patient was reevaluated today on 11/02/2020, patient has been deteriorating overnight, his O2 saturation has been dropping down significantly. His respiratory rate has been in the high 30s chest x-ray is showing worsening infiltrates bilaterally. And in addition to all of this, patient developed an episode of maroon colored stool this morning, his hemoglobin went down to 6.4, patient became hypotensive, received fluids overnight, for low blood pressure, and he received 2 units of packed RBCs this morning for hemoglobin of 6.4. As soon as I evaluated the patient, I recommended immediate intubation, patient was in severe respiratory distress, and required immediate intubation. Placed on mechanical ventilation, his ventilator settings at present are assist control rate of 24 tidal volume is 450 FiO2 100% and PEEP of 8. ABG shortly after showed a pO2 of 133 pCO2 of 37 pH of 7.07 hence patient was given bicarb, and placed on a bicarb drip. Lovenox was placed on hold because of his bleeding, patient was placed on norepinephrine at 20 mcg/m, more blood was ordered to be given. And his FiO2 was titrated down to 80%. Patient was placed on norepinephrine propofol and fentanyl. His IV fluid is at 100 mL per hour. And Mrs. 0.9 normal saline. Patient has already received Decadron 20 mg IV push daily, he received vitamin D melatonin and vitamin C. Lovenox is presently on hold. Repeat hemoglobin at 12:15 showed a hemoglobin of 12. Objective - Vital Signs Vital signs: Vital Signs Temp 97.8 F 11/02/20 10:15 Pulse 73 11/02/20 10:15 Resp 22 11/02/20 10:15 BP 101/57 11/02/20 10:15 Pulse Ox 92 L 11/02/20 10:15 Intake & Output 11/01/20 11/02/20 11/02/20 18:59 06:59 18:59 Intake Total 590 2450 2648.111 Output Total 896 1105 125 Balance -306 1345 2523.111 Weight 108 kg 108 kg Intake: IV 590 2450 200 Sodium Chloride 0.9% 1, 590 2450 200 000 ml @ 50 mls/hr IV . Q20H RAMIN Rx#:[id number] Intake, IV Titration 1458.111 Amount Dextrose 5% in Water 1, 100 000 ml @ 50 mls/hr IV . Q23H RAMIN with Sodium Bicarb (1 Meq/ml) 150 ml Rx#:[id number] Norepinephrine 8 mg In 148.759 Sodium Chloride 0.9% 250 ml @ 0.05 MCG/KG/MIN 10. 449 mls/hr IV .Q24H RAMIN Rx#:[id number] Sodium Chloride 0.9% 1, 1000 000 ml @ 999 mls/hr IV . Q1H1M ONE Rx#:[id number] propofoL 1,000 mg In 209.352 Empty Bag 1 bag @ Titrate IV .Q0M RAMIN Rx#: [id number] Blood Product 930 Rc As-1 Unit 310 [id number] Rc As-1 Unit 310 [id number] Rc Pheresis 2 As3 Unit 310 [id number] Other 60 Output: Urine 896 605 125 Stool 500 Other: Voiding Method Indwelling Catheter Indwelling Catheter # Bowel Movements 1 2 ABP, PAP, CO, CI - Last Documented Arterial Blood Pressure 95/46 - Exam GENERAL EXAM: Revealed a 75-year-old white male in severe distress, required immediate intubation. HEAD: Normocephalic. Atraumatic. EENT: PERRLA, EOMI, nonicteric, endotracheal tube and orogastric tubes are intact. Moist mucous membranes. CHEST: No chest wall deformity. Mechanical chest expansion. LUNGS: Crackles noted bilaterally. rhonchi bilaterally. CVS: S1 and S2 normal with no audible murmur, regular rhythm. ABDOMEN: No hepatosplenomegaly, normal bowel sounds, no guarding or rigidity. SPINE: No scoliosis or deformity SKIN: No rashes CENTRAL NERVOUS SYSTEM: Could not be assessed, patient had to be intubated upon my initial evaluation. Noted to be in severe respiratory distress and hypotensive. EXTREMITIES: There is no peripheral edema. No clubbing, no cyanosis. Ora pheral pulses are intact. - Labs CBC & Chem 7: 11/02/20 12:15 11/02/20 07:09 Labs: Abnormal Lab Results - Last 24 Hours (Table) 11/01/20 11/01/20 11/01/20 Range/Units 16:46 20:54 23:32 WBC 16.3 H (3.8-10.6) k/uL RBC 2.53 L (4.30-5.90) m/uL Hgb 7.8 L D (13.0-17.5) gm/dL Hct 23.5 L (39.0-53.0) % RDW 16.4 H (11.5-15.5) % Neutrophils # (1.3-7.7) k/uL Lymphocytes # (1.0-4.8) k/uL PT (9.0-12.0) sec INR (<1.2) D-Dimer (<0.60) mg/L FEU ABG pH (7.35-7.45) ABG pO2 (83-108) mmHg ABG HCO3 (21-25) mmol/L ABG Total CO2 (19-24) mmol/L ABG O2 Saturation (94-97) % Sodium (137-145) mmol/L Chloride (98-107) mmol/L Carbon Dioxide (22-30) mmol/L BUN (9-20) mg/dL Glucose (74-99) mg/dL POC Glucose (mg/dL) 151 H 152 H (75-99) mg/dL Calcium (8.4-10.2) mg/dL Lactate Dehydrogenase (313-618) U/L Total Protein (6.3-8.2) g/dL Albumin (3.5-5.0) g/dL Crossmatch 11/01/20 11/02/20 11/02/20 Range/Units 23:32 03:20 03:20 WBC (3.8-10.6) k/uL RBC (4.30-5.90) m/uL Hgb (13.0-17.5) gm/dL Hct (39.0-53.0) % RDW (11.5-15.5) % Neutrophils # (1.3-7.7) k/uL Lymphocytes # (1.0-4.8) k/uL PT (9.0-12.0) sec INR (<1.2) D-Dimer 4.89 H (<0.60) mg/L FEU ABG pH (7.35-7.45) ABG pO2 (83-108) mmHg ABG HCO3 (21-25) mmol/L ABG Total CO2 (19-24) mmol/L ABG O2 Saturation (94-97) % Sodium 133 L (137-145) mmol/L Chloride 110 H (98-107) mmol/L Carbon Dioxide 20 L (22-30) mmol/L BUN 41 H (9-20) mg/dL Glucose 153 H (74-99) mg/dL POC Glucose (mg/dL) (75-99) mg/dL Calcium 6.8 L (8.4-10.2) mg/dL Lactate Dehydrogenase 1136 H (313-618) U/L Total Protein 3.2 L (6.3-8.2) g/dL Albumin 1.5 L (3.5-5.0) g/dL Crossmatch See Detail 11/02/20 11/02/20 11/02/20 Range/Units 03:20 06:15 07:09 WBC 15.8 H (3.8-10.6) k/uL RBC 2.36 L (4.30-5.90) m/uL Hgb 7.2 L (13.0-17.5) gm/dL Hct 22.2 L (39.0-53.0) % RDW 16.4 H (11.5-15.5) % Neutrophils # 14.4 H (1.3-7.7) k/uL Lymphocytes # 0.7 L (1.0-4.8) k/uL PT 13.9 H (9.0-12.0) sec INR 1.4 H (<1.2) D-Dimer (<0.60) mg/L FEU ABG pH (7.35-7.45) ABG pO2 (83-108) mmHg ABG HCO3 (21-25) mmol/L ABG Total CO2 (19-24) mmol/L ABG O2 Saturation (94-97) % Sodium (137-145) mmol/L Chloride (98-107) mmol/L Carbon Dioxide (22-30) mmol/L BUN (9-20) mg/dL Glucose (74-99) mg/dL POC Glucose (mg/dL) 162 H (75-99) mg/dL Calcium (8.4-10.2) mg/dL Lactate Dehydrogenase (313-618) U/L Total Protein (6.3-8.2) g/dL Albumin (3.5-5.0) g/dL Crossmatch 11/02/20 11/02/20 11/02/20 Range/Units 07:09 07:09 08:57 WBC 19.2 H (3.8-10.6) k/uL RBC 2.11 L (4.30-5.90) m/uL Hgb 6.4 L* (13.0-17.5) gm/dL Hct 20.3 L (39.0-53.0) % RDW 16.9 H (11.5-15.5) % Neutrophils # 16.0 H (1.3-7.7) k/uL Lymphocytes # (1.0-4.8) k/uL PT (9.0-12.0) sec INR (<1.2) D-Dimer (<0.60) mg/L FEU ABG pH 7.07 L* (7.35-7.45) ABG pO2 133 H (83-108) mmHg ABG HCO3 11 L (21-25) mmol/L ABG Total CO2 12 L (19-24) mmol/L ABG O2 Saturation 97.9 H (94-97) % Sodium 131 L (137-145) mmol/L Chloride 111 H (98-107) mmol/L Carbon Dioxide 17 L (22-30) mmol/L BUN 42 H (9-20) mg/dL Glucose 222 H (74-99) mg/dL POC Glucose (mg/dL) (75-99) mg/dL Calcium 6.5 L (8.4-10.2) mg/dL Lactate Dehydrogenase (313-618) U/L Total Protein 3.0 L (6.3-8.2) g/dL Albumin 1.4 L (3.5-5.0) g/dL Crossmatch 11/02/20 11/02/20 Range/Units 12:15 12:21 WBC 31.3 H (3.8-10.6) k/uL RBC 4.05 L (4.30-5.90) m/uL Hgb 12.0 L D (13.0-17.5) gm/dL Hct 36.0 L (39.0-53.0) % RDW 16.2 H (11.5-15.5) % Neutrophils # (1.3-7.7) k/uL Lymphocytes # (1.0-4.8) k/uL PT (9.0-12.0) sec INR (<1.2) D-Dimer (<0.60) mg/L FEU ABG pH (7.35-7.45) ABG pO2 (83-108) mmHg ABG HCO3 (21-25) mmol/L ABG Total CO2 (19-24) mmol/L ABG O2 Saturation (94-97) % Sodium (137-145) mmol/L Chloride (98-107) mmol/L Carbon Dioxide (22-30) mmol/L BUN (9-20) mg/dL Glucose (74-99) mg/dL POC Glucose (mg/dL) 250 H (75-99) mg/dL Calcium (8.4-10.2) mg/dL Lactate Dehydrogenase (313-618) U/L Total Protein (6.3-8.2) g/dL Albumin (3.5-5.0) g/dL Crossmatch Assessment and Plan Assessment: Impression: Acute hypoxic respiratory failure secondary to Covid 19 pneumonia, outside the window for remdesivir. Patient is on the Covid 19 cocktail, and he required intubation and mechanical ventilation today. Acute GI bleeding with acute blood loss anemia requiring 3 units of packed RBCs transfused for hemoglobin of 6.4. And for hypotension. History of underlying coronary artery disease. Dyslipidemia. Benign essential hypertension. History of rheumatoid arthritis. Peripheral vessel occlusive disease and previous stent placement. Maintained on Plavix. GERD without esophagitis. Carotid artery disease. Recommendation: Continue ventilatory support. Continue Covid 19 cocktail, however for Lovenox. Patient is out of window for remdesivir, but received actemra. 2 doses were given. Continue GI and DVT prophylaxis. Nutritional support, to be likely started on enteral feeding in the next 24-48 hours. Otherwise may have to consider TPN on this patient. Continue norepinephrine and titrate accordingly. Continue propofol and fentanyl. Prognosis is extremely poor and guarded. We'll continue to follow. Critical care time is 40 minutes not including the time spent on procedures. Discussed his condition with the admitting physician on the case/Dr. Erwin. Time with Patient: Greater than 30
[2020-11-02 13:48] LABS: Lymphocytes # (M) 0.63 k/uL (1.0-4.8); Metamyelocytes # (M) 0.31 k/uL (0); Metamyelocytes % 1 %; Monocytes # (M) 0.94 k/uL (0-1.0); Myelocytes # (M) 0.31 k/uL (0); Myelocytes % 1 %; Neutrophils # (M) 29.74 k/uL (1.3-7.7); Neutrophils % (M) 95 %; Nucleated Red Blood Cells 0 /100 WBC (0-0); Poikilocytosis (M) Present; Total Cells Counted 200
--- NOTE | 2020-11-02 15:00 | PCN ---
PROCEDURE NOTE OPERATIVE REPORT: Placement of the right brachial arterial line. PREOPERATIVE DIAGNOSES: Hypotension and acute hypoxic respiratory failure. POSTOPERATIVE DIAGNOSES: Hypotension and acute hypoxic respiratory failure. ANESTHESIA: Used none deployed. PROCEDURE DETAILS: Patient was placed in the supine position, the area of the right brachial region was prepared in a sterile fashion and drapes were applied. The right brachial artery was nonpalpable, however, it was localized by Doppler. Then the right brachial artery was cannulated easily, a guidewire was placed, and a Cook's catheter was inserted over the guidewire, and the guidewire was removed. Good blood flow and good waveform noted, no evidence of any immediate complications, the line was secured using 3.0 silk sutures. MMODL / IJN: [id number] /
[2020-11-02 16:08] LABS: ABG Base Excess -4.6 mmol/L; ABG HCO3 20 mmol/L (21-25); ABG Oxygen Saturation 99.4 % (94-97); ABG PCO2 34 mmHg (35-45); ABG PH 7.39 (7.35-7.45); ABG PO2 155 mmHg (83-108); ABG TCO2 22 mmol/L (19-24)
--- NOTE | 2020-11-02 16:37 | P.PCN ---
Date of Procedure: 11/02/20 Description of Procedure: BRIEF HISTORY: Patient is a 75-year-old male who presented to the hospital due to increasing shortness of breath and is currently being treated for infection with Covid 19. The patient developed multiple episodes of blood per rectum with maroon-colored stools. He is been intubated and sedated in the ICU and is status post 3 units of packed red blood cells with hemoglobin 12 this afternoon. No further bleeding reported. PROCEDURE PERFORMED: Esophagogastroduodenoscopy. PREOPERATIVE DIAGNOSIS: GI bleed, blood per rectum. ESTIMATED BLOOD LOSS: Minimal. IV sedation per anesthesia. PROCEDURE: After informed consent was obtained, the patient was brought into the endoscopy unit. IV sedation was administered by Anesthesia under continuous monitoring. Initially the Olympus GIF-190 video endoscope was inserted into the mouth. Esophagus intubated without any difficulty. It was gradually advanced into the stomach and duodenum and carefully examined. The bulb and the second part of the duodenum appeared normal, with no ulcers, old blood or active bleeding noted. The scope at this time was withdrawn to the stomach, adequately insufflated with air, and upon careful examination, mucosa of the antrum, body, cardia and the fundus appeared normal, except for some mild scattered erythema suggestive of mild gastritis in the antrum and body, with some old retained food debris also noted in the fundus. The scope was then withdrawn into the esophagus. The GE junction was located at 39 cm from the incisors. The esophagus appeared normal. There were no erosions or ulcerations seen and the patient tolerated the procedure well. IMPRESSION: 1. No active bleeding, old blood or pathology to explain symptoms. 2. Mild gastritis. RECOMMENDATIONS: The findings of this examination were discussed with the patientswife and son. Okay to continue current medical management. Patient should remain nothing by mouth, and stool output should continue to be monitored. Suspicion is for lower GI bleed with differential including ischemic colitis, diverticular bleed or other etiology. No plans for colonoscopy at this time as symptoms of GI bleeding have improved throughout the day and hemoglobin was appropriately normal after transfusion of packed red blood cells, however if patient continues to have Any further bleeding or fall in hemoglobin we'll reevaluate at that time. Can also consider tagged RBC scan if patient has bleeding during the night.
--- NOTE | 2020-11-02 17:40 | CDI ---
Documentation Clarification Form Date: 11/02/2020 04:54:40 PM From: Jerica Franco RN, CCDS Admit Date: 10/22/2020 05:41:00 PM Patient Name: Florin Newsome Visit Number: [id number] Discharge Date: ATTENTION: The Clinical Documentation Specialists (CDI) and [facility] Coding Staff appreciate your assistance in clarifying documentation. Please respond to the clarification below the line at the bottom and electronically sign. The CDI & [facility] Coding staff will review the response and follow-up if needed. Please note: Queries are made part of the Legal Health Record. If you have any questions, please contact the author of this message via ITS. Dr. Rai Levine Hypotension is documented in the progress notes on 11/02/2020 requiring fluid bolus and transfusion. Please render your opinion on what this treatment may indicate. Patient history/risk factors: Rheumatoid arthritis, hypertension, Covid-19, Clinical Indicators: 75-year-old male present on 10/22 with shortness of breath and positive for Covid-19. On 11/01/2020 he had a bout of bloody stool small amount and hemoglobin of 10.9 (from HGB 11.1 on 10/31). 11/02 HGB 6.4, HCT 20.3 11/02 He became hypotensive with vital signs at 09:00 of 60/34 heart rate 106, respiratory rate 35, severe respiratory distress and required immediate intubation. 11/02 Chest x-ray: worsening infiltrates bilaterally Treatment: ICU/Telemetry monitoring Intubation/ Mechanical ventilation Transfuse PRBC T=3 Norepinephine drip (titrate0 .9NS 1,000 @ 999mls/hr IV Lovenox 40 mg sq (hold) In your professional opinion, can you please clarify if the hypotension is due to? Hypovolemic Shock Hemorrhage Shock Other, please specify Unable to determine (Last Revision: July 2017) MTDD
[2020-11-02 18:06] LABS: Glucose,Whole Blood 240 mg/dL (75-99)
[2020-11-02] MEDS: INSULIN DETEMIR (LEVEMIR) 100 UNIT/ML SYR SQ SCH (20:07)
[2020-11-02] MEDS: MELATONIN 5 MG TABLET PO SCH (20:07)
[2020-11-02] MEDS: FOLIC ACID 1 MG TAB PO SCH (20:08)
[2020-11-02] MEDS: LATANOPROST 0.005% OPHTH DROPS 2.5 ML BTL RIGHT EYE SCH (22:55)
[2020-11-02 23:29] LABS: Glucose,Whole Blood 210 mg/dL (75-99)
[2020-11-03] MEDS: SODIUM CHLORIDE 0.9% 1,000 ML IV SCH ×2 (00:01→22:15)
[2020-11-03] MEDS: NOREPINEPHRINE 8 MG in SODIUM CHLORIDE 0.9% 250 ML IV SCH ×4 (04:30→21:46)
[2020-11-03 04:37] LABS: ALT 71 U/L (4-49); AST 49 U/L (17-59); African American GFR (CKD) 84 (>60 ml/min/1.73 sqM); Albumin 1.8 g/dL (3.5-5.0); Alkaline Phosphatase 60 U/L (38-126); Anion Gap 4 mmol/L; Blood Urea Nitrogen 49 mg/dL (9-20); C Reactive Protein <5.0 mg/L (<10.0); Calcium 6.6 mg/dL (8.4-10.2); Carbon Dioxide 19 mmol/L (22-30); Chloride 109 mmol/L (98-107); Creatine Kinase 54 U/L (55-170); Glucose 177 mg/dL (74-99); LDH 1532 U/L (313-618); Non-African American GFR(CKD) 73 (>60 ml/min/1.73 sqM); Potassium 4.1 mmol/L (3.5-5.1); Sodium 132 mmol/L (137-145); Total Bilirubin 0.7 mg/dL (0.2-1.3); Total Protein 3.9 g/dL (6.3-8.2)
[2020-11-03 04:40] LABS: Anisocytosis Slight; Basophils # (A) 0.1 k/uL (0-0.2); Basophils % (A) 0 %; Eosinophils % (A) 0 %; HCT 34.6 % (39.0-53.0); HGB 12.4 gm/dL (13.0-17.5); Lymphocytes # (A) 1.2 k/uL (1.0-4.8); Lymphocytes % (A) 4 %; MCH 31.5 pg (25.0-35.0); MCHC 35.9 g/dL (31.0-37.0); MCV 87.7 fL (80.0-100.0); Mean Platelet Volume 8.2; Monocytes # (A) 0.7 k/uL (0-1.0); Monocytes % (A) 3 %; Neutrophils % (A) 93 %; Platelet Count 187 k/uL (150-450); RBC 3.94 m/uL (4.30-5.90); RDW 17.1 % (11.5-15.5); WBC 29.1 k/uL (3.8-10.6)
[2020-11-03 05:44] LABS: ABG Base Excess -4.6 mmol/L; ABG HCO3 21 mmol/L (21-25); ABG Oxygen Saturation 97.2 % (94-97); ABG PCO2 36 mmHg (35-45); ABG PH 7.37 (7.35-7.45); ABG PO2 88 mmHg (83-108); ABG TCO2 22 mmol/L (19-24); Allen Test Performed? Yes
[2020-11-03] MEDS: INSULIN ASPART (NovoLOG) 100 UNIT/ML VIAL SQ SCH ×4 (05:50→23:38)
[2020-11-03] MEDS: ALBUTEROL HFA INHALER INHALATION PRN ×4 (07:12→19:26)
[2020-11-03] MEDS: CYANOCOBALAMIN 500 MCG TAB PO SCH (08:00)
[2020-11-03] MEDS: DEXAMETHASONE SOD PHOSPHATE 10 MG/ML 1 ML VIAL IV SCH (08:00)
[2020-11-03] MEDS: ZINC SULFATE 220 MG CAP PO SCH ×2 (08:00→20:35)
[2020-11-03] MEDS: ASCORBIC ACID 500 MG TAB PO SCH (08:00)
[2020-11-03] MEDS: FAMOTIDINE 20 MG/2 ML VIAL IV SCH ×2 (08:00→20:35)
[2020-11-03] MEDS: hydroCHLOROthiazide 12.5 MG CAP PO SCH (08:01)
[2020-11-03] MEDS: CHLORHEXIDINE GLUCONATE 15 ML CUP MUCOUS MEM SCH ×2 (08:01→20:35)
--- NOTE | 2020-11-03 08:05 | XR ---
EXAMINATION TYPE: XR chest 1V portable DATE OF EXAM: 11/03/2020 COMPARISON: Prior chest x-ray 11/02/2020 HISTORY: Intubated TECHNIQUE: Single frontal view of the chest is obtained. FINDINGS: Endotracheal tube and NG tube are overlying appropriate positions. Bilateral airspace dise ase persists. There is no evident pneumothorax or pleural effusion. Cardiac mediastinal silhouette sh ows a stable appearance. The aorta is dense. IMPRESSION: Correlate for pneumonia, edema, ARDS
[2020-11-03] MEDS ORDERED: VANCOMYCIN IV PER PHARMACY 1 EACH MISC MISCELLANE PRN (09:11)
--- NOTE | 2020-11-03 09:17 | P.CONS ---
History of Present Illness - Reason for Consult Consult date: 11/02/20 GI bleed Requesting physician: Fiorella Erwin - Chief Complaint Shortness of breath - History of Present Illness 75-year-old male with multiple medical comorbidities including asthma, hypertension, hyperlipidemia, coronary artery disease, history of abdominal aortic aneurysm who presented to the hospital due to worsening shortness of breath. The patient had tested positive for Covid 19 an outpatient setting and was receiving treatment. He was admitted to the hospital for further treatment. Subsequently the patient was noted to develop multiple episodes of blood per rectum. The patient previously had had no reports of bloody stools or melanotic stool. He had been scheduled for outpatient colonoscopy in December 2020 with the surgical service after having a positive Cologard test. He had not complained of any abdominal pain. He was noted to initially have some stool with maroon mixed in a small amount was reported. Subsequently he had 4-5 episodes of were described as maroon-colored bloody bowel movements. The patient was on aspirin, Plavix and Lovenox. He was subsequently intubated and is currently on pressor support and sedated. Hemoglobin initially on admission was 14.6 and fell to 6.4 during hidden admission. He is status post 3 units of packed red blood cells with a current hemoglobin of 12. No prior EGDs or reported history of peptic ulcer disease in the past. Review of Systems ROS unobtainable: due to mental status (Patient currently intubated and sedated) Past Medical History Past Medical History: Chest Pain / Angina, Eye Disorder, GERD/Reflux, Hearing Disorder / Deafness, Hyperlipidemia, Hypertension, Rheumatoid Arthritis (RA), Vascular Disorder Additional Past Medical History / Comment(s): Right cataract, bilateral Glaucom a, RINGING IN RT EAR. Poor circulatrion in legs.neuropathy both legs with N/T toes History of Any Multi-Drug Resistant Organisms: None Reported Past Surgical History: Heart Catheterization Additional Past Surgical History / Comment(s): COLONOSCOPY. Left catartact surgery with lens placement. rt iliac stent, lt iliac and lt leg stent 09/26 Past Anesthesia/Blood Transfusion Reactions: No Reported Reaction Past Psychological History: No Psychological Hx Reported Smoking Status: Former smoker Past Alcohol Use History: Occasional Past Drug Use History: None Reported - Past Family History Mother Family Medical History: CVA/TIA Father Family Medical History: Coronary Artery Disease (CAD) Brother(s) Family Medical History: Cancer Additional Family Medical History / Comment(s): Prostate cancer. Medications and Allergies Home Medications Medication Instructions Recorded Confirmed Type Aspirin 81 mg PO DAILY 10/27/16 10/22/20 History Cholecalciferol [Vitamin D3 (25 5,000 unit PO MOWEFR 10/27/16 10/22/20 History Mcg = 1000 Iu)] Folic Acid 1 mg PO HS 10/27/16 10/22/20 History Latanoprost Ophth [Xalatan 0.005%] 1 drops RIGHT EYE HS 10/27/16 10/22/20 History Valsartan/Hydrochlorothiazide 1 tab PO DAILY 10/27/16 10/22/20 History [Valsartan-Hctz 320-12.5 mg Tab] metHOTREXate sodium [Methotrexate] 17.5 tab PO TU 10/27/16 10/22/20 History amLODIPine [Norvasc] 5 mg PO HS 07/19/19 10/22/20 History Clopidogrel [Plavix] 75 mg PO DAILY #90 tab 09/12/19 10/22/20 Rx Albuterol Inhaler [Ventolin Hfa 2 puff INHALATION RT-Q4H PRN 10/22/20 10/22/20 History Inhaler] Ascorbic Acid [Vitamin C] 1,000 mg PO DAILY 10/22/20 10/22/20 History Atorvastatin Calcium [Lipitor] 20 mg PO HS 10/22/20 10/22/20 History Benzonatate [Tessalon Perles] 100 mg PO TID PRN 10/22/20 10/22/20 History Cefdinir 300 mg PO DIRECTED 10/22/20 10/22/20 History Codeine Phosphate/Guaifenesin 5 ml PO Q6H PRN 10/22/20 10/22/20 History [Guaiatussin AC Liquid] Cyanocobalamin (Vitamin B-12) 1,000 mcg PO DAILY 10/22/20 10/22/20 History [Vitamin B-12] Dexamethasone [Decadron] 4 mg PO BID 10/22/20 10/22/20 History Zinc 50 mg PO BID 10/22/20 10/22/20 History Allergies Allergy/AdvReac Type Severity Reaction Status Date / Time No Known Allergies Allergy Verified 10/22/20 16:22 Physical Exam Vitals: Vital Signs Temp Pulse Resp BP Pulse Ox 11/02/20 14:00 72 28 H 98 11/02/20 13:45 71 28 H 98 11/02/20 13:30 70 21 101/57 98 11/02/20 13:15 70 24 97 11/02/20 13:00 73 24 97 11/02/20 12:45 73 24 97 11/02/20 12:30 70 24 97 11/02/20 12:15 71 26 H 97 11/02/20 12:00 98 F 71 24 96 11/02/20 11:45 68 24 96 11/02/20 11:30 70 24 97 11/02/20 11:15 69 24 96 11/02/20 11:00 71 24 96 11/02/20 10:45 72 24 95 11/02/20 10:30 97.7 F 85 24 93 L 11/02/20 10:15 97.8 F 73 22 101/57 92 L 11/02/20 10:00 79 23 93/51 93 L 11/02/20 09:45 86 23 81/48 93 L 11/02/20 09:30 87 26 H 69/39 93 L 11/02/20 09:15 97.8 F 93 29 H 67/42 94 L 11/02/20 09:00 97.7 F 106 H 35 H 60/34 97 11/02/20 08:45 97.6 F 133 H 21 168/102 99 11/02/20 08:30 131 H 0 L 126/66 98 11/02/20 08:22 97.7 F 120 H 24 126/66 98 11/02/20 08:17 144 H 38 H 154/51 85 L 11/02/20 08:15 97.5 F L 158 H 40 H 154/51 82 L 11/02/20 08:06 97.9 F 165 H 38 H 154/51 11/02/20 08:00 97.4 F L 158 H 40 H 98/80 86 L 11/02/20 07:56 97.6 F 176 H 38 H 98/80 86 L 11/02/20 07:45 129 H 29 H 94/45 89 L 11/02/20 07:30 96 24 83/52 100 11/02/20 07:00 114 H 29 H 75/40 95 11/02/20 06:30 87 24 99/57 98 11/02/20 06:00 79 21 95/59 98 11/02/20 05:30 86 23 98/62 99 11/02/20 05:00 96 22 100/55 80 L 11/02/20 04:53 93 L 11/02/20 04:30 94 21 97/56 98 11/02/20 04:00 97.9 F 80 22 96/55 99 11/02/20 03:30 82 23 103/63 99 11/02/20 03:15 82 23 103/63 99 11/02/20 03:00 83 26 H 104/62 98 11/02/20 02:45 80 21 104/62 99 11/02/20 02:30 77 23 86/49 96 11/02/20 02:15 85 20 108/62 84 L 11/02/20 02:00 77 21 108/62 99 11/02/20 01:45 75 22 93/58 99 11/02/20 01:30 74 22 93/58 100 11/02/20 01:15 79 20 98/63 99 11/02/20 01:00 80 21 94/56 11/02/20 00:50 100 11/02/20 00:45 84 23 94/56 99 11/02/20 00:30 75 19 85/51 98 11/02/20 00:15 87 24 91/52 99 11/02/20 00:00 98.3 F 89 26 H 86/59 99 11/01/20 23:45 92 28 H 89/53 95 11/01/20 23:30 104 H 25 H 95 11/01/20 23:15 101 H 26 H 75/45 97 11/01/20 23:00 100 25 H 95 11/01/20 22:45 112 H 16 92 L 11/01/20 22:30 109 H 20 93 L 11/01/20 22:15 106 H 25 H 96/68 95 11/01/20 22:00 105 H 19 95 11/01/20 21:45 106 H 16 96 11/01/20 21:30 122 H 26 H 93/62 97 11/01/20 21:00 108 H 21 111/76 95 11/01/20 20:01 90 L 11/01/20 20:00 97.3 F L 97 20 118/77 90 L 11/01/20 19:00 72 22 117/74 97 11/01/20 18:00 70 21 117/80 96 11/01/20 17:00 105 H 22 120/82 91 L 11/01/20 16:07 94 L 11/01/20 16:00 97.9 F 96 32 H 121/80 92 L 11/01/20 15:00 89 26 H 116/74 97 Intake and Output 11/01/20 11/02/20 11/02/20 22:59 06:59 14:59 Intake Total 290 2300 3103.039 Output Total 585 930 365 Balance -295 1370 2738.039 Intake: IV 290 2300 400 Sodium Chloride 0.9% 1, 290 2300 400 000 ml @ 50 mls/hr IV . Q20H [facility] Rx#:[id number] Intake, IV Titration 1713.039 Amount Dextrose 5% in Water 1, 300 000 ml @ 50 mls/hr IV . Q23H [facility] with Sodium Bicarb (1 Meq/ml) 150 ml Rx#:[id number] Norepinephrine 8 mg In 198.287 Sodium Chloride 0.9% 250 ml @ 0.05 MCG/KG/MIN 10. 449 mls/hr IV .Q24H [facility] Rx#:[id number] Sodium Chloride 0.9% 1, 1000 000 ml @ 999 mls/hr IV . Q1H1M [facility] Rx#:[id number] fentaNYL (PF) 1,000 mcg 5.4 In Sodium Chloride 0.9% 80 ml @ Per Protocol IV . Q0M [facility] Rx#:[id number] propofoL 1,000 mg In 209.352 Empty Bag 1 bag @ Titrate IV .Q0M [facility] Rx#: [id number] Blood Product 930 Rc As-1 Unit 310 [id number] Rc As-1 Unit 310 [id number] Rc Pheresis 2 As3 Unit 310 [id number] Other 60 Output: Urine 585 430 365 Stool 500 Other: Voiding Method Indwelling Catheter Indwelling Catheter # Bowel Movements 1 2 Weight 108 kg 108 kg ABP, PAP, CO, CI - Last 8 Hours Arterial Blood Pressure 111/58 Arterial Blood Pressure 108/56 Arterial Blood Pressure 109/56 Arterial Blood Pressure 106/55 Arterial Blood Pressure 105/56 Arterial Blood Pressure 107/57 Arterial Blood Pressure 107/55 Arterial Blood Pressure 120/59 Arterial Blood Pressure 115/56 Arterial Blood Pressure 117/56 Arterial Blood Pressure 153/69 Arterial Blood Pressure 106/52 Arterial Blood Pressure 100/51 Arterial Blood Pressure 98/48 Arterial Blood Pressure 96/50 Arterial Blood Pressure 95/46 Arterial Blood Pressure 94/46 Arterial Blood Pressure 77/40 Arterial Blood Pressure 66/37 Arterial Blood Pressure 65/35 Arterial Blood Pressure 59/43 On physical examination, patient appears comfortable in no apparent distress. HEAD: Normocephalic, atraumatic. EYES: No scleral icterus. No conjunctival injection. MOUTH: No lesions, tongue midline, endotracheal an oral gastric tube in place. NECK: Trachea midline, no gross abnormalities. CHEST: Coarse respiratory illnesses in all rueda. HEART: S1-S2 appreciate. ABDOMEN: Soft, obese. Bowel sounds are positive. No organomegaly. No guarding or rigidity. EXTREMITIES: No pedal edema. SKIN: No rashes, no jaundice. NEUROLOGIC: Intubated and sedated. Results CBC & Chem 7: 11/03/20 04:05 11/03/20 04:05 Labs: Abnormal Lab Results - Last 24 Hours (Table) 11/01/20 11/01/20 11/01/20 Range/Units 16:46 20:54 23:32 WBC 16.3 H (3.8-10.6) k/uL RBC 2.53 L (4.30-5.90) m/uL Hgb 7.8 L D (13.0-17.5) gm/dL Hct 23.5 L (39.0-53.0) % RDW 16.4 H (11.5-15.5) % Neutrophils # (1.3-7.7) k/uL Neutrophils # (Manual) (1.3-7.7) k/uL Lymphocytes # (1.0-4.8) k/uL Lymphocytes # (Manual) (1.0-4.8) k/uL Metamyelocytes # (Man) (0) k/uL Myelocytes # (Manual) (0) k/uL PT (9.0-12.0) sec INR (<1.2) D-Dimer (<0.60) mg/L FEU ABG pH (7.35-7.45) ABG pO2 (83-108) mmHg ABG HCO3 (21-25) mmol/L ABG Total CO2 (19-24) mmol/L ABG O2 Saturation (94-97) % Sodium (137-145) mmol/L Chloride (98-107) mmol/L Carbon Dioxide (22-30) mmol/L BUN (9-20) mg/dL Glucose (74-99) mg/dL POC Glucose (mg/dL) 151 H 152 H (75-99) mg/dL Calcium (8.4-10.2) mg/dL Lactate Dehydrogenase (313-618) U/L Total Protein (6.3-8.2) g/dL Albumin (3.5-5.0) g/dL Crossmatch 11/01/20 11/02/20 11/02/20 Range/Units 23:32 03:20 03:20 WBC (3.8-10.6) k/uL RBC (4.30-5.90) m/uL Hgb (13.0-17.5) gm/dL Hct (39.0-53.0) % RDW (11.5-15.5) % Neutrophils # (1.3-7.7) k/uL Neutrophils # (Manual) (1.3-7.7) k/uL Lymphocytes # (1.0-4.8) k/uL Lymphocytes # (Manual) (1.0-4.8) k/uL Metamyelocytes # (Man) (0) k/uL Myelocytes # (Manual) (0) k/uL PT (9.0-12.0) sec INR (<1.2) D-Dimer 4.89 H (<0.60) mg/L FEU ABG pH (7.35-7.45) ABG pO2 (83-108) mmHg ABG HCO3 (21-25) mmol/L ABG Total CO2 (19-24) mmol/L ABG O2 Saturation (94-97) % Sodium 133 L (137-145) mmol/L Chloride 110 H (98-107) mmol/L Carbon Dioxide 20 L (22-30) mmol/L BUN 41 H (9-20) mg/dL Glucose 153 H (74-99) mg/dL POC Glucose (mg/dL) (75-99) mg/dL Calcium 6.8 L (8.4-10.2) mg/dL Lactate Dehydrogenase 1136 H (313-618) U/L Total Protein 3.2 L (6.3-8.2) g/dL Albumin 1.5 L (3.5-5.0) g/dL Crossmatch See Detail 11/02/20 11/02/20 11/02/20 Range/Units 03:20 06:15 07:09 WBC 15.8 H (3.8-10.6) k/uL RBC 2.36 L (4.30-5.90) m/uL Hgb 7.2 L (13.0-17.5) gm/dL Hct 22.2 L (39.0-53.0) % RDW 16.4 H (11.5-15.5) % Neutrophils # 14.4 H (1.3-7.7) k/uL Neutrophils # (Manual) (1.3-7.7) k/uL Lymphocytes # 0.7 L (1.0-4.8) k/uL Lymphocytes # (Manual) (1.0-4.8) k/uL Metamyelocytes # (Man) (0) k/uL Myelocytes # (Manual) (0) k/uL PT 13.9 H (9.0-12.0) sec INR 1.4 H (<1.2) D-Dimer (<0.60) mg/L FEU ABG pH (7.35-7.45) ABG pO2 (83-108) mmHg ABG HCO3 (21-25) mmol/L ABG Total CO2 (19-24) mmol/L ABG O2 Saturation (94-97) % Sodium (137-145) mmol/L Chloride (98-107) mmol/L Carbon Dioxide (22-30) mmol/L BUN (9-20) mg/dL Glucose (74-99) mg/dL POC Glucose (mg/dL) 162 H (75-99) mg/dL Calcium (8.4-10.2) mg/dL Lactate Dehydrogenase (313-618) U/L Total Protein (6.3-8.2) g/dL Albumin (3.5-5.0) g/dL Crossmatch 11/02/20 11/02/20 11/02/20 Range/Units 07:09 07:09 08:57 WBC 19.2 H (3.8-10.6) k/uL RBC 2.11 L (4.30-5.90) m/uL Hgb 6.4 L* (13.0-17.5) gm/dL Hct 20.3 L (39.0-53.0) % RDW 16.9 H (11.5-15.5) % Neutrophils # 16.0 H (1.3-7.7) k/uL Neutrophils # (Manual) (1.3-7.7) k/uL Lymphocytes # (1.0-4.8) k/uL Lymphocytes # (Manual) (1.0-4.8) k/uL Metamyelocytes # (Man) (0) k/uL Myelocytes # (Manual) (0) k/uL PT (9.0-12.0) sec INR (<1.2) D-Dimer (<0.60) mg/L FEU ABG pH 7.07 L* (7.35-7.45) ABG pO2 133 H (83-108) mmHg ABG HCO3 11 L (21-25) mmol/L ABG Total CO2 12 L (19-24) mmol/L ABG O2 Saturation 97.9 H (94-97) % Sodium 131 L (137-145) mmol/L Chloride 111 H (98-107) mmol/L Carbon Dioxide 17 L (22-30) mmol/L BUN 42 H (9-20) mg/dL Glucose 222 H (74-99) mg/dL POC Glucose (mg/dL) (75-99) mg/dL Calcium 6.5 L (8.4-10.2) mg/dL Lactate Dehydrogenase (313-618) U/L Total Protein 3.0 L (6.3-8.2) g/dL Albumin 1.4 L (3.5-5.0) g/dL Crossmatch 11/02/20 11/02/20 Range/Units 12:15 12:21 WBC 31.3 H (3.8-10.6) k/uL RBC 4.05 L (4.30-5.90) m/uL Hgb 12.0 L D (13.0-17.5) gm/dL Hct 36.0 L (39.0-53.0) % RDW 16.2 H (11.5-15.5) % Neutrophils # (1.3-7.7) k/uL Neutrophils # (Manual) 29.74 H (1.3-7.7) k/uL Lymphocytes # (1.0-4.8) k/uL Lymphocytes # (Manual) 0.63 L (1.0-4.8) k/uL Metamyelocytes # (Man) 0.31 H (0) k/uL Myelocytes # (Manual) 0.31 H (0) k/uL PT (9.0-12.0) sec INR (<1.2) D-Dimer (<0.60) mg/L FEU ABG pH (7.35-7.45) ABG pO2 (83-108) mmHg ABG HCO3 (21-25) mmol/L ABG Total CO2 (19-24) mmol/L ABG O2 Saturation (94-97) % Sodium (137-145) mmol/L Chloride (98-107) mmol/L Carbon Dioxide (22-30) mmol/L BUN (9-20) mg/dL Glucose (74-99) mg/dL POC Glucose (mg/dL) 250 H (75-99) mg/dL Calcium (8.4-10.2) mg/dL Lactate Dehydrogenase (313-618) U/L Total Protein (6.3-8.2) g/dL Albumin (3.5-5.0) g/dL Crossmatch Chest x-ray: report reviewed Assessment and Plan (1) GI bleed Narrative/Plan: 75-year-old male with multiple medical comorbidities currently hospitalized and being treated for complete 19 infection. The patient developed multiple episodes of blood per rectum and GI was consult for further evaluation. The patient been having no signs or symptoms of GI bleeding prior to developing symptoms of maroon-colored stool. He had approximately 4-5 episodes of large maroon-colored stool. Hemoglobin which was initially 14.6 on presentation found to be 6.4. The patient was transfused 3 units of packed red blood cells and hemoglobin is currently 12. No nausea, vomiting, hematemesis or coffee-ground emesis. Patient is currently intubated and sedated in the ICU. Unclear etiology, plan is for EGD to rule out upper GI bleed including peptic ulcer disease, Dieulafoy lesion, AVM or other etiology, may also be related to lower GI source of bleeding secondary to ischemic colitis or other etiology. Current Visit: Yes Status: Acute Code(s): K92.2 - GASTROINTESTINAL H EMORRHAGE, UNSPECIFIED SNOMED Code(s): 50847296 (2) Anemia associated with acute blood loss Current Visit: Yes Status: Acute Code(s): D62 - ACUTE POSTHEMORRHAGIC ANEMIA SNOMED Code(s): 973137914 Plan: Supportive care Nothing by mouth Continue Protonix therapy Continue to monitor hemoglobin and hematocrit and transfuse as needed Continue to hold into coagulation therapy at this time due to symptoms of GI bleed Continue to monitor stool output Plan for EGD emergently this afternoon for further evaluation No plans for colonoscopy at this time, patient is scheduled for outpatient colonoscopy in December, we'll reevaluate if further signs or symptoms of GI bleeding or continued fall in hemoglobin Thank you for allowing us to participate in the care of the patient we will continue to follow
[2020-11-03] MEDS ORDERED: CEFEPIME 1 GM in SODIUM CHLORIDE 0.9% 50 ML IVPB ONE (09:30)
[2020-11-03 09:41] LABS: Ferritin 1021.8 ng/mL (22.0-322.0)
[2020-11-03] MEDS: HYDROCORTISONE SUCCINATE 100 MG/2 ML VIAL IV SCH ×3 (09:47→23:26)
[2020-11-03 10:16] VITALS: BMI 32.2
[2020-11-03 10:23] LABS: Appearance,Urine Cloudy (Clear); Bacteria,Urine Many /hpf; Bilirubin,Urine Negative (Negative); Blood,Urine Negative (Negative); Color,Urine Yellow; Glucose,Urine (UA) Negative (Negative); Granular Casts,Urine 18 /lpf (0); Hyaline Casts,Urine 1 /lpf (0-2); Ketones,Urine Negative (Negative); Leukocyte Esterase,Urine Moderate (Negative); Mucus,Urine Few /hpf; Nitrite,Urine Negative (Negative); PH, Urine 5.5 (5.0-8.0); Protein,Urine Trace (Negative); RBC,Urine 6 /hpf (0-5); Specific Gravity,Urine 1.022 (1.001-1.035); Sperm,Urine Rare /hpf; Squamous Epithelial Cell,Urine <1 /hpf (0-4); Urobilinogen,Urine <2.0 mg/dL (<2.0); WBC,Urine 16 /hpf (0-5)
[2020-11-03] MEDS: VANCOMYCIN 1,750 MG in SODIUM CHLORIDE 0.9% 500 ML 500 ML IVPB SCH ×2 (10:27→22:14)
[2020-11-03 11:26] LABS: Glucose,Whole Blood 198 mg/dL (75-99)
--- NOTE | 2020-11-03 11:41 | P.PN ---
Subjective Progress Note Date: 11/03/20 Principal diagnosis: GI bleed, blood per rectum The patient was seen and examined in the ICU. He has had no further reported blood in his stool or any other further signs of bleeding. He remains intubated, is positive for COVID-19 infection. Hemoglobin stable at 12.4 status post 3 units of PRBC. He underwent an upper endoscopy yesterday showing no active bleeding, old blood or pathology to explain symptoms. Mild gastritis. Objective - Vital Signs Vital signs: Vital Signs Temp 97.4 F L 11/03/20 08:00 Pulse 55 L 11/03/20 10:00 Resp 26 H 11/03/20 10:00 BP 101/57 11/02/20 10:15 Pulse Ox 96 11/03/20 10:00 Intake & Output 11/02/20 11/03/20 11/03/20 18:59 06:59 18:59 Intake Total 3929.506 1473.914 667.898 Output Total 705 970 205 Balance 3224.506 503.914 462.898 Weight 108 kg 107.7 kg 107.7 kg Intake: IV 550 600 200 Sodium Chloride 0.9% 1, 550 600 200 000 ml @ 50 mls/hr IV . Q20H [facility] Rx#:[id number] Intake, IV Titration 2389.506 873.914 407.898 Amount Cefepime 1 gm In Sodium 50 Chloride 0.9% 50 ml @ 100 mls/hr IVPB ONCE [facility] Rx# :[id number] Dextrose 5% in Water 1, 500 000 ml @ 50 mls/hr IV . Q23H [facility] with Sodium Bicarb (1 Meq/ml) 150 ml Rx#:[id number] Norepinephrine 8 mg In 356.764 300.144 115.810 Sodium Chloride 0.9% 250 ml @ 0.05 MCG/KG/MIN 10. 449 mls/hr IV .Q24H [facility] Rx#:[id number] Sodium Chloride 0.9% 1, 1000 000 ml @ 999 mls/hr IV . Q1H1M [facility] Rx#:[id number] fentaNYL (PF) 1,000 mcg 27.0 64.35 49.95 In Sodium Chloride 0.9% 80 ml @ Per Protocol IV . Q0M [facility] Rx#:[id number] propofoL 1,000 mg In 505.742 509.42 192.138 Empty Bag 1 bag @ Titrate IV .Q0M [facility] Rx#: [id number] Blood Product 930 Rc As-1 Unit 310 [id number] Rc As-1 Unit 310 [id number] Rc Pheresis 2 As3 Unit 310 [id number] Other 60 60 Output: Gastric Drainage 150 500 Urine 555 470 205 Other: Voiding Method Indwelling Catheter Indwelling Catheter Indwelling Catheter # Bowel Movements 1 ABP, PAP, CO, CI - Last Documented Arterial Blood Pressure 91/47 - Exam General appearance: Intubated and sedated HET: Head is normocephalic and atraumatic. Neck: Supple without lymphadenopathy. Abdomen: Soft, nontender, nondistended with bowel sounds. No guarding or rigidity. Extremities: Normal skin color and turgor. No pedal edema Neurological: Intubated and sedated. - Labs CBC & Chem 7: 11/03/20 04:05 11/03/20 04:05 Labs: Abnormal Lab Results - Last 24 Hours (Table) 11/02/20 11/02/20 11/02/20 Range/Units 12:15 12:21 16:03 WBC 31.3 H (3.8-10.6) k/uL RBC 4.05 L (4.30-5.90) m/uL Hgb 12.0 L D (13.0-17.5) gm/dL Hct 36.0 L (39.0-53.0) % RDW 16.2 H (11.5-15.5) % Neutrophils # (1.3-7.7) k/uL Neutrophils # (Manual) 29.74 H (1.3-7.7) k/uL Lymphocytes # (Manual) 0.63 L (1.0-4.8) k/uL Metamyelocytes # (Man) 0.31 H (0) k/uL Myelocytes # (Manual) 0.31 H (0) k/uL D-Dimer (<0.60) mg/L FEU ABG pCO2 34 L (35-45) mmHg ABG pO2 155 H (83-108) mmHg ABG HCO3 20 L (21-25) mmol/L ABG O2 Saturation 99.4 H (94-97) % Sodium (137-145) mmol/L Chloride (98-107) mmol/L Carbon Dioxide (22-30) mmol/L BUN (9-20) mg/dL Glucose (74-99) mg/dL POC Glucose (mg/dL) 250 H (75-99) mg/dL Calcium (8.4-10.2) mg/dL Ferritin (22.0-322.0) ng/mL ALT (4-49) U/L Lactate Dehydrogenase (313-618) U/L Creatine Kinase (55-170) U/L Total Protein (6.3-8.2) g/dL Albumin (3.5-5.0) g/dL Urine Protein (Negative) Ur Leukocyte Esterase (Negative) Urine RBC (0-5) /hpf Urine WBC (0-5) /hpf Urine Bacteria (None) /hpf Urine Mucus (None) /hpf 11/02/20 11/02/20 11/03/20 Range/Units 18:05 23:27 04:05 WBC (3.8-10.6) k/uL RBC (4.30-5.90) m/uL Hgb (13.0-17.5) gm/dL Hct (39.0-53.0) % RDW (11.5-15.5) % Neutrophils # (1.3-7.7) k/uL Neutrophils # (Manual) (1.3-7.7) k/uL Lymphocytes # (Manual) (1.0-4.8) k/uL Metamyelocytes # (Man) (0) k/uL Myelocytes # (Manual) (0) k/uL D-Dimer 3.47 H (<0.60) mg/L FEU ABG pCO2 (35-45) mmHg ABG pO2 (83-108) mmHg ABG HCO3 (21-25) mmol/L ABG O2 Saturation (94-97) % Sodium (137-145) mmol/L Chloride (98-107) mmol/L Carbon Dioxide (22-30) mmol/L BUN (9-20) mg/dL Glucose (74-99) mg/dL POC Glucose (mg/dL) 240 H 210 H (75-99) mg/dL Calcium (8.4-10.2) mg/dL Ferritin (22.0-322.0) ng/mL ALT (4-49) U/L Lactate Dehydrogenase (313-618) U/L Creatine Kinase (55-170) U/L Total Protein (6.3-8.2) g/dL Albumin (3.5-5.0) g/dL Urine Protein (Negative) Ur Leukocyte Esterase (Negative) Urine RBC (0-5) /hpf Urine WBC (0-5) /hpf Urine Bacteria (None) /hpf Urine Mucus (None) /hpf 11/03/20 11/03/20 11/03/20 Range/Units 04:05 04:05 05:39 WBC 29.1 H (3.8-10.6) k/uL RBC 3.94 L (4.30-5.90) m/uL Hgb 12.4 L (13.0-17.5) gm/dL Hct 34.6 L (39.0-53.0) % RDW 17.1 H (11.5-15.5) % Neutrophils # 27.0 H (1.3-7.7) k/uL Neutrophils # (Manual) (1.3-7.7) k/uL Lymphocytes # (Manual) (1.0-4.8) k/uL Metamyelocytes # (Man) (0) k/uL Myelocytes # (Manual) (0) k/uL D-Dimer (<0.60) mg/L FEU ABG pCO2 (35-45) mmHg ABG pO2 (83-108) mmHg ABG HCO3 (21-25) mmol/L ABG O2 Saturation 97.2 H (94-97) % Sodium 132 L (137-145) mmol/L Chloride 109 H (98-107) mmol/L Carbon Dioxide 19 L (22-30) mmol/L BUN 49 H (9-20) mg/dL Glucose 177 H (74-99) mg/dL POC Glucose (mg/dL) (75-99) mg/dL Calcium 6.6 L (8.4-10.2) mg/dL Ferritin 1021.8 H (22.0-322.0) ng/mL ALT 71 H (4-49) U/L Lactate Dehydrogenase 1532 H (313-618) U/L Creatine Kinase 54 L (55-170) U/L Total Protein 3.9 L (6.3-8.2) g/dL Albumin 1.8 L (3.5-5.0) g/dL Urine Protein (Negative) Ur Leukocyte Esterase (Negative) Urine RBC (0-5) /hpf Urine WBC (0-5) /hpf Urine Bacteria (None) /hpf Urine Mucus (None) /hpf 11/03/20 Range/Units 09:45 WBC (3.8-10.6) k/uL RBC (4.30-5.90) m/uL Hgb (13.0-17.5) gm/dL Hct (39.0-53.0) % RDW (11.5-15.5) % Neutrophils # (1.3-7.7) k/uL Neutrophils # (Manual) (1.3-7.7) k/uL Lymphocytes # (Manual) (1.0-4.8) k/uL Metamyelocytes # (Man) (0) k/uL Myelocytes # (Manual) (0) k/uL D-Dimer (<0.60) mg/L FEU ABG pCO2 (35-45) mmHg ABG pO2 (83-108) mmHg ABG HCO3 (21-25) mmol/L ABG O2 Saturation (94-97) % Sodium (137-145) mmol/L Chloride (98-107) mmol/L Carbon Dioxide (22-30) mmol/L BUN (9-20) mg/dL Glucose (74-99) mg/dL POC Glucose (mg/dL) (75-99) mg/dL Calcium (8.4-10.2) mg/dL Ferritin (22.0-322.0) ng/mL ALT (4-49) U/L Lactate Dehydrogenase (313-618) U/L Creatine Kinase (55-170) U/L Total Protein (6.3-8.2) g/dL Albumin (3.5-5.0) g/dL Urine Protein Trace H (Negative) Ur Leukocyte Esterase Moderate H (Negative) Urine RBC 6 H (0-5) /hpf Urine WBC 16 H (0-5) /hpf Urine Bacteria Many H (None) /hpf Urine Mucus Few H (None) /hpf Microbiology - Last 24 Hours (Table) 11/02/20 11:30 Gram Stain - Preliminary Sputum Sputum Culture - Preliminary Assessment and Plan (1) GI bleed Narrative/Plan: 75-year-old male with multiple medical comorbidities currently hospitalized and being treated for complete 19 infection. The patient developed multiple episodes of blood per rectum and GI was consult for further evaluation. The patient been having no signs or symptoms of GI bleeding prior to developing symptoms of maroon-colored stool. He had approximately 4-5 episodes of large maroon-colored stool. Hemoglobin which was initially 14.6 on presentation found to be 6.4. The patient was transfused 3 units of packed red blood cells and hemoglobin is currently 12. No nausea, vomiting, hematemesis or coffee-ground emesis. Patient is currently intubated and sedated in the ICU. Unclear etiology, plan is for EGD to rule out upper GI bleed including peptic ulcer disease, Dieulafoy lesion, AVM or other etiology, may also be related to lower GI source of bleeding secondary to ischemic colitis or other etiology. Patient underwent upper endoscopy which showed no active bleeding, old blood or pathology to explain symptoms. Mild gastritis. Suspicion is for a lower GI bleed with differential including ischemic colitis, diverticular bleed or other etiology. Recommendations are to continue current medical management, monitor stool output, if any further signs of GI bleed can consider colonoscopy or tagged RBC scan. Current Visit: Yes Status: Acute Code(s): K92.2 - GASTROINTESTINAL HEMORRHAGE, UNSPECIFIED SNOMED Code(s): 26010159 (2) Anemia associated with acute blood loss Current Visit: Yes Status: Acute Code(s): D62 - ACUTE POSTHEMORRHAGIC ANEMIA SNOMED Code(s): 388525140 (3) COVID-19 Current Visit: Yes Status: Acute Code(s): U07.1 - COVID-19 SNOMED Code(s): 464253337 Plan: 1. Supportive care 2. Continue medical management 3. Daily CBC 4. Continue to monitor stool output, any further signs of GI bleeding we will reevaluate at that time and can consider proceeding with a tagged RBC scan or colonoscopy 5. Continue to follow closely Dr. Schultz I agree with the dictator's note, documented as a scribe by Ally Rosen.
--- NOTE | 2020-11-03 14:16 | P.PN ---
Subjective Progress Note Date: 11/03/20 Principal diagnosis: Acute hypoxic respiratory failure secondary to covid 19 pneumonia. 75-year-old male with a history of hyperlipidemia, essential hypertension, and rheumatoid arthritis, who presents to the emergency department with increasing shortness of breath. The patient apparently tested positive for COVID 19, 5 days ago. He began having symptoms, last weekend. He apparently went to an outside urgent care facility where he was tested. He apparently [facility] about the positive tests who then placed him on Decadron and several vitamin supplements. He was taking everything he was given, without significant improvement in his symptoms, and for that reason, and because his pulse ox, was getting lower and lower into the mid 80s, he decided to come in to be evaluated in the emergency department on the advice of his primary care provider. The patient denies any chest pain or chest discomfort. He has not had any nausea, vomiting, diarrhea, or abdominal pain. He denies all genitourinary complaints. He also denies any chest pain or chest discomfort. He denies any fever or chills. His primary complaints were shortness of breath and nonproductive cough. He was also concerned because he is taking methotrexate for his rheumatoid arthritis and thought that he was probably one of those patients who might be considered to be immunocompromised. Currently, he is on 4 L nasal cannula with saturation between 90 and 91%. His temperature is 97.6. A CT angiogram was negative for pulmonary embolism, was positive for patchy I lateral groundglass opacities, consistent with a diagnosis of COVID 19 pneumonia. The patient is seen today 10/24/2020 and follow-up on the regular medical floor. He is currently sitting up in a chair at the bedside. Awake and alert in no acute distress. Doing quite a bit better today compared to yesterday. He is still dyspneic with minimal exertion. Maintaining O2 saturations in the 90s on 6 L high flow nasal cannula. White count 7.0. Hemoglobin 12.5. Lymphocytes 0.3. Sodium 141. Potassium 4.1. Creatinine 0.7. Lactic acid 1.7. Pro- calcitonin 0.07. He remains on dexamethasone, Lovenox, vitamin supplements. The patient is seen today 10/25/2020 and follow-up on the regular medical floor. Awake, alert in no acute distress. Up in a chair at the bedside. Remains on 6 L high flow nasal cannula with O2 saturations in the low 90s. Afebrile. Hemodynamically stable. White count 6.0. Hemoglobin 12.2. Sodium 143. Potassium 4.3. Creatinine 0.7. He remains on dexamethasone, Lovenox, vitamin supplements. On 10/26/2020, the patient has been placed on high flow oxygen at 60 L nasal cannula. She did desaturate. Her oxidation gradually get worse and currently a high flow oxygen. As far as her inflammatory markers, and LDH is at 541, her CRP level is at 4.9. D-dimer was at 2.76. The patient is still on Decadron 6 mg by mouth daily basis, she is receiving Lovenox 40 mg subcu daily basis. She is also on zinc and the rest of the vitamin supplements including vitamin C. CXR from yesterday showed no major interval change in terms of the bilateral pulmonary infiltration. The patient is 75-year-old male with known history of hypertension and hyperlipidemia and rheumatoid arthritis maintained on methotrexate. I examined the patient. He is short of breath with limited amount of activity. On and off he has cough. Sometimes he has to interrupt his speech to catch his breath. He is obviously had gotten worse since yesterday. On 10/27/2020 the patient is being seen in follow-up in the intensive care unit. I transfer this patient to the ICU yesterday. His oxidation was getting worse. The chest x-ray showed diffuse bilateral pulmonary infiltrates. The patient was placed on high flow oxygen 6 L and following that he got transferred to the ICU. His morning he started on high flow at 60 L. D-dimer is at 2.9. His CRP is at 130 and his LDH level is at 1240. Based on this elevated inflammatory markers and worsening oxygenation, I'm also going to increase his Decadron and put him on 20 mg for the next 5 days, IV and further taper the dose based on his overall clinical response. A repeat chest x-ray from today is stable compared to yesterday without any significant interval change. There may be some improvement in the infiltration of the right lung base. Meanwhile, the patient is still on aspirin and Plavix. He is also on Lovenox 40 mg subcu. On 10/28/2020 patient intensive care unit and the patient is being seen in follow-up. The patient remains on high flow oxygen at 60 L per minute. The patient is also utilizing 100% nonrebreather facemask on top of his high flow oxygen. In terms of his inflammatory markers, his d-dimer is up to 4.21, his LDH level is elevated and its higher compared to yesterday at 1498 and his CRP level is up to 60. The patient remains on high dose Decadron 20 mg IV every 24 hours and the patient was also given a dose of Actemra 80mg and this was. Later on during the afternoon. He is pro-calcitonin level remains low at 0.07. The had a follow-up chest x-ray today that shows no major interval change and it shows diffuse breath and pulmonary infiltration. His white cell count is at 9.5. He is afebrile. He is awake and alert and following commands and answering questions appropriately. He is on Lovenox and he is currently receiving a dose of 40 mg subcutaneous daily There is evaluation of 10/29/2020 patient's condition essentially the same as yesterday. He remains on high flow oxygen at 60 L with an FiO2 of 90%. He is also using 100% nonrebreather facemask on and off the supplement his o xygenation. In terms of his treatment, the patient is currently utilizing a combination of Decadron 20 mg IV, vitamin C, vitamin D, melatonin, zinc and folic acid. The patient's d-dimer is up to 8.9. His LDH level is slightly lower compared to yesterday at 1436. CRP is down to 32. He is afebrile. He is awake and alert and communicating. D-dimer is at 6.9 and the patient is also on Lovenox 40 mg subcutaneous twice a day. No other major changes compared to yesterday. The chest x-ray from today is showing diffuse bilateral pulmonary infiltrates probably slightly worse in the right lower lobe area. 10/30/2020, the patient is stable without any interval worsening. Clinically is feeling slightly better and less short of breath. He remains on high flow oxygen at 60 L with an FiO2 of 90% is on and off utilizing the 100% nonrebreather facemask. He mainly at nighttime when he breathes through his mouth. He remains on Decadron 20 mg IV every 24 hours. He remains also on a combination of vitamin C, vitamin D and melatonin and Pepcid. The patient was also treated with Actemra and he received 2 doses. He is afebrile. On IV fluids running at 100 mL an hour. No signs of any significant fluid overload. Does have some edema in lower extremities bilaterally. On his blood work, the patient's LDH level is at 1517 and his CRP is at 17 and both of the numbers are comparable although the LDH is slightly elevated and the CRP is slightly lower compared to yesterday. He d-dimer is at 6.13 and the patient remains on Lovenox 40 mg subcu every 12 hours. His chest x-ray findings are essentially stable and the patient is diffuse but the pulmonary infiltrates without any major im provement interval change compared to yesterday. 10/31/20202020, no complaints and the patient remains on the same oxygen setting which is 60 L high flow with an FiO2 of 90%. He remains on Decadron 20 mg IV and this is day #4. He is also on vitamin C and vitamin D and melatonin . He has also received Actemra and he received 2 doses, and we are waiting for the inflammatory markers from today. D-dimer is low is down to 4.0 and the patient is taking Lovenox 40 mg subcu every 12 hours. Tolerating diet. The reading the paper all the time. Chest x-ray is showing stable findings. Neurologically the same. No gastrointestinal symptoms. No fever. No other change in his condition since yesterday. He seems to be essentially stable without any interval worsening in his pulmonary status for now. On 11/01/2020, patient is on high flow oxygen 6 L with an FiO2 of 90%. He remains on Decadron 20 mg IV day #5. He is also on vitamin C and vitamin D and melatonin. His chest x-ray is unchanged. Inflammatory markers are pending for now. He did have a bout of bloody stool small amounts with a stable hemoglobin of 10.9. We held his aspirin and Plavix. He also held his Lovenox. I'm more inclined of restarting the Lovenox noted the patient has not had any further episodes of bleeding since yesterday. His symptoms of GI prophylaxis, the patient is currently receiving Pepcid 20 mg by mouth every 12 hours. His Decadron will be reduced down to 10 mg by mouth daily. Chest x-ray findings are essentially unchanged. He is pulling approximately 1500 on his incentive spirometer. He is weak. His legs are getting weaker according to him. While being moved on a recliner, the patient desaturates and recovers nicely after resting. No altered mentation. No nausea or vomiting or epigastric pain. He is known to have a vascular stent in the lower extremity and for that reason he was placed on Plavix. He also has carotid artery disease. Patient was reevaluated today on 11/02/2020, patient has been deteriorating overnight, his O2 saturation has been dropping down significantly. His respiratory rate has been in the high 30s chest x-ray is showing worsening infiltrates bilaterally. And in addition to all of this, patient developed an episode of maroon colored stool this morning, his hemoglobin went down to 6.4, patient became hypotensive, received fluids overnight, for low blood pressure, and he received 2 units of packed RBCs this morning for hemoglobin of 6.4. As soon as I evaluated the patient, I recommended immediate intubation, patient was in severe respiratory distress, and required immediate intubation. Placed on mechanical ventilation, his ventilator settings at present are assist control rate of 24 tidal volume is 450 FiO2 100% and PEEP of 8. ABG shortly after showed a pO2 of 133 pCO2 of 37 pH of 7.07 hence patient was given bicarb, and placed on a bicarb drip. Lovenox was placed on hold because of his bleeding, patient was placed on norepinephrine at 20 mcg/m, more blood was ordered to be given. And his FiO2 was titrated down to 80%. Patient was placed on norepinephrine propofol and fentanyl. His IV fluid is at 100 mL per hour. And Mrs. 0.9 normal saline. Patient has already received Decadron 20 mg IV push daily, he received vitamin D melatonin and vitamin C. Lovenox is presently on hold. Repeat hemoglobin at 12:15 showed a hemoglobin of 12. Reevaluated today on , patient remains in the ICU, intubated and mechanically ventilated. His ventilator settings are assist control rate of 24, tidal volume is 450, FiO2 is 50%, PEEP is 8. ABG showed a pO2 of 88 pCO2 of 36 pH of 7.37, hence I recommended that we cut down his FiO2 to 45%, and keep the PEEP at 8 for now. Patient is still requiring norepinephrine at 0.13 mcg/kg/m, he is also on propofol at 65 and fentanyl at 0.5 mcg/kg per hour. I did recommend that we cut down fentanyl and at least assess mental status, and I'm hoping cutting down the sedation and narcotics will improve his blood pressure. Although the hypotension could be related to underlying sepsis and septic shock. I have ordered complete cultures including blood culture urine cultures and spu patel cultures, in the meantime I started the patient empirically on cefepime and vancomycin. I will also start the patient on tube feeding. His white count today is 29. Patient was seen by gastroenterology, and he underwent EGD showed mild gastritis, there was no active bleeding at the time of his EGD. He remains on Protonix. Patient also remains on treatment for covid 19 pneumonitis, and he is on covid 19 cocktails. Labs today showed stable hemoglobin of 12.4. WBC count is elevated at 29.1. Electrolytes and renal profile are normal. BUN is 49 and creatinine 1.01. Patient received significant amount of volume over the last 24 hours, and his chest x-ray today showed bilateral pneumonia, underlying pulmonary edema is not entirely ruled out, but felt to be less likely. Objective - Vital Signs Vital signs: Vital Signs Temp 97.8 F 11/03/20 12:00 Pulse 63 11/03/20 13:30 Resp 28 H 11/03/20 13:30 BP 101/57 11/02/20 10:15 Pulse Ox 95 11/03/20 13:30 Intake & Output 11/02/20 11/03/20 11/03/20 18:59 06:59 18:59 Intake Total 3929.506 2180.839 8622.680 Output Total 705 970 275 Balance 3224.506 608.182 2671.680 Weight 108 kg 107.7 kg 107.7 kg Intake: IV 550 600 300 Sodium Chloride 0.9% 1, 550 600 300 000 ml @ 50 mls/hr IV . Q20H [facility] Rx#:[id number] Intake, IV Titration 2389.506 415.613 2250.680 Amount Cefepime 1 gm In Sodium 50 Chloride 0.9% 50 ml @ 100 mls/hr IVPB ONCE ONE Rx# :[id number] Dextrose 5% in Water 1, 500 000 ml @ 50 mls/hr IV . Q23H [facility] with Sodium Bicarb (1 Meq/ml) 150 ml Rx#:[id number] Norepinephrine 8 mg In 356.764 300.144 218.592 Sodium Chloride 0.9% 250 ml @ 0.05 MCG/KG/MIN 10. 449 mls/hr IV .Q24H [facility] Rx#:[id number] Sodium Chloride 0.9% 1, 1000 000 ml @ 999 mls/hr IV . Q1H1M ONE Rx#:[id number] Vancomycin 1,750 mg In 500 Sodium Chloride 0.9% 500 ml 500 ml @ 167 mls/hr IVPB Q12H [facility] Rx#: [id number] fentaNYL (PF) 1,000 mcg 27.0 64.35 49.95 In Sodium Chloride 0.9% 80 ml @ Per Protocol IV . Q0M [facility] Rx#:[id number] propofoL 1,000 mg In 505.742 509.42 292.138 Empty Bag 1 bag @ Titrate IV .Q0M [facility] Rx#: [id number] Tube Feeding 10 Blood Product 930 Rc As-1 Unit 310 [id number] Rc As-1 Unit 310 [id number] Rc Pheresis 2 As3 Unit 310 [id number] Other 60 90 Output: Gastric Drainage 150 500 Urine 555 470 275 Other: Voiding Method Indwelling Catheter Indwelling Catheter Indwelling Catheter # Bowel Movements 1 ABP, PAP, CO, CI - Last Documented Arterial Blood Pressure 103/55 - Exam GENERAL EXAM: Revealed a 75-year-old white male sedated, intubated, in no distress. Looks comfortable. HEAD: Normocephalic. Atraumatic. EENT: PERRLA, EOMI, nonicteric, endotracheal tube and orogastric tubes are intact. Moist mucous membranes. CHEST: No chest wall deformity. LUNGS: Fine crackles persist bilaterally, no rhonchi and no wheezes. CVS: S1 and S2 normal with no audible murmur, regular rhythm. ABDOMEN: No hepatosplenomegaly, normal bowel sounds, no guarding or rigidity. SPINE: No scoliosis or deformity SKIN: No rashes CENTRAL NERVOUS SYSTEM: Could not be assessed, patient is presently on fentanyl and propofol. EXTREMITIES: There is 1+ bipedal edema. No clubbing, no cyanosis. Peripheral pulses are intact. - Labs CBC & Chem 7: 11/03/20 04:05 11/03/20 04:05 Labs: Abnormal Lab Results - Last 24 Hours (Table) 11/02/20 11/02/20 11/02/20 Range/Units 16:03 18:05 23:27 WBC (3.8-10.6) k/uL RBC (4.30-5.90) m/uL Hgb (13.0-17.5) gm/dL Hct (39.0-53.0) % RDW (11.5-15.5) % Neutrophils # (1.3-7.7) k/uL D-Dimer (<0.60) mg/L FEU ABG pCO2 34 L (35-45) mmHg ABG pO2 155 H (83-108) mmHg ABG HCO3 20 L (21-25) mmol/L ABG O2 Saturation 99.4 H (94-97) % Sodium (137-145) mmol/L Chloride (98-107) mmol/L Carbon Dioxide (22-30) mmol/L BUN (9-20) mg/dL Glucose (74-99) mg/dL POC Glucose (mg/dL) 240 H 210 H (75-99) mg/dL Calcium (8.4-10.2) mg/dL Ferritin (22.0-322.0) ng/mL ALT (4-49) U/L Lactate Dehydrogenase (313-618) U/L Creatine Kinase (55-170) U/L Total Protein (6.3-8.2) g/dL Albumin (3.5-5.0) g/dL Urine Protein (Negative) Ur Leukocyte Esterase (Negative) Urine RBC (0-5) /hpf Urine WBC (0-5) /hpf Urine Bacteria (None) /hpf Urine Mucus (None) /hpf 11/03/20 11/03/20 11/03/20 Range/Units 04:05 04:05 04:05 WBC 29.1 H (3.8-10.6) k/uL RBC 3.94 L (4.30-5.90) m/uL Hgb 12.4 L (13.0-17.5) gm/dL Hct 34.6 L (39.0-53.0) % RDW 17.1 H (11.5-15.5) % Neutrophils # 27.0 H (1.3-7.7) k/uL D-Dimer 3.47 H (<0.60) mg/L FEU ABG pCO2 (35-45) mmHg ABG pO2 (83-108) mmHg ABG HCO3 (21-25) mmol/L ABG O2 Saturation (94-97) % Sodium 132 L (137-145) mmol/L Chloride 109 H (98-107) mmol/L Carbon Dioxide 19 L (22-30) mmol/L BUN 49 H (9-20) mg/dL Glucose 177 H (74-99) mg/dL POC Glucose (mg/dL) (75-99) mg/dL Calcium 6.6 L (8.4-10.2) mg/dL Ferritin 1021.8 H (22.0-322.0) ng/mL ALT 71 H (4-49) U/L Lactate Dehydrogenase 1532 H (313-618) U/L Creatine Kinase 54 L (55-170) U/L Total Protein 3.9 L (6.3-8.2) g/dL Albumin 1.8 L (3.5-5.0) g/dL Urine Protein (Negative) Ur Leukocyte Esterase (Negative) Urine RBC (0-5) /hpf Urine WBC (0-5) /hpf Urine Bacteria (None) /hpf Urine Mucus (None) /hpf 11/03/20 11/03/20 11/03/20 Range/Units 05:39 09:45 11:24 WBC (3.8-10.6) k/uL RBC (4.30-5.90) m/uL Hgb (13.0-17.5) gm/dL Hct (39.0-53.0) % RDW (11.5-15.5) % Neutrophils # (1.3-7.7) k/uL D-Dimer (<0.60) mg/L FEU ABG pCO2 (35-45) mmHg ABG pO2 (83-108) mmHg ABG HCO3 (21-25) mmol/L ABG O2 Saturation 97.2 H (94-97) % Sodium (137-145) mmol/L Chloride (98-107) mmol/L Carbon Dioxide (22-30) mmol/L BUN (9-20) mg/dL Glucose (74-99) mg/dL POC Glucose (mg/dL) 198 H (75-99) mg/dL Calcium (8.4-10.2) mg/dL Ferritin (22.0-322.0) ng/mL ALT (4-49) U/L Lactate Dehydrogenase (313-618) U/L Creatine Kinase (55-170) U/L Total Protein (6.3-8.2) g/dL Albumin (3.5-5.0) g/dL Urine Protein Trace H (Negative) Ur Leukocyte Esterase Moderate H (Negative) Urine RBC 6 H (0-5) /hpf Urine WBC 16 H (0-5) /hpf Urine Bacteria Many H (None) /hpf Urine Mucus Few H (None) /hpf Microbiology - Last 24 Hours (Table) 11/02/20 11:30 Gram Stain - Preliminary Sputum Sputum Culture - Preliminary Assessment and Plan Assessment: Impression: Acute hypoxic respiratory failure secondary to Covid 19 pneumonia, outside the window for remdesivir. Patient is on the Covid 19 cocktail, and he required intubation and mechanical ventilation today. Acute GI bleeding with acute blood loss anemia requiring 3 units of packed RBCs transfused for hemoglobin of 6.4. And for hypotension. History of underlying coronary artery disease. Dyslipidemia. Hypovolemic shock, however the possibility of septic shock is not entirely ruled out, patient will be empirically placed on antibiotics, we will continue norepinephrine, and the patient will be pancultured. History of rheumatoid arthritis. Peripheral vessel occlusive disease and previous stent placement. Maintained on Plavix. GERD without esophagitis. Carotid artery disease. Acute upper GI bleeding secondary to gastritis, presently inactive, EGD failed to show active bleeding. Recommendation: Start broad-spectrum empiric antibiotics including vancomycin and cefepime. Blood culture and sputum cultures and urine cultures were ordered. Continue ventilatory support, decrease FiO2 to 40%, continue PEEP at 8. Start enteral feeding/nutritional support will be started today.. Continue Covid 19 cocktail Patient is out of window for remdesivir, but received actemra. 2 doses were giv en. Continue GI and DVT prophylaxis. Continue norepinephrine and titrate accordingly. Continue propofol and fentanyl. However will cut down the dose of fentanyl, and that will likely improve the blood pressure, would also assess mental status on a lower dose of fentanyl and propofol. Prognosis is extremely poor and guarded. We'll continue to follow. Critical care time is 35 minutes Discussed his condition with family members at bedside yesterday. And updated them on his overall clinical status and prognosis is definitely guarded Time with Patient: Greater than 30
[2020-11-03 17:31] LABS: Glucose,Whole Blood 210 mg/dL (75-99)
--- NOTE | 2020-11-03 17:48 | P.PN ---
Subjective Progress Note Date: 11/03/20 Florin Newsome, is a 75-year-old male who started having symptoms of cough and shortness of breath about 1 week ago [facility] and [facility] for Covid 19 he called our office on Monday and was given a prescription for Decadron 4 mg by mouth twice daily also he was told to take vitamin C vitamin D and zinc supplements, patient took these medications however he continued to have worsening shortness of breath his pulse ox at home was down in the 80s and on he decided to come to emergency room for further evaluation. Patient was evaluated in emergency room his vital examination on presentation reveals a temperature of 97.5 pulse 88 respiration 18 blood pressure 114/86 pulse ox was 92% on 2 L nasal cannula his white blood count was 12.3 hemoglobin 14.6 platelet count 243 d-dimer 1.96 sodium 136 BUN 46 creatinine 0.9 to lactic acid 2.3 ferritin level 1099 C-reactive protein 54.3 Covid 19 PCR testing was positive, CT angiogram of the chest revealed bilateral patchy groundglass opacities consistent was history of Covid pneumonia, no evidence of pulmonary embolism, patient was admitted to medical floor he was started on IV Decadron, subcu Lovenox, and pulmonary consultation was requested. Patient has a known history of asthma, history of hypertension, history of hyperlipidemia, history of coronary artery disease, and history of abdominal aortic aneurysm. On review of systems patient is alert and oriented 3 in no apparent distress he is complaining of shortness of breath and cough otherwise he denies any complaints there is no fever or chills no headache or dizziness no chest pain no palpitation no nausea or vomiting no abdominal pain no diarrhea no blood in the stools no burning with urination no frequency or urgency no hematuria no w eakness or numbness in any of the extremities no change in vision speech or gait. On 10/24/2020 patient was seen and examined on the medical floor he is alert and oriented 3 in no apparent distress he is complaining of cough with whitish sputum production he is complaining of shortness of breath with any activity otherwise he denies any complaints there is no fever or chills no headache or dizziness no chest pain no palpitation no nausea or vomiting no abdominal pain no diarrhea no blood in the stools no burning with urination no frequency or urgency and no hematuria. Lactic acid was significantly elevated yesterday and through last night patient received multiple IV fluid boluses and lactic acid is down to 1.7 at this time. On 10/25/2020 patient was seen and examined the medical floor he is alert and oriented 3 in no apparent distress he is complaining of shortness of breath with any activity he is currently maintained on oxygen 6 L via nasal cannula his pulse ox is 91% he is also complaining of some cough with white sputum production and complaining of fatigue and generalized weakness otherwise he denies any complaints there is no fever or chills no headache or dizziness no chest pain no palpitation no nausea or vomiting no abdominal pain no diarrhea no blood in the stools no burning with urination no frequency or urgency and no hematuria there is no weakness or numbness in any of the extremities there is no change in vision speech or gait On 10/26/2020 patient was seen and examined on the medical floor he is alert and oriented 3 he is having worsening shortness of breath, his oxygen requirements are increasing, currently he is maintained on high flow cannula FiO2 80% airvo, he is having occasional cough otherwise he denies any complaints his pulse ox is 94% there is no fever or chills no headache or dizziness no chest pain no palpitation no nausea or vomiting no abdominal pain no diarrhea and no urinary symptoms. Case was discussed with Dr. Maurice today patient had worsening of his symptoms and increase in his oxygen requirement at this time will give Decadron 20 mg IV and transferred patient to intensive care unit On 10/27/2020 patient was seen and examined in the ICU he is alert and oriented 3 in no apparent distress she is maintained on high flow oxygen 60 L/m his inflammatory markers are increasing his dose of Decadron was increased to 20 mg IV daily otherwise there is no complaints there is no fever or chills no headache or dizziness no chest pain no palpitation no nausea or vomiting no abdominal pain no diarrhea no blood in the stools no burning with urination no frequency or urgency and no hematuria On 10/28/2020 patient was seen and examined in the ICU he is alert and oriented 3 in no apparent distress he is still maintained on high flow oxygen at 60 L/m at this time he is able to eat and answer questions appropriately, his inflammatory markers are stabilizing he is complaining of shortness of breath otherwise he denies any complaints there is no fever or chills no headache or dizziness no chest pain no cough no nausea or vomiting no abdominal pain no diarrhea no blood in the stools no burning with urination no frequency or urgency and no hematuria. On 10/29/2020 patient was seen and examined in the ICU he is alert and oriented 3 in no distress he is requiring high flow oxygen of 60 L/m his inflammatory markings are stabilizing patient is complaining of shortness of breath and occasional cough otherwise he denies any complaints there is no fever or chills no headache or dizziness no chest pain no palpitation no nausea or vomiting no abdominal pain no diarrhea no blood in the stools Moore catheter is in, no urinary symptoms. On 10/30/2020 patient was seen and examined in the ICU he is alert and oriented 3 in no distress he is still on high flow oxygen however he feels more comfortable he is complaining of occasional cough he is complaining of shortness of breath with any activity such as eating or speaking or trying to move in bed, otherwise there is no complaints there is no fever or chills no headache or dizziness no chest pain no palpitation no nausea or vomiting no abdominal pain no diarrhea no blood in the stools and no urinary symptoms On 10/31/2020 patient was seen and examined on the medical floor he is alert and oriented 3 in no distress he is still complaining of shortness of breath he is still maintained on high flow oxygen he has occasional cough otherwise he denies any complaints there is no fever or chills no headache or dizziness no chest pain no palpitation no nausea or vomiting no abdominal pain no diarrhea no blood in the stools no burning with urination no frequency or urgency and no hematuria On 11/01/2020 patient was seen and examined in the ICU he is alert and oriented 3 in no distress he is complaining of shortness of breath and is still maintained on high flow oxygen, he is complaining of cough , he was having some rectal bleeding and critical care physician discontinued Plavix and aspirin at this time otherwise he denies any complaints there is no fever or chills no headache or dizziness no chest pain no palpitation no nausea or vomiting no abdominal pain no diarrhea no burning with urination no frequency or urgency and no hematuria On 11/02/2020 patient was seen and examined in the ICU, through the night patient had worsening rectal bleeding, he developed hypotension, he received IV fluid boluses, hemoglobin this morning 6.4, 1 unit of red blood cell transfusion was ordered, Lovenox was discontinued, gastroenterology consultation requested, due to worsening hypotension and worsening respiratory failure, patient was intubated, sedated started on mechanical ventilation, pulmonary critical care following. On 11/03/2020 patient was seen and examined in the ICU, he is intubated , sedated maintained on mechanical ventilation, Patient has hypotension and is maintained on vasopressors, white blood count is elevated, blood culture and urine culture and sputum culture ordered, patient was started on IV antibiotic vancomycin and cefepime, pulmonary critical care following Objective - Vital Signs Vital signs: Vital Signs Temp 98 F 11/03/20 16:00 Pulse 77 11/03/20 17:00 Resp 33 H 11/03/20 17:00 BP 81/45 11/03/20 16:30 Pulse Ox 95 11/03/20 17:00 Intake & Output 11/02/20 11/03/20 11/03/20 18:59 06:59 18:59 Intake Total 3929.506 8314.762 8910.644 Output Total 705 970 405 Balance 3224.506 035.000 8842.644 Weight 108 kg 107.7 kg 107.7 kg Intake: IV 550 600 500 Sodium Chloride 0.9% 1, 550 600 500 000 ml @ 50 mls/hr IV . Q20H RAMIN Rx#:[id number] Intake, IV Titration 2389.506 462.101 0038.644 Amount Cefepime 1 gm In Sodium 50 Chloride 0.9% 50 ml @ 100 mls/hr IVPB ONCE ONE Rx# :[id number] Dextrose 5% in Water 1, 500 000 ml @ 50 mls/hr IV . Q23H RAMIN with Sodium Bicarb (1 Meq/ml) 150 ml Rx#:[id number] Norepinephrine 8 mg In 356.764 300.144 430.149 Sodium Chloride 0.9% 250 ml @ 0.05 MCG/KG/MIN 10. 449 mls/hr IV .Q24H RAMIN Rx#:[id number] Sodium Chloride 0.9% 1, 1000 000 ml @ 999 mls/hr IV . Q1H1M ONE Rx#:[id number] Vancomycin 1,750 mg In 500 Sodium Chloride 0.9% 500 ml 500 ml @ 167 mls/hr IVPB Q12H RAMIN Rx#: [id number] fentaNYL (PF) 1,000 mcg 27.0 64.35 49.95 In Sodium Chloride 0.9% 80 ml @ Per Protocol IV . Q0M RAMIN Rx#:[id number] propofoL 1,000 mg In 505.742 509.42 491.545 Empty Bag 1 bag @ Titrate IV .Q0M RAMIN Rx#: [id number] Tube Feeding 50 Blood Product 930 Rc As-1 Unit 310 [id number] Rc As-1 Unit 310 [id number] Rc Pheresis 2 As3 Unit 310 [id number] Other 60 120 Output: Gastric Drainage 150 500 Urine 555 470 405 Other: Voiding Method Indwelling Catheter Indwelling Catheter Indwelling Catheter # Bowel Movements 1 ABP, PAP, CO, CI - Last Documented Arterial Blood Pressure 87/53 - Exam In general patient is intubated sedated maintained on mechanical ventilation HEENT head normocephalic and atraumatic Neck is supple no JVD no goiter no lymphadenopathy Chest exam reveals a few scattered rhonchi no wheezing Cardiac exam reveals regular heart sounds S1 and S2 no gallops no murmurs Abdomen is soft nontender no organomegaly was normal bowel sounds Extremity exam reveals no edema no cyanosis or clubbing Neurological examination reveals no gross focal deficits - Labs CBC & Chem 7: 11/03/20 04:05 11/03/20 04:05 Labs: Abnormal Lab Results - Last 24 Hours (Table) 11/02/20 11/02/20 11/03/20 Range/Units 18:05 23:27 04:05 WBC (3.8-10.6) k/uL RBC (4.30-5.90) m/uL Hgb (13.0-17.5) gm/dL Hct (39.0-53.0) % RDW (11.5-15.5) % Neutrophils # (1.3-7.7) k/uL D-Dimer 3.47 H (<0.60) mg/L FEU ABG O2 Saturation (94-97) % Sodium (137-145) mmol/L Chloride (98-107) mmol/L Carbon Dioxide (22-30) mmol/L BUN (9-20) mg/dL Glucose (74-99) mg/dL POC Glucose (mg/dL) 240 H 210 H (75-99) mg/dL Calcium (8.4-10.2) mg/dL Ferritin (22.0-322.0) ng/mL ALT (4-49) U/L Lactate Dehydrogenase (313-618) U/L Creatine Kinase (55-170) U/L Total Protein (6.3-8.2) g/dL Albumin (3.5-5.0) g/dL Procalcitonin (0.02-0.09) ng/mL Urine Protein (Negative) Ur Leukocyte Esterase (Negative) Urine RBC (0-5) /hpf Urine WBC (0-5) /hpf Urine Bacteria (None) /hpf Urine Mucus (None) /hpf 11/03/20 11/03/20 11/03/20 Range/Units 04:05 04:05 05:39 WBC 29.1 H (3.8-10.6) k/uL RBC 3.94 L (4.30-5.90) m/uL Hgb 12.4 L (13.0-17.5) gm/dL Hct 34.6 L (39.0-53.0) % RDW 17.1 H (11.5-15.5) % Neutrophils # 27.0 H (1.3-7.7) k/uL D-Dimer (<0.60) mg/L FEU ABG O2 Saturation 97.2 H (94-97) % Sodium 132 L (137-145) mmol/L Chloride 109 H (98-107) mmol/L Carbon Dioxide 19 L (22-30) mmol/L BUN 49 H (9-20) mg/dL Glucose 177 H (74-99) mg/dL POC Glucose (mg/dL) (75-99) mg/dL Calcium 6.6 L (8.4-10.2) mg/dL Ferritin 1021.8 H (22.0-322.0) ng/mL ALT 71 H (4-49) U/L Lactate Dehydrogenase 1532 H (313-618) U/L Creatine Kinase 54 L (55-170) U/L Total Protein 3.9 L (6.3-8.2) g/dL Albumin 1.8 L (3.5-5.0) g/dL Procalcitonin (0.02-0.09) ng/mL Urine Protein (Negative) Ur Leukocyte Esterase (Negative) Urine RBC (0-5) /hpf Urine WBC (0-5) /hpf Urine Bacteria (None) /hpf Urine Mucus (None) /hpf 11/03/20 11/03/20 11/03/20 Range/Units 09:45 09:45 11:24 WBC (3.8-10.6) k/uL RBC (4.30-5.90) m/uL Hgb (13.0-17.5) gm/dL Hct (39.0-53.0) % RDW (11.5-15.5) % Neutrophils # (1.3-7.7) k/uL D-Dimer (<0.60) mg/L FEU ABG O2 Saturation (94-97) % Sodium (137-145) mmol/L Chloride (98-107) mmol/L Carbon Dioxide (22-30) mmol/L BUN (9-20) mg/dL Glucose (74-99) mg/dL POC Glucose (mg/dL) 198 H (75-99) mg/dL Calcium (8.4-10.2) mg/dL Ferritin (22.0-322.0) ng/mL ALT (4-49) U/L Lactate Dehydrogenase (313-618) U/L Creatine Kinase (55-170) U/L Total Protein (6.3-8.2) g/dL Albumin (3.5-5.0) g/dL Procalcitonin 1.59 H (0.02-0.09) ng/mL Urine Protein Trace H (Negative) Ur Leukocyte Esterase Moderate H (Negative) Urine RBC 6 H (0-5) /hpf Urine WBC 16 H (0-5) /hpf Urine Bacteria Many H (None) /hpf Urine Mucus Few H (None) /hpf 11/03/20 Range/Units 17:29 WBC (3.8-10.6) k/uL RBC (4.30-5.90) m/uL Hgb (13.0-17.5) gm/dL Hct (39.0-53.0) % RDW (11.5-15.5) % Neutrophils # (1.3-7.7) k/uL D-Dimer (<0.60) mg/L FEU ABG O2 Saturation (94-97) % Sodium (137-145) mmol/L Chloride (98-107) mmol/L Carbon Dioxide (22-30) mmol/L BUN (9-20) mg/dL Glucose (74-99) mg/dL POC Glucose (mg/dL) 210 H (75-99) mg/dL Calcium (8.4-10.2) mg/dL Ferritin (22.0-322.0) ng/mL ALT (4-49) U/L Lactate Dehydrogenase (313-618) U/L Creatine Kinase (55-170) U/L Total Protein (6.3-8.2) g/dL Albumin (3.5-5.0) g/dL Procalcitonin (0.02-0.09) ng/mL Urine Protein (Negative) Ur Leukocyte Esterase (Negative) Urine RBC (0-5) /hpf Urine WBC (0-5) /hpf Urine Bacteria (None) /hpf Urine Mucus (None) /hpf Microbiology - Last 24 Hours (Table) 11/03/20 09:45 Urine Culture - Preliminary Urine,Clean Catch 11/02/20 11:30 Gram Stain - Preliminary Sputum Sputum Culture - Preliminary Assessment and Plan Plan: 1. Covid 19 pneumonia 2. Acute hypoxic respiratory failure, at this time requiring intubation and mechanical ventilation 3. Underlying history of asthma 4. Underlying history of coronary artery disease 5. Underlying history of hypertension 6. Underlying history of hyperlipidemia 7. Underlying history of abdominal aortic aneurysm 8. Rectal bleeding aspirin, Plavix and Lovenox are discontinued at this time, patient received 1 unit of red blood cell transfusion today gastroenterology consultation requested At this time patient is admitted to medical floor he was started on IV Decadron and subcu Lovenox he is maintained on oxygen via nasal cannula Pulmonary consultation was requested Will follow closely
[2020-11-03] MEDS ORDERED: SODIUM CHLORIDE 0.9% 1,000 ML IV ONE (19:07)
[2020-11-03] MEDS ORDERED: SODIUM CHLORIDE 0.9% 150 ML with VASOPRESSIN 60 UNIT IV SCH ×2 (19:15)
[2020-11-03 19:23] LABS: ABG Base Excess -9.8 mmol/L; ABG HCO3 16 mmol/L (21-25); ABG Oxygen Saturation 97.3 % (94-97); ABG PCO2 27 mmHg (35-45); ABG PH 7.37 (7.35-7.45); ABG PO2 86 mmHg (83-108); ABG TCO2 16 mmol/L (19-24)
--- NOTE | 2020-11-03 19:31 | XR ---
EXAMINATION TYPE: XR chest 1V portable DATE OF EXAM: 11/03/2020 COMPARISON: Today HISTORY: Pneumonia. TECHNIQUE: Single view FINDINGS: There is nasogastric tube in the distal stomach. There is endotracheal tube 4.5 cm from the du. There is coarse pulmonary interstitial and airspace infiltrates. Heart size is fairly normal . IMPRESSION: Coarse pulmonary infiltrates could relate to RDS with underlying pulmonary fibrosis. Hear t and lungs not changed compared to exam this morning.
[2020-11-03] MEDS: fentaNYL (PF) 1,000 MCG in SODIUM CHLORIDE 0.9% 80 ML IV SCH ×3 (19:46)
[2020-11-03 19:57] LABS: Anisocytosis Slight; MCHC 35.7 g/dL (31.0-37.0); MCV 89.6 fL (80.0-100.0); Mean Platelet Volume 8.9; Platelet Count 141 k/uL (150-450); RBC 2.68 m/uL (4.30-5.90); RDW 17.5 % (11.5-15.5)
[2020-11-03] MEDS ORDERED: CISATRACURIUM 2 MG/ML 5 ML VIAL IV ONE (20:01)
[2020-11-03 20:15] LABS: HGB 8.6 gm/dL (13.0-17.5)
[2020-11-03] MEDS ORDERED: CISATRACURIUM 200 MG in SODIUM CHLORIDE 0.9% 180 ML IV SCH (20:15)
[2020-11-03 20:20] LABS: Band Neutrophils % 6 %; Neutrophils % (M) 92 %; Nucleated Red Blood Cells 4 /100 WBC (0-0); Total Cells Counted 200
[2020-11-03 20:21] LABS: Lymphocytes # (M) 0.54 k/uL (1.0-4.8); WBC 27.2 k/uL (3.8-10.6)
[2020-11-03 20:22] LABS: Polychromasia Present
[2020-11-03] MEDS: CEFEPIME 1 GM in SODIUM CHLORIDE 0.9% 50 ML IVPB SCH (20:35)
[2020-11-03] MEDS: FOLIC ACID 1 MG TAB PO SCH (20:35)
[2020-11-03] MEDS: MELATONIN 5 MG TABLET PO SCH (20:35)
[2020-11-03] MEDS: INSULIN DETEMIR (LEVEMIR) 100 UNIT/ML SYR SQ SCH (20:35)
[2020-11-03] MEDS: LATANOPROST 0.005% OPHTH DROPS 2.5 ML BTL RIGHT EYE SCH (21:02)
[2020-11-03] MEDS ORDERED: DEXTROSE 5% IN WATER 1,000 ML with SODIUM BICARB (1 MEQ/ML) 150 ML IV SCH (21:15)
[2020-11-03 22:13] LABS: Magnesium 1.7 mg/dL (1.6-2.3)
[2020-11-03 22:20] LABS: Potassium 5.2 mmol/L (3.5-5.1)
[2020-11-03 22:23] LABS: Calcium 5.9 mg/dL (8.4-10.2)
[2020-11-03] MEDS ORDERED: Magnesium Replacement Protocol 1 EACH MISC MISCELLANE PRN (22:24)
[2020-11-03] MEDS ORDERED: CALCIUM GLUCONATE 1 GM in SODIUM CHLORIDE 0.9% 100 ML IVPB ONE (22:29)
[2020-11-03] MEDS: MAGNESIUM SULFATE-D5W PMX 1 GM in DEXTROSE/WATER 1 100ML.BAG IVPB SCH (22:32)
[2020-11-03 23:34] LABS: Glucose,Whole Blood 270 mg/dL (75-99)
[2020-11-04] MEDS: NOREPINEPHRINE 8 MG in SODIUM CHLORIDE 0.9% 250 ML IV SCH ×7 (01:04→10:33)
[2020-11-04] MEDS: MAGNESIUM SULFATE-D5W PMX 1 GM in DEXTROSE/WATER 1 100ML.BAG IVPB SCH (02:20)
[2020-11-04] MEDS: fentaNYL (PF) 1,000 MCG in SODIUM CHLORIDE 0.9% 80 ML IV SCH (02:21)
[2020-11-04 03:16] LABS: Anisocytosis Slight; Hypochromasia Slight; MCV 93.9 fL (80.0-100.0); Mean Platelet Volume 8.7; Platelet Count 166 k/uL (150-450); RBC 2.55 m/uL (4.30-5.90); RDW 17.7 % (11.5-15.5)
[2020-11-04 03:32] LABS: ABG Base Excess -18.3 mmol/L; ABG HCO3 12 mmol/L (21-25); ABG Oxygen Saturation 96.8 % (94-97); ABG PCO2 42 mmHg (35-45); ABG PO2 108 mmHg (83-108); ABG TCO2 13 mmol/L (19-24)
[2020-11-04] MEDS ORDERED: SODIUM BICARB 8.4% 50 ML SYR (1 MEQ/ML) ONE ×2 (03:35→08:36)
[2020-11-04 03:46] LABS: Potassium 5.8 mmol/L (3.5-5.1)
[2020-11-04 03:47] LABS: C Reactive Protein 6.3 mg/L (<10.0); Total Protein 3.2 g/dL (6.3-8.2)
[2020-11-04 03:48] LABS: Albumin 1.5 g/dL (3.5-5.0); Total Bilirubin 0.5 mg/dL (0.2-1.3)
[2020-11-04] MEDS ORDERED: SODIUM BICARB 8.4% 50 ML SYR (1 MEQ/ML) IV STA (04:07)
[2020-11-04] MEDS ORDERED: CALCIUM GLUCONATE 1 GM in SODIUM CHLORIDE 0.9% 100 ML IVPB ONE (04:08)
[2020-11-04 04:12] LABS: Band Neutrophils % 10 %; Metamyelocytes % 3 %; Myelocytes % 1 %; Neutrophils % (M) 80 %; Nucleated Red Blood Cells 6 /100 WBC (0-0); Total Cells Counted 200
[2020-11-04 04:13] LABS: Metamyelocytes # (M) 1.13 k/uL (0); Myelocytes # (M) 0.38 k/uL (0); WBC 37.6 k/uL (3.8-10.6)
[2020-11-04 04:15] LABS: Polychromasia Present
[2020-11-04 04:19] LABS: HGB 7.6 gm/dL (13.0-17.5)
[2020-11-04 04:20] LABS: MCH 29.4 pg (25.0-35.0); MCHC 31.6 g/dL (31.0-37.0)
[2020-11-04 05:04] LABS: Allen Test Performed? no
[2020-11-04 06:10] LABS: Glucose,Whole Blood 285 mg/dL (75-99)
[2020-11-04] MEDS: INSULIN ASPART (NovoLOG) 100 UNIT/ML VIAL SQ SCH ×2 (06:11→12:41)
[2020-11-04] MEDS: ALBUTEROL HFA INHALER INHALATION PRN (07:05)
[2020-11-04] MEDS ORDERED: DEXTROSE 50% SYRINGE 50 ML IVP STA (07:06)
[2020-11-04] MEDS ORDERED: INSULIN REGULAR 100 UNIT/ML VIAL IV ONE (07:06)
[2020-11-04 07:14] LABS: ABG Base Excess -13.2 mmol/L; ABG HCO3 16 mmol/L (21-25); ABG Oxygen Saturation 99.5 % (94-97); ABG PCO2 45 mmHg (35-45); ABG PO2 317 mmHg (83-108); ABG TCO2 17 mmol/L (19-24)
[2020-11-04 07:19] LABS: ABG PH 7.15 (7.35-7.45)
[2020-11-04] MEDS: hydroCHLOROthiazide 12.5 MG CAP PO SCH (07:59)
--- NOTE | 2020-11-04 08:44 | XR ---
EXAMINATION TYPE: XR chest 1V portable DATE OF EXAM: 11/04/2020 COMPARISON: Chest x-ray 11/03/2020 HISTORY: Intubated TECHNIQUE: Single frontal view of the chest is obtained. FINDINGS: Endotracheal tube, NG tube are stable and overlying appropriate positions. Bilateral airsp finn disease again seen. There is no evident pneumothorax or pleural effusion. Cardiac mediastinal kellie houette is stable. Aorta is dense. IMPRESSION: No significant interval change
[2020-11-04] MEDS ORDERED: SODIUM CHLORIDE 0.9% 1,000 ML IV ONE (08:55)
[2020-11-04] MEDS: CHLORHEXIDINE GLUCONATE 15 ML CUP MUCOUS MEM SCH (09:07)
[2020-11-04] MEDS: HYDROCORTISONE SUCCINATE 100 MG/2 ML VIAL IV SCH (09:07)
[2020-11-04] MEDS: CEFEPIME 1 GM in SODIUM CHLORIDE 0.9% 50 ML IVPB SCH (09:08)
[2020-11-04] MEDS: CYANOCOBALAMIN 500 MCG TAB PO SCH (09:08)
[2020-11-04] MEDS: ASCORBIC ACID 500 MG TAB PO SCH (09:08)
[2020-11-04] MEDS: ZINC SULFATE 220 MG CAP PO SCH (09:08)
[2020-11-04] MEDS: FAMOTIDINE 20 MG/2 ML VIAL IV SCH (09:08)
[2020-11-04] MEDS: CHOLECALCIFEROL 25 MCG (1000 IU) TABLET PO SCH (09:16)
[2020-11-04 09:22] LABS: Anisocytosis Slight; HCT 22.5 % (39.0-53.0); MCV 89.5 fL (80.0-100.0); Mean Platelet Volume 8.6; Platelet Count 109 k/uL (150-450); RBC 2.51 m/uL (4.30-5.90); RDW 17.3 % (11.5-15.5); WBC 32.5 k/uL (3.8-10.6)
[2020-11-04 09:28] LABS: HGB 7.4 gm/dL (13.0-17.5); MCH 29.2 pg (25.0-35.0); MCHC 32.9 g/dL (31.0-37.0)
[2020-11-04 09:43] LABS: ABG Base Excess -10.9 mmol/L; ABG HCO3 18 mmol/L (21-25); ABG Oxygen Saturation 91.6 % (94-97); ABG PCO2 51 mmHg (35-45); ABG PO2 73 mmHg (83-108); ABG TCO2 20 mmol/L (19-24)
[2020-11-04 09:47] LABS: ABG PH 7.15 (7.35-7.45)
[2020-11-04 10:08] VITALS: RESP 28; TEMP 98.6
[2020-11-04 10:09] LABS: Ferritin 541.6 ng/mL (22.0-322.0)
--- NOTE | 2020-11-04 11:00 | ECHOF ---
Referral Reason:cardiac function MEASUREMENTS -------- HEIGHT: 182.9 cm WEIGHT: 112.0 kg BP: 100/40 IVSd: 1.6 cm (0.6 - 1.1) LVIDd: 4.0 cm (3.9 - 5.3) LVPWd: 1.5 cm (0.6 - 1.1) IVSs: 1.9 cm LVIDs: 2.2 cm LVPWs: 1.6 cm Ao Diam: 3.1 cm (2.0 - 3.7) AV Cusp: 1.5 cm (1.5 - 2.6) MV E Demetrio: 0.55 m/s MV DecT: 361 ms MV A Demetrio: 0.83 m/s MV E/A Ratio: 0.66 AV maxP.58 mmHg AV meanP.98 mmHg RAP: 15.00 mmHg RVSP: 50.20 mmHg FINDINGS -------- Sinus rhythm. Resting tachycardia (HR>100bpm). This was a technically difficult study with suboptimal views. The left ventricular size is normal. There is moderate concentric left ventricular hypertrophy. O verall left ventricular systolic function is normal with, an EF between 60 - 65 %. The RV was not well visualized. The left atrium was not well visualized. The right atrium was not well visualized. 4 ml of Lumason was utilized for enhancement of images. The aortic valve was not well visualized. There is mild aortic stenosis present. Peak/mean gradie nt across the Aortic Valve is 24.58mmHg / 12.98mmHg. The mitral valve was not well visualized. Mild mitral regurgitation is present. The tricuspid valve was not well visualized. Mild tricuspid regurgitation present. There is moder ate pulmonary hypertension. The right ventricular systolic pressure, as measured by Doppler, is 50. 20mmHg. The pulmonic valve was not well visualized. The aortic root size is normal. IVC Not well visulized. There is no pericardial effusion. CONCLUSIONS -------- 1. This was a technically difficult study with suboptimal views. 2. There is moderate concentric left ventricular hypertrophy. 3. Overall left ventricular systolic function is normal with, an EF between 60 - 65 %. 4. 4 ml of Lumason was utilized for enhancement of images. 5. There is mild aortic stenosis present. 6. Peak/mean gradient across the Aortic Valve is 24.58mmHg / 12.98mmHg. 7. Mild mitral regurgitation is present. 8. Mild tricuspid regurgitation present. 9. There is moderate pulmonary hypertension. 10. There is no pericardial effusion. RAILWAY EQUIPMENT OPERATOR: Elizabeth Lamar RDCS
[2020-11-04] MEDS: VANCOMYCIN 1,750 MG in SODIUM CHLORIDE 0.9% 500 ML 500 ML IVPB SCH (11:04)
--- NOTE | 2020-11-04 12:26 | P.PN ---
Subjective Progress Note Date: 11/04/20 Principal diagnosis: GI bleed, blood per rectum She was seen in the ICU. Had a drop in his hemoglobin to 7.6. He received another unit of blood. He has been hypotensive and remains intubated and sedated area the nurse reports no further rectal bleeding or blood mixed in stool. He has been made a DO NOT RESUSCITATE, family is coming in to see patient and decide further treatment plan with likely palliative care. Objective - Vital Signs Vital signs: Vital Signs Temp 98.6 F 11/04/20 08:15 Pulse 101 H 11/04/20 11:00 Resp 28 H 11/04/20 11:00 BP 75/27 11/04/20 11:00 Pulse Ox 91 L 11/04/20 11:00 Intake & Output 11/03/20 11/04/20 11/04/20 18:59 06:59 18:59 Intake Total 2459.710 4036.242 1628.368 Output Total 445 225 40 Balance 2014.710 3811.242 1588.368 Weight 107.7 kg 112.4 kg Intake: IV 600 1815 145 Calcium Gluconate 1 gm In 200 Sodium Chloride 0.9% 100 ml @ 100 mls/hr IVPB ONCE ONE Rx#:[id number] Cefepime 1 gm In Sodium 50 Chloride 0.9% 50 ml @ 100 mls/hr IVPB ONCE ONE Rx# :[id number] Dextrose 5% in Water 1, 675 75 000 ml @ 75 mls/hr IV . [id number] [facility] with Sodium Bicarb (1 Meq/ml) 150 ml Rx#:[id number] Magnesium Sulfate-D5w Pmx 200 1 gm In Dextrose/Water 1 100ml.bag @ 100 mls/hr IVPB Q[facility]H [facility] Rx#: [id number] Sodium Chloride 0.9% 1, 600 190 70 000 ml @ 10 mls/hr IV . Q24H [facility] Rx#:[id number] Vancomycin 1,750 mg In 500 Sodium Chloride 0.9% 500 ml 500 ml @ 167 mls/hr IVPB Q12H [facility] Rx#: [id number] Intake, IV Titration 9412.866 6761.242 1163.368 Amount Cefepime 1 gm In Sodium 50 Chloride 0.9% 50 ml @ 100 mls/hr IVPB ONCE ONE Rx# :[id number] Cisatracurium 200 mg In 94.345 Sodium Chloride 0.9% 180 ml @ 1 MCG/KG/MIN 6.462 mls/hr IV .Q24H [facility] Rx#: [id number] Norepinephrine 8 mg In 325.359 8775.346 786.127 Sodium Chloride 0.9% 250 ml @ 0.05 MCG/KG/MIN 10. 449 mls/hr IV .Q24H [facility] Rx#:[id number] Vancomycin 1,750 mg In 500 Sodium Chloride 0.9% 500 ml 500 ml @ 167 mls/hr IVPB Q12H [facility] Rx#: [id number] fentaNYL (PF) 1,000 mcg 49.95 69.48 91.62 In Sodium Chloride 0.9% 80 ml @ Per Protocol IV . Q0M [facility] Rx#:[id number] propofoL 1,000 mg In 563.435 539.416 191.276 Empty Bag 1 bag @ Titrate IV .Q0M [facility] Rx#: [id number] Tube Feeding 80 120 10 Blood Product 310 310 Rc Pheresis 2 As3 Unit 0 310 [id number] Other 120 90 Output: Urine 445 225 40 Other: Voiding Method Indwelling Catheter Indwelling Catheter ABP, PAP, CO, CI - Last Documented Arterial Blood Pressure 38/30 - Exam General appearance: Intubated and sedated HET: Head is normocephalic and atraumatic. Neck: Supple without lymphadenopathy. Abdomen: Soft, nontender, nondistended with bowel sounds. No guarding or rigidity. Extremities: Normal skin color and turgor. No pedal edema Neurological: Intubated and sedated. - Labs CBC & Chem 7: 11/04/20 08:45 11/04/20 03:00 Labs: Abnormal Lab Results - Last 24 Hours (Table) 11/01/20 11/03/20 11/03/20 Range/Units 23:32 09:45 11:24 WBC (3.8-10.6) k/uL RBC (4.30-5.90) m/uL Hgb (13.0-17.5) gm/dL Hct (39.0-53.0) % RDW (11.5-15.5) % Plt Count (150-450) k/uL Neutrophils # (Manual) (1.3-7.7) k/uL Lymphocytes # (Manual) (1.0-4.8) k/uL Monocytes # (Manual) (0-1.0) k/uL Metamyelocytes # (Man) (0) k/uL Myelocytes # (Manual) (0) k/uL Nucleated RBCs (0-0) /100 WBC D-Dimer (<0.60) mg/L FEU ABG pH (7.35-7.45) ABG pCO2 (35-45) mmHg ABG pO2 (83-108) mmHg ABG HCO3 (21-25) mmol/L ABG Total CO2 (19-24) mmol/L ABG O2 Saturation (94-97) % Sodium (137-145) mmol/L Potassium (3.5-5.1) mmol/L Chloride (98-107) mmol/L Carbon Dioxide (22-30) mmol/L BUN (9-20) mg/dL Creatinine (0.66-1.25) mg/dL Glucose (74-99) mg/dL POC Glucose (mg/dL) 198 H (75-99) mg/dL Plasma Lactic Acid Gurvinder (0.7-2.0) mmol/L Calcium (8.4-10.2) mg/dL Ferritin (22.0-322.0) ng/mL ALT (4-49) U/L Alkaline Phosphatase (38-126) U/L Lactate Dehydrogenase (313-618) U/L Total Protein (6.3-8.2) g/dL Albumin (3.5-5.0) g/dL Procalcitonin 1.59 H (0.02-0.09) ng/mL Crossmatch See Detail 11/03/20 11/03/20 11/03/20 Range/Units 17:29 19:09 19:17 WBC 27.2 H (3.8-10.6) k/uL RBC 2.68 L (4.30-5.90) m/uL Hgb 8.6 L D (13.0-17.5) gm/dL Hct 24.0 L (39.0-53.0) % RDW 17.5 H (11.5-15.5) % Plt Count 141 L (150-450) k/uL Neutrophils # (Manual) 26.60 H (1.3-7.7) k/uL Lymphocytes # (Manual) 0.54 L (1.0-4.8) k/uL Monocytes # (Manual) (0-1.0) k/uL Metamyelocytes # (Man) (0) k/uL Myelocytes # (Manual) (0) k/uL Nucleated RBCs 4 H (0-0) /100 WBC D-Dimer (<0.60) mg/L FEU ABG pH (7.35-7.45) ABG pCO2 27 L (35-45) mmHg ABG pO2 (83-108) mmHg ABG HCO3 16 L (21-25) mmol/L ABG Total CO2 16 L (19-24) mmol/L ABG O2 Saturation 97.3 H (94-97) % Sodium (137-145) mmol/L Potassium (3.5-5.1) mmol/L Chloride (98-107) mmol/L Carbon Dioxide (22-30) mmol/L BUN (9-20) mg/dL Creatinine (0.66-1.25) mg/dL Glucose (74-99) mg/dL POC Glucose (mg/dL) 210 H (75-99) mg/dL Plasma Lactic Acid Gurvinder (0.7-2.0) mmol/L Calcium (8.4-10.2) mg/dL Ferritin (22.0-322.0) ng/mL ALT (4-49) U/L Alkaline Phosphatase (38-126) U/L Lactate Dehydrogenase (313-618) U/L Total Protein (6.3-8.2) g/dL Albumin (3.5-5.0) g/dL Procalcitonin (0.02-0.09) ng/mL Crossmatch 11/03/20 11/03/20 11/04/20 Range/Units 21:55 23:32 03:00 WBC (3.8-10.6) k/uL RBC (4.30-5.90) m/uL Hgb (13.0-17.5) gm/dL Hct (39.0-53.0) % RDW (11.5-15.5) % Plt Count (150-450) k/uL Neutrophils # (Manual) (1.3-7.7) k/uL Lymphocytes # (Manual) (1.0-4.8) k/uL Monocytes # (Manual) (0-1.0) k/uL Metamyelocytes # (Man) (0) k/uL Myelocytes # (Manual) (0) k/uL Nucleated RBCs (0-0) /100 WBC D-Dimer 2.25 H (<0.60) mg/L FEU ABG pH (7.35-7.45) ABG pCO2 (35-45) mmHg ABG pO2 (83-108) mmHg ABG HCO3 (21-25) mmol/L ABG Total CO2 (19-24) mmol/L ABG O2 Saturation (94-97) % Sodium 132 L (137-145) mmol/L Potassium 5.2 H (3.5-5.1) mmol/L Chloride 112 H (98-107) mmol/L Carbon Dioxide 15 L (22-30) mmol/L BUN 57 H (9-20) mg/dL Creatinine (0.66-1.25) mg/dL Glucose 200 H (74-99) mg/dL POC Glucose (mg/dL) 270 H (75-99) mg/dL Plasma Lactic Acid Gurvinder (0.7-2.0) mmol/L Calcium 5.9 L* (8.4-10.2) mg/dL Ferritin (22.0-322.0) ng/mL ALT (4-49) U/L Alkaline Phosphatase (38-126) U/L Lactate Dehydrogenase (313-618) U/L Total Protein (6.3-8.2) g/dL Albumin (3.5-5.0) g/dL Procalcitonin (0.02-0.09) ng/mL Crossmatch 11/04/20 11/04/20 11/04/20 Range/Units 03:00 03:00 03:00 WBC 37.6 H (3.8-10.6) k/uL RBC 2.55 L (4.30-5.90) m/uL Hgb 7.6 L (13.0-17.5) gm/dL Hct 24.0 L (39.0-53.0) % RDW 17.7 H (11.5-15.5) % Plt Count (150-450) k/uL Neutrophils # (Manual) 33.80 H (1.3-7.7) k/uL Lymphocytes # (Manual) (1.0-4.8) k/uL Monocytes # (Manual) 1.50 H (0-1.0) k/uL Metamyelocytes # (Man) 1.13 H (0) k/uL Myelocytes # (Manual) 0.38 H (0) k/uL Nucleated RBCs 6 H (0-0) /100 WBC D-Dimer (<0.60) mg/L FEU ABG pH (7.35-7.45) ABG pCO2 (35-45) mmHg ABG pO2 (83-108) mmHg ABG HCO3 (21-25) mmol/L ABG Total CO2 (19-24) mmol/L ABG O2 Saturation (94-97) % Sodium 131 L (137-145) mmol/L Potassium 5.8 H (3.5-5.1) mmol/L Chloride 110 H (98-107) mmol/L Carbon Dioxide 11 L (22-30) mmol/L BUN 57 H (9-20) mg/dL Creatinine 1.28 H (0.66-1.25) mg/dL Glucose 259 H (74-99) mg/dL POC Glucose (mg/dL) (75-99) mg/dL Plasma Lactic Acid Gurvinder 7.8 H* (0.7-2.0) mmol/L Calcium 6.0 L* (8.4-10.2) mg/dL Ferritin 541.6 H (22.0-322.0) ng/mL ALT 55 H (4-49) U/L Alkaline Phosphatase 34 L (38-126) U/L Lactate Dehydrogenase 1311 H (313-618) U/L Total Protein 3.2 L (6.3-8.2) g/dL Albumin 1.5 L (3.5-5.0) g/dL Procalcitonin (0.02-0.09) ng/mL Crossmatch 11/04/20 11/04/20 11/04/20 Range/Units 03:28 06:08 07:12 WBC (3.8-10.6) k/uL RBC (4.30-5.90) m/uL Hgb (13.0-17.5) gm/dL Hct (39.0-53.0) % RDW (11.5-15.5) % Plt Count (150-450) k/uL Neutrophils # (Manual) (1.3-7.7) k/uL Lymphocytes # (Manual) (1.0-4.8) k/uL Monocytes # (Manual) (0-1.0) k/uL Metamyelocytes # (Man) (0) k/uL Myelocytes # (Manual) (0) k/uL Nucleated RBCs (0-0) /100 WBC D-Dimer (<0.60) mg/L FEU ABG pH 7.06 L* 7.15 L* (7.35-7.45) ABG pCO2 (35-45) mmHg ABG pO2 317 H (83-108) mmHg ABG HCO3 12 L 16 L (21-25) mmol/L ABG Total CO2 13 L 17 L (19-24) mmol/L ABG O2 Saturation 99.5 H (94-97) % Sodium (137-145) mmol/L Potassium (3.5-5.1) mmol/L Chloride (98-107) mmol/L Carbon Dioxide (22-30) mmol/L BUN (9-20) mg/dL Creatinine (0.66-1.25) mg/dL Glucose (74-99) mg/dL POC Glucose (mg/dL) 285 H (75-99) mg/dL Plasma Lactic Acid Gurvinder (0.7-2.0) mmol/L Calcium (8.4-10.2) mg/dL Ferritin (22.0-322.0) ng/mL ALT (4-49) U/L Alkaline Phosphatase (38-126) U/L Lactate Dehydrogenase (313-618) U/L Total Protein (6.3-8.2) g/dL Albumin (3.5-5.0) g/dL Procalcitonin (0.02-0.09) ng/mL Crossmatch 11/04/20 11/04/20 11/04/20 Range/Units 07:47 08:45 09:30 WBC 32.5 H (3.8-10.6) k/uL RBC 2.51 L (4.30-5.90) m/uL Hgb 7.4 L (13.0-17.5) gm/dL Hct 22.5 L (39.0-53.0) % RDW 17.3 H (11.5-15.5) % Plt Count 109 L (150-450) k/uL Neutrophils # (Manual) (1.3-7.7) k/uL Lymphocytes # (Manual) (1.0-4.8) k/uL Monocytes # (Manual) (0-1.0) k/uL Metamyelocytes # (Man) (0) k/uL Myelocytes # (Manual) (0) k/uL Nucleated RBCs (0-0) /100 WBC D-Dimer (<0.60) mg/L FEU ABG pH 7.15 L* (7.35-7.45) ABG pCO2 51 H (35-45) mmHg ABG pO2 73 L (83-108) mmHg ABG HCO3 18 L (21-25) mmol/L ABG Total CO2 (19-24) mmol/L ABG O2 Saturation 91.6 L (94-97) % Sodium (137-145) mmol/L Potassium (3.5-5.1) mmol/L Chloride (98-107) mmol/L Carbon Dioxide (22-30) mmol/L BUN (9-20) mg/dL Creatinine (0.66-1.25) mg/dL Glucose (74-99) mg/dL POC Glucose (mg/dL) (75-99) mg/dL Plasma Lactic Acid Gurvinder 7.6 H* (0.7-2.0) mmol/L Calcium (8.4-10.2) mg/dL Ferritin (22.0-322.0) ng/mL ALT (4-49) U/L Alkaline Phosphatase (38-126) U/L Lactate Dehydrogenase (313-618) U/L Total Protein (6.3-8.2) g/dL Albumin (3.5-5.0) g/dL Procalcitonin (0.02-0.09) ng/mL Crossmatch Microbiology - Last 24 Hours (Table) 11/02/20 11:30 Gram Stain - Final Sputum Sputum Culture - Final 11/03/20 09:45 Urine Culture - Preliminary Urine,Clean Catch Assessment and Plan (1) GI bleed Narrative/Plan: 75-year-old male with multiple medical comorbidities currently hospitalized and being treated for complete 19 infection. The patient developed multiple episodes of blood per rectum and GI was consult for further evaluation. The patient been having no signs or symptoms of GI bleeding prior to developing symptoms of maroon-colored stool. He had approximately 4-5 episodes of large maroon-colored stool. Hemoglobin which was initially 14.6 on presentation found to be 6.4. The patient was transfused 3 units of packed red blood cells and hemoglobin is currently 12. No nausea, vomiting, hematemesis or coffee-ground emesis. Patient is currently intubated and sedated in the ICU. Unclear gary ology, plan is for EGD to rule out upper GI bleed including peptic ulcer disease, Dieulafoy lesion, AVM or other etiology, may also be related to lower GI source of bleeding secondary to ischemic colitis or other etiology. Patient underwent upper endoscopy which showed no active bleeding, old blood or pathology to explain symptoms. Mild gastritis. Suspicion is for a lower GI bleed with differential including ischemic colitis, diverticular bleed or other etiology. Recommendations are to continue current medical management, monitor stool output, if any further signs of GI bleed can consider colonoscopy or tagged RBC scan. Current Visit: Yes Status: Acute Code(s): K92.2 - GASTROINTESTINAL HEMORRHAGE, UNSPECIFIED SNOMED Code(s): 49567071 (2) Anemia associated with acute blood loss Current Visit: Yes Status: Acute Code(s): D62 - ACUTE POSTHEMORRHAGIC ANEMIA SNOMED Code(s): 885573978 (3) COVID-19 Current Visit: Yes Status: Acute Code(s): U07.1 - COVID-19 SNOMED Code(s): 053916813 Plan: 1. Supportive care 2. Continue medical management 3. Daily CBC 4. Continue to monitor stool output, any further signs of GI bleeding we will reevaluate at that time and can consider proceeding with a tagged RBC scan or colonoscopy 5. Patient has been made DO NOT RESUSCITATE, family is coming in to discuss further treatment plan with likely palliative care Dr. Schultz I agree with the dictator's note, documented as a scribe by Ally Rosen.
[2020-11-04 12:38] VITALS: BP 101/67; PULSE 96
--- NOTE | 2020-11-04 14:28 | P.PN ---
Subjective Progress Note Date: 11/04/20 Principal diagnosis: Acute hypoxic respiratory failure secondary to covid 19 pneumonia. 75-year-old male with a history of hyperlipidemia, essential hypertension, and rheumatoid arthritis, who presents to the emergency department with increasing shortness of breath. The patient apparently tested positive for COVID 19, 5 days ago. He began having symptoms, last weekend. He apparently went to an outside urgent care facility where he was tested. He apparently notified his [facility] physician about the positive tests who then placed him on Decadron and several vitamin supplements. He was taking everything he was given, without significant improvement in his symptoms, and for that reason, and because his pulse ox, was getting lower and lower into the mid 80s, he decided to come in to be evaluated in the emergency department on the advice of his primary care provider. The patient denies any chest pain or chest discomfort. He has not had any nausea, vomiting, diarrhea, or abdominal pain. He denies all genitourinary complaints. He also denies any chest pain or chest discomfort. He denies any fever or chills. His primary complaints were shortness of breath and nonproductive cough. He was also concerned because he is taking methotrexate for his rheumatoid arthritis and thought that he was probably one of those patients who might be considered to be immunocompromised. Currently, he is on 4 L nasal cannula with saturation between 90 and 91%. His temperature is 97.6. A CT angiogram was negative for pulmonary embolism, was positive for patchy I lateral groundglass opacities, consistent with a diagnosis of COVID 19 pneumonia. The patient is seen today 10/24/2020 and follow-up on the regular medical floor. He is currently sitting up in a chair at the bedside. Awake and alert in no acute distress. Doing quite a bit better today compared to yesterday. He is still dyspneic with minimal exertion. Maintaining O2 saturations in the 90s on 6 L high flow nasal cannula. White count 7.0. Hemoglobin 12.5. Lymphocytes 0.3. Sodium 141. Potassium 4.1. Creatinine 0.7. Lactic acid 1.7. Pro- calcitonin 0.07. He remains on dexamethasone, Lovenox, vitamin supplements. The patient is seen today 10/25/2020 and follow-up on the regular medical floor. Awake, alert in no acute distress. Up in a chair at the bedside. Remains on 6 L high flow nasal cannula with O2 saturations in the low 90s. Afebrile. Hemodynamically stable. White count 6.0. Hemoglobin 12.2. Sodium 143. Potassium 4.3. Creatinine 0.7. He remains on dexamethasone, Lovenox, vitamin supplements. On 10/26/2020, the patient has been placed on high flow oxygen at 60 L nasal cannula. She did desaturate. Her oxidation gradually get worse and currently a high flow oxygen. As far as her inflammatory markers, and LDH is at 541, her CRP level is at 4.9. D-dimer was at 2.76. The patient is still on Decadron 6 mg by mouth daily basis, she is receiving Lovenox 40 mg subcu daily basis. She is also on zinc and the rest of the vitamin supplements including vitamin C. CXR from yesterday showed no major interval change in terms of the bilateral pulmonary infiltration. The patient is 75-year-old male with known history of hypertension and hyperlipidemia and rheumatoid arthritis maintained on methotrexate. I examined the patient. He is short of breath with limited amount of activity. On and off he has cough. Sometimes he has to interrupt his speech to catch his breath. He is obviously had gotten worse since yesterday. On 10/27/2020 the patient is being seen in follow-up in the intensive care unit. I transfer this patient to the ICU yesterday. His oxidation was getting worse. The chest x-ray showed diffuse bilateral pulmonary infiltrates. The patient was placed on high flow oxygen 6 L and following that he got transferred to the ICU. His morning he started on high flow at 60 L. D-dimer is at 2.9. His CRP is at 130 and his LDH level is at 1240. Based on this elevated inflammatory markers and worsening oxygenation, I'm also going to increase his Decadron and put him on 20 mg for the next 5 days, IV and further taper the dose based on his overall clinical response. A repeat chest x-ray from today is stable compared to yesterday without any significant interval change. There may be some improvement in the infiltration of the right lung base. Meanwhile, the patient is still on aspirin and Plavix. He is also on Lovenox 40 mg subcu. On 10/28/2020 patient intensive care unit and the patient is being seen in follow-up. The patient remains on high flow oxygen at 60 L per minute. The patient is also utilizing 100% nonrebreather facemask on top of his high flow oxygen. In terms of his inflammatory markers, his d-dimer is up to 4.21, his LDH level is elevated and its higher compared to yesterday at 1498 and his CRP level is up to 60. The patient remains on high dose Decadron 20 mg IV every 24 hours and the patient was also given a dose of Actemra 80mg and this was. Later on during the afternoon. He is pro-calcitonin level remains low at 0.07. The had a follow-up chest x-ray today that shows no major interval change and it shows diffuse breath and pulmonary infiltration. His white cell count is at 9.5. He is afebrile. He is awake and alert and following commands and answering questions appropriately. He is on Lovenox and he is currently receiving a dose of 40 mg subcutaneous daily There is evaluation of 10/29/2020 patient's condition essentially the same as yesterday. He remains on high flow oxygen at 60 L with an FiO2 of 90%. He is also using 100% nonrebreather facemask on and off the supplement his o xygenation. In terms of his treatment, the patient is currently utilizing a combination of Decadron 20 mg IV, vitamin C, vitamin D, melatonin, zinc and folic acid. The patient's d-dimer is up to 8.9. His LDH level is slightly lower compared to yesterday at 1436. CRP is down to 32. He is afebrile. He is awake and alert and communicating. D-dimer is at 6.9 and the patient is also on Lovenox 40 mg subcutaneous twice a day. No other major changes compared to yesterday. The chest x-ray from today is showing diffuse bilateral pulmonary infiltrates probably slightly worse in the right lower lobe area. 10/30/2020, the patient is stable without any interval worsening. Clinically is feeling slightly better and less short of breath. He remains on high flow oxygen at 60 L with an FiO2 of 90% is on and off utilizing the 100% nonrebreather facemask. He mainly at nighttime when he breathes through his mouth. He remains on Decadron 20 mg IV every 24 hours. He remains also on a combination of vitamin C, vitamin D and melatonin and Pepcid. The patient was also treated with Actemra and he received 2 doses. He is afebrile. On IV fluids running at 100 mL an hour. No signs of any significant fluid overload. Does have some edema in lower extremities bilaterally. On his blood work, the patient's LDH level is at 1517 and his CRP is at 17 and both of the numbers are comparable although the LDH is slightly elevated and the CRP is slightly lower compared to yesterday. He d-dimer is at 6.13 and the patient remains on Lovenox 40 mg subcu every 12 hours. His chest x-ray findings are essentially stable and the patient is diffuse but the pulmonary infiltrates without any major im provement interval change compared to yesterday. 10/31/20202020, no complaints and the patient remains on the same oxygen setting which is 60 L high flow with an FiO2 of 90%. He remains on Decadron 20 mg IV and this is day #4. He is also on vitamin C and vitamin D and melatonin . He has also received Actemra and he received 2 doses, and we are waiting for the inflammatory markers from today. D-dimer is low is down to 4.0 and the patient is taking Lovenox 40 mg subcu every 12 hours. Tolerating diet. The reading the paper all the time. Chest x-ray is showing stable findings. Neurologically the same. No gastrointestinal symptoms. No fever. No other change in his condition since yesterday. He seems to be essentially stable without any interval worsening in his pulmonary status for now. On 11/01/2020, patient is on high flow oxygen 6 L with an FiO2 of 90%. He remains on Decadron 20 mg IV day #5. He is also on vitamin C and vitamin D and melatonin. His chest x-ray is unchanged. Inflammatory markers are pending for now. He did have a bout of bloody stool small amounts with a stable hemoglobin of 10.9. We held his aspirin and Plavix. He also held his Lovenox. I'm more inclined of restarting the Lovenox noted the patient has not had any further episodes of bleeding since yesterday. His symptoms of GI prophylaxis, the patient is currently receiving Pepcid 20 mg by mouth every 12 hours. His Decadron will be reduced down to 10 mg by mouth daily. Chest x-ray findings are essentially unchanged. He is pulling approximately 1500 on his incentive spirometer. He is weak. His legs are getting weaker according to him. While being moved on a recliner, the patient desaturates and recovers nicely after resting. No altered mentation. No nausea or vomiting or epigastric pain. He is known to have a vascular stent in the lower extremity and for that reason he was placed on Plavix. He also has carotid artery disease. Patient was reevaluated today on 11/02/2020, patient has been deteriorating overnight, his O2 saturation has been dropping down significantly. His respiratory rate has been in the high 30s chest x-ray is showing worsening infiltrates bilaterally. And in addition to all of this, patient developed an episode of maroon colored stool this morning, his hemoglobin went down to 6.4, patient became hypotensive, received fluids overnight, for low blood pressure, and he received 2 units of packed RBCs this morning for hemoglobin of 6.4. As soon as I evaluated the patient, I recommended immediate intubation, patient was in severe respiratory distress, and required immediate intubation. Placed on mechanical ventilation, his ventilator settings at present are assist control rate of 24 tidal volume is 450 FiO2 100% and PEEP of 8. ABG shortly after showed a pO2 of 133 pCO2 of 37 pH of 7.07 hence patient was given bicarb, and placed on a bicarb drip. Lovenox was placed on hold because of his bleeding, patient was placed on norepinephrine at 20 mcg/m, more blood was ordered to be given. And his FiO2 was titrated down to 80%. Patient was placed on norepinephrine propofol and fentanyl. His IV fluid is at 100 mL per hour. And Mrs. 0.9 normal saline. Patient has already received Decadron 20 mg IV push daily, he received vitamin D melatonin and vitamin C. Lovenox is presently on hold. Repeat hemoglobin at 12:15 showed a hemoglobin of 12. Reevaluated today on 11/03/2020, patient remains in the ICU, intubated and mechanically ventilated. His ventilator settings are assist control rate of 24, tidal volume is 450, FiO2 is 50%, PEEP is 8. ABG showed a pO2 of 88 pCO2 of 36 pH of 7.37, hence I recommended that we cut down his FiO2 to 45%, and keep the PEEP at 8 for now. Patient is still requiring norepinephrine at 0.13 mcg/kg/m, he is also on propofol at 65 and fentanyl at 0.5 mcg/kg per hour. I did recommend that we cut down fentanyl and at least assess mental status, and I'm hoping cutting down the sedation and narcotics will improve his blood pressure. Although the hypotension could be related to underlying sepsis and septic shock. I have ordered complete cultures including blood culture urine cultures and sp utum cultures, in the meantime I started the patient empirically on cefepime and vancomycin. I will also start the patient on tube feeding. His white count today is 29. Patient was seen by gastroenterology, and he underwent EGD showed mild gastritis, there was no active bleeding at the time of his EGD. He remains on Protonix. Patient also remains on treatment for covid 19 pneumonitis, and he is on covid 19 cocktails. Labs today showed stable hemoglobin of 12.4. WBC count is elevated at 29.1. Electrolytes and renal profile are normal. BUN is 49 and creatinine 1.01. Patient received significant amount of volume over the last 24 hours, and his chest x-ray today showed bilateral pneumonia, underlying pulmonary edema is not entirely ruled out, but felt to be less likely. Patient was reevaluated today on 11/04/2020, patient has been deteriorating over the last 24 hours, and his clinical status has become much worse. Overnight the patient required more sodium bicarb, required more pressors including maximal drip of norepinephrine and vasopressin. Patient is also requiring more blood for drop in his hemoglobin, and his lactic acidosis is becoming much worse. Clearly the patient is developing what seems to be ischemic colitis and ischemic bowel initiated consultation with general surgery, however considering the patient's condition, patient is not stable enough to be taken to the operating room, and not stable enough to have a CT of the abdomen and pelvis. Patient is empirically on antibiotics, his urine output is extremely poor, and he is hypotensive in spite of norepinephrine and vasopressin. Family came in today upon our request, and discussed the patient's condition with the family at bedside. Updated on his poor clinical picture, and given the option of cont inuing with maximal support as what we are doing, and also given the option of comfort care measures since the overall picture does not look very promising. Family chose to go ahead with comfort care measures, and will proceed as such. Will hold all his pressors, will also hold the sodium bicarb drip, and most likely the patient will pass peacefully, with comfort and dignity and with probably do not have to extubate the patient. Indeed patient was taken off norepinephrine, off vasopressors, his blood pressure continued to drop down, and couple of hours later, patient passed peacefully. Family was at bedside patient was on mechanical ventilation with the assist control rate of 24, tidal volume is 450, FiO2 60% PEEP of 8. Lactic acid this morning was 7.6. ABG showed a pO2 of 73 pCO2 of 51 pH of 7.15. WBC count is up to 32.5, hemoglobin 7.4 in spite of 4 units of packed RBCs given a total since he was admitted to ICU. Lactic acid is 7.6 today. Patient remains on multiple drips including norepinephrine, vasopressin, Nimbex, propofol, fentanyl, and IV fluid was placed to KVO. He is receiving bicarb intermittently and he received bicarbonate drip. Calcium was also noted to be low, and he received 2 A of calcium gluconate 2. Objective - Vital Signs Vital signs: Vital Signs Temp 98.6 F 11/04/20 08:15 Pulse 96 11/04/20 12:20 Resp 28 H 11/04/20 12:20 BP 101/67 11/04/20 12:20 Pulse Ox 93 L 11/04/20 12:20 Intake & Output 11/03/20 11/04/20 11/04/20 18:59 06:59 18:59 Intake Total 2459.710 4036.242 1658.368 Output Total 445 225 40 Balance 2014.710 3811.242 1618.368 Weight 107.7 kg 112.4 kg Intake: IV 600 1815 175 Calcium Gluconate 1 gm In 200 Sodium Chloride 0.9% 100 ml @ 100 mls/hr IVPB ONCE ONE Rx#:[id number] Cefepime 1 gm In Sodium 50 Chloride 0.9% 50 ml @ 100 mls/hr IVPB ONCE ONE Rx# :[id number] Dextrose 5% in Water 1, 675 75 000 ml @ 75 mls/hr IV . [id number] RAMIN with Sodium Bicarb (1 Meq/ml) 150 ml Rx#:[id number] Magnesium Sulfate-D5w Pmx 200 1 gm In Dextrose/Water 1 100ml.bag @ 100 mls/hr IVPB Q1H [facility]IN Rx#: [id number] Sodium Chloride 0.9% 1, 600 190 100 000 ml @ 10 mls/hr IV . Q24H [facility] Rx#:[id number] Vancomycin 1,750 mg In 500 Sodium Chloride 0.9% 500 ml 500 ml @ 167 mls/hr IVPB Q12H [facility] Rx#: [id number] Intake, IV Titration 3127.271 7509.242 1163.368 Amount Cefepime 1 gm In Sodium 50 Chloride 0.9% 50 ml @ 100 mls/hr IVPB ONCE ONE Rx# :[id number] Cisatracurium 200 mg In 94.345 Sodium Chloride 0.9% 180 ml @ 1 MCG/KG/MIN 6.462 mls/hr IV .Q24H [facility] Rx#: [id number] Norepinephrine 8 mg In 135.345 0216.346 786.127 Sodium Chloride 0.9% 250 ml @ 0.05 MCG/KG/MIN 10. 449 mls/hr IV .Q24H [facility] Rx#:[id number] Vancomycin 1,750 mg In 500 Sodium Chloride 0.9% 500 ml 500 ml @ 167 mls/hr IVPB Q12H [facility] Rx#: [id number] fentaNYL (PF) 1,000 mcg 49.95 69.48 91.62 In Sodium Chloride 0.9% 80 ml @ Per Protocol IV . Q0M [facility] Rx#:[id number] propofoL 1,000 mg In 563.435 539.416 191.276 Empty Bag 1 bag @ Titrate IV .Q0M [facility] Rx#: [id number] Tube Feeding 80 120 10 Blood Product 310 310 Rc Pheresis 2 As3 Unit 0 310 [id number] Other 120 90 Output: Urine 445 225 40 Other: Voiding Method Indwelling Catheter Indwelling Catheter Indwelling Catheter ABP, PAP, CO, CI - Last Documented Arterial Blood Pressure - Exam GENERAL EXAM: Revealed a 75-year-old white male sedated, intubated, in no distress. Looks comfortable. HEAD: Normocephalic. Atraumatic. EENT: PERRLA, EOMI, nonicteric, endotracheal tube and orogastric tubes are intact. Moist mucous membranes. CHEST: No chest wall deformity. LUNGS: Fine crackles persist bilaterally, no rhonchi and no wheezes. CVS: S1 and S2 normal with no audible murmur, regular rhythm. ABDOMEN: No hepatosplenomegaly, normal bowel sounds, no guarding or rigidity. SPINE: No scoliosis or deformity SKIN: No rashes CENTRAL NERVOUS SYSTEM: Could not be assessed, patient is presently on fentanyl and propofol. EXTREMITIES: There is 1+ bipedal edema. No clubbing, no cyanosis. Peripheral pulses are intact. - Labs CBC & Chem 7: 11/04/20 08:45 11/04/20 03:00 Labs: Abnormal Lab Results - Last 24 Hours (Table) 11/01/20 11/03/20 11/03/20 Range/Units 23:32 09:45 17:29 WBC (3.8-10.6) k/uL RBC (4.30-5.90) m/uL Hgb (13.0-17.5) gm/dL Hct (39.0-53.0) % RDW (11.5-15.5) % Plt Count (150-450) k/uL Neutrophils # (Manual) (1.3-7.7) k/uL Lymphocytes # (Manual) (1.0-4.8) k/uL Monocytes # (Manual) (0-1.0) k/uL Metamyelocytes # (Man) (0) k/uL Myelocytes # (Manual) (0) k/uL Nucleated RBCs (0-0) /100 WBC D-Dimer (<0.60) mg/L FEU ABG pH (7.35-7.45) ABG pCO2 (35-45) mmHg ABG pO2 (83-108) mmHg ABG HCO3 (21-25) mmol/L ABG Total CO2 (19-24) mmol/L ABG O2 Saturation (94-97) % Sodium (137-145) mmol/L Potassium (3.5-5.1) mmol/L Chloride (98-107) mmol/L Carbon Dioxide (22-30) mmol/L BUN (9-20) mg/dL Creatinine (0.66-1.25) mg/dL Glucose (74-99) mg/dL POC Glucose (mg/dL) 210 H (75-99) mg/dL Plasma Lactic Acid Gurvinder (0.7-2.0) mmol/L Calcium (8.4-10.2) mg/dL Ferritin (22.0-322.0) ng/mL ALT (4-49) U/L Alkaline Phosphatase (38-126) U/L Lactate Dehydrogenase (313-618) U/L Total Protein (6.3-8.2) g/dL Albumin (3.5-5.0) g/dL Procalcitonin 1.59 H (0.02-0.09) ng/mL Crossmatch See Detail 11/03/20 11/03/20 11/03/20 Range/Units 19:09 19:17 21:55 WBC 27.2 H (3.8-10.6) k/uL RBC 2.68 L (4.30-5.90) m/uL Hgb 8.6 L D (13.0-17.5) gm/dL Hct 24.0 L (39.0-53.0) % RDW 17.5 H (11.5-15.5) % Plt Count 141 L (150-450) k/uL Neutrophils # (Manual) 26.60 H (1.3-7.7) k/uL Lymphocytes # (Manual) 0.54 L (1.0-4.8) k/uL Monocytes # (Manual) (0-1.0) k/uL Metamyelocytes # (Man) (0) k/uL Myelocytes # (Manual) (0) k/uL Nucleated RBCs 4 H (0-0) /100 WBC D-Dimer (<0.60) mg/L FEU ABG pH (7.35-7.45) ABG pCO2 27 L (35-45) mmHg ABG pO2 (83-108) mmHg ABG HCO3 16 L (21-25) mmol/L ABG Total CO2 16 L (19-24) mmol/L ABG O2 Saturation 97.3 H (94-97) % Sodium 132 L (137-145) mmol/L Potassium 5.2 H (3.5-5.1) mmol/L Chloride 112 H (98-107) mmol/L Carbon Dioxide 15 L (22-30) mmol/L BUN 57 H (9-20) mg/dL Creatinine (0.66-1.25) mg/dL Glucose 200 H (74-99) mg/dL POC Glucose (mg/dL) (75-99) mg/dL Plasma Lactic Acid Gurvinder (0.7-2.0) mmol/L Calcium 5.9 L* (8.4-10.2) mg/dL Ferritin (22.0-322.0) ng/mL ALT (4-49) U/L Alkaline Phosphatase (38-126) U/L Lactate Dehydrogenase (313-618) U/L Total Protein (6.3-8.2) g/dL Albumin (3.5-5.0) g/dL Procalcitonin (0.02-0.09) ng/mL Crossmatch 11/03/20 11/04/20 11/04/20 Range/Units 23:32 03:00 03:00 WBC (3.8-10.6) k/uL RBC (4.30-5.90) m/uL Hgb (13.0-17.5) gm/dL Hct (39.0-53.0) % RDW (11.5-15.5) % Plt Count (150-450) k/uL Neutrophils # (Manual) (1.3-7.7) k/uL Lymphocytes # (Manual) (1.0-4.8) k/uL Monocytes # (Manual) (0-1.0) k/uL Metamyelocytes # (Man) (0) k/uL Myelocytes # (Manual) (0) k/uL Nucleated RBCs (0-0) /100 WBC D-Dimer 2.25 H (<0.60) mg/L FEU ABG pH (7.35-7.45) ABG pCO2 (35-45) mmHg ABG pO2 (83-108) mmHg ABG HCO3 (21-25) mmol/L ABG Total CO2 (19-24) mmol/L ABG O2 Saturation (94-97) % Sodium 131 L (137-145) mmol/L Potassium 5.8 H (3.5-5.1) mmol/L Chloride 110 H (98-107) mmol/L Carbon Dioxide 11 L (22-30) mmol/L BUN 57 H (9-20) mg/dL Creatinine 1.28 H (0.66-1.25) mg/dL Glucose 259 H (74-99) mg/dL POC Glucose (mg/dL) 270 H (75-99) mg/dL Plasma Lactic Acid Gurvinder (0.7-2.0) mmol/L Calcium 6.0 L* (8.4-10.2) mg/dL Ferritin 541.6 H (22.0-322.0) ng/mL ALT 55 H (4-49) U/L Alkaline Phosphatase 34 L (38-126) U/L Lactate Dehydrogenase 1311 H (313-618) U/L Total Protein 3.2 L (6.3-8.2) g/dL Albumin 1.5 L (3.5-5.0) g/dL Procalcitonin (0.02-0.09) ng/mL Crossmatch 11/04/20 11/04/20 11/04/20 Range/Units 03:00 03:00 03:28 WBC 37.6 H (3.8-10.6) k/uL RBC 2.55 L (4.30-5.90) m/uL Hgb 7.6 L (13.0-17.5) gm/dL Hct 24.0 L (39.0-53.0) % RDW 17.7 H (11.5-15.5) % Plt Count (150-450) k/uL Neutrophils # (Manual) 33.80 H (1.3-7.7) k/uL Lymphocytes # (Manual) (1.0-4.8) k/uL Monocytes # (Manual) 1.50 H (0-1.0) k/uL Metamyelocytes # (Man) 1.13 H (0) k/uL Myelocytes # (Manual) 0.38 H (0) k/uL Nucleated RBCs 6 H (0-0) /100 WBC D-Dimer (<0.60) mg/L FEU ABG pH 7.06 L* (7.35-7.45) ABG pCO2 (35-45) mmHg ABG pO2 (83-108) mmHg ABG HCO3 12 L (21-25) mmol/L ABG Total CO2 13 L (19-24) mmol/L ABG O2 Saturation (94-97) % Sodium (137-145) mmol/L Potassium (3.5-5.1) mmol/L Chloride (98-107) mmol/L Carbon Dioxide (22-30) mmol/L BUN (9-20) mg/dL Creatinine (0.66-1.25) mg/dL Glucose (74-99) mg/dL POC Glucose (mg/dL) (75-99) mg/dL Plasma Lactic Acid Gurvinder 7.8 H* (0.7-2.0) mmol/L Calcium (8.4-10.2) mg/dL Ferritin (22.0-322.0) ng/mL ALT (4-49) U/L Alkaline Phosphatase (38-126) U/L Lactate Dehydrogenase (313-618) U/L Total Protein (6.3-8.2) g/dL Albumin (3.5-5.0) g/dL Procalcitonin (0.02-0.09) ng/mL Crossmatch 11/04/20 11/04/20 11/04/20 Range/Units 06:08 07:12 07:47 WBC (3.8-10.6) k/uL RBC (4.30-5.90) m/uL Hgb (13.0-17.5) gm/dL Hct (39.0-53.0) % RDW (11.5-15.5) % Plt Count (150-450) k/uL Neutrophils # (Manual) (1.3-7.7) k/uL Lymphocytes # (Manual) (1.0-4.8) k/uL Monocytes # (Manual) (0-1.0) k/uL Metamyelocytes # (Man) (0) k/uL Myelocytes # (Manual) (0) k/uL Nucleated RBCs (0-0) /100 WBC D-Dimer (<0.60) mg/L FEU ABG pH 7.15 L* (7.35-7.45) ABG pCO2 (35-45) mmHg ABG pO2 317 H (83-108) mmHg ABG HCO3 16 L (21-25) mmol/L ABG Total CO2 17 L (19-24) mmol/L ABG O2 Saturation 99.5 H (94-97) % Sodium (137-145) mmol/L Potassium (3.5-5.1) mmol/L Chloride (98-107) mmol/L Carbon Dioxide (22-30) mmol/L BUN (9-20) mg/dL Creatinine (0.66-1.25) mg/dL Glucose (74-99) mg/dL POC Glucose (mg/dL) 285 H (75-99) mg/dL Plasma Lactic Acid Gurvinder 7.6 H* (0.7-2.0) mmol/L Calcium (8.4-10.2) mg/dL Ferritin (22.0-322.0) ng/mL ALT (4-49) U/L Alkaline Phosphatase (38-126) U/L Lactate Dehydrogenase (313-618) U/L Total Protein (6.3-8.2) g/dL Albumin (3.5-5.0) g/dL Procalcitonin (0.02-0.09) ng/mL Crossmatch 11/04/20 11/04/20 Range/Units 08:45 09:30 WBC 32.5 H (3.8-10.6) k/uL RBC 2.51 L (4.30-5.90) m/uL Hgb 7.4 L (13.0-17.5) gm/dL Hct 22.5 L (39.0-53.0) % RDW 17.3 H (11.5-15.5) % Plt Count 109 L (150-450) k/uL Neutrophils # (Manual) (1.3-7.7) k/uL Lymphocytes # (Manual) (1.0-4.8) k/uL Monocytes # (Manual) (0-1.0) k/uL Metamyelocytes # (Man) (0) k/uL Myelocytes # (Manual) (0) k/uL Nucleated RBCs (0-0) /100 WBC D-Dimer (<0.60) mg/L FEU ABG pH 7.15 L* (7.35-7.45) ABG pCO2 51 H (35-45) mmHg ABG pO2 73 L (83-108) mmHg ABG HCO3 18 L (21-25) mmol/L ABG Total CO2 (19-24) mmol/L ABG O2 Saturation 91.6 L (94-97) % Sodium (137-145) mmol/L Potassium (3.5-5.1) mmol/L Chloride (98-107) mmol/L Carbon Dioxide (22-30) mmol/L BUN (9-20) mg/dL Creatinine (0.66-1.25) mg/dL Glucose (74-99) mg/dL POC Glucose (mg/dL) (75-99) mg/dL Plasma Lactic Acid Gurvinder (0.7-2.0) mmol/L Calcium (8.4-10.2) mg/dL Ferritin (22.0-322.0) ng/mL ALT (4-49) U/L Alkaline Phosphatase (38-126) U/L Lactate Dehydrogenase (313-618) U/L Total Protein (6.3-8.2) g/dL Albumin (3.5-5.0) g/dL Procalcitonin (0.02-0.09) ng/mL Crossmatch Microbiology - Last 24 Hours (Table) 11/03/20 09:45 Urine Culture - Preliminary Urine,Clean Catch Gram Neg Bacilli 11/03/20 09:45 Blood Culture - Preliminary Blood No Growth after 24 hours 11/03/20 09:28 Blood Culture - Preliminary Blood No Growth after 24 hours 11/02/20 11:30 Gram Stain - Final Sputum Sputum Culture - Final Assessment and Plan Assessment: Impression: Abdominal sepsis and septic shock, most likely secondary to ischemic colitis/bowel ischemia. Acute hypoxic respiratory failure secondary to Covid 19 pneumonia, outside the window for remdesivir. Strongly suspected GI bleeding from acute ischemic colitis. Provoked by his Covid 19 infection. History of underlying coronary artery disease. Dyslipidemia. Hypovolemic shock, and septic shock. Peripheral vessel occlusive disease and previous stent placement. Maintained on Plavix. GERD without esophagitis. Carotid artery disease. Recommendation: Considering the overall picture family was approached, discussed different options and updated the family on his clinical status, family seems to be agreeable to proceed with comfort care measures. We'll proceed with comfort care measures. And this will be done by stopping his pressors initially, and we'll continue propofol and continue fentanyl. Discontinue Nimbex. Critical care time is 35 minutes Time with Patient: Greater than 30
--- NOTE | 2020-11-04 15:34 | P.GSCN ---
History of Present Illness Consult date: 11/04/20 History of present illness: CHIEF COMPLAINT: Shortness of breath HISTORY OF PRESENT ILLNESS: 75-year-old male with a history of hyperlipidemia, essential hypertension, and rheumatoid arthritis, who presents to the emergency department with increasing shortness of breath. Patient had tested positive for Covid 19 prior to admission. Patient was admitted to the hospital on 10/22/2020. His condition continued to decline he required a transfer to the ICU due to worsening oxygen saturation. And eventually he did require to be intubated on 11/02/2020. Patient's condition continued to deteriorate he is hypotensive requiring both vasopressin and norepinephrine. He has required a total of 5 units of blood. And at one point he did have rectal bleeding. He did have an EGD which showed no active bleeding but gastritis. White count elevated at 37.6 and he had elevated lactic acid level of 7.6 today. Surgical consult was placed in regards to concerns for ischemic bowel. Patient's overall condition is very poor. Family is at bedside and they have made him a DO NOT RESUSCITATE. And has placed him on palliative care. PAST MEDICAL HISTORY: See list. PAST SURGICAL HISTORY: See list. MEDICATIONS: See list. ALLERGIES: See list. SOCIAL HISTORY: No illicit drug use. REVIEW OF SYSTEMS: CONSTITUTIONAL: Denies fever or chills. HEENT: Denies blurred vision, vision changes, or eye pain. Denies hemoptysis CARDIOVASCULAR: Denies chest pain or pressure. RESPIRATORY: No shortness of breath. GASTROINTESTINAL: See HPI for pertinent findings HEMATOLOGIC: Denies bleeding disorders. GENITOURINARY: Denies any blood in urine or increased urinary frequency. SKIN: Denies pruitis. Denies rash. PHYSICAL EXAM: VITAL SIGNS: Reviewed GENERAL: Well-developed in no acute distress. HEENT: No sclera icterus. Extraocular movements grossly intact. Moist buccal mucosa. Head is atraumatic, normocephalic. No nasal drainage. ABDOMEN: Soft. Nondistended. NEUROLOGIC: Intubated and sedated LABORATORY DATA: WBC 32.5 hemoglobin 7.4 platelets 109 Sodium 131 potassium is 5.8 crit and 1.28 lactic acid of 7.6 IMAGING: ASSESSMENT: 1. Abdominal sepsis and septic shock likely due to ischemic bowel 2. Acute hypoxic respiratory failure secondary to Covid 19 pneumonia PLAN: -Patient's overall condition is poor and guarded -Agree with comfort care measures Physician Preparing Box Tender note has been reviewed by physician. Signing provider agrees with the documented findings, assessment, and plan of care. Past Medical History Past Medical History: Chest Pain / Angina, Eye Disorder, GERD/Reflux, Hearing Disorder / Deafness, Hyperlipidemia, Hypertension, Rheumatoid Arthritis (RA), Vascular Disorder Additional Past Medical History / Comment(s): Right cataract, bilateral Glaucoma, RINGING IN RT EAR. Poor circulatrion in legs.neuropathy both legs with N/T toes History of Any Multi-Drug Resistant Organisms: None Reported Past Surgical History: Heart Catheterization Additional Past Surgical History / Comment(s): COLONOSCOPY. Left catartact surgery with lens placement. rt iliac stent, lt iliac and lt leg stent 09/26 Past Anesthesia/Blood Transfusion Reactions: No Reported Reaction Past Psychological History: No Psychological Hx Reported Smoking Status: Former smoker Past Alcohol Use History: Occasional Past Drug Use History: None Reported - Past Family History Mother Family Medical History: CVA/TIA Father Family Medical History: Coronary Artery Disease (CAD) Brother(s) Family Medical History: Cancer Additional Family Medical History / Comment(s): Prostate cancer. Medications and Allergies Home Medications Medication Instructions Recorded Confirmed Type Aspirin 81 mg PO DAILY 10/27/16 10/22/20 History Cholecalciferol [Vitamin D3 (25 5,000 unit PO MOWEFR 10/27/16 10/22/20 History Mcg = 1000 Iu)] Folic Acid 1 mg PO HS 10/27/16 10/22/20 History Latanoprost Ophth [Xalatan 0.005%] 1 drops RIGHT EYE HS 10/27/16 10/22/20 History Valsartan/Hydrochlorothiazide 1 tab PO DAILY 10/27/16 10/22/20 History [Valsartan-Hctz 320-12.5 mg Tab] metHOTREXate sodium [Methotrexate] 17.5 tab PO TU 10/27/16 10/22/20 History amLODIPine [Norvasc] 5 mg PO HS 07/19/19 10/22/20 History Clopidogrel [Plavix] 75 mg PO DAILY #90 tab 09/12/19 10/22/20 Rx Albuterol Inhaler [Ventolin Hfa 2 puff INHALATION RT-Q4H PRN 10/22/20 10/22/20 History Inhaler] Ascorbic Acid [Vitamin C] 1,000 mg PO DAILY 10/22/20 10/22/20 History Atorvastatin Calcium [Lipitor] 20 mg PO HS 10/22/20 10/22/20 History Benzonatate [Tessalon Perles] 100 mg PO TID PRN 10/22/20 10/22/20 History Cefdinir 300 mg PO DIRECTED 10/22/20 10/22/20 History Codeine Phosphate/Guaifenesin 5 ml PO Q6H PRN 10/22/20 10/22/20 History [Guaiatussin AC Liquid] Cyanocobalamin (Vitamin B-12) 1,000 mcg PO DAILY 10/22/20 10/22/20 History [Vitamin B-12] Dexamethasone [Decadron] 4 mg PO BID 10/22/20 10/22/20 History Zinc 50 mg PO BID 10/22/20 10/22/20 History Allergies Allergy/AdvReac Type Severity Reaction Status Date / Time No Known Allergies Allergy Verified 10/22/20 16:22 Surgical - Exam Vital Signs Temp Pulse Resp BP Pulse Ox 97.5 F L 88 18 114/86 95 10/22/20 14:23 10/22/20 14:23 10/22/20 14:23 10/22/20 14:23 10/22/20 14:23 Results - Labs 11/04/20 08:45 11/04/20 03:00 Abnormal Lab Results - Last 24 Hours (Table) 11/01/20 11/03/20 11/03/20 Range/Units 23:32 09:45 17:29 WBC (3.8-10.6) k/uL RBC (4.30-5.90) m/uL Hgb (13.0-17.5) gm/dL Hct (39.0-53.0) % RDW (11.5-15.5) % Plt Count (150-450) k/uL Neutrophils # (Manual) (1.3-7.7) k/uL Lymphocytes # (Manual) (1.0-4.8) k/uL Monocytes # (Manual) (0-1.0) k/uL Metamyelocytes # (Man) (0) k/uL Myelocytes # (Manual) (0) k/uL Nucleated RBCs (0-0) /100 WBC D-Dimer (<0.60) mg/L FEU ABG pH (7.35-7.45) ABG pCO2 (35-45) mmHg ABG pO2 (83-108) mmHg ABG HCO3 (21-25) mmol/L ABG Total CO2 (19-24) mmol/L ABG O2 Saturation (94-97) % Sodium (137-145) mmol/L Potassium (3.5-5.1) mmol/L Chloride (98-107) mmol/L Carbon Dioxide (22-30) mmol/L BUN (9-20) mg/dL Creatinine (0.66-1.25) mg/dL Glucose (74-99) mg/dL POC Glucose (mg/dL) 210 H (75-99) mg/dL Plasma Lactic Acid Gurvinder (0.7-2.0) mmol/L Calcium (8.4-10.2) mg/dL Ferritin (22.0-322.0) ng/mL ALT (4-49) U/L Alkaline Phosphatase (38-126) U/L Lactate Dehydrogenase (313-618) U/L Total Protein (6.3-8.2) g/dL Albumin (3.5-5.0) g/dL Procalcitonin 1.59 H (0.02-0.09) ng/mL Crossmatch See Detail 11/03/20 11/03/20 11/03/20 Range/Units 19:09 19:17 21:55 WBC 27.2 H (3.8-10.6) k/uL RBC 2.68 L (4.30-5.90) m/uL Hgb 8.6 L D (13.0-17.5) gm/dL Hct 24.0 L (39.0-53.0) % RDW 17.5 H (11.5-15.5) % Plt Count 141 L (150-450) k/uL Neutrophils # (Manual) 26.60 H (1.3-7.7) k/uL Lymphocytes # (Manual) 0.54 L (1.0-4.8) k/uL Monocytes # (Manual) (0-1.0) k/uL Metamyelocytes # (Man) (0) k/uL Myelocytes # (Manual) (0) k/uL Nucleated RBCs 4 H (0-0) /100 WBC D-Dimer (<0.60) mg/L FEU ABG pH (7.35-7.45) ABG pCO2 27 L (35-45) mmHg ABG pO2 (83-108) mmHg ABG HCO3 16 L (21-25) mmol/L ABG Total CO2 16 L (19-24) mmol/L ABG O2 Saturation 97.3 H (94-97) % Sodium 132 L (137-145) mmol/L Potassium 5.2 H (3.5-5.1) mmol/L Chloride 112 H (98-107) mmol/L Carbon Dioxide 15 L (22-30) mmol/L BUN 57 H (9-20) mg/dL Creatinine (0.66-1.25) mg/dL Glucose 200 H (74-99) mg/dL POC Glucose (mg/dL) (75-99) mg/dL Plasma Lactic Acid Gurvinder (0.7-2.0) mmol/L Calcium 5.9 L* (8.4-10.2) mg/dL Ferritin (22.0-322.0) ng/mL ALT (4-49) U/L Alkaline Phosphatase (38-126) U/L Lactate Dehydrogenase (313-618) U/L Total Protein (6.3-8.2) g/dL Albumin (3.5-5.0) g/dL Procalcitonin (0.02-0.09) ng/mL Crossmatch 11/03/20 11/04/20 11/04/20 Range/Units 23:32 03:00 03:00 WBC (3.8-10.6) k/uL RBC (4.30-5.90) m/uL Hgb (13.0-17.5) gm/dL Hct (39.0-53.0) % RDW (11.5-15.5) % Plt Count (150-450) k/uL Neutrophils # (Manual) (1.3-7.7) k/uL Lymphocytes # (Manual) (1.0-4.8) k/uL Monocytes # (Manual) (0-1.0) k/uL Metamyelocytes # (Man) (0) k/uL Myelocytes # (Manual) (0) k/uL Nucleated RBCs (0-0) /100 WBC D-Dimer 2.25 H (<0.60) mg/L FEU ABG pH (7.35-7.45) ABG pCO2 (35-45) mmHg ABG pO2 (83-108) mmHg ABG HCO3 (21-25) mmol/L ABG Total CO2 (19-24) mmol/L ABG O2 Saturation (94-97) % Sodium 131 L (137-145) mmol/L Potassium 5.8 H (3.5-5.1) mmol/L Chloride 110 H (98-107) mmol/L Carbon Dioxide 11 L (22-30) mmol/L BUN 57 H (9-20) mg/dL Creatinine 1.28 H (0.66-1.25) mg/dL Glucose 259 H (74-99) mg/dL POC Glucose (mg/dL) 270 H (75-99) mg/dL Plasma Lactic Acid Gurvinder (0.7-2.0) mmol/L Calcium 6.0 L* (8.4-10.2) mg/dL Ferritin 541.6 H (22.0-322.0) ng/mL ALT 55 H (4-49) U/L Alkaline Phosphatase 34 L (38-126) U/L Lactate Dehydrogenase 1311 H (313-618) U/L Total Protein 3.2 L (6.3-8.2) g/dL Albumin 1.5 L (3.5-5.0) g/dL Procalcitonin (0.02-0.09) ng/mL Crossmatch 11/04/20 11/04/20 11/04/20 Range/Units 03:00 03:00 03:28 WBC 37.6 H (3.8-10.6) k/uL RBC 2.55 L (4.30-5.90) m/uL Hgb 7.6 L (13.0-17.5) gm/dL Hct 24.0 L (39.0-53.0) % RDW 17.7 H (11.5-15.5) % Plt Count (150-450) k/uL Neutrophils # (Manual) 33.80 H (1.3-7.7) k/uL Lymphocytes # (Manual) (1.0-4.8) k/uL Monocytes # (Manual) 1.50 H (0-1.0) k/uL Metamyelocytes # (Man) 1.13 H (0) k/uL Myelocytes # (Manual) 0.38 H (0) k/uL Nucleated RBCs 6 H (0-0) /100 WBC D-Dimer (<0.60) mg/L FEU ABG pH 7.06 L* (7.35-7.45) ABG pCO2 (35-45) mmHg ABG pO2 (83-108) mmHg ABG HCO3 12 L (21-25) mmol/L ABG Total CO2 13 L (19-24) mmol/L ABG O2 Saturation (94-97) % Sodium (137-145) mmol/L Potassium (3.5-5.1) mmol/L Chloride (98-107) mmol/L Carbon Dioxide (22-30) mmol/L BUN (9-20) mg/dL Creatinine (0.66-1.25) mg/dL Glucose (74-99) mg/dL POC Glucose (mg/dL) (75-99) mg/dL Plasma Lactic Acid Gurvinder 7.8 H* (0.7-2.0) mmol/L Calcium (8.4-10.2) mg/dL Ferritin (22.0-322.0) ng/mL ALT (4-49) U/L Alkaline Phosphatase (38-126) U/L Lactate Dehydrogenase (313-618) U/L Total Protein (6.3-8.2) g/dL Albumin (3.5-5.0) g/dL Procalcitonin (0.02-0.09) ng/mL Crossmatch 11/04/20 11/04/20 11/04/20 Range/Units 06:08 07:12 07:47 WBC (3.8-10.6) k/uL RBC (4.30-5.90) m/uL Hgb (13.0-17.5) gm/dL Hct (39.0-53.0) % RDW (11.5-15.5) % Plt Count (150-450) k/uL Neutrophils # (Manual) (1.3-7.7) k/uL Lymphocytes # (Manual) (1.0-4.8) k/uL Monocytes # (Manual) (0-1.0) k/uL Metamyelocytes # (Man) (0) k/uL Myelocytes # (Manual) (0) k/uL Nucleated RBCs (0-0) /100 WBC D-Dimer (<0.60) mg/L FEU ABG pH 7.15 L* (7.35-7.45) ABG pCO2 (35-45) mmHg ABG pO2 317 H (83-108) mmHg ABG HCO3 16 L (21-25) mmol/L ABG Total CO2 17 L (19-24) mmol/L ABG O2 Saturation 99.5 H (94-97) % Sodium (137-145) mmol/L Potassium (3.5-5.1) mmol/L Chloride (98-107) mmol/L Carbon Dioxide (22-30) mmol/L BUN (9-20) mg/dL Creatinine (0.66-1.25) mg/dL Glucose (74-99) mg/dL POC Glucose (mg/dL) 285 H (75-99) mg/dL Plasma Lactic Acid Gurvinder 7.6 H* (0.7-2.0) mmol/L Calcium (8.4-10.2) mg/dL Ferritin (22.0-322.0) ng/mL ALT (4-49) U/L Alkaline Phosphatase (38-126) U/L Lactate Dehydrogenase (313-618) U/L Total Protein (6.3-8.2) g/dL Albumin (3.5-5.0) g/dL Procalcitonin (0.02-0.09) ng/mL Crossmatch 11/04/20 11/04/20 Range/Units 08:45 09:30 WBC 32.5 H (3.8-10.6) k/uL RBC 2.51 L (4.30-5.90) m/uL Hgb 7.4 L (13.0-17.5) gm/dL Hct 22.5 L (39.0-53.0) % RDW 17.3 H (11.5-15.5) % Plt Count 109 L (150-450) k/uL Neutrophils # (Manual) (1.3-7.7) k/uL Lymphocytes # (Manual) (1.0-4.8) k/uL Monocytes # (Manual) (0-1.0) k/uL Metamyelocytes # (Man) (0) k/uL Myelocytes # (Manual) (0) k/uL Nucleated RBCs (0-0) /100 WBC D-Dimer (<0.60) mg/L FEU ABG pH 7.15 L* (7.35-7.45) ABG pCO2 51 H (35-45) mmHg ABG pO2 73 L (83-108) mmHg ABG HCO3 18 L (21-25) mmol/L ABG Total CO2 (19-24) mmol/L ABG O2 Saturation 91.6 L (94-97) % Sodium (137-145) mmol/L Potassium (3.5-5.1) mmol/L Chloride (98-107) mmol/L Carbon Dioxide (22-30) mmol/L BUN (9-20) mg/dL Creatinine (0.66-1.25) mg/dL Glucose (74-99) mg/dL POC Glucose (mg/dL) (75-99) mg/dL Plasma Lactic Acid Gurvinder (0.7-2.0) mmol/L Calcium (8.4-10.2) mg/dL Ferritin (22.0-322.0) ng/mL ALT (4-49) U/L Alkaline Phosphatase (38-126) U/L Lactate Dehydrogenase (313-618) U/L Total Protein (6.3-8.2) g/dL Albumin (3.5-5.0) g/dL Procalcitonin (0.02-0.09) ng/mL Crossmatch Microbiology - Last 24 Hours (Table) 11/03/20 09:45 Urine Culture - Preliminary Urine,Clean Catch Gram Neg Bacilli 11/03/20 09:45 Blood Culture - Preliminary Blood No Growth after 24 hours 11/03/20 09:28 Blood Culture - Preliminary Blood No Growth after 24 hours 11/02/20 11:30 Gram Stain - Final Sputum Sputum Culture - Final Diabetes panel 11/03/20 11/04/20 Range/Units 21:55 03:00 Sodium 132 L 131 L (137-145) mmol/L Potassium 5.2 H 5.8 H (3.5-5.1) mmol/L Chloride 112 H 110 H (98-107) mmol/L Carbon Dioxide 15 L 11 L (22-30) mmol/L BUN 57 H 57 H (9-20) mg/dL Creatinine 0.97 1.28 H (0.66-1.25) mg/dL Glucose 200 H 259 H (74-99) mg/dL Calcium 5.9 L* 6.0 L* (8.4-10.2) mg/dL AST 41 (17-59) U/L ALT 55 H (4-49) U/L Alkaline Phosphatase 34 L (38-126) U/L Total Protein 3.2 L (6.3-8.2) g/dL Albumin 1.5 L (3.5-5.0) g/dL Calcium panel 11/03/20 11/04/20 Range/Units 21:55 03:00 Calcium 5.9 L* 6.0 L* (8.4-10.2) mg/dL Albumin 1.5 L (3.5-5.0) g/dL Pituitary panel 11/03/20 11/04/20 Range/Units 21:55 03:00 Sodium 132 L 131 L (137-145) mmol/L Potassium 5.2 H 5.8 H (3.5-5.1) mmol/L Chloride 112 H 110 H (98-107) mmol/L Carbon Dioxide 15 L 11 L (22-30) mmol/L BUN 57 H 57 H (9-20) mg/dL Creatinine 0.97 1.28 H (0.66-1.25) mg/dL Glucose 200 H 259 H (74-99) mg/dL Calcium 5.9 L* 6.0 L* (8.4-10.2) mg/dL Adrenal panel 11/03/20 11/04/20 Range/Units 21:55 03:00 Sodium 132 L 131 L (137-145) mmol/L Potassium 5.2 H 5.8 H (3.5-5.1) mmol/L Chloride 112 H 110 H (98-107) mmol/L Carbon Dioxide 15 L 11 L (22-30) mmol/L BUN 57 H 57 H (9-20) mg/dL Creatinine 0.97 1.28 H (0.66-1.25) mg/dL Glucose 200 H 259 H (74-99) mg/dL Calcium 5.9 L* 6.0 L* (8.4-10.2) mg/dL Total Bilirubin 0.5 (0.2-1.3) mg/dL AST 41 (17-59) U/L ALT 55 H (4-49) U/L Alkaline Phosphatase 34 L (38-126) U/L Total Protein 3.2 L (6.3-8.2) g/dL Albumin 1.5 L (3.5-5.0) g/dL
[2020-11-05] MEDS ORDERED: CEFEPIME 1 GM in SODIUM CHLORIDE 0.9% 50 ML IVPB SCH (09:00)
--- NOTE | 2020-11-09 11:50 | CDI ---
Documentation Clarification Form Date: 11/09/2020 11:30:15 AM From: Wilma CroftDacostaAKBAR hearn, CCDS Admit Date: 10/22/2020 05:41:00 PM Patient Name: Florin Newsome Visit Number: [id number] Discharge Date: 11/04/2020 12:40:00 PM ATTENTION: The Clinical Documentation Specialists (CDI) and [facility] Coding Staff appreciate your assistance in clarifying documentation. Please respond to the clarification below the line at the bottom and electronically sign. The CDI & [facility] Coding staff will review the response and follow-up if needed. Please note: Queries are made part of the Legal Health Record. If you have any questions, please contact the author of this message via ITS. Dr. Fiorella Erwin: Sepsis is documented in the record beginning on 10/31 in the Pulmonary Progress Note. Beginning with the 11/02 Pulmonary Progress Note, Sepsis and Septic Shock is documented. History/Risk Factors: Rheumatoid Arthritis, Angina, GERD, Hyperlipidemia, Hypertension, Vascular Disorder with poor circulation in his legs with previous stents. Former smoker. Clinical Indicators: The patient presented to the ED on 10/22 with increasing shortness of breath. Patient states that he tested positive for COVID on Monday (10/19). Began having symptoms on Monday. He went to [facility] where he had is positive test performed. He called Dr. Erwin on Monday who did tell him that he was having shortness of breath, he was put on Decadron and several supplements. Patient states he's been taking them as directed as well as his inhaler without improvement, Pulse ox low 80's at home. The patient's respiratory status worsened and was intubated on 11/02, subsequently on 11/04. 10/22 VS: T 97.5*, P 88, R 18 - 20, BP 114/86, PO 95 RA - 92 2Lnc 10/22 LAB: WBC 12.3^, Neut 11.6^, D Dimer 1.96^, Lactic Acid 3.2^^, 2.4^^, 2.3^^; Ferritin 1099.1^, ALT 53^, LDH 1145^, CRP 54.3^, Total protein 6.2*, Albumin 3.2*, Procalcitonin 0.14^. 10/22 COVID POSITIVE 10/22 Influenza A/B: Negative Treatment 10/22: O2 2-3Lnc, INH Ventolin, po Robitussin, IV Decadron, po Orazinc, IV fluid 1,000 mls @ 10 mls/hr, it C, Vit D3. 10/23: 3-4Lnc 10/24: 6Lnc 10/26 6Lnc - 8Lnc - 15L high flow, IV Decadron 10/27: IV Actemra, IV Decadron 11/02: Intubated on vent, IV NaBicarb, IV Dextrose, IV Levophed, IV Fentanyl, IV Solucortef, IV Cefepime, IV fluid bolus 1,000 mls @ 999 mls/hr. Please clarify if the documented Sepsis was present on admission or developed during the patient's hospital stay: ____Y = Yes, the condition was present at the time of the order for inpatient admission. ____N = No, the condition was not present at the time of the order for inpatient admission. ____W = Clinically undetermined if the condition was present at the time of the order for inpatient admission. (Last Revision: Sep 2018) yes present on admit MTDD
[2020-11-09 13:29] LABS: ABG PH 7.06 (7.35-7.45)
--- NOTE | 2020-11-11 15:02 | P.DS ---
Providers Date of admission: 10/22/20 17:41 Expected date of discharge: 11/04/20 Attending physician: Fiorella Erwin Consults: 10/22/20 17:42 Consult Physician Urgent Consulting Provider: Obi Russell Consult Reason/Comments: acute hypoxic resp failure, acute covid pna Do you want consulting provider notified?: Yes 11/02/20 07:39 Consult Physician Urgent Consulting Provider: Sarah Martinez Consult Reason/Comments: active gi bleed Do you want consulting provider notified?: Yes 11/04/20 04:08 Consult Physician Urgent Consulting Provider: Param Farrell Consult Reason/Comments: Rule out ischemic bowel Do you want consulting provider notified?: Yes, Notify in am 11/04/20 04:09 Consult Physician Urgent Consulting Provider: Chrissie Samaniego Consult Reason/Comments: Acute kindey injury Do you want consulting provider notified?: Yes, Notify in am Primary care physician: Fiorella Erwin [facility] Course: Discharge diagnosis Patient on 11/04/2020 1. Covid 19 pneumonia 2. Acute hypoxic respiratory failure, at this time requiring intubation and mechanical ventilation 3. Underlying history of asthma 4. Underlying history of coronary artery disease 5. Underlying history of hypertension 6. Underlying history of hyperlipidemia 7. Underlying history of abdominal aortic aneurysm 8. Rectal bleeding aspirin, Plavix and Lovenox are discontinued at this time, patient received 1 unit of red blood cell transfusion today Hospital course Florin Newsome, is a 75-year-old male who started having symptoms of cough and shortness of breath about 1 week ago [facility] and [facility] positive for Covid 19 he called our office on Monday and was given a prescription for Decadron 4 mg by mouth twice daily also he was told to take vitamin C vitamin D and zinc supplements, patient took these medications however he continued to have worsening shortness of breath his pulse ox at home was down in the 80s and on he decided to come to emergency room for further evaluation. Patient was evaluated in emergency room his vital examination on presentation reveals a temperature of 97.5 pulse 88 respiration 18 blood pressure 114/86 pulse ox was 92% on 2 L nasal cannula his white blood count was 12.3 hemoglobin 14.6 platelet count 243 d-dimer 1.96 sodium 136 BUN 46 creatinine 0.9 to lactic acid 2.3 ferritin level 1099 C-reactive protein 54.3 Covid 19 PCR testing was positive, CT angiogram of the chest revealed bilateral patchy groundglass opacities consistent was history of Covid pneumonia, no evidence of pulmonary em bolism, patient was admitted to medical floor he was started on IV Decadron, subcu Lovenox, and pulmonary consultation was requested. Patient has a known history of asthma, history of hypertension, history of hyperlipidemia, history of coronary artery disease, and history of abdominal aortic aneurysm. On review of systems patient is alert and oriented 3 in no apparent distress he is complaining of shortness of breath and cough otherwise he denies any complaints there is no fever or chills no headache or dizziness no chest pain no palpitation no nausea or vomiting no abdominal pain no diarrhea no blood in the stools no burning with urination no frequency or urgency no hematuria no weakness or numbness in any of the extremities no change in vision speech or gait. On 10/24/2020 patient was seen and examined on the medical floor he is alert and oriented 3 in no apparent distress he is complaining of cough with whitish sputum production he is complaining of shortness of breath with any activity otherwise he denies any complaints there is no fever or chills no headache or dizziness no chest pain no palpitation no nausea or vomiting no abdominal pain no diarrhea no blood in the stools no burning with urination no frequency or urgency and no hematuria. Lactic acid was significantly elevated yesterday and through last night patient received multiple IV fluid boluses and lactic acid is down to 1.7 at this time. On 10/25/2020 patient was seen and examined the medical floor he is alert and oriented 3 in no apparent distress he is complaining of shortness of breath with any activity he is currently maintained on oxygen 6 L via nasal cannula his pulse ox is 91% he is also complaining of some cough with white sputum production and complaining of fatigue and generalized weakness otherwise he denies any complaints there is no fever or chills no headache or dizziness no chest pain no palpitation no nausea or vomiting no abdominal pain no diarrhea no blood in the stools no burning with urination no frequency or urgency and no hematuria there is no weakness or numbness in any of the extremities there is no change in vision speech or gait On 10/26/2020 patient was seen and examined on the medical floor he is alert and oriented 3 he is having worsening shortness of breath, his oxygen requirements are increasing, currently he is maintained on high flow cannula FiO2 80% airvo, he is having occasional cough otherwise he denies any complaints his pulse ox is 94% there is no fever or chills no headache or dizziness no chest pain no palpitation no nausea or vomiting no abdominal pain no diarrhea and no urinary symptoms. Case was discussed with Dr. Maurice today patient had worsening of his symptoms and increase in his oxygen requirement at this time will give Decadron 20 mg IV and transferred patient to intensive care unit On 10/27/2020 patient was seen and examined in the ICU he is alert and oriented 3 in no apparent distress she is maintained on high flow oxygen 60 L/m his inflammatory markers are increasing his dose of Decadron was increased to 20 mg IV daily otherwise there is no complaints there is no fever or chills no headache or dizziness no chest pain no palpitation no nausea or vomiting no abdominal pain no diarrhea no blood in the stools no burning with urination no frequency or urgency and no hematuria On 10/28/2020 patient was seen and examined in the ICU he is alert and oriented 3 in no apparent distress he is still maintained on high flow oxygen at 60 L/m at this time he is able to eat and answer questions appropriately, his inflamma tory markers are stabilizing he is complaining of shortness of breath otherwise he denies any complaints there is no fever or chills no headache or dizziness no chest pain no cough no nausea or vomiting no abdominal pain no diarrhea no blood in the stools no burning with urination no frequency or urgency and no hematuria. On 10/29/2020 patient was seen and examined in the ICU he is alert and oriented 3 in no distress he is requiring high flow oxygen of 60 L/m his inflammatory markings are stabilizing patient is complaining of shortness of breath and occasional cough otherwise he denies any complaints there is no fever or chills no headache or dizziness no chest pain no palpitation no nausea or vomiting no abdominal pain no diarrhea no blood in the stools Moore catheter is in, no urinary symptoms. On 10/30/2020 patient was seen and examined in the ICU he is alert and oriented 3 in no distress he is still on high flow oxygen however he feels more comfortable he is complaining of occasional cough he is complaining of shortness of breath with any activity such as eating or speaking or trying to move in bed, otherwise there is no complaints there is no fever or chills no headache or dizziness no chest pain no palpitation no nausea or vomiting no abdominal pain no diarrhea no blood in the stools and no urinary symptoms On 10/31/2020 patient was seen and examined on the medical floor he is alert and oriented 3 in no distress he is still complaining of shortness of breath he is still maintained on high flow oxygen he has occasional cough otherwise he denies any complaints there is no fever or chills no headache or dizziness no chest pain no palpitation no nausea or vomiting no abdominal pain no diarrhea no blood in the stools no burning with urination no frequency or urgency and no hematuria On 11/01/2020 patient was seen and examined in the ICU he is alert and oriented 3 in no distress he is complaining of shortness of breath and is still maintained on high flow oxygen, he is complaining of cough , he was having some rectal bleeding and critical care physician discontinued Plavix and aspirin at this time otherwise he denies any complaints there is no fever or chills no headache or dizziness no chest pain no palpitation no nausea or vomiting no abdominal pain no diarrhea no burning with urination no frequency or urgency and no hematuria On 11/02/2020 patient was seen and examined in the ICU, through the night patient had worsening rectal bleeding, he developed hypotension, he received IV fluid boluses, hemoglobin this morning 6.4, 1 unit of red blood cell transfusion was ordered, Lovenox was discontinued, gastroenterology consultation requested, due to worsening hypotension and worsening respiratory failure, patient was intubated, sedated started on mechanical ventilation, pulmonary critical care following. On 11/03/2020 patient was seen and examined in the ICU, he is intubated , sedated maintained on mechanical ventilation, Patient has hypotension and is maintained on vasopressors, white blood count is elevated, blood culture and urine culture and sputum culture ordered, patient was started on IV antibiotic vancomycin and cefepime, pulmonary critical care following 11/04/2020 decision was made per family to proceed with comfort care. Patient was taken off pressors and at 1301 Plan - Discharge Summary New Discharge Prescriptions: No Action Cholecalciferol [Vitamin D3 (25 Mcg = 1000 Iu)] 5,000 unit PO MOWEFR Aspirin 81 mg PO DAILY metHOTREXate sodium [Methotrexate] 17.5 tab PO TU Folic Acid 1 mg PO HS Valsartan/Hydrochlorothiazide [Valsartan-Hctz 320-12.5 mg Tab] 1 tab PO DAILY Latanoprost Ophth [Xalatan 0.005%] 1 drops RIGHT EYE HS amLODIPine [Norvasc] 5 mg PO HS Clopidogrel [Plavix] 75 mg PO DAILY #90 tab Cyanocobalamin (Vitamin B-12) [Vitamin B-12] 1,000 mcg PO DAILY Codeine Phosphate/Guaifenesin [Guaiatussin AC Liquid] 5 ml PO Q6H PRN PRN Reason: Cough Zinc 50 mg PO BID Dexamethasone [Decadron] 4 mg PO BID Cefdinir 300 mg PO DIRECTED Benzonatate [Tessalon Perles] 100 mg PO TID PRN PRN Reason: Cough Albuterol Inhaler [Ventolin Hfa Inhaler] 2 puff INHALATION RT-Q4H PRN PRN Reason: Shortness Of Breath Atorvastatin Calcium [Lipitor] 20 mg PO HS Ascorbic Acid [Vitamin C] 1,000 mg PO DAILY Discharge Medication List Aspirin 81 mg PO DAILY 10/27/16 [History] Cholecalciferol [Vitamin D3 (25 Mcg = 1000 Iu)] 5,000 unit PO MOWEFR 10/27/16 [History] Folic Acid 1 mg PO HS 10/27/16 [History] Latanoprost Ophth [Xalatan 0.005%] 1 drops RIGHT EYE HS 10/27/16 [History] Valsartan/Hydrochlorothiazide [Valsartan-Hctz 320-12.5 mg Tab] 1 tab PO DAILY 10/27/16 [History] metHOTREXate sodium [Methotrexate] 17.5 tab PO TU 10/27/16 [History] amLODIPine [Norvasc] 5 mg PO HS 07/19/19 [History] Clopidogrel [Plavix] 75 mg PO DAILY #90 tab 09/12/19 [Rx] Albuterol Inhaler [Ventolin Hfa Inhaler] 2 puff INHALATION RT-Q4H PRN 10/22/20 [History] Ascorbic Acid [Vitamin C] 1,000 mg PO DAILY 10/22/20 [History] Atorvastatin Calcium [Lipitor] 20 mg PO HS 10/22/20 [History] Benzonatate [Tessalon Perles] 100 mg PO TID PRN 10/22/20 [History] Cefdinir 300 mg PO DIRECTED 10/22/20 [History] Codeine Phosphate/Guaifenesin [Guaiatussin AC Liquid] 5 ml PO Q6H PRN 10/22/20 [History] Cyanocobalamin (Vitamin B-12) [Vitamin B-12] 1,000 mcg PO DAILY 10/22/20 [History] Dexamethasone [Decadron] 4 mg PO BID 10/22/20 [History] Zinc 50 mg PO BID 10/22/20 [History] Follow up Appointment(s)/Referral(s): Fiorella Erwin MD [Primary Care Provider] - 1-2 days Discharge Disposition: - Preliminary Cause of Preliminary Cause of : Acute hypoxic respiratory failure secondary to COVID
== END 2020-11-04 12:40 | disposition expired | DRG 871 ==
LOC: EC 14:16 → 6NMEDSUR 17:41 → 2SICU 10-26 21:13
PROVIDERS: ADMIT Internal Medicine; ATTEND Internal Medicine
PROC: 06HY33Z Insertion of Infusion Device into Lower Vein, Percutaneous Approach (ICD-10-PCS; 2020-11-02)
PROC: 4A133B1 Monitoring of Arterial Pressure, Peripheral, Percutaneous Approach (ICD-10-PCS; 2020-11-02)
PROC: 03H733Z Insertion of Infusion Device into Right Brachial Artery, Percutaneous Approach (ICD-10-PCS; 2020-11-02)
PROC: 4A133J1 Monitoring of Arterial Pulse, Peripheral, Percutaneous Approach (ICD-10-PCS; 2020-11-02)
PROC: 0DJ08ZZ Inspection of Upper Intestinal Tract, Via Natural or Artificial Opening Endoscopic (ICD-10-PCS; 2020-11-02)
PROC: 30233N1 Transfusion of Nonautologous Red Blood Cells into Peripheral Vein, Percutaneous Approach (ICD-10-PCS; 2020-11-02)
PROC: 3E033XZ Introduction of Vasopressor into Peripheral Vein, Percutaneous Approach (ICD-10-PCS; 2020-11-02)
PROC: 3E0G76Z Introduction of Nutritional Substance into Upper GI, Via Natural or Artificial Opening (ICD-10-PCS; 2020-11-02)
PROC: 0DH67UZ Insertion of Feeding Device into Stomach, Via Natural or Artificial Opening (ICD-10-PCS; 2020-11-02)
PROC: 5A0955A Assistance with Respiratory Ventilation, Greater than 96 Consecutive Hours, High Flow/Velocity Cannula (ICD-10-PCS; 2020-11-02)
PROC: 5A1945Z Respiratory Ventilation, 24-96 Consecutive Hours (ICD-10-PCS; principal; 2020-11-02 09:05)
PROC: 0BH17EZ Insertion of Endotracheal Airway into Trachea, Via Natural or Artificial Opening (ICD-10-PCS; principal; 2020-11-02 09:05)
DX: A41.89 Other specified sepsis (principal); U07.1 COVID-19; J12.82 Pneumonia due to coronavirus disease 2019; J96.01 Acute respiratory failure with hypoxia; K55.039 Acute (reversible) ischemia of large intestine, extent unspecified; R65.21 Severe sepsis with septic shock; D62 Acute posthemorrhagic anemia; J44.0 Chronic obstructive pulmonary disease with (acute) lower respiratory infection; E87.2 Acidosis; R57.1 Hypovolemic shock; Z66 Do not resuscitate; Z51.5 Encounter for palliative care; E78.5 Hyperlipidemia, unspecified; K29.70 Gastritis, unspecified, without bleeding; M06.9 Rheumatoid arthritis, unspecified; H91.90 Unspecified hearing loss, unspecified ear; I10 Essential (primary) hypertension; I25.10 Atherosclerotic heart disease of native coronary artery without angina pectoris; K21.9 Gastro-esophageal reflux disease without esophagitis; I73.9 Peripheral vascular disease, unspecified; Z86.79 Personal history of other diseases of the circulatory system; Z79.899 Other long term (current) drug therapy; Z95.820 Peripheral vascular angioplasty status with implants and grafts; Z79.82 Long term (current) use of aspirin; Z80.42 Family history of malignant neoplasm of prostate; Z79.01 Long term (current) use of anticoagulants; Z79.02 Long term (current) use of antithrombotics/antiplatelets; Z98.890 Other specified postprocedural states; Z87.891 Personal history of nicotine dependence; Z87.01 Personal history of pneumonia (recurrent); Z82.49 Family history of ischemic heart disease and other diseases of the circulatory system; Z82.3 Family history of stroke
CPT/HCPCS: 36415; 43235; 71045; 71275; 80048; 80053; 81001; 82550; 82728; 82805; 83036; 83605; 83615; 83735; 84145; 84484; 85025; 85027; 85379; 85610; 85730; 86140; 86850; 86900; 86901; 86920; 87040; 87070; 87077; 87086; 87186; 87205; 87502; 87635; 93005; 93306; 94002; 94003; 94640; 94770; 99285